=== PATIENT | female | born 1945 | race Caucasian/White ===

== ENCOUNTER 2019-03-13 11:00 | Outpatient (RCR) | payer MEDICARE, OTHER, SELFPAY ==
--- NOTE | 2019-02-21 13:53 | HP.PTEVAL ---
Patient's Visit Information MAGNO ARAGON is a 73 year old F referred to Physical Therapy by Tony Beatty MD with a diagnosis of L hip OA and weakness. Date of Evaluation: 02/07/19 Physical Therapist: Haider Leong DPT - Visit Plan Frequency: 2x /Week Duration: 4-6 Weeks Plan: Start with L hip ROM/strengthening. Add in core stability and functional gait/stability exercises in aquatic setting. - Subjective Findings: Pt. is here today for her initil evaluation with L hip OA and weakness. Pt. reports having symptoms for a few years. pt. reports increased L hip pain and groin pain. Pt. reports increased pain with walking, standing, and stairs. Pt. is sleeping with minimal issues. Pt. has greatest complaint with walking. Pt. denies N/T. Pt. reports they talked about hip replacement, but needs to be stronger first. Pt. does not walk with AD, but has one. Pt. is hopeful to reduce symptoms in order to get back to recreational walking without limitations. - Pain left hip Pain Intensity (Out of 10): 6 L hip Pain Intensity (Out of 10): 5 Pain Intensity Range: 2, 6 - Objective POSTURE: Pt. is able to stand without AD. Pt. has increased R wt. shift wit trunk correction. Pt. is able to improve, but has pain with doing so. PALPATION: Pt. has increased tenderness at greater trochanter and posterior hip. Mild anterior hip soreness. NEURO: Pt. has normal neuro signs throughout. No sensation loss. ROM: L hip- flexion 95 decrease increase NW, abd 30deg increase NW, extension neutral increase NW, ER 45deg increase NW, IR 15deg increase NW. Tight HS bilaterally. MMT: LLE- ankle 5/5 throughout; knee- ext 4+/5, flexion 4/5; hip- flexion 4-/5, abd 4-/5, ext 4/5. Core strength- poor. RLE- ankle/knee 5/5 throughout; hip- 4+/5 throughout. GAIT: Pt. ambulates with out AD, but has increased L lateral lean during L stance phase Pt. has increased lateral hip sway during stance phase. Pt. has increase pain during stance phase. Increased hip circumduction during swing phase. STAIRS: normal ascending with heavy use of HRs to complete. Descends lateral fashion loading RLE only. - Goals Goal 1:: Pt. to be I with HEP. Goal Time Frame: 4-6 Weeks Goal 2:: Pt. to have increased HS length by 25deg in 90/90 positioning. Goal Time Frame: 4-6 Weeks Goal 3:: Pt. to have increased LLE strength by 1/2 grade throughout. Goal Time Frame: 4-6 Weeks Goal 4:: Pt. to ambulate with normal gait pattern with 0-1/10 pain for unlimited distances. Goal Time Frame: 4-6 Weeks Goal 5:: Pt. to negotiate steps with reciprocal pattern with 1 HR with 0-2/10 pain in L hip. Goal Time Frame: 4-6 Weeks - Rehabilitation Potential Physical Therapy Diagnosis: Pt. has signs and symptoms consistent with L hip OA and L hip weakness. Pt. reprots increased pain with increased ROM, greatest wtih flexion, ext and IR. PT. has marked weakness in her L hip as well. Pt. would benefit from PT to increase core and hip strength, increase hip ROM progressing stability and safety with gait and fiunctional monbility. Rehabilitation Potential: Good - Anticipated Interventions Patient/Client Instruction: Educate patient on: Condition, Plan of Care, Risk Factors, Benefits of Fitness Program For the Purpose of:: To improve health and function, To foster healthy habits, To improve decision making, To facilitate caregiver knowledge, To improve self management, To prevent re-injury, To improve ability to perform tasks related to life management, To improve tolerance to ADL's Therapeutic Exercise to Include: Strength training, Power training, Endurance training, Coordination, Postural training, Flexibilty training, Gait and locomotor training, In an aquatic setting, Passive ROM, Active ROM, Dynamic Lumbar Stabilization For the Purpose of:: To decrease pain, To decrease swelling/inflammation, To increase ROM, To improve nutrient delivery to tissue, To increase oxygenation perfusion, To improve muscle performance and motor function, To improve gait and locomotor functions, To improve health of tissue, To decrease soft tissue restriction, To increase flexibility/ROM, To improve endurance, To improve balance, To improve safety with gait Thank you for the opportunity to evaluate your patient. For Medicare and Medicare HMO plans, please review the plan of care and approve it. It will need to be FAXED BACK to us at [phone] for Medicare purposes. For Medicare only, by signing this I certify the plan of care. Please let me know if there are questions or concerns regarding this plan of care. Physician Signature: Date:
== END 2019-03-13 19:00 | disposition home or self-care (01) ==
LOC: PT 11:00
PROVIDERS: Family Provider Internal Medicine; PCP Internal Medicine; Referring Provider Specialist; Visit Provider Specialist
DX: M16.12 Unilateral primary osteoarthritis, left hip (principal); R53.1 Weakness
CPT/HCPCS: 97113; 97161; 97530

== ENCOUNTER 2019-04-12 13:15 | Emergency (ER) | payer MEDICARE, OTHER, SELFPAY ==
[2019-04-10 13:03] VITALS: BMI 39.3
[2019-04-12 13:16] VITALS: BP 155/98; PULSE 91; RESP 18; TEMP 35.3; O2SAT 96; BMI 40.2
--- NOTE | 2019-04-12 14:01 | ED.VIS.GEN ---
History of Present Illness Chief Complaint: Constipation Informant: Patient Onset: Days - 2 days Current Severity: Moderate Maximum Severity: Moderate Narrative: Patient presents with constipation for the past 2 days. She states her last bowel movement was 2 days ago. She does not believe she is passing gas. She is having a lot of cramping. She states she feels stool at her rectum but was not able to pass it. She does not have a chronic history of constipation, stating the last episode that she had was probably 4 years ago. She is scheduled to undergo hip replacement, but is not currently taking any narcotics or strong pain medicines. - Past Medical History (1) GERD (gastroesophageal reflux disease) Status: Chronic (2) CVA (cerebral vascular accident) Status: Chronic (3) Gastric ulcer Status: Chronic (4) Sleep apnea Status: Chronic (5) S/P appendectomy Status: Chronic (6) Hx of cholecystectomy Status: Chronic Past Medical History - Allergies and Home Meds Allergies/Adverse Reactions: Allergies tramadol Allergy (Intermediate, Verified 04/12/19 13:18) Unknown cisapride monohydrate [From Propulsid] Allergy (Verified 04/12/19 13:18) Other PALPITATIONS codeine Allergy (Verified 04/12/19 13:18) Other COUGH Estrogens Allergy (Verified 04/12/19 13:18) Other CRAMPS gabapentin Allergy (Verified 04/12/19 13:18) Other FLU LIKE SYMPTOMS griseofulvin, microsize [From Grifulvin V] Allergy (Verified 04/12/19 13:18) Other HEAD ACHES Sulfa (Sulfonamide Antibiotics) Allergy (Verified 04/12/19 13:18) Other CONVULSIONS atorvastatin Adverse Reaction (Intermediate, Verified 04/12/19 13:18) myalgias biotin forte Allergy (Intermediate, Uncoded 04/12/19 13:18) anxiety ALL FRUIT Allergy (Uncoded 04/12/19 13:18) Other BREAKS MOUTH OUT INTO HORRIBLE SORES Primary Care Physician: Syl Orozco MD [Primary Care Provider] - Prior records reviewed: Yes Surgical History: appendectomy, cholecystectomy, hysterectomy, total hip arthroplasty, total knee arthroplasty, tonsillectomy Smoking Status: Never smoker Review of Systems General: Denies: Chills, Fever Eyes: Denies: Visual changes - bilaterally ENT: Denies: Bilateral ear pain Cardiovascular: Denies: Chest pain Respiratory: Denies: Dyspnea, Cough Gastrointestinal: Reports: Abdominal pain, Constipation Genitourinary: Denies: Dysuria Neurological: Denies: Headache Allergy: Denies: Uticaria Physical Exam Vital Signs/Narrative: Vital Signs Temp Pulse Resp BP Pulse Ox 04/12/19 13:16 95.6 F L 91 18 155/98 H 96 Inital Vital Signs reviewed: Yes General: Well nourished, Well developed Head: Normocephalic ENT: Moist mucous membranes Neck: Supple Cardiovascular: Regular rate, Regular rhythm Respiratory: No distress, CTA bilaterally Abdomen: Soft, Nontender, Normal bowel sounds Rectal: - - Fecal impaction in the rectum Extremities: Nontender Skin: Normal color Neurological: Alert, Oriented x3 Psychological: Normal affect Diagnostic/Tx/Re-eval - Medical Decision Making Patient was mainly disimpacted. Soapsuds enema was performed with good results. She is comfortable with discharge to home at this time. ED Disposition - Plan for ED Patient: Disposition: Home or Assisted Living Diagnosis: Constipation Instructions: CONSTIPATION (Adult) Referrals: Syl Orozco MD [Primary Care Provider] - As Needed
[2019-04-12 15:27] VITALS: RESP 17
== END 2019-04-12 15:27 | disposition home or self-care (01) ==
PROVIDERS: Emergency Provider Emergency Medicine; PCP Internal Medicine; Referring Provider Internal Medicine
DX: K59.00 Constipation, unspecified (principal); K21.9 Gastro-esophageal reflux disease without esophagitis; Z86.73 Personal history of transient ischemic attack (TIA), and cerebral infarction without residual deficits; Z79.899 Other long term (current) drug therapy
CPT/HCPCS: 99284

== ENCOUNTER 2019-04-18 08:00 | Observation (INO) | payer MEDICARE, OTHER, SELFPAY ==
[2019-03-28 14:25] VITALS: BP 153/82; PULSE 82; RESP 16; TEMP 36.2; O2SAT 97; BMI 39.7
--- NOTE | 2019-03-28 14:43 | SDCEKG_ITS ---
Test Reason : Blood Pressure : / mmHG Vent. Rate : 078 BPM Atrial Rate : 078 BPM P-R Int : 156 ms QRS Dur : 082 ms QT Int : 396 ms P-R-T Axes : 012 068 -09 degrees QTc Int : 451 ms Normal sinus rhythm T wave abnormality, consider inferior ischemia Abnormal ECG Confirmed by LUZ ELENA MCCOY, TREV ([id number]), tape editor KAREY ARITA ([id number]) on 03/30/2019 1:17:14 PM Referred By: Tony Beatty Confirmed By:JUDIE LAGUNA MD
[2019-03-28 15:27] LABS: Absolute Lymphocyte Count 1.16 X10^3/uL (0.83-4.51); Absolute Neutrophil Count 3.4 X10^3/uL (2.0-7.7); Basophil# 0.01 X10^3/uL; Basophil% 0.2 % (0-1); Eosinophil# 0.05 X10^3/uL; Hematocrit 41.7 % (37-47); Hemoglobin 13.8 g/dL (12.0-15.0); Lymphocyte # 1.16 X10^3/ul (4.0); Lymphocyte % 22.1 % (19-41); Mean Corp Hgb Conc 33.1 g/dL (32-36); Mean Corpuscular Hgb 33.5 pg (27.0-32.0); Mean Corpuscular Volume 101.2 fL (81-99); Mean Platelet Vol. 11.7 fl (6.2-12.0); Monocyte# 0.61 X10^3/uL; Monocyte% 11.6 % (0-10); NRBC Flagged by Analyzer 0 % (0-5); Neutrophil # 3.42 X10^3/uL (2.7-7.7); Neutrophil % 64.9 % (47-70); Platelet Count 146 K/mm3 (150-450); RBC Distribution Width CV 13.2 % (11.6-14.6); RBC Distribution Width SD 49.1 fl (35.1-43.9); Red Blood Count 4.12 M/mm3 (4.2-5.4); White Blood Count 5.3 K/mm3 (4.4-11.0)
[2019-03-28 16:02] LABS: Anion Gap 6 (5-15); BUN 26 mg/dL (7-18); BUN/Creat Ratio 25.5 RATIO (10-20); Calcium,Total 9.4 mg/dL (8.5-10.1); Chloride 109 mmol/L (98-107); Creatinine, Serum 1.02 mg/dL (0.55-1.02); EST Glomerular Filtration Rate 56 mL/min (>60); Est Glom Filt Rate - Afr Amer 68 mL/min (>60); Estimated Creatinine Clearance 47.77 ml/min; Glucose 97 mg/dL (74-106); Potassium 4.2 mmol/L (3.5-5.1); Sodium Level 142 mmol/L (136-145)
--- NOTE | 2019-03-29 11:44 | PCM.HP.BLA ---
History and Physical History and Physical Patient Name: Sole Rai : 1945 From: PHOEBE BRUNSON PA-C DATE OF SURGERY: 04/18/2019 SCHEDULED PROCEDURE: Left Total Hip Arthroplasty HISTORY OF PRESENT ILLNESS: Preoperative history and physical exam was performed on March 28, 2019. This is a 73-year-old female who has been having ongoing pain in the left hip since August 2018. At that time patient noted a fall. She has pain that reaches high as a 9/10 with activity. Pain is increased with stairs, sitting, walking. Pain has been constant, dull, sharp, stabbing, and sore. Call time with activities of daily living including housework, shopping, and leisure activities such as playing games and sitting. She has tripped slept stumbled secondary to pain. 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 Patient has tried rest, ice, elevation with minimal relief. Patient has also been through physical therapy and home exercises with minimal relief. She has had [address] Rodriguez with temporary relief. She has tried oral medications consisting of Tylenol, [place]. She has been using a cane in the past 4 months. She denies previous surgery on the left hip. After failing conservative measures and discussing treatment options with Dr. Tony Beatty, the patient does wish to proceed with a left total hip arthroplasty. We are getting surgical clearance from the primary care physician Eddie Albert NP. Patient denies chest pain, shortness of breath, fevers chills, recent infections. REVIEW OF SYSTEMS: ROS: Const: Reports change in appetite and weight change, and vision problems, but denies anorexia, anxiety and fever,hard of hearing. CV: Denies chest pain, heart murmur, irregular heartbeat and peripheral vascular disease. Resp: Reports sleep apnea (adrenal symptom), but denies asthma, cough, pneumonia, SOB, tuberculosis and wheezing GI: Denies constipation, diarrhea, heartburn, nausea, bloody stools and vomiting, and difficulty swallowing. : Urinary: denies incontinence. Musculo: Denies leg swelling, trouble walking and weakness, denies limp. Skin: Denies Raynaud's, history of shingles and tattoo. Neuro: Reports numbness/tinglingReports difficulty with balance and dizziness (sometimes) but denies ambulatory dysfunction Psych: Denies anxiety, depression, insomnia, mental illness and stress. Kel/Lymph: Denies anemia, bleeding/bruising tendency and past transfusion. Reviewed, no changes. PAST MEDICAL HISTORY: Advance Care Plan: No Advance Directives Effective Date: 07/07/2015 PMH: Medical Problems: Ulcers - Maybe .... Acid Reflux Chronic Ulcerative Stomatitis, Stroke Accidents: Fracture - Rt shoulder - Slipped on ice 3-4yrs ago Knees - Due to meds taken for the Lichen planks disease, I had 5 1/2 yrs ago RT Femur FX - IN 3 PLACES Surgical Hx: Appendectomy - (1962) [place] Gallbladder - (1998) [facility] Hysterectomy - (1969) x2 - [facility] Tonsillectomy - (1951) [facility]. Section - (1968) & 1971, x2 Hemroidectomy - (1969) x2 - [place] Arthroscopy - (2003) 2005 - [facility] - Knee Replacement - (01/25/2006) BILATERAL, DR. ABREU, [facility] LT Index Finger - X2 LT Middle Finger, RT Index Finger Femur FX - (2011) Bilat Cataracts Anesthesia Complications: None Assistive Devices: Glasses, Dentures Reviewed and updated. SOCIAL HISTORY: SH: Marital: .Occupation: Retired.Work Status: Retired.Hand Dominance: Right-handed. Personal Habits: Smoking: Patient has never smoked.Cigarette Use: Never.Alcohol: Denies use.Drug Use: Denies Use.Enjoy Exercising: Never Exercises. Reviewed, no changes. VITALS: Ht: 67 Wt: 246lb Wt k.586 BMI: 38.5 BP: 124/72 Pulse: 64 Resp: 14 T: 96.3 T: 35.7C ALLERGIES: Sulfa - convulsions Codeine - dry cough Fruit - flare up in mouth Gabapentin MEDICATIONS: Amoxicillin 500 mg 4 by mouth 1 h prior to dental procedure, Fluocinonide 0.05 % topically, Tacrolimus 0.1 % daily, Probiotic 1 cap PO daily, Dexamethasone 0.5 mg/5ml, Multivitamin Adult 1 by mouth every day, Tylenol Extra Strength 500 mg 2 by mouth every 8 hours, Omeprazole 20 mg 1 by mouth every day, Chlorhexidine Gluconate 0.12 % tid 1/2 oz for 30 secs qd PRE-OP EXAM: General appearance:NORMAL Other: Eyes: Conjunctivae and lids: NORMAL Pupils: ERR Ears, Nose, Mouth, and Throat: NORMAL Other: Inspection of lips, teeth and gums: NORMAL Other: Neck: Examination of neck: no masses noted. Respiratory: Assessment of respiratory effort: NORMAL Other: Auscultation of lungs: clear to auscultation no wheezes, rhonchi or rales. Cardiovascular: Auscultation of heart: regular rate and rhythm, no murmurs, gallops or rubs. Exam of carotid arteries: NORMAL Other: Gastrointestinal: Exam of abdomen: soft, nontender, nondistended bowel sounds present. PHYSICAL EXAMINATION: Patient walks with an antalgic gait. Left hip 20 flexion contracture is appreciated. There is tenderness to palpation over the lateral left hip at the greater trochanter. Range of motion: Laboratory external rotation with flexion, flexion 80, neutral internal rotation, external rotation 20. Pain is increased with range of motion of the hip. 4/5 hip strength due to pain. Sedation intact to light touch. IMAGING STUDIES: X-rays of the left hip reveal joint space narrowing with subchondral sclerosis and osteophyte formation consistent with severe osteoarthritis. IMPRESSION: 1. Severe left hip osteoarthritis 2. Gastric esophageal reflux disease 3. Chronic ulcerative stomatitis 4. History of stroke PLAN: Dr. Tony Beatty did discuss and review with the patient all treatment options including surgical versus nonsurgical options. Patient does wish to proceed with the above-stated procedure. Potential risks, benefits, and complications of the procedure were discussed in detail including but not limited to , infection, nerve and blood vessel damage, persistent pain, numbness, tingling, paresthesias, blood clot, pulmonary embolism, and requirement for possible further surgery. The patient expressed full understanding and has no further questions for the doctor. Patient does agree to proceed with the above-stated procedure and has signed the surgery consent form. This dictation was created using voice recognition software. Phonetic and/or grammatical errors may exist. ___ I have re-examined the patient. There are no clinical changes since date of exam. ___ See progress notes for changes. ___ Dictated on admission Date: Time: Signature:
[2019-04-13 17:43] LABS: Albumin, Serum 3.8 g/dL (3.2-5.0)
[2019-04-18] VITALS (11 sets, daily range): BP systolic 93–124; BP diastolic 46–81; PULSE 68–88; RESP 15–18; TEMP 36.3–37.2; O2SAT 97–100; BMI 39.7
[2019-04-18 08:31] LABS: Bedside Glucose 85 mg/dL (70-110)
[2019-04-18] MEDS: Magnesium Sulfate 4gm/100mL 4 GM/100 ML IV.SOLN. IV (08:39)
[2019-04-18] MEDS: Acetaminophen 500 MG Tablet 1000 MG PO ×2 (08:39→22:49)
[2019-04-18] MEDS: Celecoxib 200 MG Capsule 400 MG PO (08:39)
[2019-04-18] MEDS: Lactated Ringers 1,000 ML 100 ML IV (08:54)
[2019-04-18] MEDS: Cefazolin 2 GM in 0.9% Normal Saline 100 ML IV (10:15)
--- NOTE | 2019-04-18 10:57 | RAD_ITS ---
STUDY: X-RAY - PELVIS AND LEFT HIP REASON FOR EXAM: Female, 73 years old. Total ANTERIOR LEFT HIP REPLACEMENT TECHNIQUE: 2 coned-down intraoperative views of the pelvis and hip. COMPARISON: None. FINDINGS: Intraoperative imaging provided for left total hip replacement. RAD/Hip 1 view with Pelvis IMPRESSION: Intraoperative imaging provided for left total anterior hip replacement. There is good alignment. Electronically Signed: Nicolás Obando, at 14:56 EST , Service support ,
[2019-04-18] MEDS: dexAMETHasone 10 MG/ML Vial IV (11:21)
--- NOTE | 2019-04-18 12:01 | PCM.OPRPT ---
Report of Operation Date of Procedure: 04/18/19 Pre-Operative Diagnosis: Left hip primary osteoarthritis Post-Operative Diagnosis: Left hip primary osteoarthritis Surgery/Procedure Performed:: Left minimally invasive direct anterior hip replacement Description of Surgical Findings:: Stable hip with equal leg lengths on radiographs form press operator: Cl Christine Type of Anesthesia:: Spinal Anesthesiologist: Kirk Price Special Medications: 2 g Ancef, 1 g TXA at incision, 1 g TXA closure, 10 mg Decadron, joint cocktail (5 mg Duramorph, 30 mL of 0.5% Ropivicaine, 1000 units of epinephrine, 30 mg of Toradol) Specimen's removed: Bony cuts Estimated Blood Loss (mL): 200 Fluids Replaced: 1100 mL crystalloid Description of Procedure: Components used: 1. Accolade 2 [place] femoral stem size 7 127? 2. [place] trident 2 acetabular shell size 52 mm 3. Kwadwo X3 polyethylene E 4. Kwadwo Biolox delta 36mm, +5mm femoral head Brief history operative indications: 73 yo F who failed conservative measures for their hip osteoarthritis. X-rays were consistent with osteoarthritis including joint space narrowing, osteophyte formation and subchondral cysts. Total hip replacement was discussed with the patient with risks and benefits including but not limited to blood loss, DVTs, PEs, neurovascular damage, dislocation, general risks of anesthesia including loss of life. Patient demonstrated an understanding medical clearance is obtained the patient was consented for surgery. Procedure: On the date of procedure the patient's L hip was marked in the preoperative area. Patient was then taken back to the operating room where anesthesia assumed control of the C-spine and airway and administered anesthetic. Patient was transferred to the operating table and placed in the supine position. The hips were placed at the break of the bed and a sacral bump was placed. The L lower extremity was then prepped out in a sterile fashion using chlorhexidine while the surgeon scrubbed. The PA was vital in the positioning of the patient. Upon reentering the room the L lower extremity was draped in the standard orthopedic fashion and the incision was marked. A timeout was called and everyone agreed upon the side, the site, the procedure be performed, antibody given, and patient's identity. At this time incision was made through skin, subcutaneous tissue, and fat down to fascia. The fascia was then incised and the TFL was retracted laterally. A retractor was placed on the lateral border of the femoral neck. Attention was directed to the inferior portion of the approach and all crossing vessels were identified and appropriately coagulated. A retractor was then placed on the medial portion of the femoral neck. The anterior capsule was then cleared of all soft tissue and then H shaped capsulotomy was made. The retractors were then placed inside the capsule. The femoral neck was identified and a cleanup cut was made. At this time a power corkscrew was used to remove the femoral head. Attention was then turned toward the acetabulum where the soft tissues were appropriately retracted and the acetabulum was sequentially reamed to 52 mm. A 52 mm cup was then selected and impacted into place. Acetabular liner was impacted into place and locking mechanism was verified. The position of the acetabular cup was then verified under live fluoroscopy. Attention was then turned to the femur. Soft tissue releases on the medial and lateral femoral neck were appropriately done, the leg was externally rotated and lateralized. A Santana retractor was placed medially and proximally to the greater trochanter this allowed appropriate visualization and exposure of the femoral canal. Rongeour was then used to remove excess lateral bone. A canal finder and entry broach were used to open the proximal canal. Once we verified we were down the femoral canal we subsequently broached up to a size 7 femur. The appropriate neck was placed in the previously selected head was trialed with a +5 mm neck. Traction was pulled and the hip was reduced with internal rotation. Once it was appropriately reduced and stability was checked. There was minimal shuck, equal leg lengths and appropriate stability with hyperextension and external rotation as well as with 90? flexion and internal rotation. Fluoroscopy was then also used to verify the position of the components and leg lengths using the contralateral side for comparison. The trial components were then dislocated the proximal femur was again exposed and the components were removed from the wound. The final components were verified and opened. The wound was copiously irrigated out with normal saline. The acetabulum was checked for any residual debris. The final components were placed and impacted. Traction and internal rotation were again used to reduce the hip. After adequate reduction the hip remained stable with appropriate leg lengths. The final components were once again checked with live fluoroscopy and were found to be satisfactory. The wound was then copiously irrigated with normal saline once more, and hemostasis was obtained. Closure was then done using #1 Vicryl runner to close the fascia. A 2-0 vicryl interuppted sutures were used to close the subcutaneous skin. A 3-0 Monocryl and Steri-Strips were used for final skin closure. A Silverlon dressing was placed. Patient was awakened by anesthesia and transferred to the [facility]. Patient was then transferred to the PACU for recovery. Postoperative plan: Patient will get 24 hours postop antibiotics. Patient will get in-house physical therapy and will be weight-bear as tolerated. Patient will follow up in office in 2 weeks for a wound check and x-rays. - Complications No intraoperative complications - Admit VTE Documentation VTE Present on Admission: No VTE Mechan Device Prophylaxis: SCD's, Thigh High VIKRAM Hose VTE Pharm Prophylaxis ordered?: Yes
[2019-04-18] MEDS: Lactated Ringers 1,000 ML 999 ML IV (12:44)
[2019-04-18] MEDS: Lactated Ringers 1,000 ML 125 ML IV ×4 (13:14→22:53)
--- NOTE | 2019-04-18 13:20 | RAD_ITS ---
STUDY: X-RAY - PELVIS AND LEFT HIP REASON FOR EXAM: Female, 73 years old. POST OP TOTAL ANTERIOR HIP REPLACEMENT LEFT TECHNIQUE: 2 views of the pelvis and hip. COMPARISON: Comparison is made with prior study done earlier in the day. FINDINGS: The patient is status post left total hip replacement. There is good alignment. Postoperative soft tissue changes. RAD/HIP, UNI W/ Pelvis 2-3 Views IMPRESSION: Status post left hip replacement. There is good alignment. Postoperative soft tissue changes. Electronically Signed: Nicolás Obando, at 14:57 EST , Service support ,
[2019-04-18] MEDS: Ketorolac 15 MG/ML Vial IV (17:11)
[2019-04-18] MEDS: 0.9% Saline Lock 10 ML Syringe IV (17:11)
[2019-04-18] MEDS: Ensure Surgery 237 ML LIQUID PO (17:12)
[2019-04-18] MEDS: Aspirin 81 MG TAB.CHEW PO (17:15)
[2019-04-18] MEDS: Cefazolin 1 GM/50 ML BAG IV (18:19)
[2019-04-18] MEDS: Senna/Docusate Sodium 1 Tablet 2 TABLET PO (22:48)
[2019-04-19] MEDS: Cefazolin 1 GM/50 ML BAG IV (01:17)
[2019-04-19 04:00] VITALS: BP 105/48; PULSE 67; RESP 16; TEMP 36.6; O2SAT 100
[2019-04-19 04:14] VITALS: RESP 16; O2SAT 100
[2019-04-19] MEDS: Acetaminophen 500 MG Tablet 1000 MG PO ×2 (06:20→13:54)
[2019-04-19] MEDS: 0.9% Saline Lock 10 ML Syringe IV (06:22)
[2019-04-19 06:26] LABS: Hematocrit 33.8 % (37-47); Hemoglobin 10.8 g/dL (12.0-15.0); Mean Corpuscular Hgb 32.9 pg (27.0-32.0); Mean Platelet Vol. 11.9 fl (6.2-12.0); POSITIVE COUNT YES; Platelet Count 87 K/mm3 (150-450); RBC Distribution Width SD 48.8 fl (35.1-43.9); Red Blood Count 3.28 M/mm3 (4.2-5.4); White Blood Count 8.7 K/mm3 (4.4-11.0)
[2019-04-19 06:39] LABS: Anion Gap 4 (5-15); BUN 14 mg/dL (7-18); BUN/Creat Ratio 25.2 RATIO (10-20); Calcium,Total 8.4 mg/dL (8.5-10.1); Chloride 112 mmol/L (98-107); Creatinine, Serum 0.56 mg/dL (0.55-1.02); EST Glomerular Filtration Rate 114 mL/min (>60); Est Glom Filt Rate - Afr Amer 138 mL/min (>60); Estimated Creatinine Clearance 48.72 ml/min; Glucose 118 mg/dL (74-106); Potassium 4.5 mmol/L (3.5-5.1); Sodium Level 140 mmol/L (136-145)
--- NOTE | 2019-04-19 08:51 | PN.ORTHO_ITS ---
Subjective: The patient was sitting in bedside chair upon examination. Patient denies any chest pain, shortness of breath, dizziness, lightheadedness, nausea or vomiting, or calf pain. Pain is controlled on medications. No adverse overnight events. Patient is doing very well with regards to her postoperative left hip. Patient has not required any narcotics at this time. Her pain is been controlled on Tylenol. Patient does have outpatient physical therapy established. Objective: Vital signs stable and afebrile. Patient is able to plantarflex and dorsiflex actively. Sensation is intact to light touch to saphenous, sural, superficial and deep peroneal, and tibial distribution. Dressing is clean dry and intact. Negative Homans bilaterally, negative signs and symptoms of DVT. - Physical Exam Vitals/I&O's: Vital Signs Temp Pulse Resp BP Pulse Ox 97.9 F 67 16 105/48 L 100 04/19/19 04:00 04/19/19 04:00 04/19/19 04:14 04/19/19 04:00 04/19/19 04:14 Oxygen Flow Rate (L/min) 2 Oxygen Delivery Method Nasal Cannula Weight: 115.1 kg Body Mass Index (BMI) 39.7 Finger Stick Blood Glucose 66 Intake and Output for Last 24 Hours 04/17/19 04/18/19 04/19/19 23:59 23:59 23:59 Intake Total 4800.83 / 5640.83 Balance 4800.83 / 5640.83 General: Alert, Oriented x3, Cooperative, No apparent distress Laboratory Results 04/19/19 05:44: WBC 8.7, RBC 3.28 L, Hgb 10.8 L, Hct 33.8 L, MCV 103.0 H, MCH 3 2.9 H, MCHC 32.0, RDW Std Deviation 48.8 H, RDW Coeff of Isabela 13.0, Plt Count 87 L, MPV 11.9 04/19/19 05:44: Sodium 140, Potassium 4.5, Chloride 112 H, Carbon Dioxide 24.0, Anion Gap 4 L, BUN 14, Creatinine 0.56, Estim Creat Clear Calc 48.72, Est GFR (MDRD) Af Amer 138, Est GFR (MDRD) Non-Af 114, BUN/Creatinine Ratio 25.2 H, Glucose 118 H, Calcium 8.4 L Current Medications Acetaminophen (Tylenol) 1,000 mg PO Q8 [facility] Last Admin: 04/19/19 06:20 Dose: 1,000 mg Documented by: Aspirin (Aspirin, Baby) 81 mg PO BIDCM [facility] Last Admin: 04/18/19 17:15 Dose: 81 mg Documented by: Enteral Nutritional Formula (Ensure Surgery) 237 ml PO TIDCM [facility] Last Admin: 04/18/19 17:12 Dose: 237 ml Documented by: Famotidine (Pepcid) 20 mg PO DAILY [facility] Ketorolac Tromethamine (Toradol) 15 mg IV Q6H PRN PRN PRN Reason: Pain Score 1-5/10 Stop: 04/19/19 18:01 Last Admin: 04/18/19 17:11 Dose: 15 mg Documented by: [facility]ine Sulfate () 2 - 4 mg IV Q2H PRN PRN PRN Reason: Pain Score 4-10/10 Morphine Sulfate () 2 - 4 mg IV Q2H PRN PRN PRN Reason: Pain Score 4-10/10 Multivitamins (Multivitamin) 1 tablet PO DAILY@0800 [facility] Ondansetron HCl (Zofran) 4 mg IV Q8H PRN PRN PRN Reason: NAUSEA Oxycodone HCl (Oxyir) 2.5 mg PO Q4H PRN PRN PRN Reason: Pain Score 4-10/10 Pantoprazole Sodium (Protonix) 20 mg PO DAILY [facility] Promethazine HCl (Phenergan) 12.5 mg IM Q6H PRN PRN; Protocol PRN Reason: NAUSEA/VOMITING Senna/Docusate Sodium (Senokot-S, Marium-Colace) 2 tablet PO BID [facility] Last Admin: 04/18/19 22:48 Dose: 2 tablet Documented by: Sodium Chloride () 10 - 40 ml IV UD PRN PRN Reason: SALINE FLUSH Last Admin: 04/19/19 06:22 Dose: 10 ml Documented by: Medical Necessity - Tobacco Use Smoking Status: Never smoker Tobacco Use: Non-smoker Assessment/Plan All Active Problems (Last Reviewed 04/10/19 @ 13:58 by Lorena Gross MD) Abnormal EKG (Acute) Preop cardiovascular exam (Acute) 1. S/P direct anterior left total hip arthroplasty POD #1 2. Continue Pain Medications: Tylenol, meloxicam, and OxyIR as needed 3. DVT Prophylaxis: Aspirin 81 mg twice daily for 4 weeks postoperatively 4. PT/OT: Weightbearing as tolerated 5. H & H: 10.8/33.8, asymptomatic 6. Encouraged Incentive Spirometry 7. Disposition: Orthopedically stable, plan will be for discharge home this afternoon if patient tolerates physical therapy and pain is well controlled. Patient does have outpatient physical therapy established. Prescriptions will be E scribed to [facility] pharmacy. Patient will have narcotic placed on chart and only get filled if needed. She will follow-up per postop instructions. I have reviewed the [place] Automated Rx Reporting System (OARRS) report for this patient for refill pattern and other prescriber involvement as part of the appropriate surveillance for the provision of acute and chronic controlled medications. The report was requested and reviewed on the date of this entry and was considered in the prescribing process.
--- NOTE | 2019-04-19 08:59 | DCINST_ITS ---
Discharge Diet: No Restrictions Discharge Activity: May Not Drive - while taking narcotic pain medications. May shower in (days): 1 - Only if dressing is intact to skin. Turned dressing away from water Ice area for (Minutes): 20 - Every 1-2 hours while awake Weight Bearing Status: Weight bearing as tolerated - With walker Elevate: Operative Extremity Additional Activity Instructions:: Wear elastic stockings for 2 weeks. DO NOT use alcohol with narcotic pain medication. DO NOT make important decisions while taking narcotic medication. If you have problems with taking your medication (rash, itching, nausea, etc.) call the office at once. Call your doctor if your incision/area has: Increased Pain/ Swelling, Increased Redness, Foul Smelling Discharge Call your doctor if you observe: Fever of 101 or Higher Remove Dressing in (days):: 4 - Okay to remove dressing on April 23, 2019 Additional Instructions: Follow orthopedic postop instructions Allergies/Adverse Reactions: Allergies tramadol Allergy (Intermediate, Verified 04/18/19 08:22) Unknown cisapride monohydrate [From Propulsid] Allergy (Verified 04/18/19 08:22) Other PALPITATIONS Estrogens Allergy (Verified 04/18/19 08:22) Other CRAMPS griseofulvin, microsize [From Grifulvin V] Allergy (Verified 04/18/19 08:22) Other HEAD ACHES Sulfa (Sulfonamide Antibiotics) Allergy (Verified 04/18/19 08:22) Other CONVULSIONS atorvastatin Adverse Reaction (Intermediate, Verified 04/18/19 08:22) myalgias codeine Adverse Reaction (Verified 04/18/19 08:22) Other COUGH gabapentin Adverse Reaction (Verified 04/18/19 08:22) Other FLU LIKE SYMPTOMS biotin forte Allergy (Intermediate, Uncoded 04/18/19 08:22) anxiety ALL FRUIT Allergy (Uncoded 04/18/19 08:22) Other BREAKS MOUTH OUT INTO HORRIBLE SORES Medications to take at Discharge Multivitamin [Daily Multiple Vitamin] 1 ea PO DAILY 03/28/19 Omeprazole [Prilosec] 20 mg PO DAILY 03/28/19 dexamethasone 0.5 mg/5 mL oral solution 5 ml PO BID PRN ml 04/06/19 fluocinonide-emollient 0.05 % topical cream 1 applic TOPICAL BID PRN g 04/06/19 lactobacillus combination no.8 3 billion cell capsule 3,000 mmu cells PO DAILY 04/06/19 tacrolimus 0.03 % topical ointment 1 applic TOPICAL BID PRN 04/06/19 cholecalciferol (vitamin D3) 400 unit capsule 1,200 unit PO DAILY cap 04/10/19 Acetaminophen [Tylenol] 1,000 mg PO TID 14 Days tablet 04/19/19 Aspirin [Aspirin, Baby] 81 mg PO BIDCM 30 Days #60 tab 04/19/19 Meloxicam [Mobic] 7.5 mg PO BIDCM #60 tab 04/19/19 Oxycodone [Oxyir] 5 mg PO Q4H PRN PRN 4 Days #24 tab 04/19/19 Senna/Docusate Sodium [Senokot-S] 2 tab PO BID #20 tab 04/19/19 The following prescriptions were given: Aspirin [Aspirin, Baby] 81 mg PO BIDCM 30 Days #60 tab Transmission Status: Pending to [id number] Meloxicam [Mobic] 7.5 mg PO BIDCM #60 tab Transmission Status: Pending to [id number] Oxycodone [Oxyir] 5 mg PO Q4H PRN PRN 4 Days #24 tab PRN Reason: Pain Score 4-10/10 Prescription Printed Senna/Docusate Sodium [Senokot-S] 2 tab PO BID #20 tab Transmission Status: Pending to [id number] Primary Care Physician: Syl Orozco MD [Primary Care Provider] - Test Results: Test results from this visit will be discussed in further detail at your follow- up appointment, if applicable. Please Follow Up With: [facility] orthopedic physical therapy When: April 23, 2019 @ 9:00 am Please Follow Up With: Leland Newman PA-C When: 05/02/19 @ 9:00 am
--- NOTE | 2019-04-19 09:35 | CASEMGMT ---
MIKO MCKEON Face to Face with patient for initial transition planning/care coordination assessment. RN MIKE introduced self and role at [facility]. Patient sitting in chair, alert and oriented. Patient willing to participate in assessment and is able to answer all questions appropriately. Care providers, pharmacy, and demographics verified. Patient wishes to discharge home with outpatient therapy setup at [facility]. Patient states she has no further needs or concerns at this time. CM to follow for discharge planning needs that may arise. PCP: Pam Specialists: El[facility] Pharmacy: [facility] Insurance: [facility] Prescription Benefit: yes Living Will/HPOA: none LNOK: daughters Living Arrangements: Patient lives alone in a condo with 1 step to enter the home. Patient independent at home prior to surgery. Transportation: Daughter DME/HHC: Patient has raised toilet with grab bars, walker, and cane. Patient has ASV ventilator for at . Patient is setup for outpatient therapy at [facility] for [facility]. Disposition Plan: Patient to discharge home with outpatient therapy, family support, and follow-up plans in place. Christiane LILLY, RN, CM
[2019-04-19 10:00] VITALS: BP 101/40; PULSE 73; RESP 18; TEMP 37.1; O2SAT 100
[2019-04-19] MEDS: Famotidine 20 MG Tablet PO (10:03)
[2019-04-19] MEDS: Aspirin 81 MG TAB.CHEW PO (10:03)
[2019-04-19] MEDS: Ensure Surgery 237 ML LIQUID PO (10:03)
[2019-04-19] MEDS: Multivitamins,Therapeutic Tablet 1 TABLET PO (10:03)
[2019-04-19] MEDS: Senna/Docusate Sodium 1 Tablet 2 TABLET PO (10:04)
[2019-04-19] MEDS: Pantoprazole Sodium 20 MG Tablet PO (10:04)
[2019-04-19 13:50] VITALS: BP 95/47; PULSE 74; RESP 16; TEMP 36.4; O2SAT 100
[2019-04-19 14:25] VITALS: BP 102/44; PULSE 72
== END 2019-04-19 14:28 | disposition home or self-care (01) ==
LOC: MS3 04-19 07:51 → ACINP 04-19 10:20 → MS3 04-19 10:20
PROVIDERS: Admitting Provider Specialist; Family Provider Internal Medicine; PCP Internal Medicine; Referring Provider Specialist; Visit Provider Specialist
PROC: (CPT 27284; principal; 2019-04-18 09:50)
DX: M16.12 Unilateral primary osteoarthritis, left hip (principal); K21.9 Gastro-esophageal reflux disease without esophagitis; G47.30 Sleep apnea, unspecified; K12.1 Other forms of stomatitis; R94.31 Abnormal electrocardiogram [ECG] [EKG]; Z86.73 Personal history of transient ischemic attack (TIA), and cerebral infarction without residual deficits; Z79.899 Other long term (current) drug therapy
CPT/HCPCS: 01214; 27130; 36415; 73501; 73502; 76000; 80048; 82040; 82962; 85025; 85027; 87081; 93005; 96361; 96365; 96366; 96375; 97110; 97116; 97163; 97166; 97530; 97535; 99218; 99251; C1776; J7120; A4216; G0378; G0379; G0463

== ENCOUNTER → 2020-01-18 13:51 | Outpatient (CLI) | payer MEDICARE, OTHER, SELFPAY ==
[2019-04-18 14:23] VITALS: BMI 39.7
--- NOTE | 2020-01-18 14:13 | MRI_ITS ---
STUDY: MRI LUMBAR SPINE WITHOUT CONTRAST REASON FOR EXAM: Female, 74 years old. pt c/o intermittent L lower back pain into L leg x 1 yr, unable to recall specific injury TECHNIQUE: Standardized fat and water weighted pulse sequences were obtained in the sagittal and axial planes. COMPARISON: None FINDINGS: T12-L1: Small central disc protrusion produces mild spinal stenosis but no neural foraminal stenosis. Normal lumbar lordosis. There is no substantial scoliosis. Normal conus medullaris that terminates at the T12/L1. L1-2: Normal endplates. Normal disc height, hydration and morphology. Normal bilateral facet joints. Normal central canal and bilateral lateral recesses. Normal bilateral intervertebral neural foramina. L2-3: Normal endplates. Normal disc height, hydration and morphology. Normal bilateral facet joints. Normal central canal and bilateral lateral recesses. Normal bilateral intervertebral neural foramina. L3-4: Moderate by lateral facet hypertrophy and ligament flavum hypertrophy. Mild broad disc protrusion produces mild spinal stenosis with mild bilateral lateral recess stenosis and moderate bilateral neural foraminal stenosis with abutment of the exiting L3 nerve roots bilaterally. L4-5: Severe bilateral facet hypertrophy and moderate ligament flavum hypertrophy. 2 mm of anterolisthesis of L4 on L5 with a moderate broad disc protrusion produces moderate spinal stenosis and moderate bilateral neural foraminal stenosis with abutment of the exiting L4 nerve roots bilaterally. L5-S1: Small right paracentral and foraminal protrusion produces mild spinal stenosis with moderate right lateral recess stenosis with abutment of the right S1 nerve root and mild right neural foraminal stenosis. Normal visualized sacral ala. Normal visualized paraspinous soft tissue structures. MRI/Spine Lumbar (Routine) IMPRESSION: Multilevel degenerative changes, as described above. Electronically Signed: Perry Ashley MD at 18:32 EDT Tel , Service support ,
== END ==
PROVIDERS: PCP Internal Medicine; Referring Provider Orthopaedic Surgery; Visit Provider Orthopaedic Surgery
DX: M47.26 Other spondylosis with radiculopathy, lumbar region (principal)
CPT/HCPCS: 72148

== ENCOUNTER → 2020-01-30 09:33 | Outpatient (CLI) | payer MEDICARE, OTHER, SELFPAY ==
[2019-04-18 14:23] VITALS: BMI 39.7
[2020-01-30 11:01] LABS: Anion Gap 3 (5-15); BUN 20 mg/dL (7-18); Calcium,Total 8.5 mg/dL (8.5-10.1); Chloride 108 mmol/L (98-107); EST Glomerular Filtration Rate 74 mL/min (>60); Est Glom Filt Rate - Afr Amer 90 mL/min (>60); Glucose 79 mg/dL (74-106); Potassium 3.9 mmol/L (3.5-5.1); Sodium Level 140 mmol/L (136-145)
== END ==
PROVIDERS: PCP Internal Medicine; Referring Provider Orthopaedic Surgery; Visit Provider Orthopaedic Surgery
DX: M46.1 Sacroiliitis, not elsewhere classified (principal)
CPT/HCPCS: 36415; 80048

== ENCOUNTER → 2020-02-13 | Outpatient (CLI) | payer MEDICARE, OTHER, SELFPAY ==
[2019-04-18 14:23] VITALS: BMI 39.7
[2020-02-13 11:10] LABS: Absolute Lymphocyte Count 0.93 X10^3/uL (0.83-4.51); Absolute Neutrophil Count 2.5 X10^3/uL (2.0-7.7); Basophil# 0.02 X10^3/uL; Basophil% 0.5 % (0-1); Eosinophil# 0.03 X10^3/uL; Eosinophils% 0.8 % (0-5); Hematocrit 43.2 % (37-47); Hemoglobin 13.9 g/dL (12.0-15.0); Lymphocyte # 0.93 X10^3/ul (4.0); Lymphocyte % 24.3 % (19-41); Mean Corp Hgb Conc 32.2 g/dL (32-36); Mean Corpuscular Hgb 32.3 pg (27.0-32.0); Mean Corpuscular Volume 100.5 fL (81-99); Mean Platelet Vol. 11.3 fl (6.2-12.0); Monocyte# 0.36 X10^3/uL; Monocyte% 9.4 % (0-10); NRBC Flagged by Analyzer 0 % (0-5); Neutrophil # 2.47 X10^3/uL (2.7-7.7); Neutrophil % 64.7 % (47-70); Platelet Count 125 K/mm3 (150-450); RBC Distribution Width CV 13.1 % (11.6-14.6); RBC Distribution Width SD 48.2 fl (35.1-43.9); White Blood Count 3.8 K/mm3 (4.4-11.0)
[2020-02-13 11:40] LABS: ALB/GLOB Ratio 1.1 RATIO (0.9-2.4); AST(SGOT) 29 U/L (15-37); Alanine Aminotransfer ALT/SGPT 30 U/L (13-56); Albumin, Serum 3.9 g/dL (3.2-5.0); Alkaline Phosphatase 99 U/L (45-117); Anion Gap 5 (5-15); BUN 18 mg/dL (7-18); BUN/Creat Ratio 22.6 RATIO (10-20); Calcium,Total 8.9 mg/dL (8.5-10.1); Chloride 109 mmol/L (98-107); Cholesterol 159 mg/dL (200); EST Glomerular Filtration Rate 75 mL/min (>60); Est Glom Filt Rate - Afr Amer 91 mL/min (>60); Globulin 3.7 g/dL (2.2-4.2); Glucose 73 mg/dL (74-106); High Density Lipoprotein 58 mg/dL; Potassium 4.4 mmol/L (3.5-5.1); Protein, Total 7.6 g/dL (6.4-8.2); Sodium Level 140 mmol/L (136-145); Triglycerides 78 mg/dL; Very Low Density Lipoprotein 16 mg/dL (5-40)
[2020-02-15 14:35] LABS: Vitamin D,25 Hydroxy 30.7 ng/mL
== END | disposition home or self-care (01) ==
LOC: LAB 09:48
PROVIDERS: PCP Internal Medicine; Referring Provider Internal Medicine; Visit Provider Internal Medicine
DX: Z01.818 Encounter for other preprocedural examination (principal); N25.81 Secondary hyperparathyroidism of renal origin; E78.2 Mixed hyperlipidemia
CPT/HCPCS: 36415; 80053; 80061; 82306; 85025

== ENCOUNTER → 2020-02-15 12:10 | Outpatient (CLI) | payer MEDICARE, OTHER, SELFPAY ==
[2019-04-18 14:23] VITALS: BMI 39.7
--- NOTE | 2020-02-15 12:11 | EKG12_ITS ---
Test Reason : PREOP Blood Pressure : / mmHG Vent. Rate : 074 BPM Atrial Rate : 074 BPM P-R Int : 152 ms QRS Dur : 082 ms QT Int : 380 ms P-R-T Axes : 000 036 -04 degrees QTc Int : 421 ms Normal sinus rhythm Normal ECG Confirmed by KWAN MCCOY, ZABRINA ([id number]), editor book JOCELYN ALCALA ([id number]) on 02/19/2020 9:27:01 AM Referred By: Ede Jorgensen Confirmed By:ZABRINA BOWENS MD
== END ==
PROVIDERS: PCP Internal Medicine; Referring Provider Orthopaedic Surgery; Visit Provider Orthopaedic Surgery
DX: Z01.818 Encounter for other preprocedural examination (principal)
CPT/HCPCS: 93005

== ENCOUNTER → 2020-02-21 06:10 | Outpatient (CLI) | payer MEDICARE, OTHER, SELFPAY ==
[2019-04-18 14:23] VITALS: BMI 39.7
--- NOTE | 2020-02-21 15:11 | STRESSREP ---
Stress Test Report Date: 02/21/2020 Procedure: Pharmacologic stress nuclear imaging study Indications: Shortness of breath, preop evaluation Consent: Per the patient Procedure: The patient underwent pharmacologic (Regadenoson) evaluation with a peak heart rate of 100 beats per minute (68%predicted maximal heart rate) and a peak blood pressure of 144/84 mmHg. The baseline ECG demonstrated normal sinus rhythm. EKG during lexiscan infusion revealed no significant ischemic changes. EKG post infusion revealed no significant ischemic changes [There were no cardiac dysrhythmias pretest, during pharmacologic infusion, or recovery]. [There was no complaint of chest discomfort during pharmacologic infusion or recovery]. The examination was discontinued secondary to completion of protocol. Impression: 1. Lexiscan stress test test is negative for Lexiscan infusion induced EKG changes of ischemia. 2. Lexiscan stress test test is negative for Lexiscan infusion induced chest pain. 3. Results of the nuclear portion of the test is as below Myocardial perfusion imaging study: Technique: The patient was injected with [] millicuries of technetium 99m Cardiolite and subsequently rest SPECT Cardiolite nuclear imaging was obtained in the horizontal long, vertical long, and short axis views. The patient underwent pharmacologic (Regadenoson) evaluation. Please see above for details. The patient was injected with [] millicuries of technetium 99m Cardiolite and subsequently stress SPECT Cardiolite nuclear imaging was obtained in the horizontal long, vertical long, and short axis views. A gated Cardiolite study at peak stress was obtained. Interpretation: Rest and stress SPECT Cardiolite nuclear imaging status post realignment, normalization, and attenuation correction demonstrate normal myocardial radioisotope uptake. Gated images reveal no significant regional wall motion abnormalities. The reported LVEF is greater than 70%. Impression: 1. There is no evidence of significant ischemia or infarction. 2. Estimated ejection fraction is greater than 70%. This note was generated with [employer] software. It may contain incorrect words, spelling, and punctuation that were not noted in checking the note before signing.
== END ==
PROVIDERS: PCP Internal Medicine; Referring Provider Internal Medicine; Visit Provider Internal Medicine
DX: R06.02 Shortness of breath (principal)
CPT/HCPCS: 78452; 93017; A9500; A4216; J2785

== ENCOUNTER 2020-03-18 08:49 | Day surgery (SDC) | payer MEDICARE, OTHER, SELFPAY ==
[2019-04-18 14:23] VITALS: BMI 39.7
[2020-03-18] VITALS (10 sets, daily range): BP systolic 113–133; BP diastolic 59–69; PULSE 61–76; RESP 16–18; TEMP 36.1–36.3; O2SAT 94–100; BMI 42.9
[2020-03-18] MEDS: Lactated Ringers 1,000 ML 100 ML IV ×2 (10:17→15:24)
--- NOTE | 2020-03-18 10:20 | RAD_ITS ---
STUDY: X-RAY - SACROILIAC JOINTS REASON FOR EXAM: Female, 74 years old. LEFT SI JOINT FUSION TECHNIQUE: Single view obtained fluoroscopically at the level of the right SI joint. The radiologist was not present in the room. COMPARISON: None. FINDINGS: Images through the right SI joint reveal 2 traversing screws. There is a right-sided hip prosthesis in place. RAD/S-I Jts 3 or More Views IMPRESSION: Postoperative changes at the level of the right SI joint as described. For details please see operative procedure. Electronically Signed: Ernestina Marin MD at 0:27 EST , Service support ,
[2020-03-18] MEDS: Cefazolin 2 GM in 0.9% Normal Saline 100 ML IV (10:49)
[2020-03-18] MEDS: Bupivacaine 0.25% 30 ML Vial (11:59)
--- NOTE | 2020-03-18 12:08 | DCINST_ITS ---
Discharge Diet: No Restrictions Discharge Activity: Return to Normal Activity, May not drive while taking narcotic pain medications. May resume sexual activity in: No Restrictions Weight Bearing Status: Weight bearing as tolerated Call your doctor if your incision/area has: Continuous Slow Oozing, Sudden Increased Bleeding, Increased Pain/ Swelling, Increased Redness, Foul Smelling Discharge, Swelling at the incision site Call your doctor if you observe: Fever of 101 or Higher, Coldness, Increased Pain, Numbness or Tingling, Change in Color, Inability to urinate, Inability to have a bowel movement, Using more than one pad per hour, Shortness of breath, Dizziness, Fainting spells, Swelling in the ankles, Chest pain, Prolonged hiccoughing, Increased palpitations (irregular heartbeat), Calf discomfort, Uncontrolled pain Change Dressing in (Days):: 1 - daily Cleanse incision/area with: Do not get Incision Wet Allergies/Adverse Reactions: Allergies tramadol Allergy (Intermediate, Verified 03/04/20 10:24) Unknown cisapride monohydrate [From Propulsid] Allergy (Verified 03/04/20 10:24) Other PALPITATIONS Estrogens Allergy (Verified 03/04/20 10:24) Other CRAMPS griseofulvin, microsize [From Grifulvin V] Allergy (Verified 04/18/19 08:22) Other HEAD ACHES Sulfa (Sulfonamide Antibiotics) Allergy (Verified 03/04/20 10:24) Other CONVULSIONS atorvastatin Adverse Reaction (Intermediate, Verified 03/04/20 10:24) myalgias codeine Adverse Reaction (Verified 03/04/20 10:24) Other COUGH gabapentin Adverse Reaction (Verified 03/04/20 10:24) Other FLU LIKE SYMPTOMS biotin forte Allergy (Intermediate, Uncoded 03/04/20 10:24) anxiety ALL FRUIT Allergy (Uncoded 03/04/20 10:24) Other BREAKS MOUTH OUT INTO HORRIBLE SORES Medications to take at Discharge Multivitamin [Daily Multiple Vitamin] 1 ea PO DAILY 03/28/19 Omeprazole [Prilosec] 20 mg PO DAILY 03/28/19 dexamethasone 0.5 mg/5 mL oral solution 5 ml PO BID PRN ml 04/06/19 fluocinonide-emollient 0.05 % topical cream 1 applic TOPICAL BID PRN g 04/06/19 lactobacillus combination no.8 3 billion cell capsule 3,000 mmu cells PO DAILY 04/06/19 tacrolimus 0.03 % topical ointment 1 applic TOPICAL BID PRN 04/06/19 cholecalciferol (vitamin D3) 10 mcg (400 unit) capsule 1,200 unit PO DAILY cap 04/10/19 Chlorhexidine Gluconate [Paroex] 473 ml MM PRN PRN 03/04/20 Primary Care Physician: Syl Orozco MD [Primary Care Provider] - Test Results: Test results from this visit will be discussed in further detail at your follow- up appointment, if applicable. Please Follow Up With: Ede Jorgensen DO - 3 weeks
--- NOTE | 2020-03-18 12:27 | PCM.PN.ORT ---
Subjective: The patient was seen and examined postop in the PACU. She is resting comfortably. Her pain is controlled. She has no complaints Objective: Alert and oriented x3, no acute distress Abdomen soft and nontender Dressing clean dry and intact Extremities neurovascularly intact without focal deficit, no tenderness or edema - Physical Exam Vitals/I&O's: Vital Signs Temp Pulse Resp BP Pulse Ox 97.4 F L 62 16 131/69 H 94 03/18/20 12:10 03/18/20 12:15 03/18/20 12:15 03/18/20 12:15 03/18/20 12:15 Oxygen Delivery Method Room Air Weight: 266 lb Body Mass Index (BMI) 42.9 Finger Stick Blood Glucose 66 Intake and Output for Last 24 Hours 03/16/20 03/17/20 03/18/20 23:59 23:59 23:59 Intake Total 110 / 110 Balance 110 / 110 General: Alert, Oriented x3, Cooperative HEENT: Atraumatic, PERRLA, EOMI Oral: Moist Mucosa Neck: Supple Lungs: Clear to auscultation, Normal air movement Cardiovascular: Regular rate, Regular Rhythm Abdomen: Bowel Sounds Present, Soft, Non Tender Extremities: No edema, Capillary Refill Less than 3 Seconds, No Calf Tenderness, Peripheral Pulses Normal Skin: No rashes, No breakdown Musculoskeletal: No Tenderness to Palpation of Joints or Extremities Neurological: Cranial nerves II-XII grossly intact, Deep Tendon Reflexes 2+/4 and Symmetrical, Neuro grossly intact, Motor Exam 5/5 strength throughout, Sensory exam intact to light touch and pain Psych/Mental Status: Normal Affect, Appropriate Microbiology Past 72 Hours 03/17/20 10:50 Interface Orders SARS-CoV-2 Antigen (Rapid) - Final Current Medications Lactated Ringer's () 1,000 mls @ 100 mls/hr IV .Q10H FABRICE Last Admin: 03/18/20 10:17 Dose: 100 mls/hr Documented by: Medical Necessity - Tobacco Use Smoking Status: Never smoker Tobacco Use: Non-smoker Assessment/Plan All Active Problems (Last Reviewed 04/10/19 @ 13:[address] Lorena Gross MD) Sacroiliac inflammation (Acute) Abnormal EKG (Acute) Preop cardiovascular exam (Acute) Okay to discharge home when criteria met Keep dressing clean dry and intact, change dressing daily with iodine to incision Flatfoot weightbearing on operative extremity until follow-up See discharge instructions given Follow-up in clinic in 3 weeks for suture removal
--- NOTE | 2020-03-19 17:24 | OP.PCM_ITS ---
Problem List (1) Sacroiliac inflammation Status: Acute Report of Operation Date of Procedure: 03/18/20 Pre-Operative Diagnosis: 1. Left SI joint dysfunction. 2. Left Sacroiliitis Post-Operative Diagnosis: 1. Left sacroiliac joint dysfunction. 2. Left sacroiliitis Surgery/Procedure Performed:: 1. Left sacroiliac joint fusion. 2. Instrumentation of the left sacroiliac joint. 3. Structural allograft for fu nikky Description of Surgical Findings:: Statement of medical necessity: The patient is a 74-year-old female with a diagnosis of left sacroiliac joint arthrosis. She did have short-term response to left sacroiliac joint injection. She still has intractable pain. Image studies confirm the above diagnosis. She has failed conservative treatment to include medicine, therapy, and injections. The patient opted for operative intervention, understanding the risks to include, but not limited to, infection, bleeding, damage to nerves, arteries, and veins, possibility of a spinal fluid leak, nonunion, continued pain, need for further surgery, deep vein thrombosis, pulmonary embolism, heart attack, risk of stroke or . Description of procedure: The patient was identified in the preoperative holding area. The patient's identity and surgery site were confirmed by the patient, staff, anesthesia, and the surgeon. She received preoperative antibiotics. She was then transferred to the operative suite. After given the appropriate amount of general endotracheal anesthesia, the patient was transferred to the [place] operating table in the prone position. All bony prominences were padded. The lumbar spine and left hip were prepped and draped in a sterile manner. Using biplanar fluoroscopy, a small incision was made for the working portal about 2 cm in length. To confirm placement, lateral, inlet, and outlet x-ray views were used to place a guidewire across the sacroiliac joint superior to the S1 foramen. The guidewire was then measured and reamed to appropriate size. Under x-ray a 35 mm screw was placed along the guidewire across the joint. The screw was then packed with structural allograft. Next, using the same procedure a second guidewire was placed across the sacroiliac joint inferior to the first screw. A second screw Measuring 30 mm was placed using the same steps. Neuro physiologic monitoring was maintained at baseline throughout the entirety of the case. Deep closure was performed using #1 Vicryl, 2-0 Vicryl for subcutaneous closure, and 2-0 nylon for the skin. A sterile dressing was applied with Adaptic, 4 x 4's, ABD pads, and tape. Sponge, instrument, and needle counts were correct at the end of the case. The patient was extubated and taken to the PACU without incident. Drains: None Estimated Blood Loss (mL): 50 cc Fluids Replaced: 800 cc Grafts/Implants Used: Johanny Screws, Amberly graft - Complications None - Admit VTE Documentation VTE Present on Admission: No VTE Mechan Device Prophylaxis: SCD's, Knee High VIKRAM Hose
== END 2020-03-18 15:55 | disposition home or self-care (01) ==
LOC: SDC 08:50 → AC 08:50
PROVIDERS: PCP Internal Medicine; Referring Provider Orthopaedic Surgery; Visit Provider Orthopaedic Surgery
PROC: (CPT 63030; principal; 2020-03-18 09:50)
DX: M46.1 Sacroiliitis, not elsewhere classified (principal); M47.26 Other spondylosis with radiculopathy, lumbar region; M51.36 Other intervertebral disc degeneration, lumbar region; M48.07 Spinal stenosis, lumbosacral region; K21.9 Gastro-esophageal reflux disease without esophagitis; E66.9 Obesity, unspecified; Z68.41 Body mass index [BMI] 40.0-44.9, adult; Z79.899 Other long term (current) drug therapy; Z20.828 Contact with and (suspected) exposure to other viral communicable diseases; Z86.73 Personal history of transient ischemic attack (TIA), and cerebral infarction without residual deficits
CPT/HCPCS: 01160; 27279; 72202; 76000; 87426; C1713; C9803; J7120; J2405

== ENCOUNTER 2021-02-20 10:30 | Outpatient (RCR) | payer MEDICARE, OTHER, SELFPAY ==
--- NOTE | 2021-01-26 10:20 | HP.PTEVAL_ITS ---
Patient's Visit Information MAGNO ARAGON is a 75 year old F referred to Physical Therapy by Dr. Tony Beatty MD with a diagnosis of Left Knee Pain. Date of Evaluation: 01/26/21 Physical Therapist: Jennifer Delgadillo DPT - Visit Plan Frequency: 2x /Week Duration: 4 Weeks Plan: Aquatic- focus on LE and core strength/stabilization- functional mobility - Subjective Patient reports left knee pain on/off for years. 2008 had bilateral TKR- MD took x-rays and thinks something maybe going on with the prosthetic. He wants her to try water therapy then return to him for possible revision. No problems with the right knee. Also has a total hip replacement and sacral joint fusion on the left side. Pain is located along the lateral aspect of the knee and radiates down to the ankle and up to the hip. Does get at bump on the lateral aspect of the knee and its very painful. Describes the pain as dull and achy- sharp and shooting- it varies. She has some days when she walks without the cane. Worst:09/27 Agg: excess walking (grocery store), stairs both up/ down Eases: Ibuprofen, Tylenol, getting off of it. She does have loss of balance due to buckling of the knee. No Cortisone injections in the knee. Does not have N/T in the toes but does have sharp pains that come and goes. Always keeps her cane around but does also use walking sticks. She lives in a single story home with a single step entry- daughter lives close but does live alone. Sleep: wakes her up, she uses her right leg to pull it over. No loss or change in bowel or bladder. PMhx/Meds: see list - Objective Posture: FH, RS increased kyphosis- can correct but does not maintain. Gait: antalgic- decreased stance on the left LE- poor heel/toe pattern- straight cane in her right hand. Stairs: asc: recip with stopping on each step to put weight through her left leg bilateral HR, Desc: uncontrolled recip with 2 HR. HR/TR: able with significant UE A. SLS: weight shift but unable to SLS. Sensation: WNL to gross touch bilaterally in LE. Palpation: tender along medial and lateral joint line. ROM: 15-115 degrees with pain at end range- more pain with extension. Strength: Ankle: 4+/5, Knee: 4/5 with pain, SLR: required A from therapist- quad set is trace, Abd/Add: 4/5 Core: poor. Flex: HS: moderate, Gastroc: severe - Balance/Special Test Scores Lower Extremity Functional Score: 25 30 Second Chair Rise Test Seconds: 11 - Goals Goal 1:: Patient will be I with HEP and progression Goal Time Frame: 4-6 Weeks Goal 2:: Patient will asc/desc 8 stairs recip with a single hand rail Goal Time Frame: 4-6 Weeks Goal 3:: Patient will ambulate >300 feet with a normalized gait pattern with LRD Goal Time Frame: 4-6 Weeks Goal 4:: Patient will report no more than 4/10 pain with all ADL's Goal Time Frame: 4-6 Weeks - Rehabilitation Potential Physical Therapy Diagnosis: Patient presents with hypomobility- she has decreased ROM, LE and core strength/stabilization, flex and muscular endurance leading to poor posture, abnormal gait and increased pain with ADL's. Rehabilitation Potential: Fair - Anticipated Interventions Patient/Client Instruction: Educate patient on: Benefits of Fitness Program Therapeutic Exercise to Include: Strength training, Endurance training, Balance training, Agility training, Body mechanics, Postural training, Flexibilty training, Gait and locomotor training, Neuromotor development, In an aquatic setting, Dynamic Lumbar Stabilization For the Purpose of:: To improve muscle performance and motor function Thank you for the opportunity to evaluate your patient. For Medicare and Medicare HMO plans, please review the plan of care and approve it. It will need to be FAXED BACK to us at [phone] for Medicare purposes. For Medicare only, by signing this I certify the plan of care. Please let me know if there are questions or concerns regarding this plan of care. Physician Signature: Date:
--- NOTE | 2021-04-20 11:46 | HP.PT.NRP ---
MAGNO ARAGON was seen in my office for initial evaluation on 01/26/21. The following Plan of Care was established for this patient: Initial Frequency: 2x /Week Initial Duration: 4 Weeks Patient/Client Instruction: Educate patient on: Benefits of Fitness Program Therapeutic Exercise to Include: Strength training, Endurance training, Balance training, Agility training, Body mechanics, Postural training, Flexibilty training, Gait and locomotor training, Neuromotor development, In an aquatic setting, Dynamic Lumbar Stabilization For the Purpose of:: To improve muscle performance and motor function This patient was last seen in our office . Pertinent comments regarding their Physical therapy will appear below: Patient has not attended physical therapy in over 30 days- appropriate for d/c and return to MD for further evaluation as needed. At this point I will be discontinuing this patient from physical therapy. I would be happy to see this patient again in the future if found appropriate by the physician. Thank you! Jennifer Delgadillo, TAMIT Balance/Gait/Functional tests - Balance/Special Test Scores Lower Extremity Functional Score: 25 Tug Test: 20-30sec.=variable mobility 30 Second Chair Rise Test Seconds: 11
== END 2021-02-20 19:00 | disposition home or self-care (01) ==
LOC: PT 10:30
PROVIDERS: PCP Internal Medicine; Referring Provider Specialist; Visit Provider Specialist
DX: T84.093D Other mechanical complication of internal left knee prosthesis, subsequent encounter (principal); X58.XXXD Exposure to other specified factors, subsequent encounter; M25.362 Other instability, left knee; M70.52 Other bursitis of knee, left knee
CPT/HCPCS: 97113; 97162

== ENCOUNTER 2022-04-22 16:23 | Outpatient (CLI) | payer MEDICARE, OTHER, SELFPAY ==
[2022-04-22 18:03] LABS: Amphetamine Urine VISTA NEGATIVE (<1000 ng/mL); Barbiturate Urine VISTA NEGATIVE (< 200 ng/mL); Benzodiazepine Urine VISTA NEGATIVE (< 200 ng/mL); Cocaine Urine VISTA NEGATIVE (< 300 ng/mL); Ecstacy Urine VISTA NEGATIVE (< 500 ng/mL); Methadone Urine VISTA NEGATIVE (< 300 ng/mL); PCP Urine VISTA NEGATIVE (< 25 ng/mL); THC Urine VISTA NEGATIVE (< 50 ng/mL); Vista UDS pH Range 5
== END 2022-04-22 23:59 | disposition home or self-care (01) ==
LOC: LAB 16:25
PROVIDERS: PCP Internal Medicine; Visit Provider Internal Medicine Pulmonary Disease
DX: G47.31 Primary central sleep apnea (principal); G47.10 Hypersomnia, unspecified
CPT/HCPCS: 80307

== ENCOUNTER 2024-12-22 03:03 | Emergency (ER) | payer MEDICARE, OTHER, SELFPAY ==
[2024-12-22 03:06] VITALS: BP 128/104; PULSE 75; RESP 16; TEMP 36.9; O2SAT 98; BMI 39.5
--- NOTE | 2024-12-22 03:13 | CT_ITS ---
PROCEDURE: CTA HEAD AND NECK W/ CONTRAST 12/22/2024 REASON FOR EXAM: SUDDEN SEVERE HEADACHE TECHNIQUE: Procedure Code: CTCTA.HDNCK Modality: CT Procedure: CTA HEAD AND NECK W/ CONTRAST Multiplanar Sagittal and Coronal images were obtained. CONTRAST: Isovue 370 VOLUME: 100 mL One or more dose reduction techniques were used (e.g., Automated exposure control, adjustment of the mA and/or kV according to patient size, use of iterative reconstruction technique). RADIATION DOSE SUMMARY: CTDlvol: 14.8 mGy DLP: 623 mGycm COMPARISON: CT scan on 12/22/2024. FINDINGS: Normal bilateral petrous carotid arteries. Calcified atheromatous plaques with mild multifocal stenosis of the right cavernous carotid artery with a normal supraclinoid bifurcation. Calcified atheromatous plaques with mild multifocal stenosis of the left cavernous carotid artery with a normal supraclinoid bifurcation. Normal right A1 segments of the anterior cerebral artery. Normal left A1 segments of the anterior cerebral artery. Normal intact anterior communicating artery (ACOM). Normal bilateral A2 segments of the anterior cerebral arteries. Normal right M1 and M2 segments of the middle cerebral arteries, with a normal M1 bifurcation. Normal left M1 and M2 segments of the middle cerebral arteries, with a normal M1 bifurcation. Normal right posterior communicating artery (PCOM). Normal left posterior communicating artery (PCOM). Normal bilateral vertebral arteries. Normal basilar artery with a normal basilar bifurcation. The visualized bilateral superior cerebellar (SCA) arteries are normal. Normal bilateral P1, P2 and visualized P3 segments of the posterior cerebral arteries. There is no demonstrated aneurysm of the [place]. There is no major vessel occlusion or hemodynamically significant stenosis. There is no demonstrated abnormality of the visualized brain. Technique: Axial CT angiographic images of the neck. Reformatted coronal and sagittal images. 3D, MIP images. Reconstructed images were reviewed on a different workstation by radiologist. RIGHT CAROTID ARTERIES: Normal right common carotid artery (CCA). 20% stenosis of the right common carotid bulb. 20% stenosis of the origin of the right internal carotid (ICA) artery without a hemodynamically significant stenosis. Normal visualized cervical portion of the right internal carotid artery. Normal origin of the right external carotid artery (ECA). LEFT CAROTID ARTERIES: Normal left common carotid artery (CCA). 20% stenosis of the left common carotid bulb. 20% stenosis of the origin of the left internal carotid (ICA) artery without a hemodynamically significant stenosis. Normal visualized cervical portion of the left internal carotid artery. Normal origin of the left external carotid artery (ECA). VERTEBRAL ARTERIES: Normal bilateral vertebral artery without a hemodynamically significant stenosis. CT/CTA Head AND Neck W/ Contrast IMPRESSION: Atherosclerosis without high-grade stenosis. Reading [facility]
--- NOTE | 2024-12-22 03:13 | CT_ITS ---
PROCEDURE: BRAIN/HEAD WITHOUT CONTRAST 12/22/2024 REASON FOR EXAM: SEVERE SUDDEN HEADACHE TECHNIQUE: Procedure Code: CTBR Modality: CT Procedure: BRAIN/HEAD WITHOUT CONTRAST Coronal and Sagittal reconstruction series were provided. One or more dose reduction techniques were used (e.g., Automated exposure control, adjustment of the mA and/or kV according to patient size, use of iterative reconstruction technique. RADIATION DOSE SUMMARY: CTDlvol: 19.72 mGy DLP: 770 mGycm COMPARISON: None. FINDINGS: TECHNIQUE: Axial and reformatted sagittal and coronal images of the brain obtained without IV contrast administration. FINDINGS: Mild diffuse cortical atrophy, commensurate with the patient's age. Scattered hypodense foci in the periventricular and subcortical white matter suggestive of chronic ischemic white matter disease. Normal size of the ventricles and extra-axial spaces for the patient's age. Normal basal ganglia and thalami. Normal brainstem. Normal cerebellum. There is no demonstrated extra-axial, intraparenchymal, or intraventricular hemorrhage. There are no findings of an acute ischemic infarction. Normal calvarium. There is no demonstrated fracture. Normal soft tissue structures. Air-fluid levels are noted in the right maxillary sinus and right ethmoid air cells suggestive of acute sinusitis. Normal remaining visualized paranasal sinuses. CT/Brain/Head without Contrast IMPRESSION: No CT evidence for acute brain abnormality. Air-fluid levels are noted in the right maxillary sinus and right ethmoid air c ells suggestive of acute sinusitis. Reading [facility] [id number]
--- NOTE | 2024-12-22 03:15 | EDS_ITS ---
HPI History of Present Illness Chief Complaint: Headache Informant: patient and EMS Narrative Narrative: Patient is a 79-year-old female with a history of CVA presenting with acute onset right-sided headache and facial pain. - Awoke around 2300 (4 hrs [employer]) with severe pain on the right side of her head and face (retroorbital), extending to the back of her neck. - Initially localized to the right side of her nose, thought she might have a nosebleed, but she did not. - Denies nausea, emesis, vision changes, or recent head trauma. - Recent CVA on November 23, treated with thrombolysis at [facility] in [place], [place]; currently on low-dose aspirin. - Discontinued statin therapy due to bilateral head swelling sensation that she felt was related. - No other significant medical history; not on any other medications. - During CVA, experienced syncope and aphasia. [facility] Medical History (Updated 12/22/24 @ 06:[address] Ben Brambila MD) Abnormal EKG History of stroke Insomnia Gastric ulcer GERD (gastroesophageal reflux disease) Ho's esophagus Preop cardiovascular exam BARON (obstructive sleep apnea) Home Medications ?Medication ?Instructions ?Recorded ?Last Taken ?Type multivitamin 1 ea PO DAILY SUPPLEMENT 11/07 Unknown History omeprazole 20 mg capsule,delayed 20 mg PO DAILY GERD 0 03/28/19 03/18/20 History release 0530 dexamethasone 0.5 mg/5 mL oral 5 ml PO BID PRN Pain Or Fever 04/06/19 Unknown History solution fluocinonide-emollient 0.05 % 1 applic topical BID PRN Pain Or 04/06/19 Unknown History topical cream Fever lactobacillus combination no.8 3 3,000 mmu cells PO DA LUDMILA 04/06/19 Unknown History billion cell capsule (Adult Probiotic) tacrolimus 0.03 % topical ointment 1 applic topical BI D PRN Pain Or 04/06/19 Unknown History (Protopic) Fever cholecalciferol (vitamin D3) 10 1,200 unit PO DAILY Unknown History mcg (400 unit) capsule chlorhexidine gluconate 0.12 % 473 ml MM PRN PRN Mouth Irritation 03/04/20 Unknown History mouthwash hydrocodone-acetaminophen 5-325mg 1 ea PO Q6H PRN PRN Pain Score 03/18/20 Unknown Rx 5mg-325mg 6-10 #30 tabs Allergy/AdvReac Type Severity Reaction Status Date / Time tramadol Allergy Intermediate Unknown Verified 12/22/24 03:05 cisapride monohydrate (From Allergy Other Verified 12/22/24 03:05 Propulsid) Estrogens Allergy Other Verified 12/22/24 03:05 Food Allergies: Uncoded Allergy Other Verified 12/22/24 03:05 griseofulvin, microsize Allergy Other Verified 12/22/24 03:05 (From Grifulvin V) Sulfa (Sulfonamide Allergy Other Verified 12/22/24 03:05 Antibiotics) atorvastatin AdvReac Intermediate myalgias Verified 12/22/24 03:05 biotin AdvReac Intermediate Other Verified 12/22/24 03:05 codeine AdvReac Other Verified 12/22/24 03:05 gabapentin AdvReac Other Verified 12/22/24 03:05 Family History Mother Cancer Hypertension CVA (cerebral vascular accident) Surgical History History of tonsillectomy and adenoidectomy History of oophorectomy History of cholecystectomy History of bilateral knee replacement History of open reduction and internal fixation (ORIF) procedure History of hemorrhoidectomy History of arthroscopy of knee History of hysterectomy History of delivery History of appendectomy Social History Smoking Status: Never smoker alcohol intake: never substance use type: does not use caffeine: Yes Type: carbonated beverages Number of servings: 4 ROS ROS ED Constitutional Constitutional ED: Denies chills or fever(s) Eyes Eyes: Denies blurry vision, change in vision, diplopia or loss of vision ENT ENT ED: Denies rhinorrhea or sore throat Cardiovascular Cardiovascular: Denies chest pain or palpitations Respiratory/Chest Respiratory/Chest: Denies cough or dyspnea Gastrointestinal Gastrointestinal: Denies abdominal pain, diarrhea, nausea or vomiting Genitourinary Genitourinary ED: Denies dysuria or hematuria Musculoskeletal Musculoskeletal: Denies back pain or neck pain Integumentary Denies abscess or rash Neurologic Neurologic: Reports headache(s); Denies abnormal gait, abnormal hearing, a bnormal movements, abnormal speech, dizziness, paresthesias or weakness Psychiatric Psychiatric: Denies suicidal thoughts EXAM Physical Exam Const Vital Signs: 12/22/24 03:06 12/22/24 05:02 Temperature 98.4 F Temperature Source Oral Pulse Rate 75 69 Respiratory Rate 16 16 Blood Pressure 128/104 H 132/72 H Blood Pressure Mean 112 92 Pulse Ox 98 99 Oxygen Delivery Method Room Air Room Air Positive well nourished and well developed General Appearance ED: well developed and NAD HEENT Reports moist mucous membranes HEENT Narrative: No sinus tenderness. No nasal tenderness. No facial swelling or asymmetry, her face is normal-appearing. No tenderness in the jainism and no palpable cord. Patient states the headache is not focused in this area and palpating her jainism actually feels good. normocephalic and atraumatic Eyes PERRL and EOMs intact bilaterally Neck full ROM, no lymphadenopathy, supple and no meningeal signs General: Negative for tenderness Resp normal respiratory effort and clear to auscultation bilaterally Cardio regular rate, regular rhythm and no murmurs GI non-tender and non-distended Auscultation: normoactive bowel sounds Palpation: soft Back/Spine no CVA tenderness General Back: other FROM Extremity normal to inspection General Extremety ED: Negative for edema, pulses abnormal or tenderness General Extremity: Negative for edema or pulses abnormal Neuro oriented x3, CN's II-XII intact bilaterally and no sensory deficits noted Bullock Coma Scale: document GCS findings Spontaneous Obeys Commands Oriented 15 Sensorium / Orientation: awake and alert Motor Exam: strength 5/5 throughout Psych mental status grossly normal Skin no rashes or lesions noted and no wounds MDM MDM MDM Narrative Medical decision making narrative: Assessment: The patient is a 79-year-old female with PMH of prior ischemic stroke on 11/23 and remote 2012 ?mini-stroke? presenting for acute right-sided headache and facial pain that woke her from sleep. Neurologic exam in ED shows no focal deficits; strength, sensation, speech, and extra-ocular movements intact. Non-contrast head CT and CT angiogram show no intracranial hemorrhage, no aneurysm, and no critical vascular stenosis, effectively ruling out acute aneurysm or subarachnoid hemorrhage. Incidental fluid in the right maxillary sinus could account for symptoms, making sinus-related headache the most likely etiology. Since she does not have tenderness in the sinus or recent symptoms of sinusitis I do not think antibiotics are indicated here. Plan: - Provided ED analgesia (unspecified) and patient reports partial improvement. - Discussed [id number] Afrin nasal spray technique and option for Flonase for ongoing symptoms; advised Tylenol acceptable with baby aspirin, avoid ibuprofen. - No antibiotics indicated; no further emergent work-up required. - Discharged home in stable condition with return precautions and follow-up per outpatient EEG already scheduled. Diagnostics: - Non-contrast CT head: no acute bleed, no mass effect. - CT angiogram head/neck: no aneurysm, no critical stenosis; minor plaques only. - Basic blood work: within normal limits (details not specified). Reevaluations: - Patient re-evaluated after imaging; reports pain improved but persistent, neurologically unchanged. Diagnoses: Headache; Personal history of transient ischemic attack (TIA), and cerebral infarction without residual deficits Lab Data Attestation: I reviewed the patient's lab results. Labs: Laboratory Results - last 24 hr 12/22/24 03:16 WBC 5.6 RBC 3.79 L Hgb 12.8 Hct 38.1 MCV 100.5 H MCH 33.8 H MCHC 33.6 RDW Std Deviation 47.8 H RDW Coeff of [place] 13.0 Plt Count 120 L MPV 11.2 Immature Gran % (Auto) 0.400 Neut % (Auto) 66.6 Lymph % (Auto) 19.3 [place] % (Auto) 11.2 H Eos % (Auto) 2.0 Baso % (Auto) 0.5 Absolute Neuts (auto) 3.8 Absolute Lymphs (auto) 1.09 Nucleated RBC % 0 Sodium 138 Potassium 4.3 Chloride 105 Carbon Dioxide 23.1 Anion Gap 10 BUN 17 Creatinine 0.70 Estim Creat Clear Calc 77.00 Est GFR (MDRD) Non-Af 88 BUN/Creatinine Ratio 23.9 H Glucose 101 H Calcium 8.7 Radiography Diagnostic Testing: Clinical Impression(s) from Imaging Studies Brain CT 12/22/24 03:13 IMPRESSION: No CT evidence for acute brain abnormality. Air-fluid levels are noted in the right maxillary sinus and right ethmoid air cells suggestive of acute sinusitis. Reading Location: [id number] Head/Neck CTA 12/22/24 03:13 IMPRESSION: Atherosclerosis without high-grade stenosis. Reading Location: [place] [address] head and CTA head and neck imaging as well as the report which I agree with. Discharge Plan Triage Chief Complaint: Headache ED Provider: Ben Brambila Dx/Rx/DC Orders Clinical Impression: Acute headache, Personal history of transient ischemic attack (TIA), and cerebral infarction without residual deficits Instructions: ED Sinus Headache Prescriptions: No Action cholecalciferol (vitamin D3) 400 unit capsule 1,200 unit PO DAILY Adult Probiotic 3 billion cell capsule 3,000 mmu cells PO DAILY Rx Instructions: administer with a meal tacrolimus [Protopic] 0.03 % ointment 1 applic TOPICAL BID PRN (Reason: Pain Or Fever) multivitamin 1 EACH tablet 1 ea PO DAILY omeprazole 20 MG capsule 20 mg PO DAILY dexamethasone 0.5 mg/5 mL solution 5 ml PO BID PRN (Reason: Pain Or Fever) fluocinonide-emollient 0.05 % cream 1 applic TOPICAL BID PRN (Reason: Pain Or Fever) chlorhexidine gluconate 473 ML mouthwash 473 ml MM PRN PRN (Reason: Mouth Irritation) hydrocodone-acetaminophen 1 EACH tablet 1 ea PO Q6H PRN PRN (Reason: Pain Score 6-10) Qty: 30 0RF Primary Care Provider: SEBASTIAN YIN Referrals: Syl Orozco MD [Med Staff - Project Engineering Director, Internal Medicine] - 3-5 Days if not improving Activity Restrictions/Additional Instructions: - Continue your daily baby aspirin as prescribed. - For headache pain, take acetaminophen (Tylenol) as needed; avoid ibuprofen. - To relieve possible sinus-related headache: - Use Afrin nasal spray with two sprays in your right nostril, wait 15?20 minutes, then gently blow to help open and drain the sinus. - If symptoms persist, you may start Flonase nasal spray for ongoing relief (it may take about a week to notice improvement). - Your head CT and CT angiogram showed no bleeding, aneurysm, or dangerous vessel blockage. - Blood tests were normal. Print Language: [place] Disposition Disposition: Home, Self Care
[2024-12-22 03:26] LABS: Hematocrit 38.1 % (37-47); Hemoglobin 12.8 g/dL (12.0-15.0); Immature Granulocytes Count 0.020 X10^3/uL (0.0-0.0); Mean Corp Hgb Conc 33.6 g/dL (32-36); Mean Corpuscular Volume 100.5 fL (81-99); Mean Platelet Vol. 11.2 fl (6.2-12.0); NRBC Flagged by Analyzer 0 % (0-5); Platelet Count 120 K/mm3 (150-450); RBC Distribution Width CV 13.0 % (11.6-14.6); RBC Distribution Width SD 47.8 fl (35.1-43.9); Red Blood Count 3.79 M/mm3 (4.2-5.4); White Blood Count 5.6 K/mm3 (4.4-11.0)
--- OUTSIDE RECORDS SUMMARY | 2024-12-22 03:35 | XMS RPT_ITS | CCD ---
Author Organization [facility] Care Team Providers Care Mammography Tech Name Role Phone Selena, Javed Unavailable Unavailable Jenny, Hayley Unavailable Unavailable Jenny, Hayley Unavailable Unavailable Walters, Javed Unavailable Unavailable Jenny, Hayley Unavailable Unavailable Jenny, Hayley Unavailable Unavailable Maxwell Rueda MD Primary Care Provider Maxwell Rueda MD Primary Care Provider Drea Novak Referring Unavailable John Aguirre V Attending Unavailable Maxwell Rueda Primary Care Unavailable Maxwell Rueda MD Primary Care Provider Older FAMILY SERVICE AIDE.COMPUTATIONAL SCIENCES PROFESSOR, Taylor Unavailable MAYNOR DE LA GARZA Attending Unavailable ALINA RIZO Attending Unavailable HOMAR MEZA Attending Unavailable DOCTOR, NO FAMILY Primary Care Unavailable ABHAY HAYES Referring Unavailable PAULINA SADLER Admitting Unavailable ALLEJose, HAIDER Attending Unavailable ИРИНА, NILES Primary Care Unavailable Older FAMILY SERVICE AIDE.Taylor ESQUIVEL Primary Care Provider SETRACEE ZAMANEYOUNRaphael Referring Unavailable OLDER, TAYLOR Primary Care Unavailable TRACEE ORTEZEYERING Attending Unavailable OLDER, TAYLOR Primary Care Unavailable OLDER, TAYLOR Referring Unavailable GANTA, MAXWELL Primary Care Unavailable OLDER, TAYLOR Attending Unavailable SELF Referring Unavailable Allergies Allergy Classification Reported Allergen(s) Allergy Type Date of Onset Reaction(s) Facility (12 sources) atorvastatin Drug Allergy 3 Intolerance [facility] (17 sources) Codeine; Translations: [CODEINE] Drug Allergy 4 Cough [facility] Work Phone: (16 sources) Estrogens; Translations: [ESTROGENS] Drug Allergy 8 Other: See Comments [facility] (16 sources) Fruit; Translations: [FRUIT EXTRACTS] Drug Allergy 5 Swelling [facility] (16 sources) Griseofulvin; Translations: [GRISEOFULVIN MICROSIZE] Drug Allergy 2 Other: See Comments [facility] (16 sources) Sulfonamides (Antibiotic); Translations: [SULFA (SULFONAMIDE ANTIBIOTICS)] Propensity to adverse reactions 4 [facility] Work Phone: (17 sources) traMADol; Translations: [TRAMADOL] Drug Allergy 5 Unknown [facility] Work Phone: (16 sources) Biotin-Folic Acid-B Compc-Zinc; Translations: [BIOTIN-FOLIC ACID-B COMPC-ZINC] Propensity to adverse reactions 5 [facility] Work Phone: (1 source) Biotin Drug Allergy 2 Other [facility] (2 sources) Cisapride; Translations: [cisapride monohydrate] Drug Allergy 0 Other [facility] (1 source) Estrogens Drug Allergy 0 Other [facility] (1 source) Fruit Allergy to substance 0 Other [facility] (1 source) gabapentin Drug Allergy 0 Other [facility] (2 sources) Griseofulvin; Translations: [griseofulvin, microsize] Drug Allergy 0 Other [facility] (1 source) Sulfonamides (Antibiotic) Allergy to substance 0 Other [facility] (1 source) atorvastatin Drug Allergy 0 [facility] (1 source) Biotin Drug Allergy 2 [facility] (1 source) Codeine Drug Allergy 0 [facility] (1 source) Estrogens Drug Allergy 0 [facility] (1 source) gabapentin Drug Allergy 0 [facility] (2 sources) Sulfonamides (Antibiotic) Drug allergy (disorder) 0 [facility] (1 source) traMADol Drug Allergy 0 [facility] (1 source) Food Allergies: Uncoded; Translations: [Food Allergies: Uncoded] Food allergy (disorder) 3 [facility] Medications Current Medications Medication Drug Class(es) Dates Sig (Normalized) Sig (Original) acetaminophen 325 mg / HYDROcodone bitartrate 5 mg oral tablet (1 source) Opioid Agonist Start: 03-18-2020 Hydrocodone-Acetamin ophen Active 1 EACH PO EVERY 6 HOURS NEEDED March 18, 2020 amoxicillin 875 mg / clavulanate 125 mg oral tablet (1 source) Penicillin-class Antibacterial Start: 07-08-2022 End: 07-18-2022 take 1 tablet by mouth twice daily amoxicillin-clavulan ic acid (AUGMENTIN) 875-125 mg per tablet Take 1 tablet by mouth twice daily for 10 days. 20 tablet 0 07/08/2022 07/18/2022 Active Comment on above: Take 1 tablet by april twice daily for 10 days. atorvastatin 40 mg oral tablet (5 sources) HMG-CoA Reductase Inhibitor Start: 11-28-2024 End: 11-28-2024 take 1 tablet by mouth once daily atorvastatin (LIPITOR) 40 mg tablet Take 1 tablet by mouth once daily. 90 tablet 1 11/28/2024 Active benzonatate 100 mg oral capsule (2 sources) Non-narcotic Antitussive Start: 07-02-2022 End: 07-09-2022 take 1 capsule by mouth every eight hours as needed for cough and cough benzonatate (TESSALON PERLES) 100 mg capsule Indications: Acute cough Take 1 capsule by mouth three times daily as needed for cough for up to 7 days. 21 capsule 0 07/02/2022 07/09/2022 Active Comment on above: Take 1 capsule by mo [facility] three times daily as needed for cough for up to 7 days. biotin 1 mg oral tablet (10 sources) take 1 tablet by mouth once daily Biotin 1 mg tab Take 1 tablet by mouth once daily. Active chlorhexidine gluconate 1.2 mg/ml mouthwash (1 source) Start: 03-04-2020 Chlorhexidine Gluconate Active 473 ML MM NEEDED March 04, 2020 12:00am cholecalciferol 0.01 mg oral capsule (1 source) Vitamin D Start: 04-10-2019 take 1200 [IU] by mouth once daily Cholecalciferol (Vitamin D3) Active 1200 UNIT PO DAILY April 10, 2019 12:00am COMPOUNDED PRESCRIPTION (15 sources) Start: 06-24-2017 COMPOUNDED PRESCRIPTION BIPAP machine service check. 1 Each 06/24/2017 Active Start: 06-24-2017 COMPOUNDED PRE SCRIPTION BIPAP machine service check. 1 Each 0 06/24/2017 Active Comment on above: BIPAP machine servic e check. CPAP (15 sources) Start: 06-24-2017 CPAP Mask (per patient preference) optional chin strap (if indicated), filters, tubing / heated tubing, heated humidity and lifetime supplies. Dx. BARON G47.33 327.23 1 Device 06/24/2017 Active Start: 06-24-2017 CPAP Mask (per patient preference) optional chin strap (if indicated), filters, tubing / heated tubing, heated humidity and lifetime supplies. Dx. BARON G47.33 327.23 1 Device 0 06/24/2017 Active Comment on above: Mask (per patient pr eference) optional chin strap (if indicated), filters, tubing / heated tubing, heated humidity and lifetime supplies. Dx. BARON G47.33 327.23 cyanocobalamin, vitamin B-12, (VITAMIN B-12 ORAL) (8 sources) cyanocobalamin, vitamin B-12, (VITAMIN B-12 ORAL) Take by mouth. Active cyanocobalamin, vitamin B-12, (VITAMIN B-12 ORAL) Take by mouth. 0 Active dexamethasone 0.1 mg/ml oral solution (2 sources) Corticosteroid Start: 04-06-2019 take 1 mL by mouth twice daily Dexamethasone Active 5 ML PO TWICE A DAY April 06, 2019 12:05pm Start: 03-28-2019 End: 04-06-2019 Dexamethasone Discontinued 1 ML PO NEEDED March 28, 2019 12:00am April 06, 2019 12:08pm emollient fluocinonide 0.5 mg/ml topical cream (4 sources) Corticosteroid Start: 04-06-2019 Fluocinonide-E mollient Active 1 APPLIC TOPICAL TWICE A DAY April 06, 2019 12:06pm Start: 03-28-2019 End: 04-06-2019 Fluocinonide-Emollient Disco ntinued 15 GM TP NEEDED March 28, 2019 12:00am April 06, 2019 12:08pm Start: 03-23-2019 End: 03-03-2022 fluocinonide (LIDEX) 0.05 % ointment Apply 1 application to affected area twice daily. 03/23/2019 03/03/2022 Discontinued (Discontinued by Patient) Comment on above: Apply 1 application to affected area twice daily. Inhalational Spacing Device (1 source) Start: 07-03-19 End: 07-03-19 Inhalational Spacing Device 1 Device one time only for 1 dose. 1 Each 0 07/02/2022 07/02/2022 Active Comment on above: 1 Device one time on ly for 1 dose. lactobacillus acidophilus [id number] unt oral capsule (15 sources) Start: 04-11-19 16 take 1 capsule by mouth once daily Lactobacillus acidophilus 10 billion cell cap Take 1 capsule by mouth once daily. 0 04/11/2015 Active Comment on above: Take 1 capsule by mo ut once daily. Lactobacillus Combination No.8 (Adult Probiotic) 3 billion cell capsule (1 source) Start: 04-06-19 20 take 3 capsules by mouth once daily Lactobacillus Combination No.8 (Adult Probiotic) 3 billion cell capsule Active 3000 MMU CELLS PO DAILY April 06, 2019 12:00am administer with a meal Multivitamin capsule (15 sources) take 1 capsule by mouth once daily Multivitamin capsule Take 1 capsule by mouth once daily. Active take 1 capsule by mouth once katy ly Multivitamin capsule Take 1 capsule by mouth once daily. 0 Active Comment on above: Take 1 capsule by mo ut once daily. Multivitamin preparation (1 source) Start: 03-28-2019 Multivitamin Active 1 EACH PO DAILY March 28, 2019 12:00am mv-mn/iron/folic acid/herb 190 (VITAMIN D3 COMPLETE ORAL) (8 sources) mv-mn/iron/folic acid/herb 190 (VITAMIN D3 COMPLETE ORAL) Take by mouth. Active mv-mn/iron/folic acid/herb 190 (VITAMIN D3 COMPLETE ORAL) Take by mouth. 0 Active nitrofurantoin, macrocrystals 25 mg / nitrofurantoin, monohydrate 75 mg oral capsule (1 source) Nitrofuran Antibacterial Start: 08-02-2023 End: 08-09-2023 take 1 capsule by mouth twice daily at mealtime nitrofurantoin monohydrate and macrocrystal (MACROBID) 100 mg capsule Take 1 capsule by mouth two times a day with meals for 7 days. 14 capsule 0 08/02/2023 08/09/2023 Active omeprazole 20 mg delayed release oral capsule (8 sources) Proton Pump Inhibitor Start: 03-28-2019 take 20 mg by mouth once daily Omeprazole Active 20 MG PO DAILY March 28, 2019 12:00am End: 08-22-2023 take 1 tablet by mouth once daily Omeprazole Magnesium (PRILOSEC OTC) 20 mg tablet Take 20 mg by mouth once daily. 08/22/2023 Discontinued (Discontinued by Patient) Comment on above: Take 20 mg by mouth once daily. tacrolimus 0.0003 mg/mg topical ointment (1 source) Calcineurin Inhibitor Immunosuppressant Start: 04-06-2019 Tacrolimus (Protopic) 0.03 % ointment Active 1 APPLIC TOPICAL TWICE A DAY April 06, 2019 12:00am Completed/Discontinued Medications Medication Drug Class(es) Dates Sig (Normalized) Sig (Original) acetaminophen 500 mg oral tablet (2 sources) Start: 04-19-2019 End: 05-03-2019 take 3000 mg by mouth three times daily Acetaminophen Discontinued 1000 MG PO THREE TIMES A DAY April 19, 2019 12:00am May 03, 2019 12:07am Do not take more than 3000 mg Tylenol in a 24-hour period Start: 03-28-2019 End: 04-19-2019 take 500-1000 mg by mouth every six hours as needed Acetaminophen Discontinued 500 - 1000 MG PO EVERY 6 HOURS NEEDED March 28, 2019 12:00am April 19, 2019 8:57am [id number] 200 actuat albuterol 0.09 mg/actuat metered dose inhaler (4 sources) beta2-Adrenergic Agonist Start: 07-02-2022 End: 08-22-2023 take 2 puff(s) by inhalation every six hours as needed for wheezing albuterol HFA (PROVENTIL HFA, VENTOLIN HFA) 90 mcg/actuation inhaler Indications: Acute cough Inhale 2 Puffs as instructed every 6 hours as needed for wheezing/shortness of breath. 1 Each 0 07/02/2022 08/22/2023 Discontinued (Discontinued by Patient) Comment on above: Inhale 2 Puffs as instructed every 6 shar rs as needed for wheezing/shortness of breath. aspirin 81 mg chewable tablet (5 sources) Platelet Aggregation Inhibitor, Nonsteroidal Anti-inflammatory Drug Start: 04-19-2019 End: 05-19-2019 take 81 mg by mouth twice daily at mealtime Aspirin Discontinued 81 MG PO TWICE DAILY WITH MEALS 60 April 19, 2019 12:00am May 19, 2019 12:09am Take 81 mg aspirin twice daily for 4 weeks postoperatively for DVT prophylaxis Aspirin 81 mg ta b Take 81 mg by mouth. Active cholecalciferol, vitamin D3, (VITAMIN D3 ORAL) (1 source) take 2000 [IU] by mouth once daily cholecalciferol, vitamin D3, (VITAMIN D3 ORAL) Take 2,000 Units by mouth once daily. 0 Active Comment on above: Take 2,000 Units by mouth once daily. fluticasone propionate 0.05 mg/actuat metered dose nasal spray (3 sources) Corticosteroid Start: End: take 2 spray(s) by mouth once daily fluticasone (FLONASE) 50 mcg/actuation nasal spray Use 2 Sprays in each nostril once daily. Rinse mouth after use. 1 Each 3 07/08/2022 08/22/2023 Discontinued (Discontinued by Patient) Comment on above: Use 2 Sprays in each nostril once daily. Rinse mouth after use. loratadine 10 mg oral tablet (4 sources) Start: End: take 1 tablet by mouth once daily loratadine (CLARITIN) 10 mg tablet Indications: Congestion of throat Take 1 tablet by mouth once daily. 30 tablet 11 07/02/2022 08/22/2023 Discontinued (Discontinued by Patient) Comment on above: Take 1 tablet by [facility] once daily. magnesium oxide 400 mg oral tablet (1 source) take 1 tablet by mouth once daily magnesium oxide 400 mg magnesium tab Take 400 mg by mouth once daily. 0 Active Comment on above: Take 400 mg by mouth once daily. oxyCODONE hydrochloride 5 mg oral tablet (1 source) Opioid Agonist Start: End: take 5 mg by mouth every four hours as needed Oxycodone Discontinued 5 MG PO EVERY 4 HOURS NEEDED 24 April 19, 2019 April 23, 2019 12:08am raloxifene hydrochloride 60 mg oral tablet (1 source) Estrogen Agonist/Antagonist Start: End: Raloxifene (Evista) 60 MG tablet Discontinued 60 MG PO January 26, 2013 12:00am January 26, 2013 10:29am Tacrolimus-[employer] (1 source) Start: End: Tacrolimus-[employer] Discontinued 30 GM TP NEEDED March 28, 2019 12:00am April 06, 2019 12:08pm Problems Active Problems Problem Classification Problem Date Documented Date Episodic/Chronic Acute cerebrovascular disease (20 sources) Cerebral infarction; Translations: [Cerebral infarction, unspecified] Onset: 3 11-28-2017 Chronic Esophageal disorders (20 sources) Gastroesophageal reflux disease; Translations: [Gastro-esophageal reflux disease without esophagitis] Onset: 9 01-02-2009 Chronic Gastroduodenal ulcer (except hemorrhage) (16 sources) Gastric ulcer; Translations: [Gastric ulcer, unspecified as acute or chronic, without hemorrhage or perforation] Onset: 9 07-07-2016 Chronic Malaise and fatigue (16 sources) Malaise and fatigue; Translations: [Other malaise] 12-03-2004 Episodic Nutritional deficiencies (15 sources) Vitamin D deficiency; Translations: [Vitamin D deficiency, unspecified] Onset: 0 03-16-2021 Chronic Osteoarthritis (15 sources) Localized, primary osteoarthritis; Translations: [Unilateral primary osteoarthritis, unspecified knee] Onset: 6 01-07-2006 Chronic Osteoporosis (16 sources) Osteoporosis; Translations: [Age-related osteoporosis without current pathological fracture] Onset: 9 04-07-2011 Chronic Other aftercare (1 source) Patient encounter status; Translations: [Other residential (current) drug therapy] 11-28-2024 Episodic Other aftercare (1 source) Other residential (current) drug therapy; Translations: [Medication management] Onset: Episodic Other circulatory disease (1 source) History of ischemic stroke without residual deficits; Translations: [Personal history of transient ischemic attack (TIA), and cerebral infarction without residual deficits] 12-03-2024 Episodic Other circulatory disease (1 source) Personal history of transient ischemic attack (TIA), and cerebral infarction without residual deficits; Translations: [History of ischemic stroke without residual deficits] Onset: 5 Episodic Other congenital anomalies (15 sources) Congenital pes planus; Translations: [Congenital pes planus, unspecified foot] Onset: 8 08-08-2007 Chronic Other connective tissue disease (15 sources) Muscle pain; Translations: [Myalgia and myositis, unspecified] 12-03-2004 Episodic Other connective tissue disease (2 sources) Transient neurological symptoms; Translations: [Other symptoms and signs involving the nervous system] 12-03-2024 Episodic Other connective tissue disease (1 source) Other symptoms and signs involving the nervous system; Translations: [Transient neurological symptoms] Onset: 5 Episodic Other diseases of kidney and ureters (15 sources) Secondary hyperparathyroidism; Translations: [Secondary hyperparathyroidism of renal origin] Onset: 2 10-06-2011 Chronic Other endocrine disorders (20 sources) Adrenal cortical hypofunction; 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] Onset: 6 Resolved: 8 01-26-2008 Chronic Other gastrointestinal disorders (1 source) Constipation; Translations: [Constipation, unspecified] 04-13-2019 Episodic Other gastrointestinal disorders (1 source) Dysphagia; Translations: [Dysphagia, unspecified] 11-28-2024 Episodic Other gastrointestinal disorders (1 source) Dysphagia, unspecified; Translations: [Dysphagia, unspecified type] Onset: 5 Episodic Other lower respiratory disease (1 source) Cough; Translations: [Acute cough] Episodic Other lower respiratory disease (1 source) Cough; Translations: [Acute cough] 07-02-2022 Episodic Other nervous system disorders (1 source) Disturbance in speech; Translations: [Other speech disturbances] 11-28-2024 Episodic Other nervous system disorders (1 source) Other speech disturbances; Translations: [Garbled speech] Onset: 5 Episodic Other nutritional; endocrine; and metabolic disorders (16 sources) Body mass index 40+ - severely obese; Translations: [Morbid (severe) obesity due to excess calories] 11-28-2017 Chronic Other nutritional; endocrine; and metabolic disorders (16 sources) Metabolic syndrome X; Translations: [Metabolic syndrome] Onset: 7 03-07-2007 Chronic Other nutritional; endocrine; and metabolic disorders (20 sources) Body mass index 30+ - obesity; Translations: [Body mass index (BMI) 39.0-39.9, adult] Onset: 4 08-30-2013 Chronic Other screening for suspected conditions (not mental disorders or infectious disease) (3 sources) Electrocardiogram abnormal; Translations: [Abnormal electrocardiogram [ECG] [EKG]] 04-12-2019 Episodic Other upper respiratory infections (2 sources) Sore throat symptom; Translations: [Acute pharyngitis, unspecified] Episodic Residual codes; unclassified (17 sources) Obstructive sleep apnea syndrome; Translations: [Obstructive sleep apnea (adult) (pediatric)] Onset: 7 03-16-2021 Chronic Residual codes; unclassified (1 source) Sleep apnea; Translations: [Sleep apnea, unspecified] 04-18-2019 Chronic Residual codes; unclassified (1 source) Primary central sleep apnea; Translations: [Primary central sleep apnea] Onset: Chronic Residual codes; unclassified (1 source) Congestion of throat; Translations: [Other general symptoms and signs] Episodic Residual codes; unclassified (2 sources) Menopause present; Translations: [Asymptomatic menopausal state] 09-01-2023 Episodic Retinal detachments; defects; vascular occlusion; and retinopathy (15 sources) Epiretinal membrane; Translations: [Puckering of macula, unspecified eye] Onset: 3 03-16-2021 Chronic Spondylosis; intervertebral disc disorders; other back problems (16 sources) Inflammation of sacroiliac joint; Translations: [Sacroiliitis, not elsewhere classified] Onset: 0 02-07-2020 Chronic Urinary tract infections (1 source) Acute urinary tract infection; Translations: [Urinary tract infection, site not specified] 08-02-2023 Episodic Past or Other Problems Problem Classification Problem Date Documented Da te Episodic/Chronic Diseases of mouth; excluding dental (15 sources) Ulcerative stomatitis; Translations: [Other forms of stomatitis] Onset: 10-20-2012 03-16-2021 Episodic Esophageal disorders (15 sources) Esophagitis; Translations: [Esophagitis, unspecified] Onset: 01-02-2009 01-02-2009 Episodic Nutritional deficiencies (15 sources) Iron deficiency; Translations: [Iron deficiency] Onset: 10-19-2017 10-19-2017 Episodic Other and unspecified benign neoplasm (15 sources) Benign neoplasm of colon; Translations: [Benign neoplasm of colon, unspecified] Onset: 09-05-2006 09-05-2006 Episodic Other connective tissue disease (15 sources) Enthesopathy of ankle AND/OR tarsus; Translations: [Other enthesopathy of unspecified foot and ankle] Onset: 08-01-2007 08-01-2007 Episodic Other connective tissue disease (15 sources) Pain in limb; Translations: [Pain in unspecified limb] Onset: 08-08-2007 08-08-2007 Episodic Other inflammatory condition of skin (15 sources) Oral lichen planus; Translations: [Other lichen planus] Onset: 03-11-2014 05-17-2017 Episodic Other inflammatory condition of skin (20 sources) Lichen planus; Translations: [Lichen planus, unspecified] Onset: 09-12-2003 Resolved: 10-20-2012 04-27-2005 Episodic Other upper respiratory disease (15 sources) Nasal congestion; Translations: [Nasal congestion] Onset: 10-19-2017 10-19-2017 Episodic Spondylosis; intervertebral disc disorders; other back problems (15 sources) Neck pain; Translations: [Cervicalgia] Onset: 03-01-2013 03-01-2013 Episodic Results Test Name Value Interpretation Reference Range Facility [facility] 12-06-2024 [facility] Telephone (INTWS) -------- MAGNO RAI ([id number]) 1945 F NFR Date Time Provider Department 12/06/24 TAYLOR LIN During your visit today, we recorded the following information about you: Chris Arango 12/06/2024 11:28 AM Signed Patient is wanting to be seen for obesity care. Thank you Taylor Lin APRN.CNP 12/09/2024 12:36 PM Signed Chris Is this for the Activate study? Thank you Taylor Lin APRN.COMPUTATIONAL SCIENCES PROFESSOR Allergies As of Date: 12/06/2024 Noted Allergy Reaction FRUIT EXTRACTS 12/23/2014 7 - Swelling Comments: Tongue swells and blisters on mouth and cheeks BIOTIN FORTE (BIOTIN-FOLIC ACID-B*12/03/2004 Comments: anxiety attack CODEINE 09/12/2003 3 - Cough ESTROGENS 07/25/2007 14 - Other: See Comments Comments: flu like symptoms GRIFULVIN V (GRISEOFULVIN MICROSI*12/09/2011 14 - Other: See Comments Comments: Headache SULFA (SULFONAMIDE ANTIBIOTICS) 09/12/2003 Comments: covulsions ULTRAM (TRAMADOL) 12/03/2004 Comments: dizzy,hot feeling Date Reviewed: 12/03/2024 Reviewed by: Palma Mon MA - Fully Assessed Reason for Visit: Orders [681] Prescriptions as of 12/09/2024 - Aspirin 81 mg tab Take 81 mg by mouth. - atorvastatin (LIPITOR) 40 mg tablet Take 1 tablet by mouth once daily. - mv-mn/iron/folic acid/herb 190 (VITAMIN D3 COMPLETE ORAL) Take by mouth. - cyanocobalamin, vitamin B-12, (VITAMIN B-12 ORAL) Take by mouth. - Biotin 1 mg tab Take 1 tablet by mouth once daily. - Multivitamin capsule Take 1 capsule by mouth once daily. - CPAP Mask (per patient preference) optional chin strap (if indicated), filters, tubing / heated tubing, heated humidity and lifetime supplies. Dx. BARON G47.33 327.23 - COMPOUNDED PRESCRIPTION BIPAP machine service check. - Lactobacillus acidophilus 10 billion cell cap Take 1 capsule by mouth once daily. Problem List As Of Date 12/06/2024 Noted Resolved LICHEN PLANUS [L43.9] 09/12/2003 04/27/2005 Lichen planus [L43.9] 11/01/2003 10/20/2012 Obesity, Class III, BMI 40-49.9 (morbid obesity* OTHER MALAISE AND FATIGUE [R53.81, R53.83] MYALGIA AND MYOSITIS NOS [[id number]] CORTICOADRENAL INSUFFIC [255.4] 06/30/2005 01/26/2008 OSTEOARTHRITIS LOCALIZED, PRIMARY( Lower Leg) [*01/07/2006 BENIGN NEOPLASM LG BOWEL [D12.6] 09/05/2006 DYSMETABOLIC SYNDROME X [E88.810] 03/07/2007 BARON (obstructive sleep apnea) [G47.33] 03/07/2007 ANKLE ENTHESOPATHY NEC [M77.50] 08/01/2007 PAIN IN LIMB [M79.609] 08/08/2007 CONGENITAL PES 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] 08/08/2007 GLUCOCORTICOID DEFICIENT [E27.49] 01/26/2008 Esophageal Reflux [K21.9] 01/02/2009 Ho's Esophagus [K22.70] 01/02/2009 Unspecified Esophagitis [K20.90] 01/02/2009 Gastric ulcer [K25.9] 01/02/2009 Osteoporosis [M81.0] 01/14/2009 Vitamin D deficiency [E55.9] 12/29/2009 Secondary hyperparathyroidism [N25.81] 10/06/2011 Macular puckering [H35.379] 06/14/2012 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] 10/20/2012 Cerebral infarction (HCC) [I63.9] 02/01/2013 Cervicalgia [M54.2] 03/01/2013 BMI 39.0-39.9,adult [Z68.39] 08/30/2013 Oral lichen planus [L43.8] 03/11/2014 BMI 37.0-37.9, adult [Z68.37] 04/11/2015 Iron deficiency [E61.1] 10/19/2017 Nasal congestion [R09.81] 10/19/2017 Sacroiliitis, not elsewhere classified (HCC) [M*02/07/2020 Encounter Status:Closed by CHRIS ARANGO on 12/06/24 [facility] CNOVon 12-03-2024 CNOV Office Visit (NECVS8 ) -------- MAGNO RAI ([id number]) 1945 F NFR Date Time Provider Department 12/03/24 1:00 PM SHAWNA ORTEZ NECVS8 During your visit today, we recorded the following information about you: Pulse Blood pressure Weight Height 74/minute 138/55 115.7 kg 1.727 m Shawna Ortez MD 12/03/2024 2:02 PM Signed [facility] Initial Visit Consultation is requested by: Taylor Lin [address] [facility] [address] PCP: Maxwell Rueda [address] [place] [address] CEREBROVASCULAR HISTORY Reason for Visit: follow-up History of Event: Reason for visit (patient's understanding): Est care post stroke Specific Question for today: What caused the stroke? EEG? PCP: Taylor Lin APRN Accompanied with today: Daughter - Mary Stroke date: 11/23/2024 Antiplatelets/Anticoagul ants: ASA 81 mg Cholesterol medication: Lipitor 40 mg Tobacco and alcohol use: denies Residual Deficits: None. Back to baseline Current PT/OT/ST: denies Current use of a mobility aid for walking/getting around: denies Work: denies Recent CVA with initial symptoms of altered sensation, loss of consciousness, garbled speech, and dysphagia; symptoms resolved after TPA administration. Antiplatelets/Anticoagul ants: Aspirin Statins: Atorvastatin Do you have any planned upcoming surgeries or dental procedures? No Audra Abrams RN December 03, 2024 1:00 PM RN completing documentation # HPI: 79 y/o W h/o previous stroke? with residual left droopy eyelid and intermittent left foot drop, who was recently admitted to [facility] 11/23/24 - 11/25/24, here for further follow up. Per the record (under scanned docs), she presented to ED after having generalized weakness followed by syncope while she was at [place] sitting in the chair. Daughter reported right sided face/lip droop, difficulty recalling words/nouns, and slurred speech. NIHSS 6. Per record, patient was noted to have left facial droop, 'diffuse bilateral arm weakness', aphasia, decreased alertness, confusion, ataxia all 4 extremities, difficulty following commands.'. After discussion, TNK was given. CTH/CTA/MRI all unrevelaing. Patient was started on aspirin and statin, discharged. Recording using [employer] software for draft documentation of the visit was discussed with the patient/authorized client representative; all questions welcomed and answered. Patient/authorized client representative agreed to proceed. Magno Rai is a 79-year-old female with a history of TIA in 2012, presenting for follow-up after a recent hospital admission for a suspected TIA. Magno was admitted last weekend following an episode of syncope and right-sided weakness. She reports feeling funny and experiencing a sensation of her head being disconnected from her body before losing consciousness. Her daughter witnessed the event and noted right-sided facial droop, slurred speech, and right arm weakness. Magno does not recall the event after losing consciousness and does not endorse any pain during the episode. She does not report any prior episodes of syncope, palpitations, or chest pain. In 2012, Magno experienced a small stroke, resulting in a droopy left eye and occasional tripping due to foot weakness. She was hospitalized for three days at [facility] but was not prescribed any medications at that time. She reports no significant issues from this event and has not had any follow-up tests since. During her recent hospitalization, she received thrombolytic therapy, which was reportedly effective. She was started on baby aspirin and a statin, which she takes at night without any issues. She also underwent an MRI and vessel imaging, which did not show any significant damage. Magno has a history of bilateral knee replacements, a left hip replacement, and a right femur fracture in 2012 or 2013, which was repaired with a plate. She reports leg swelling during her recent hospital stay but attributes it to prolonged bed rest. She has a bike and treadmill at home and uses them regularly. She had a nuclear stress test in 2019, which was reportedly normal. She does not have a diagnosis of atrial fibrillation or other heart conditions. She is not currently seeing a primary care physician regularly. PAST MEDICAL HISTORY Diagnosis Date Ho esophagus Benign neoplasm of colon Dyspepsia Esophageal reflux Esophagitis, unspecified Gastric ulcer, unspecified as acute or chronic, without mention of hemorrhage, perforation, or obstruction Insomnia, unspecified Lichen planus Myalgia and myositis, unspecified Obesity, unspecified Other adrenal hypofunction Other malaise and fatigue Stroke (HCC) 2013 Patient states it was very small (more content not included)... Normal [facility] CNOVon 11-28-2024 CNOV Office Visit (INTMWS ) -------- MAGNO RAI ([id number]) 1945 F NFR Date Time Provider Department 11/28/24 12:00 PM TAYLOR LIN INTSIRISHA During your visit today, we recorded the following information about you: Pulse Respiration Blood pressure Weight 68/minute 16/minute 122/80 115.7 kg Taylor Lin APRN.COMPUTATIONAL SCIENCES PROFESSOR 11/29/2024 3:29 PM Signed CC: Patient presents with: Recheck: Hospital follow up stroke HPI Magno Rai is a 79 year old female who presents today for hospital follow up for a stroke. Recording using [employer] software for draft documentation of the visit was discussed with the patient/authorized client representative; all questions welcomed and answered. Patient/authorized client representative agreed to proceed CVA: - Recent CVA on Tuesday night; symptoms began at 17:15. - Initial symptoms: felt funny, described as head feeling blotted out and detached from body. - Experienced a sensation of fading out, followed by loss of consciousness. - Dysphasia and inability to form words during the event. - Transported to the hospital via ambulance; received TPA with full resolution of symptoms. - Hospital stay included multiple tests: CT head/neck, carotid ultrasound, echocardiogram, and MRI. Hospital was in [place] and results not available for review during visit but requested. Per patient they were all negative - Neurologist suggested possible early stages of epilepsy but no EEG performed due to time constraints - Discharged with prescriptions for atorvastatin and baby aspirin. Previously recorded intolerance to atorvastatin causing muscle aches but currently tolerating well. - Magno denies current weakness, falls, confusion, dizziness, syncope, headaches, dyspnea, chest pain, palpitations, or changes in urination. - Magno reports feeling tired and exhausted despite getting almost 10 hours of sleep last night. - Recent eye exam 2 months ago; uses eye drops for dry eyes. REVIEW OF SYSTEMS See HPI PAST MEDICAL HISTORY Diagnosis Date Ho esophagus Benign neoplasm of colon Dyspepsia Esophageal reflux Esophagitis, unspecified Gastric ulcer, unspecified as acute or chronic, without mention of hemorrhage, perforation, or obstruction Insomnia, unspecified Lichen planus Myalgia and myositis, unspecified Obesity, unspecified Other adrenal hypofunction Other malaise and fatigue Stroke (HCC) 2013 Patient states it was very small PAST SURGICAL HISTORY Procedure Laterality Date APPENDECTOMY ARTHROSCOPY KNEE DIAGNOSTIC W/WO SYNOVIAL BX SPX Arthroscopy, knee DELIVERY ONLY , low cervical DELIVERY ONLY , low cervical CHOLECYSTECTOMY Cholecystectomy COLONOSCOPY FLX DX W/COLLJ SPEC WHEN PFRMD 03/11/2010 Colonoscopy COLONOSCOPY FLX DX W/COLLJ SPEC WHEN PFRMD 12/30/2014 Colonoscopy COLSC FLX W/RMVL OF TUMOR POLYP LESION SNARE TQ 09/05/2006 EGD TRANSORAL BIOPSY SINGLE/MULTIPLE 01/02/2009 ESOPHAGOGASTRODUODENOSCO PY TRANSORAL DIAGNOSTIC 03/21/1992 EGD HEMORRHOIDECTOMY INTERNAL RUBBER BAND LIGATIONS Hemorrhoidectomy OOPHORECTOMY PARTIAL/TOTAL UNI/BI Oophorectomy OPTX FEM FX PROX END NCK INT FIXJ/PROSTC RPLCMT 11/30/2009 ORIF femur - right femur fracture from fall PAST SURGICAL HISTORY OF 03/21/2005 bilateral total knee replacements PAST SURGICAL HISTORY OF 03/27/09,06/2009 Bone spur removed from left hand index finger and also had cyst removed. Right hand had cyst at middle finger removed. PT ED ORTHOPAEDICS 2019 sciatic joint fusion TONSILLECTOMY AND ADENOIDECTOMY Tonsil/adenoidectomy TOTAL ABDOMINAL HYSTERECT W/WO RMVL TUBE OVARY Hysterectomy, RONALD ALLERGIES Fruit Extracts, Biotin Forte [Biotin-Folic Acid-B Compc-Zinc], Codeine, Estrogens, Grifulvin V [Griseofulvin Microsize], Sulfa (Sulfonamide Antibiotics), and Ultram [Tramadol] MEDICATIONS Aspirin 81 mg tab Take 81 mg by mouth. atorvastatin (LIPITOR) 40 mg tablet Take 1 tablet by mouth once daily. mv-mn/iron/folic acid/herb 190 (VITAMIN D3 COMPLETE ORAL) Take by mouth. cyanocobalamin, vitamin B-12, (VITAMIN B-12 ORAL) Take by mouth. Biotin 1 mg tab Take 1 tablet by mouth once daily. Multivitamin capsule Take 1 capsule by mouth once daily. CPAP Mask (per patient preference) optional chin strap (if indicated), filters, tubing / heated tubing, heated humidity and lifetime supplies. Dx. BARON G47.33 327.23 COMPOUNDED PRESCRIPTION BIPAP machine service check. Lactobacillus acidophilus 10 billion cell cap Take 1 capsule by mouth once daily. FAMILY HISTORY Problem Relation Age of Onset Cancer Mother Hypertension Mother Stroke Mother Psychiatry Father Committed suicide Alcohol/Drug Father Ischemic Heart Disease Sister Hypertension Sister Alcohol/Drug Brother Alcohol/Drug Brother SOCIAL HISTORY[1] PHYSICAL EXAM BP 122/80 Pulse 68 Resp (more content not included)... Normal [facility] 11-28-2024 CNPN Telephone (NIQ) -------- MAGNO RAI ([id number]) 1945 F NFR Date Time Provider Department 11/28/24 SHAWNA ORTEZ NILeticia During your visit today, we recorded the following information about you: Giancarlo Casillas 11/30/2024 11:52 AM Addendum OS imaging/records received from [facility]: November 28, 2024 -Last 3 Years Records -Last 3 Years Imaging Allergies As of Date: 11/28/2024 Noted Allergy Reaction FRUIT EXTRACTS 12/23/2014 7 - Swelling Comments: Tongue swells and blisters on mouth and cheeks BIOTIN FORTE (BIOTIN-FOLIC ACID-B*12/03/2004 Comments: anxiety attack CODEINE 09/12/2003 3 - Cough ESTROGENS 07/25/2007 14 - Other: See Comments Comments: flu like symptoms GRIFULVIN V (GRISEOFULVIN MICROSI*12/09/2011 14 - Other: See Comments Comments: Headache SULFA (SULFONAMIDE ANTIBIOTICS) 09/12/2003 Comments: covulsions ULTRAM (TRAMADOL) 12/03/2004 Comments: dizzy,hot feeling Date Reviewed: 11/28/2024 Reviewed by: Taylor Lin APRN.COMPUTATIONAL SCIENCES PROFESSOR - Fully Assessed Reason for Visit: Imaging/Records [Other] Prescriptions as of 11/30/2024 - Aspirin 81 mg tab Take 81 mg by mouth. - atorvastatin (LIPITOR) 40 mg tablet Take 1 tablet by mouth once daily. - mv-mn/iron/folic acid/herb 190 (VITAMIN D3 COMPLETE ORAL) Take by mouth. - cyanocobalamin, vitamin B-12, (VITAMIN B-12 ORAL) Take by mouth. - Biotin 1 mg tab Take 1 tablet by mouth once daily. - Multivitamin capsule Take 1 capsule by mouth once daily. - CPAP Mask (per patient preference) optional chin strap (if indicated), filters, tubing / heated tubing, heated humidity and lifetime supplies. Dx. BARON G47.33 327.23 - COMPOUNDED PRESCRIPTION BIPAP machine service check. - Lactobacillus acidophilus 10 billion cell cap Take 1 capsule by mouth once daily. Problem List As Of Date 11/28/2024 Noted Resolved LICHEN PLANUS [L43.9] 09/12/2003 04/27/2005 Lichen planus [L43.9] 11/01/2003 10/20/2012 Obesity, Class III, BMI 40-49.9 (morbid obesity* OTHER MALAISE AND FATIGUE [R53.81, R53.83] MYALGIA AND MYOSITIS NOS [MKT4203] CORTICOADRENAL INSUFFIC [255.4] 06/30/2005 01/26/2008 OSTEOARTHRITIS LOCALIZED, PRIMARY( Lower Leg) [*01/07/2006 BENIGN NEOPLASM LG BOWEL [D12.6] 09/05/2006 DYSMETABOLIC SYNDROME X [E88.810] 03/07/2007 BARON (obstructive sleep apnea) [G47.33] 03/07/2007 ANKLE ENTHESOPATHY NEC [M77.50] 08/01/2007 PAIN IN LIMB [M79.609] 08/08/2007 CONGENITAL PES 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] 08/08/2007 GLUCOCORTICOID DEFICIENT [E27.49] 01/26/2008 Esophageal Reflux [K21.9] 01/02/2009 Ho's Esophagus [K22.70] 01/02/2009 Unspecified Esophagitis [K20.90] 01/02/2009 Gastric ulcer [K25.9] 01/02/2009 Osteoporosis [M81.0] 01/14/2009 Vitamin D deficiency [E55.9] 12/29/2009 Secondary hyperparathyroidism [N25.81] 10/06/2011 Macular puckering [H35.379] 06/14/2012 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] 10/20/2012 Cerebral infarction (HCC) [I63.9] 02/01/2013 Cervicalgia [M54.2] 03/01/2013 BMI 39.0-39.9,adult [Z68.39] 08/30/2013 Oral lichen planus [L43.8] 03/11/2014 BMI 37.0-37.9, adult [Z68.37] 04/11/2015 Iron deficiency [E61.1] 10/19/2017 Nasal congestion [R09.81] 10/19/2017 Sacroiliitis, not elsewhere classified (HCC) [M*02/07/2020 Encounter Status:Closed by GIANCARLO CASILLAS on 11/30/24 Normal [facility] Blood Glucose Meteron 2024 Glucose [Mass/Vol] 120 mg/dL High 70-100 [facility] Comment on above: Performed By: #### A CC ####[facility] [address] [place] [address] ,Giancarlo Buckley M.D. FCAP, FASCP ANon 11-25-2024 AN ROOM: [facility] ADM: 08/12 DIS: PATIENT NAME: MAGNO RAI : 1945 AGE: 79 RACE: W SEX: F PHYSICAL THERAPY (ACUTE) General Note - Shakila Fofana, PT - 11/25/2024 1:21 PM (Started 11/25/2024 1:21 PM) Note Patient is waiting to be discharged home pending ECHO results. Ambulated safely with Occupational Therapy. Patient will sign off. Electronically signed by Shakila Fofana PT SIGNED BY: SHAKILA FOFANA PT 11/25/24 1321 cc: This report was electronically signed in another vendor system Normal [facility] Basic Metabolic Panelon 09-0 Anion gap [Moles/Vol] 6 mmol/L Low 9-15 [facility] Comment on above: Performed By: #### NEISHA Wen7, RAYO ####[facility] [address] [place] [address] ,Giancarlo Buckley M.D. FCAP, FASCP Calcium [Mass/Vol] 8.5 mg/dL Low 8.8-10.2 [facility] Comment on above: Performed By: #### JOSE Wen, RAYO ####[facility] [address] [place], [place] [id number] ,Giancarlo Buckley M.D. FCAP, FASCP Chloride [Moles/Vol] 108 mmol/L High 98-107 [facility] Comment on above: Performed By: #### JOSE Wen, RAYO ####[facility] [address] [facility] [place] [id number] ,Giancarlo Buckley M.D. FCAP, FASCP CO2 [Moles/Vol] 24 mmol/L Normal 22-29 [facility] Comment on above: Performed By: #### JOSE Wen, RAYO ####[facility] [address] [place] [address] ,Giancarlo Buckley M.D. FCAP, FASCP Creatinine [Mass/Vol] 0.64 mg/dL Normal 0.51-0.95 [facility] Comment on above: Performed By: #### NEISHA Wen7, RAYO ####[facility] [address] [place], [place] [id number] ,Giancarlo Buckley M.D. FCAP, FASCP GFR/1.73 sq M.predicted among non-blacks MDRD (S/P/Bld) [Vol rate/Area] mL/min/{1.73_m2} Normal [facility] Comment on above: Result Comment: THE GFR IS ESTIMATED USING THE MDRD STUDY EQUATION. *NOTE* IF THE RACE OF THE PATIENT WAS UNKNOWN AT THE TIME OF REGISTRATION, AND THE PATIENT IS , MULTIPLY THE EGFR RESULT PROVIDED BY 1.21. NORMAL: EGFR >60.0 Performed By: #### JOSE Wen, RAYO ####[facility] [address] [place] [address] ,Giancarlo Buckley M.D. FCAP, FASCP Glucose [Mass/Vol] 95 mg/dL Normal 70-100 [facility] Comment on above: Result Comment: INTR EPRETATION FOR FASTING BLOOD GLUCOSE: 70-100 mg/dl NORMAL GLUCOSE TOLERANCE 100-125 mg/dl IMPAIRED FASTING GLUCOSE (PRE-DIABETES) >125 mg/dl DIABETES - ON MORE THAN ONE TESTING Performed By: #### JOSE Wen, RAYO ####[facility] [address] [place] [address] ,Amelie Acevedo, FASCP Potassium [Moles/Vol] 4.2 mmol/L Normal 3.6-5.0 [facility] Comment on above: Performed By: #### JOSE Wen, RAYO ####[facility] [address] [place] [address] ,Giancarlo Buckley M.D. FCAP, FASCP Sodium [Moles/Vol] 138 mmol/L Normal 136-145 [facility] Comment on above: Performed By: #### JOSE Wen, RAYO ####[facility] [address] [place] [address] ,Amelie AcevedoAP, FASCP Urea nitrogen [Mass/Vol] 13.0 mg/dL Normal 8.0-23.0 [facility] Comment on above: Performed By: #### M Raphael, CHEM7, RAYO ####[facility] [address] [place] [address] ,Giancarlo Buckley M.D. FCAP, FASCP CBC With Differentialon 09-0 7-2025 Basophils Absolute Auto 0.02 10*3/uL Normal 0.0-0.2 [facility] Comment on above: Performed By: #### C BCD ####[facility] [place] [address] ,Giancarlo Buckley M.D. FCAP, FASCP Basophils/100 WBC (Bld) 0.7 % Normal 0-1.0 [facility] Comment on above: Performed By: #### C BCD ####[facility] [place] [address] ,Giancarlo Buckley M.D. FCAP, FASCP Differential Type? Auto Differential Normal [facility] Comment on above: Performed By: #### C BCD ####[facility] [place] [address] ,Giancarlo Buckley M.D. FCAP, FASCP Eosinophils (Bld) [#/Vol] 0.08 10*3/uL Normal 0.0-0.5 [facility] Comment on above: Performed By: #### C BCD ####[facility] [address] [place] [address] ,Giancarlo Buckley M.D. FCAP, FASCP Eosinophils/100 WBC (Bld) 2.6 % Normal 0.0-3.0 [facility] Comment on above: Performed By: #### C BCD ####[facility] [address] [place] [address] ,Giancarlo Buckley M.D. FCAP, FASCP Hematocrit (Bld) [Volume fraction] 36.8 % Normal 35.0-47.0 [facility] Comment on above: Performed By: #### C BCD ####[facility] [place], [place] [address] ,Giancarlo Buckley M.D. FCAP, FASCP Hemoglobin (Bld) [Mass/Vol] 12.3 g/dL Normal 11.7-15.7 [facility] Comment on above: Performed By: #### C BCD ####[address] [id number] ,Giancarlo Buckley M.D. FCAP, FASCP Immature Gran Absolute Auto 0.01 10*3/uL Normal 0.01-0.2 [facility] Comment on above: Performed By: #### C BCD ####[facility] [place] [id number] ,Giancarlo Buckley M.D. FCAP, FASCP Immature granulocytes/100 WBC (Bld) 0.3 % Normal 0-0.9 [facility] Comment on above: Performed By: #### C BCD ####[facility] [place] [id number] ,Giancarlo Buckley M.D. FCAP, FASCP Lymphocytes (Bld) [#/Vol] 0.86 10*3/uL Low 1.5-4.0 [facility] Comment on above: Performed By: #### C BCD ####[facility] [place] [id number] ,Giancarlo Buckley M.D. FCAP, FASCP Lymphocytes/100 WBC (Bld) 28.5 % Normal 20.0-40.0 [facility] Comment on above: Performed By: #### C BCD ####[facility] [place] [id number] ,Giancarlo Buckley M.D. FCAP, FASCP MCH (RBC) [Entitic mass] 33.2 pg Normal 27.0-40.0 [facility] Comment on above: Performed By: #### C MARIAELENA ####[facility] [address] [place] [address] [id number] ,Giancarlo Buckley M.D. FCAP, FASCP Mean Corpusc Hgb Concentration 33.4 g/dL Normal 31.0-36.0 [facility] Comment on above: Performed By: #### C MARIAELENA ####[facility] [address] [place], [place] [phone] ,Giancarlo Buckley M.D. FCAP, FASCP Mean Corpuscular Volume 99.2 CU uM Normal 80.0-100.0 [facility] Comment on above: Performed By: #### C MARIAELENA ####[facility] [address] [place] [id number] ,Giancarlo Buckley M.D. FCAP, FASCP Monocytes (Bld) [#/Vol] 0.38 10*3/uL Normal 0.2-0.8 [facility] Comment on above: Performed By: #### Josefina FERRELL ####[facility] [address] [place], [place] [id number] ,Giancarlo Buckley M.D. FCAP, FASCP Monocytes/100 WBC (Bld) 12.6 % High 4.0-10.0 [facility] Comment on above: Performed By: #### C MARIAELENA ####[facility] [address] [place], [place] [id number] ,Giancarlo Buckley M.D. FCAP, FASCP Neutrophils Absolute Auto 1.67 10*3/uL Low 2.0-7.0 [facility] Comment on above: Performed By: #### C MARIAELENA ####[facility] [address] [place], [place] [phone] ,Giancarlo Buckley M.D. FCAP, FASCP Neutrophils/100 WBC (Bld) 55.3 % Normal 54.0-62.0 [facility] Comment on above: Performed By: #### C BCD ####[facility] [place], [place] [phone] ,Giancarlo Buckley M.D. FCAP, FASCP Nucleated RBC (Bld) [#/Vol] 0.00 10*3/uL Normal -0 [facility] Comment on above: Performed By: #### C BCD ####[facility] [place], [place] [id number] ,Giancarlo Buckley M.D. FCAP, FASCP Nucleated RBC's % 0.0 /100WBC Normal -0 [facility] Comment on above: Performed By: #### C BCD ####[facility] [address] [place], [place] [id number] ,Giancarlo Buckley M.D. FCAP, FASCP Platelets (Bld) [#/Vol] 108 10*3/uL Low 130-440 [facility] Comment on above: Performed By: #### C BCD ####[facility] [address] [place], [place] [id number] ,Giancarlo Buckley M.D. FCAP, FASCP RBC (Bld) [#/Vol] 3.71 10*6/uL Low 3.80-5.[address] [facility] Comment on above: Performed By: #### C BCD ####[facility] [address] [place], [place] [id number] ,Giancarlo Buckley M.D. FCAP, FASCP Red Cell Distribution 13.0 Normal 11.5-14.5 [facility] Comment on above: Performed By: #### C BCD ####[facility] [address] [place] [address] ,Giancarlo Buckley M.D. FCAP, FASCP WBC (Bld) [#/Vol] 3.0 10*3/uL Low 3.5-11.0 [facility] Comment on above: Performed By: #### C BCD ####[facility] [address] [place], [place] [id number] ,Giancarlo Buckley M.D. FCAP, FASCP Calcium Ionized Serumon Calcium Ionized Serum 4.8 MG/DL Normal 4.5-5.6 [facility] Comment on above: Performed By: #### I PABLO ####[facility] [address] [place], [place] [phone] ,Giancarlo Buckley M.D. FCAP, FASCP MMHPNon 11-25-2024 MMHPN ROOM: [facility] ADM: 08/12 DIS: PATIENT NAME: MAGNO RAI : 1945 AGE: 79 RACE: W SEX: F NEUROLOGY (ACUTE) Progress Note - Solitario Carey MD - 11/25/2024 1:38 PM (Started 11/25/2024 1:33 PM) Summary and Plan 1. Acute AMS s/p TNK 11/23/2024 2. hx of CVA 3. soft tissue mass left parotid gland 2.1 x 2.4 x 2.8 cm, CTA H N: no LVO or atherosclerotic disease, Lobular soft tissue at the left parotid gland measures 2.1 x 2.4 x 2.8 cm, suspicious for neoplastic process. MRI brain with and without C 11/24/2024 wnl Given his significantly prolonged period of amnesia (recalls not feeling well, sitting down and in waking up in the EMS ambulance being evaluated) and lateralizing neurological findings upon arrival, expressive aphasia, in setting of negative MRI brain scan would recommend EEG as an outpatient Plan Routine EEG as outpatient Continue aspirin and atorvastatin 40 Ultrasound of the parotid glands as outpatient Acute Problems 1) Ischemic stroke [I63.9] (Added: 11/23/2024, Present on Admission) 2) Dysarthria [R47.1] (Added: 11/23/2024, Present on Admission) 3) Expressive dysphasia [F80.1] (Added: 11/23/2024) 4) Syncope [R55] (Added: 11/23/2024, Present on Admission) Chronic Problems 1) Transient cerebral ischemia [G45.9] (Added: 11/23/2024, Present on Admission) 2) Lichen planus [L43.9] (Added: 11/23/2024, Present on Admission) 3) Morbid obesity [E66.01] (Added: 11/24/2024) Subjective No significant events reported overnight. Vitals Temp: 97.6F, Location: Other Heart Rate: 69, Position: Unknown Blood Pressure: 137/66, Position: Unknown, Location: Unknown RR: 24 O2: 97% Saturation Glucose: 95.0 Matos: 1000 Exam GEN: Normals - No acute distress Other findings - TMax: 98.9, Temp: 97.6, Heart Rate: 69, BP: 137/66, RR: 24, O2: 97% Saturation EYES: Normals - EOMI ENT: Normals - Mucous membranes moist, Pharynx clear NECK: Normals - Supple RESP: Normals - Relaxed respirations CV: Normals - Rhythm regular GI: Normals - Soft, Non-tender : Normals - No suprapubic tenderness LYMPH: Normals - No cervical adenopathy NEURO: Normals - Alert MS: Normals - No clubbing PSYCH: Normals - Mood is appropriate SKIN: Normals - Warm and dry, No cyanosis Charges Medical Complexity: Moderate CPT Code: 14008 - Level 2 Subsequent Visit Electronically signed by Solitario Carey MD SIGNED BY: SOLITARIO CAREY MD 11/25/24 1718 cc: This report was electronically signed in another vendor system Normal [facility] ROOM: [facility] ADM: 08/12 DIS: PATIENT NAME: MAGNO RAI : 1945 AGE: 79 RACE: W SEX: F PULMONARY - CRITICAL CARE (ACUTE) Progress Note - Fredi Lopez MD - 11/25/2024 10:53 AM (Started 11/25/2024 10:31 AM) Summary and Plan ICU admission date 11/24/24 Assessment: - NIHSS 6 on presentation, s/p TNK at 8 PM last night - TIA 15 years ago - soft tissue mass left parotid gland 2.1 x 2.4 x 2.8 cm ( will need further follow up) - BARON - Osteoarthritis Recommendations: - Neurology is consulted; appreciate recs - neurology discussed possible seizure activity with the patient and ordered and outpatient EEG - Neurochecks Q2H - MRI showed chronic microvascular changes. No acute ischemic infarction - Continuing ABCDEF bundle - Patient starting asa today - Echo pending - Adjusting oxygen flow to achieve SpO2 goal of > 92%. - We are encouraging deep breaths and cough and using IS to prevent atelectasis and acute resp failure. - home CPAP - regular diet - Electrolyte repletion indicated for goal potassium >4.0 and Magnesium >2.0. - Hgb goal >= 7.0. - Afebrile, WBC is 3 this morning - Adjusting insulin as per unit protocol to achieve glucose < 150 mg/dL, with no absolute measurements above 180 mg/dL. -Will engage the skin care / wound team if there are any signs of skin breakdown. Prophylaxis: DVT: SCDs for prevention of VTE. Tubes/Lines/Drains: - PIVs - Matos Disposition: Patient to be downgraded or discharged today. Not requiring any ICU level needs. Critical Care Attestation I spent [40] cumulative minutes (excludig procedures), in full attention to this critically ill patient. Acute Problems 1) Ischemic stroke [I63.9] (Added: 11/23/2024, Present on Admission) 2) Dysarthria [R47.1] (Added: 11/23/2024, Present on Admission) 3) Expressive dysphasia [F80.1] (Added: 11/23/2024) 4) Syncope [R55] (Added: 11/23/2024, Present on Admission) Chronic Problems 1) Transient cerebral ischemia [G45.9] (Added: 11/23/2024, Present on Admission) 2) Lichen planus [L43.9] (Added: 11/23/2024, Present on Admission) 3) Morbid obesity [E66.01] (Added: 11/24/2024) Subjective Patient is doing well this morning. She has no new neurologic deficits. She had talked with neurology who had discussed the possibility of her having a seizure. She is getting an outpatient EEG ordered and will follow-up and will stare for outpatient neurology. Patient has an echo pending. Otherwise he is doing well. White count is 3 this morning. No active signs of infection. Patient will likely be discharged versus downgrade from the ICU today. Hospital medicine team primary. Vitals Temp: 98.9F, Location: Other Heart Rate: 76, Position: Unknown Blood Pressure: 132/65, Position: Unknown, Location: Unknown RR: 15 O2: 99% Saturation Glucose: 95.0 Matos: 500 Exam GEN: Normals - No acute distress Other findings - TMax: 98.9, Temp: 98.9, Heart Rate: 76, BP: 132/65, RR: 15, O2: 99% Saturation EYES: Normals - Vision grossly intact, EOMI ENT: Normals - Hearing grossly intact, Mucous membranes moist, Pharynx clear NECK: Normals - Supple RESP: Normals - Relaxed respirations CV: Normals - Rhythm regular GI: Normals - Soft, Non-tender : Normals - No suprapubic tenderness LYMPH: Normals - No cervical adenopathy NEURO: Normals - Alert, Oriented x 3, Moves ext x 4 Other findings - The patient was able to move all 4 extremities 5 out of 5 strength. Coordination was intact. She was able to verbalize and name objects. Cranial nerves II through XII intact. MS: Normals - No clubbing PSYCH: Normals - Mood is appropriate SKIN: Normals - Warm and dry, No cyanosis Charges Medical Complexity: High Critical Care Start: 11/25/2024 10:13 AM Critical Care Minutes: 40 CPT Code: 24927 - Critical Care (First 74 Min) Reviewed Labs Na 138 (11-25-24) K 4.2 (11-25-24) Cl 108 (11-25-24) CO2 24 (11-25-24) Calcium 8.5 (11-25-24) Mg 2 (11-25-24) Phos 3.1 (11-25-24) ANION GAP 6 (11-25-24) BUN 13 (11-25-24) Cr 0.64 (11-25-24) CrCl (Cockcroft-Gault Formula) 91.7 (11-25-24) GFR > 60 (11-25-24) BLOOD GLUCOSE 95 (11-25-24) IONIZED CALCIUM 4.8 (11-25-24) WBC 3 (11-25-24) Hgb 12.3 (11-25-24) Hct 36.8 (11-25-24) PLT 108 (11-25-24) MCV 99.2 (11-25-24) MCHC 33.4 (11-25-24) INR 1.13 (11-23-24) APTT 28.2 (11-23-24) PT 14.5 (11-23-24) TROPONIN T (HIGH SENSITIVITY) 8 (11-23-24) TSH (11-24-24) AST 39 (11-24-24) ALT 28 (11-24-24) T. Bilirubin 0.6 (11-24-24) Alkaline Phosphatase 84 (11-24-24) Albumin 3.6 (11-24-24) T. Protein 6.5 (11-24-24) Total Cholesterol (11-24-24) LDL (11-24-24) HDL (11-24-24) TG (11-24-24) CHOL/HDL RATIO (11-24-24) Culture Ordered? NO CULTURE ORDERED (11-24-24) Leuk Esteras (Urine) NEGATIVE (11-24-24) Nitrite (Urine) NEGATIVE (11-24-24) Squamous Epi (Urine) 0-2 (11-24-24) WBC (Urine) 0-2 (09 (more content not included)... Normal [facility] ROOM: 4020 ADM: 08/12 DIS: PATIENT NAME: MAGNO RAI : 1945 AGE: 79 RACE: W SEX: F Note Addendum - Haider Roldan MD - 11/25/2024 11:46 AM Agree with assessment and plan of PA Moore. Patient with likely R right sided CVA status post TNK. Patient with complete recovery. Brain MRI was negative for any bleeds or acute intracranial pathology including infarcts. Neurology recommending patient be discharged on aspirin and statin. No indication for further workup. Patient does have an echo pending. Plan to discharge today after echo results. Patient wanting to follow-up with neurology in [place] Updated Charges Bill this note as Haider Roldan MD Electronically signed by Haider Roldan MD HOSPITAL MEDICINE TEAM Progress Note - Diana Moore - 11/25/2024 11:08 AM (Started 11/25/2024 6:37 AM) Summary and Plan 79 yo Female with PMHx of TIA with no residual deficits, presented to ED for sudden onset general weakness, syncope, and speech deficits just prior to ED arrival. Patient was at the [facility] for about 45min when she suddenly felt heavy all over, went limp. Per daughter, patient was unresponsive for several minutes, completely disoriented when alert. Right sided face/lip droop, difficulty recalling words/nouns, and slurred/garbled speech. Evaluated by ED physician and Tele- neurology, NIHSS 6, and given TNK. In ED, BP 132/63, HR 67, RR 15, 100% on room air, Temp 98.5. BALBUENA remarkable for glucose 98mg/dL, WBC 4.8, Hgb 13. EKG reveals sinus or ectopic atrial rhythm, [place] 84msec. CT Head, CTA Head and Neck reports no acute intracranial abnormality, including large vessel occlusion. No hemodynamically significant stenosis of carotids. Admitted for ischemic CVA. Ischemic CVA: NIHSS 6 on presentation, s/p TNK. Cardiac telemetry monitoring. Neurochecks. MRI Brain shows no acute ischemic infarction. Echocardiogram pending. ASA, statin per neurology recommendations. Syncope: Telemetry monitoring. Monitor for dizziness/lightheadednes s. Negative Brain MRI, neurology recommends EEG. H/o Lichen Planus: No plaques or lesions. No longer on DMARDs. PT/OT: safe to return home with support from family Code: FULL Proph: Mechanical Dispo: >2 midnights Discharge Planning Estimated discharge date: in more than 2 days Acute Problems 1) Ischemic stroke [I63.9] (Added: 11/23/2024, Present on Admission) 2) Dysarthria [R47.1] (Added: 11/23/2024, Present on Admission) 3) Expressive dysphasia [F80.1] (Added: 11/23/2024) 4) Syncope [R55] (Added: 11/23/2024, Present on Admission) Chronic Problems 1) Transient cerebral ischemia [G45.9] (Added: 11/23/2024, Present on Admission) 2) Lichen planus [L43.9] (Added: 11/23/2024, Present on Admission) 3) Morbid obesity [E66.01] (Added: 11/24/2024) Subjective Patient states she is feeling great this morning. She slept well overnight and feels more clear- minded. She denies residual weakness/motor deficits, SARAVIA, visual changes, dizziness/lightheadednes s. Vitals Temp: 98.9F, Location: Other Heart Rate: 76, Position: Unknown Blood Pressure: 132/65, Position: Unknown, Location: Unknown RR: 15 O2: 99% Saturation Glucose: 95.0 Matos: 500 Exam GEN: Normals - No acute distress Other findings - TMax: 98.6, Heart Rate: 59, BP: 121/53, RR: 12, O2: 97% Saturation EYES: Normals - Vision grossly intact, EOMI ENT: Normals - Hearing grossly intact, Mucous membranes moist RESP: Normals - Relaxed respirations, Clear anteriorly, Clear posteriorly CV: Normals - Rhythm regular, Rate normal GI: Normals - Soft, Non-tender, Bowel sounds normal : Normals - No suprapubic tenderness NEURO: Normals - Alert, Oriented x 3, Moves ext x 4 PSYCH: Normals - Mood is good SKIN: Normals - Warm and dry, No cyanosis Charges Medical Complexity: High CPT Code: 94684 - Level 3 Subsequent Visit Reviewed Labs Na 138 (11-25-24) K 4.2 (11-25-24) Cl 108 (11-25-24) CO2 24 (11-25-24) Calcium 8.5 (11-25-24) Mg 2 (11-25-24) Phos 3.1 (11-25-24) ANION GAP 6 (11-25-24) BUN 13 (11-25-24) Cr 0.64 (11-25-24) CrCl (Cockcroft-Gault Formula) 91.7 (11-25-24) GFR > 60 (11-25-24) BLOOD GLUCOSE 95 (11-25-24) IONIZED CALCIUM 4.8 (11-25-24) WBC 3 (11-25-24) Hgb 12.3 (11-25-24) Hct 36.8 (11-25-24) PLT 108 (11-25-24) MCV 99.2 (11-25-24) MCHC 33.4 (11-25-24) Reviewed Reports and Studies Addendum Note Hospital Medicine Team (11-24-24) Comprehensive Dietitian Team (Acute) (11-24-24) Initial Consult Note Pulmonary - Critical Care (Acute) (Jaime Lopez MD) (11-24-24) General Note Physical Therapy (Acute) (11-24-24) Initial Consult Note Neurology (Acute) (Eddy Carey MD) (11-24-24) Swallowing Evaluation Speech Therapy (Acute) (11-24-24) Progress Note Hospital Medicine Team (11-24-24) MRI Brain WWO (11-24-24) General Note Occupational Therapy (Acute) (11-24-24) Progress Note Pulmon (more content not included)... Normal [facility] MMHSUMMARYon 11-25-2024 MMUMMARY ROOM: [facility] ADM: 08/12 DIS: 11/25/24 PATIENT NAME: MAGNO RAI : 1945 AGE: 79 RACE: W SEX: F HOSPITAL MEDICINE TEAM Discharge - Haider Roldan MD - 11/25/2024 11:54 AM (Started 11/25/2024 11:47 AM) Discharge Type: Home Discharge Condition: Stable 30-Day Readmission Risk: Medium Code Status: Full Code Admit Date: 11/23/2024 8:30 PM Hospital Discharge Date: 11/25/2024 Estimated Discharge Date: 11/25/2024 Discharged By: Haider Roldan MD Summary and Plan 79 yo Female with PMHx of TIA with no residual deficits, presented to ED for sudden onset general weakness, syncope, and speech deficits just prior to ED arrival. Patient was at the [facility] for about 45min when she suddenly felt heavy all over, went limp. Per daughter, patient was unresponsive for several minutes, completely disoriented when alert. Right sided face/lip droop, difficulty recalling words/nouns, and slurred/garbled speech. Evaluated by ED physician and Tele- neurology, NIHSS 6, and given TNK. In ED, BP 132/63, HR 67, RR 15, 100% on room air, Temp 98.5. BALBUENA remarkable for glucose 98mg/dL, WBC 4.8, Hgb 13. EKG reveals sinus or ectopic atrial rhythm, [place] 84msec. CT Head, CTA Head and Neck reports no acute intracranial abnormality, including large vessel occlusion. No hemodynamically significant stenosis of carotids. Admitted for ischemic CVA. Ischemic CVA: NIHSS 6 on presentation, s/p TNK. Cardiac telemetry monitoring. Neurochecks. MRI Brain shows no acute ischemic infarction. Echo still pending, patient received TNK with complete resolution of symptoms. At this point patient has no residual symptoms, patient was recommended to be started on aspirin and statin by neurology. Patient's imaging all negative. Patient wanting to follow-up with neurology in the [facility] area, will send referral for 2 to 4 weeks. Can follow-up with PCP in 2 weeks. At this point patient vitally and hemodynamically stable ready to be discharged home after echo results Syncope: Telemetry monitoring. Monitor for dizziness/lightheadednes s. No further symptoms, blood pressure controlled. All brain imaging is normal. H/o Lichen Planus: No plaques or lesions. No longer on DMARDs. PT/OT: safe to return home with support from family Code: FULL Proph: Mechanical Dispo: Home today Acute Problems 1) Ischemic stroke [I63.9] (Added: 11/23/2024, Present on Admission) 2) Dysarthria [R47.1] (Added: 11/23/2024, Present on Admission) 3) Expressive dysphasia [F80.1] (Added: 11/23/2024) 4) Syncope [R55] (Added: 11/23/2024, Present on Admission) Chronic Problems 1) Transient cerebral ischemia [G45.9] (Added: 11/23/2024, Present on Admission) 2) Lichen planus [L43.9] (Added: 11/23/2024, Present on Admission) 3) Morbid obesity [E66.01] (Added: 11/24/2024) Inactive Problems 1) Near syncope [R55] (Added: 11/23/2024 Inactive Diagnosed: 11/23/2024, Present on Admission) Allergies Sulfa (sulfonamide antibiotics) (Unknown severity Unknown reaction) START taking these medications 1) Atorvastatin Oral 40 mg daily. 2) Aspirin Oral 81 mg daily. No prescription needed CONTINUE taking these medications 1) Cyclosporine Ophthalmic Drops 0.05 % 1 drop into both eyes every 12 hours. Prescriptions Atorvastatin Oral 40 mg daily 30 Tablet. 30 days supply. 0 refills. Effective Date: 11/25/2024 Dispense: atorvastatin 40 mg tablet Electronically sent to [facility] [address] [place] [address]. Pharmacies for e-Prescriptions [facility] [address] [place] [address] [place] [id number] Activity Orders General Activity Level Permitted: As tolerated Diet Order Diet: Food and drink Start: Now Diet Restrictions Restrictions: Regular Food consistency: Easy to chew (IDDSI 7) Liquid consistency: Regular/Thin (IDDSI 0) Eating ability: Independent Swallowing strategies: Keep patient 90 degrees upright when eating. Medication recommendations: Meds may be presented per patient's preferred method. New Follow Up 1) Neurology via [facility], 2-4 weeks, post CVA followup, received TNK 2) Primary Care Physician, 1-2 weeks, Hospital follow up Educational Resources Provided Stroke Stroke Discharge Instructions Total time spent on discharge: > 30 minutes Electronically signed by Haider Roldan MD SIGNED BY: HAIDER ROLDAN MD 11/25/24 8649 cc: This report was electronically signed in another vendor system Normal [facility] Magnesium Bloodon 11-25-2024 Magnesium [Mass/Vol] 2.0 mg/dL Normal 1.6-2.4 [facility] Comment on above: Performed By: #### M G, CHEM7, RAYO ####[facility] [address] [place] [address] ,Giancarlo Buckley M.D. FCAP, FASCP Phosphorus Bloodon Phosphorus Blood 3.1 mg/dL Normal 2.5-4.5 [facility] Comment on above: Performed By: #### M G, CHEM7, RAYO ####[facility] [address] [place] [address] ,Giancarlo Buckley M.D. FCAP, FASCP T.OTEon 11-25-2024 T.OTE ROOM: [facility] ADM: 08/12 DIS: PATIENT NAME: MAGNO RAI : 1945 AGE: 79 RACE: W SEX: F Approval Information Reviewed by: Haider Roldan MD - 11/25/2024 11:45 AM OCCUPATIONAL THERAPY (ACUTE) Standard OT Evaluation - LEILANI Rivas - 11/25/2024 10:50 AM (Started 11/25/2024 10:31 AM) Summary and Plan SUMMARY: Patient completed supine to sitting edge of bed with contact guard assistance for general balance. Patient donned shoes while in unsupported sitting with contact guard assistance. Patient completed sit to stand at edge of bed with contact guard assistance and no device. Patient made clothing adjustments and donned robe/ tied gown while standing unsupported and contact guard assistance. Patient ambulated x 100 feet with contact guard assistance and no device and no loss of balance. Returned to bedside recliner. Skilled occupational therapy intervention warranted to treat patient post ischemic stroke to address patient's impairments in ADLs and functional mobility to maximize safety and independence with valued occupations. FUNCTIONAL LIMITATIONS and barriers include: decreased self care, decreased balance, decreased activity tolerance, decreased functional mobility, decreased strength PLAN FOR NEXT SESSION: ADL routines, ambulation, standing tolerance tasks PRECAUTIONS AND RELEVANT CO-MORBIDITIES: Fall RECOMMENDED INTERVENTIONS: Self-Care/Home management 94554, Therapeutic Activity 80368, Therapeutic Exercise 84641 DURATION: 7 days per week for less than 2 weeks RECOMMENDED EQUIPMENT: to be determined DISCHARGE RECOMMENDATION/RATIONALE : Pending progress in acute setting, patient will be likely be safe to return home with support from family. No further Occupational Therapy follow up on discharge. Goals Patient goal: go home ADMINISTRATIVE JUDGE GOALS: correction goals to be met by 12/09/2024 Patient will: 1) be independent with self care. 2) complete toilet transfer independently 3) be independent with bilateral upper extremity home exercise program. SHORT TERM GOALS: Short terms goals to be met by 12/02/2024 Patient will: 1) complete lower extremity dressing/bathing with supervision as needed. 2) tolerate bilateral upper extremity therapeutic exercise x 15 min to increase activity tolerance for ADLs. 3) stand at sink x 15 min to complete grooming tasks with supervision to increase activity tolerance. 4) verbalize 4 fall prevention strategies for home safety. Reason for Evaluation Evaluation and treatment for strength and ADLs Consulted By Abhay Hayes DO Team [facility] Medicine Team HPI REASON FOR ADMISSION: Per initial report 79yo Female with PMHx of TIA with no residual deficits many years ago, Lichen Planus no longer on DMARDs, who presented to ED with complaint of sudden onset general weakness, syncope, and speech deficits which started just prior to ED arrival. Per daughter at bedside, patient and family are [facility] [place] [facility]. Patient has been outside for about 45min when she suddenly felt heavy all over, went limp, requiring family to sit her down onto rollator. Per daughter, patient is unresponsive for several minutes, and is completely disoriented when she regained alertness. Daughter reports patient has right side face/lip droop, has difficulty recalling words/nouns, and speech is slurred/garbled. Patient is evaluated by ED physician and Tele-neurology, NIHSS 6, and given TNK. In ED, initial BP 132/63, HR 67, RR 15, 100% on room air, Temp 98.5. ED work up remarkable for glucose 98mg/dL, WBC 4.8, Hgb 13. EKG reveals sinus or ectopic atrial rhythm, [place] 84msec. CT Head, CTA Head and Neck reports no acute intracranial abnormality within the limitations of CT. Chronic small vessel ischemic changes are noted. No intracranial large vessel occlusion is identified. Atherosclerotic plaque at the left greater than right carotid bifurcations is without associated hemodynamically significant stenosis. Cervical carotid and vertebral arteries remain patent. Ischemic CVA: NIHSS 6 on presentation, s/p TNK given in ED. ICU for close monitoring post TNK. NPO, pending bedside swallow screen. Cardiac telemetry monitoring. Neurochecks. MRI Brain, Echocardiogram. ASA, statin. Check FLP, Urinalysis, Urine Drug Screen, TFT. PT/OT/SOAP BOILER eval. Neurology Consult. Patient reports she is doing better today and her legs don't feel as swollen. Problem list, surgical history and medication list were all reviewed. Most recent Vitals and Pain Temp: 98.9F, Location: Other Heart Rate: 76, Position: Unknown Blood Pressure: 132/65, Position: Unknown, Location: Unknown RR: 15 O2: 99% Saturation Glucose: 95.0 Matos: 500 Exam OCCUPATIONAL PROFILE: Prior to admission : Patient was independent with home management. Patient was independent for meal preparation. Patient was (more content not included)... Normal [facility] TJOCELYNN ROOM: [facility] ADM: 08/12 DIS: PATIENT NAME: MAGNO RAI : 1945 AGE: 79 RACE: W SEX: F Approval Information [facility] Medicine Team: Pending OCCUPATIONAL THERAPY (ACUTE) Standard OT Evaluation - Addison Lassiter OT/Francisco - 11/25/2024 10:50 AM (Started 11/25/2024 10:31 AM) Summary and Plan SUMMARY: Patient completed supine to sitting edge of bed with contact guard assistance for general balance. Patient donned shoes while in unsupported sitting with contact guard assistance. Patient completed sit to stand at edge of bed with contact guard assistance and no device. Patient made clothing adjustments and donned robe/ tied gown while standing unsupported and contact guard assistance. Patient ambulated x 100 feet with contact guard assistance and no device and no loss of balance. Returned to bedside recliner. Skilled occupational therapy intervention warranted to treat patient post ischemic stroke to address patient's impairments in ADLs and functional mobility to maximize safety and independence with valued occupations. FUNCTIONAL LIMITATIONS and barriers include: decreased self care, decreased balance, decreased activity tolerance, decreased functional mobility, decreased strength PLAN FOR NEXT SESSION: ADL routines, ambulation, standing tolerance tasks PRECAUTIONS AND RELEVANT CO-MORBIDITIES: Fall RECOMMENDED INTERVENTIONS: Self-Care/Home management 61889, Therapeutic Activity 04887, Therapeutic Exercise 32608 DURATION: 7 days per week for less than 2 weeks RECOMMENDED EQUIPMENT: to be determined DISCHARGE RECOMMENDATION/RATIONALE : Pending progress in acute setting, patient will be likely be safe to return home with support from family. No further Occupational Therapy follow up on discharge. Goals Patient goal: go home ALF GOALS: long term care social worker goals to be met by 12/09/2024 Patient will: 1) be independent with self care. 2) complete toilet transfer independently 3) be independent with bilateral upper extremity home exercise program. SHORT TERM GOALS: Short terms goals to be met by 12/02/2024 Patient will: 1) complete lower extremity dressing/bathing with supervision as needed. 2) tolerate bilateral upper extremity therapeutic exercise x 15 min to increase activity tolerance for ADLs. 3) stand at sink x 15 min to complete grooming tasks with supervision to increase activity tolerance. 4) verbalize 4 fall prevention strategies for home safety. Reason for Evaluation Evaluation and treatment for strength and ADLs Consulted By DO Danette Griggs [facility] Medicine Team HPI REASON FOR ADMISSION: Per initial report 79yo Female with PMHx of TIA with no residual deficits many years ago, Lichen Planus no longer on DMARDs, who presented to ED with complaint of sudden onset general weakness, syncope, and speech deficits which started just prior to ED arrival. Per daughter at bedside, patient and family are visiting from [place] [facility]. Patient has been outside for about 45min when she suddenly felt heavy all over, went limp, requiring family to sit her down onto rollator. Per daughter, patient is unresponsive for several minutes, and is completely disoriented when she regained alertness. Daughter reports patient has right side face/lip droop, has difficulty recalling words/nouns, and speech is slurred/garbled. Patient is evaluated by ED physician and Tele-neurology, NIHSS 6, and given TNK. In ED, initial BP 132/63, HR 67, RR 15, 100% on room air, Temp 98.5. ED work up remarkable for glucose 98mg/dL, WBC 4.8, Hgb 13. EKG reveals sinus or ectopic atrial rhythm, [place] 84msec. CT Head, CTA Head and Neck reports no acute intracranial abnormality within the limitations of CT. Chronic small vessel ischemic changes are noted. No intracranial large vessel occlusion is identified. Atherosclerotic plaque at the left greater than right carotid bifurcations is without associated hemodynamically significant stenosis. Cervical carotid and vertebral arteries remain patent. Ischemic CVA: NIHSS 6 on presentation, s/p TNK given in ED. ICU for close monitoring post TNK. NPO, pending bedside swallow screen. Cardiac telemetry monitoring. Neurochecks. MRI Brain, Echocardiogram. ASA, statin. Check FLP, Urinalysis, Urine Drug Screen, TFT. PT/OT/SOAP BOILER eval. Neurology Consult. Patient reports she is doing better today and her legs don't feel as swollen. Problem list, surgical history and medication list were all reviewed. Most recent Vitals and Pain Temp: 98.9F, Location: Other Heart Rate: 76, Position: Unknown Blood Pressure: 132/65, Position: Unknown, Location: Unknown RR: 15 O2: 99% Saturation Glucose: 95.0 Matos: 500 Exam OCCUPATIONAL PROFILE: Prior to admission : Patient was independent with home management. Patient was independent for meal preparation. Patient was independent with (more content not included)... Normal [facility] USV Echocardio Com Bubble Pr magaly 11-25-2024 USV Echocardio Com Bubble Proc [facility] Name: MAGNO RAI [address] [place] [address] Phys: [place] [address] : 1945 Age: 79 Acct: [id number] Loc: [id number] MRN/Unit No.: [id number] Status: ADM IN Exam Date: 11/24/24 Accession Number: [id number] Exam: US/USV Echocardio Com Bubble Proc [id number] __.pdf *[facility]* [address] [address] Transthoracic Echocardiogram Patient: Magno Rai Height: 65 in / 165 cm Study Date: 11/25/2024 : 1945 Weight: 259.6 lb / 118 kg Age: 79 BSA: 2.39 m 2 Gender: F BP: 131 / 67 *Ordering Physician: * Abhay Hayes *Performing Physician: * Elicia Aguila Tran Hayden *Reading Physician: * Homar Meza MD *Music Engineer: * Rositarene Miroslava ---- Indications: TIA. ---- Study data: Transthoracic echocardiogram. Procedure: Transthoracic echocardiography was performed. Image quality was good. Intravenous contrast (Definity and agitated saline, 4 mls) was administered. Complete 2D, complete spectral Doppler, and color Doppler. Location: ICU Patient status: Inpatient. Patient room number: 4020-1. HR: 74 bpm. BMI: 43.3 kg/m 2. Study status: Routine. ---- Conclusions Summary: 1. Left ventricle: The cavity size is normal. Wall thickness is mildly increased. There is concentric hypertrophy. Systolic function is normal by the biplane method of disks. The estimated ejection fraction is 60%. Wall motion is normal; there are no regional wall motion abnormalities. Left ventricular diastolic function parameters are normal. 2. Right ventricle: The cavity size is normal. Wall thickness is normal. Systolic function is normal. Systolic pressure is at the upper limits of normal. The RV pressure during systole by Doppler is 34 mm Hg. 3. Left atrium: The atrium is moderately to severely dilated. 4. Right atrium: The atrium is moderately dilated. 5. Atrial septum: Agitated saline Bubble study no right to left shunt. 6. Mitral valve: The annulus is mildly to moderately calcified. The leaflets are moderately thickened. 7. Pericardium, extracardiac: A trivial pericardial effusion is identified. ---- Findings Left ventricle: The cavity size is normal. Wall thickness is mildly increased. There is concentric hypertrophy. Systolic function is normal by the biplane method of disks. The estimated ejection fraction is 60%. Wall motion is normal; there are no regional wall motion abnormalities. Left ventricular diastolic function parameters are normal. Right ventricle: The cavity size is normal. Wall thickness is normal. Systolic function is normal. Systolic pressure is at the upper limits of normal. The RV pressure during systole by Doppler is 34 mm Hg. Left atrium: The atrium is moderately to severely dilated. Right atrium: The atrium is moderately dilated. Atrial septum: Agitated saline Bubble study no right to left shunt. Mitral valve: The annulus is mildly to moderately calcified. The leaflets are moderately thickened. There is no evidence of stenosis. There is mild regurgitation. Aortic valve: The valve is trileaflet. The leaflets are mildly thickened. There is no evidence of stenosis. There is no significant regurgitation. The peak systolic velocity is 1.43 m/sec. The ratio of LVOT to aortic valve peak velocity is 0.73. The mean systolic gradient is 4.3 mm Hg. The peak systolic gradient is 8.2 mm Hg. Tricuspid valve: The leaflets are mildly thickened. There is no evidence of stenosis. There is mild regurgitation. Pulmonic valve: The leaflets are mildly thickened. There is no evidence of stenosis. There is trivial regurgitation. Aorta: The aortic root is not dilated. Pericardium: A trivial pericardial effusion is identified. ---- Measurements Left ventricle Value Ref Left atrium Value Ref EDV 88 ml 46 - 106 AP dim, ES (H) 4.09 cm 2.70 - 3.80 ESV 26 ml 14 - 42 AP dim index 1.7 cm/m 2 1.5 - 2.3 EDV/bsa 37 ml/m 2 29 - 61 IVS, ED SMM (H) 1.0 cm 0.6 - 0.9 Right atrium Value Ref LANCE, SMM 4.5 cm 3.8 - 5.2 Estimated RAP 3 mm Hg ESD, SMM 3.0 cm 2.2 - 3.5 FS, SMM 33 % 27 - 45 Aortic valve Value Ref Mid-wall FS, SMM 15 % 15 - 23 Peak v, S 1.43 m/sec PW, ED SMM (H) 1.0 cm 0.6 - 0.9 VTI, S 29.2 cm IVS/PW, ED SMM 1 Mean grad, S 4.3 mm Hg PW/ID (more content not included)... [facility] ANon 11-24-2024 AN ROOM: [facility] ADM: 08/12 DIS: PATIENT NAME: MAGNO RAI : 1945 AGE: 79 RACE: W SEX: F PHYSICAL THERAPY (ACUTE) General Note - Shakila Fofana PT - 11/24/2024 11:11 AM (Started 11/24/2024 11:11 AM) Note Per MIKO Weeks patient is currently not appropriate for therapy secondary to TNK. Will continue to follow as able. Electronically signed by Shakila Fofana PT SIGNED BY: SHAKILA FOFANA PT 11/24/24 1111 cc: This report was electronically signed in another vendor system [facility] AN ROOM: [facility] ADM: 08/12 DIS: PATIENT NAME: MAGNO RAI : 1945 AGE: 79 RACE: W SEX: F OCCUPATIONAL THERAPY (ACUTE) General Note - LEILANI Rivas - 11/24/2024 8:26 AM (Started 11/24/2024 8:26 AM) Note Per RN Desi patient is currently not appropriate for therapy secondary to TNK. Will continue to follow as able. Electronically signed by Addison Lassiter OT/Francisco SIGNED BY: ADDISON LASSITER 11/24/24825 cc: This report was electronically signed in another vendor system Normal [facility] CBC With Differentialon Basophils Absolute Auto 0.02 10*3/uL Normal 0.0-0.2 [facility] Comment on above: Performed By: #### T S #### [address] [id number] , Giancarlo Buckley M.D. FCAP, FASCP Basophils/100 WBC (Bld) 0.5 % Normal 0-1.0 [facility] Comment on above: Performed By: #### T S #### [address] [id number] , Giancarlo Buckley M.D. FCAP, FASCP Differential Type? Auto Differential Normal [facility] Comment on above: Performed By: #### T S #### [address] [id number] , Giancarlo Buckley M.D. FCAP, FASCP Eosinophils (Bld) [#/Vol] 0.06 10*3/uL Normal 0.0-0.5 [facility] Comment on above: Performed By: #### T S #### [address] [address] , Giancarlo Buckley M.D. FCAP, FASCP Eosinophils/100 WBC (Bld) 1.5 % Normal 0.0-3.0 [facility] Comment on above: Performed By: #### T S #### [address] [id number] , Giancarlo Buckley M.D. FCAP, FASCP Hematocrit (Bld) [Volume fraction] 37.2 % Normal 35.0-47.0 [facility] Comment on above: Performed By: #### T S #### [address] [id number] , Giancarlo Buckley M.D. FCAP, FASCP Hemoglobin (Bld) [Mass/Vol] 12.4 g/dL Normal 11.7-15.7 [facility] Comment on above: Performed By: #### T S #### [address] [id number] , Giancarlo Buckley M.D. FCAP, FASCP Immature Gran Absolute Auto 0.00 10*3/uL Low 0.01-0.2 [facility] Comment on above: Performed By: #### T S #### [address] [id number] , Giancarlo Buckley M.D. FCAP, FASCP Immature granulocytes/100 WBC (Bld) 0.0 % Normal 0-0.9 [facility] Comment on above: Performed By: #### T S #### [address] [id number] , Giancarlo Buckley M.D. FCAP, FASCP Lymphocytes (Bld) [#/Vol] 0.97 10*3/uL Low 1.5-4.0 [facility] Comment on above: Performed By: #### T S #### [address] [id number] , Giancarlo Buckley M.D. FCAP, FASCP Lymphocytes/100 WBC (Bld) 24.9 % Normal 20.0-40.0 [facility] Comment on above: Performed By: #### T S #### [address] [id number] , Giancarlo Buckley M.D. FCAP, FASCP MCH (RBC) [Entitic mass] 33.2 pg Normal 27.0-40.0 [facility] Comment on above: Performed By: #### T S #### [address] [address] , Giancarlo Buckley M.D. FCAP, FASCP Mean Corpusc Hgb Concentration 33.3 g/dL Normal 31.0-36.0 [facility] Comment on above: Performed By: #### T S #### [address] [id number] , Giancarlo Buckley M.D. FCAP, FASCP Mean Corpuscular Volume 99.5 CU uM Normal 80.0-100.0 [facility] Comment on above: Performed By: #### T S #### [address] [id number] , Giancarlo Buckley M.D. FCAP, FASCP Monocytes (Bld) [#/Vol] 0.52 10*3/uL Normal 0.2-0.8 [facility] Comment on above: Performed By: #### T S #### [address] [id number] , Giancarlo Buckley M.D. FCAP, FASCP Monocytes/100 WBC (Bld) 13.4 % High 4.0-10.0 [facility] Comment on above: Performed By: #### T S #### [address] [address] , Giancarlo Buckley M.D. FCAP, FASCP Neutrophils Absolute Auto 2.32 10*3/uL Normal 2.0-7.0 [facility] Comment on above: Performed By: #### T S #### [address] [address] , Giancarlo Buckley M.D. FCAP, FASCP Neutrophils/100 WBC (Bld) 59.7 % Normal 54.0-62.0 [facility] Comment on above: Performed By: #### T S #### [address] [address] , Giancarlo Buckley M.D. FCAP, FASCP Nucleated RBC (Bld) [#/Vol] 0.00 10*3/uL Normal -0 [facility] Comment on above: Performed By: #### T S #### [address] [address] , Giancarlo Buckley M.D. FCAP, FASCP Nucleated RBC's % 0.0 /100WBC Normal -0 [facility] Comment on above: Performed By: #### T S #### [address] [address] , Giancarlo Buckley M.D. FCAP, FASCP Platelets (Bld) [#/Vol] 110 10*3/uL Low 130-440 [facility] Comment on above: Performed By: #### T S #### [address] [address] , Giancarlo Buckley M.D. FCAP, FASCP RBC (Bld) [#/Vol] 3.74 10*6/uL Low 3.80-5.[address] [facility] Comment on above: Performed By: #### T S #### [address], [place] [id number] , Giancarlo Buckley M.D. FCAP, FASCP Red Cell Distribution 13.1 Normal 11.5-14.5 [facility] Comment on above: Performed By: #### T S #### [facility] [address] [place], [place] [id number] , Giancarlo Buckley M.D. FCAP, FASCP WBC (Bld) [#/Vol] 3.9 10*3/uL Normal 3.5-11.0 [facility] Comment on above: Performed By: #### T S #### [address] [id number] , Giancarlo Buckley M.D. FCAP, FASCP Calcium Ionized Serumon 09-0 Calcium Ionized Serum 4.7 MG/DL Normal 4.5-5.6 [facility] Comment on above: Performed By: #### I PABLO ####[facility] [address] [place], [place] [id number] ,Giancarlo Buckley M.D. FCAP, FASCP Complete Blood Counton 11-24 Hematocrit Normal 35.0-47.0 [facility] Comment on above: Order Comment: Comme nts: 1 sample(s), Collect by: Lab. Result Comment: Canc el Per RN [11/24/24518] Performed By: #### C BC ####[facility] [address] [place], [place] [id number] ,Giancarlo Buckley M.D. FCAP, FASCP Hemoglobin Normal 11.7-15.7 [facility] Comment on above: Order Comment: Comme nts: 1 sample(s), Collect by: Lab. Result Comment: Canc el Per RN [11/24/24518] Performed By: #### C BC ####[facility] [address] [place], [place] [id number] ,Giancarlo Buckley M.D. FCAP, FASCP Platelet Count Normal 130-440 [facility] Comment on above: Order Comment: Comme nts: 1 sample(s), Collect by: Lab. Result Comment: Canc el Per RN [[facility] 11/24/24518] Performed By: #### C BC ####[facility] [address] [place], [place] [id number] ,Giancarlo Buckley M.D. FCAP, FASCP Red Blood Cell Count Normal 3.80-5.20 [facility] Comment on above: Order Comment: Comme nts: 1 sample(s), Collect by: Lab. Result Comment: Canc el Per RN [[facility] 11/24/24518] Performed By: #### C BC ####[facility] [address] [place], [place] [id number] ,Giancarlo Buckley M.D. FCAP, FASCP White Blood Cell Count Normal 3.5-11.[address] [facility] Comment on above: Order Comment: Comme nts: 1 sample(s), Collect by: Lab. Result Comment: Canc el Per RN [[facility] 11/24/24518] Performed By: #### C BC ####[facility] [address] [place], [place] [id number] ,Giancarlo Buckley M.D. FCAP, FASCP Comprehensive Metabolic Pane tom 11-24-2024 Albumin [Mass/Vol] 3.6 g/dL Low 4.0-4.9 [facility] Comment on above: Performed By: #### A DP, MG, RAYO ####[facility] [address] [place], [place] [address] ,Giancarlo Buckley M.D. FCAP, FASCP ALP [Catalytic activity/Vol] 84 U/L Normal 35-104 [facility] Comment on above: Performed By: #### A MG TAMI, RAYO ####[facility] [address] [place], [place] [address] ,Giancarlo Buckley M.D. FCAP, FASCP ALT [Catalytic activity/Vol] 28 U/L Normal 10-35 [facility] Comment on above: Performed By: #### A MG TAMI, RAYO ####[facility] [place] [id number] ,Giancarlo Buckley M.D. FCAP, FASCP Anion gap [Moles/Vol] 7 mmol/L Low 9-15 [facility] Comment on above: Performed By: #### A MG TAMI, RAYO ####[facility] [place] [id number] ,Giancarlo Buckley M.D. FCAP, FASCP AST [Catalytic activity/Vol] 39 U/L High 10-35 [facility] Comment on above: Performed By: #### A MG TAMI, RAYO ####[facility] [place] [id number] ,Amelie AcevedoAP, FASCP Bilirubin [Mass/Vol] 0.6 mg/dL Normal 0.2-1.2 [facility] Comment on above: Performed By: #### A MG TAMI, RAYO ####[facility] [place], [place] [address] ,Giancarlo Buckley M.D. FCAP, FASCP Calcium [Mass/Vol] 8.4 mg/dL Low 8.8-10.2 [facility] Comment on above: Performed By: #### A MG TAMI, RAYO ####[facility] [address] [place] [id number] ,Amelie AcevedoAP, FASCP Chloride [Moles/Vol] 108 mmol/L High 98-107 [facility] Comment on above: Performed By: #### A MG TAMI, RAYO ####[facility] [address] [place] [address] ,Giancarlo Buckley M.D. FCAP, FASCP CO2 [Moles/Vol] 23 mmol/L Normal 22-29 [facility] Comment on above: Performed By: #### A MG TAMI, RAYO ####[facility] [address] [place] [address] ,Giancarlo Buckley M.D. FCAP, FASCP Creatinine [Mass/Vol] 0.68 mg/dL Normal 0.51-0.95 [facility] Comment on above: Performed By: #### A MG TAMI, RAYO ####[facility] [address] [place] [address] ,Giancarlo Buckley M.D. FCAP, FASCP GFR/1.73 sq M.predicted among non-blacks MDRD (S/P/Bld) [Vol rate/Area] mL/min/{1.73_m2} Normal [facility] Comment on above: Result Comment: THE GFR IS ESTIMATED USING THE MDRD STUDY EQUATION. *NOTE* IF THE RACE OF THE PATIENT WAS UNKNOWN AT THE TIME OF REGISTRATION, AND THE PATIENT IS , MULTIPLY THE EGFR RESULT PROVIDED BY 1.21. NORMAL: EGFR >60.0 Performed By: #### A TAMI MG, RAYO ####[facility] [address] [place] [address] ,Giancarlo Buckley M.D. FCAP, FASCP Glucose [Mass/Vol] 103 mg/dL High 70-100 [facility] Comment on above: Result Comment: INTR EPRETATION FOR FASTING BLOOD GLUCOSE: 70-100 mg/dl NORMAL GLUCOSE TOLERANCE 100-125 mg/dl IMPAIRED FASTING GLUCOSE (PRE-DIABETES) >125 mg/dl DIABETES - ON MORE THAN ONE TESTING Performed By: #### A MG TAMI, RAYO ####[facility] [address] [place], [place] [address] ,Giancarlo Buckley M.D. FCAP, FASCP Potassium [Moles/Vol] 4.2 mmol/L Normal 3.6-5.0 [facility] Comment on above: Performed By: #### A TAMI MG, RAYO ####[facility] [place] [id number] ,Giancarlo Buckley M.D. FCAP, FASCP Protein [Mass/Vol] 6.5 g/dL Normal 6.4-8.3 [facility] Comment on above: Performed By: #### A TAMI MG, RAYO ####[facility] [place] [id number] ,Amelie AcevedoAP, FASCP Sodium [Moles/Vol] 138 mmol/L Normal 136-145 [facility] Comment on above: Performed By: #### A TAMI MG, RAYO ####[facility] [place] [address] [id number] ,Amelie AcevedoAP, FASCP Urea nitrogen [Mass/Vol] 12.3 mg/dL Normal 8.0-23.0 [facility] Comment on above: Performed By: #### A TAMI MG, RAYO ####[facility] [address] [place], [place] [id number] ,Giancarlo Buckley M.D. FCAP, FASCP Albumin Normal 4.0-4.9 [facility] Comment on above: Order Comment: Comme nts: 1 sample(s), Collect by: Lab.Comments: 1 sample(s), Collect by: Lab. Result Comment: @Col lect at later time per RN [[facility] 11/24/24 0518] Performed By: #### T S #### [facility] Lab [address] [place], [place] [id number] , Giancarlo Buckley M.D. FCAP, FASCP Alkaline Phosphatase Normal 35-104 [facility] Comment on above: Order Comment: Comme nts: 1 sample(s), Collect by: Lab.Comments: 1 sample(s), Collect by: Lab. Result Comment: @Col lect at later time per RN [[facility] 11/24/24517] Performed By: #### T S #### [facility] [address] [place], [place] [phone] , Amelie AcevedoAP, FASCP ALT Alanine Transamine Normal 10-[address] [facility] Comment on above: Order Comment: Comme nts: 1 sample(s), Collect by: Lab.Comments: 1 sample(s), Collect by: Lab. Result Comment: @Col lect at later time per RN [[facility] 11/24/24517] Performed By: #### T S #### [facility] [address] [place], [place] [id number] , Amelie AcevedoAP, FASCP Anion Gap Normal 9-15 [facility] Comment on above: Order Comment: Comme nts: 1 sample(s), Collect by: Lab.Comments: 1 sample(s), Collect by: Lab. Result Comment: @Col lect at later time per RN [[facility] 11/24/24517] Performed By: #### T S #### [facility] [address] [place], [place] 8[address] , Amelie AcevedoAP, FASCP AST Aspartate Transaminase Normal 10-35 [facility] Comment on above: Order Comment: Comme nts: 1 sample(s), Collect by: Lab.Comments: 1 sample(s), Collect by: Lab. Result Comment: @Col lect at later time per RN [[facility] 11/24/24517] Performed By: #### T S #### [facility] Lab [address] [place], [place] [phone] , Giancarlo Buckley M.D. FCAP, FASCP Bilirubin Total Normal 0.2-1.2 [facility] Comment on above: Order Comment: Comme nts: 1 sample(s), Collect by: Lab.Comments: 1 sample(s), Collect by: Lab. Result Comment: @Col lect at later time per RN [[facility] 11/24/24517] Performed By: #### T S #### [facility] [address] [place], [place] [id number] , Giancarlo Buckley M.D. FCAP, FASCP Blood Urea Nitrogen Normal 8.0-23.[address] [facility] Comment on above: Order Comment: Comme nts: 1 sample(s), Collect by: Lab.Comments: 1 sample(s), Collect by: Lab. Result Comment: @Col lect at later time per RN [[facility] 11/24/24517] Performed By: #### T S #### [facility] [address] [place], [place] [id number] , Giancarlo Buckley M.D. FCAP, FASCP Calcium Normal 8.8-10.2 [facility] Comment on above: Order Comment: Comme nts: 1 sample(s), Collect by: Lab.Comments: 1 sample(s), Collect by: Lab. Result Comment: @Col lect at later time per RN [[facility] 11/24/24517] Performed By: #### T S #### [facility] [address] [place] [address] , Giancarlo Buckley M.D. FCAP, FASCP Chloride Normal 98-107 [facility] Comment on above: Order Comment: Comme nts: 1 sample(s), Collect by: Lab.Comments: 1 sample(s), Collect by: Lab. Result Comment: @Col lect at later time per RN [[facility] 11/24/24517] Performed By: #### T S #### [facility] [address] [place], [place] [id number] , Giancarlo Buckley M.D. FCAP, FASCP Creatinine Normal 0.51-0.95 [facility] Comment on above: Order Comment: Comme nts: 1 sample(s), Collect by: Lab.Comments: 1 sample(s), Collect by: Lab. Result Comment: @Col lect at later time per RN [[facility] 11/24/24517] Performed By: #### T S #### [facility] [address] [place], [place] 6[address] , Giancarlo Buckley M.D. FCAP, FASCP Est Glomerular Filtration Rate Normal [facility] Comment on above: Order Comment: Comme nts: 1 sample(s), Collect by: Lab.Comments: 1 sample(s), Collect by: Lab. Result Comment: @Col lect at later time per RN [[facility] 11/24/24517] Performed By: #### T S #### [facility] [address] [place], [place] [address] , Giancarlo Buckley M.D. FCAP, FASCP Glucose, Blood Normal 70-100 [facility] Comment on above: Order Comment: Comme nts: 1 sample(s), Collect by: Lab.Comments: 1 sample(s), Collect by: Lab. Result Comment: @Col lect at later time per RN [[facility] 11/24/24517] Performed By: #### T S #### [facility] [address] [place] [address] , Giancarlo Buckley M.D. FCAP, FASCP Potassium Blood Normal 3.6-5.0 [facility] Comment on above: Order Comment: Comme nts: 1 sample(s), Collect by: Lab.Comments: 1 sample(s), Collect by: Lab. Result Comment: @Col lect at later time per RN [[facility] 11/24/24517] Performed By: #### T S #### [facility] [address] [place], [place] 8[address]20[address] , Giancarlo Buckley M.D. FCAP, FASCP Sodium Serum Normal 136-145 [facility] Comment on above: Order Comment: Comme nts: 1 sample(s), Collect by: Lab.Comments: 1 sample(s), Collect by: Lab. Result Comment: @Col lect at later time per RN [[facility] 11/24/24517] Performed By: #### T S #### [facility] [address] [place], [place] [phone] , Giancarlo Buckley M.D. FCAP, FASCP Total CO2 Normal 22-29 [facility] Comment on above: Order Comment: Comme nts: 1 sample(s), Collect by: Lab.Comments: 1 sample(s), Collect by: Lab. Result Comment: @Col lect at later time per RN [[facility] 11/24/24517] Performed By: #### T S #### [facility] [address] [place], [place] [id number] , Giancarlo Buckley M.D. FCAP, FASCP Total Protein Normal 6.4-8.3 [facility] Comment on above: Order Comment: Comme nts: 1 sample(s), Collect by: Lab.Comments: 1 sample(s), Collect by: Lab. Result Comment: @Col lect at later time per RN [[facility] 11/24/24517] Performed By: #### T S #### [facility] [address] [place], [place] [phone] Giancarlo M.D. FCAP, FASCP DNon 11-24-2024 DN ROOM: [facility] ADM: 08/12 DIS: PATIENT NAME: MAGNO RAI : 1945 AGE: 79 RACE: W SEX: F DIETITIAN TEAM (ACUTE) Comprehensive - Danna Meyer - 11/24/2024 2:00 PM (Started 11/24/2024 1:55 PM) Nutritional Care Plan Malnutrition Severity Evidence supports diagnosis of No malnutrition Recommendations Diet recommendations: Continue current Additional recommendations: Daily weight monitoring, Nutritional labs Goals / Interventions Interventions: Nutritional education/counseling provided, Encouraged frequent meals and increased intake Patient goals: Meal consumption, Tolerance of meals (absence of nausea, vomiting, diarrhea, etc.) Monitoring parameters: Tolerance of nutrient intake, Functional status, Weight trends, Changes in clinical status, Nutrition-related labs Re-evaluation: Care plan initiated Goal(s): Not Met Education Education Methods: Verbal Patient's understanding: Good Time spent educatin min or less Patient's expected compliance: Good Education provided: 11-24-2024: Reviewed a healthy diet and healing Reason for Consult ICU ADMISISON Consulted By Other User: Nutritional Screening Background INITIAL VISIT 79yo Female with PMHx of TIA with no residual deficits many years ago, who presented to ED with complaint of sudden onset general weakness, syncope, and speech deficits which started just prior to ED arrival. Patient has been outside at the [facility] for about 45min when she suddenly felt heavy all over, went limp, requiring family to sit her down onto rollator which patient remembers. Per daughter, patient is unresponsive for several minutes, and is completely disoriented when she regained alertness. Daughter reports patient has right side face/lip droop, has difficulty recalling words/nouns, and speech is slurred/garbled. Patient was evaluated by ED physician and Tele-neurology, NIHSS 6, and given TNK. In ED, initial BP 132/63, HR 67, RR 15, 100% on room air, Temp 98.5. ED work up remarkable for glucose 98mg/dL, WBC 4.8, Hgb 13. EKG reveals sinus or ectopic atrial rhythm, [place] 84msec. CT Head, CTA Head and Neck reports no acute intracranial abnormality within the limitations of CT. Chronic small vessel ischemic changes are noted. No intracranial large vessel occlusion is identified. Atherosclerotic plaque at the left greater than right carotid bifurcations is without associated hemodynamically significant stenosis. Cervical carotid and vertebral arteries remain patent. Admitted for ischemic CVA. Prior information is per physician documentation. Nutrition History Have you had recent changes in weight? No Have you had recent changes in appetite? No Do you have any gastrointestinal dysfunction? No Do you use nutritional support? No Do you have a past history of using tube feedings/ TPN? No Do you have a past history of pressure ulcer wounds? Unknown Comments: 11-24-2024: Patient stated that she normally has a good appetite. Per 1 meals she consumed at 100%. Patient denied having any N/V or ABD pain at the time of visit. Patient stated that she is starting to feel better than she was. Patient stated that her last BM was at home. Current Diet: NPO was able to advance to an easy to chew IV Fluids: IV fluids running at 100 ml/hr at time of visit Surgery Procedure History 1) section 2) Arthroplasty of knee 3) Total replacement of hip Medical History Not done Social History Tobacco Use Status: Never Alcohol Use Status: None Substance Use Status: Never Family History No positive family history Home Residence: Home Home Medications Cyclosporine Ophthalmic Drops 0.05 % 1 drop into both eyes every 12 hours Allergies Sulfa (Sulfonamide Antibiotics), Unknown severity Unknown reaction Wounds, Lesions, Pictures None Reviewed Labs Na 134 (11-23-24) K 4.5 (11-23-24) Cl 102 (11-23-24) Calcium 8.8 (11-23-24) Mg 2 (11-23-24) ANION GAP 11 (11-23-24) BUN 19.2 (11-23-24) Cr 0.79 (11-23-24) CrCl (Cockcroft-Gault Formula) 74.3 (11-23-24) GFR > 60 (11-23-24) BLOOD GLUCOSE 115 (11-23-24) WBC 4.8 (11-23-24) Hgb 13 (11-23-24) Hct 39.2 (11-23-24) PLT 128 (11-23-24) Weight Trends 11/23/24 21:09 Weight: 118.30 kg (NotSet), Height: 165.1 cm (NotSet), BMI: 43.4 Weight Trend Comments Limited weight history available for review. Nutritional Focused Physical Exam EXAM: Abnormals - Patient obese, malnutrition based on weight intake. PES Problem Statement: Biting/chewing (masticatory) difficulty related to Neuromuscular dysfunction as evidenced by Avoidance of food difficult to form into a bolus such as nuts, whole pieces of meat, poultry, fish, fruits or vegetables Estimated Needs First calculated Calorie needs: 23-28 pablo per Kg Based on: Adjusted Weight Protein nee (more content not included)... Normal [facility] Drug Screen Urine 11 panelon 11-24-2024 Alcohol Screen Urine Negative Normal NEG [facility] Comment on above: Performed By: #### D AMBROSE #### [address] [id number] , Giancarlo Buckley M.D. FCAP, FASCP Amphetamine Screen Urine Negative Normal [facility] Comment on above: Performed By: #### D AMBROSE #### [address] [address] , Giancarlo Buckley M.D. FCAP, FASCP Barbiturate Screen Urine Negative Normal [facility] Comment on above: Performed By: #### D AMBROSE #### [address] [address] , Giancarlo Buckley M.D. FCAP, FASCP Benzodiazapine Screen Urine Negative Normal [facility] Comment on above: Performed By: #### D AMBROSE #### [address] [id number] , Giancarlo Buckley M.D. FCAP, FASCP Cocaine Screen Urine Negative Normal [facility] Comment on above: Performed By: #### D AMBROSE #### [address] [id number] , Giancarlo Buckley M.D. FCAP, FASCP Fentanyl Screen Urine Negative Normal Negative [facility] Comment on above: Performed By: #### D AMBROSE #### [address] [id number] , Giancarlo Buckley M.D. FCAP, FASCP Marijuana Screen Urine Negative Normal NEG [facility] Comment on above: Performed By: #### D AMBROSE #### [facility] [address] [place] [address] , Giancarlo Buckley M.D. FCAP, FASCP Methadone Screen Urine Negative Normal NEG [facility] Comment on above: Performed By: #### D AMBROSE #### [facility] [address] [place] [address] , Giancarlo Buckley M.D. FCAP, FASCP Opiate Screen Urine Negative Normal NEG [facility] Comment on above: Performed By: #### D AMBROSE #### [facility] [address] [place] [address] , Giancarlo Buckley M.D. FCAP, FASCP Oxycodone Urine Negative Normal NEG [facility] Comment on above: Performed By: #### D AMBROSE #### [facility] [address] [place] [address] , Giancarlo Buckley M.D. FCAP, FASCP Lipid Profile Fastingon 09-0 Cholesterol Fasting Normal 0-[address] [facility] Comment on above: Order Comment: Comme nts: 1 sample(s), Collect by: Lab.Comments: 1 sample(s), Collect by: Lab. Result Comment: @Col lect at later time per RN [NOEMY 11/24/24517] Performed By: #### T S #### [facility] [address] [place] [address] , Giancarlo Buckley M.D. FCAP, FASCP HDL Cholesterol Fasting Normal >60 [facility] Comment on above: Order Comment: Comme nts: 1 sample(s), Collect by: Lab.Comments: 1 sample(s), Collect by: Lab. Result Comment: @Col lect at later time per RN [NOEMY 11/24/24517] Performed By: #### T S #### [facility] [address] [place] [address] Giancarlo M.D. FCAP, FASCP LDL Cholesterol (CALC) Fasting Normal <100 [facility] Comment on above: Order Comment: Comme nts: 1 sample(s), Collect by: Lab.Comments: 1 sample(s), Collect by: Lab. Result Comment: @Col lect at later time per RN [NOEMY 11/24/24517] Performed By: #### T S #### [facility] [address] [place] [address] Giancarlo M.D. FCAP, FASCP Risk Ratio Fasting Normal [facility] Comment on above: Order Comment: Comme nts: 1 sample(s), Collect by: Lab.Comments: 1 sample(s), Collect by: Lab. Result Comment: @Col lect at later time per RN [NOEMY 11/24/24517] Performed By: #### T S #### [facility] [address] [place] [address] Giancarlo M.D. FCAP, FASCP Triglycerides Fasting Normal <[address] [facility] Comment on above: Order Comment: Comme nts: 1 sample(s), Collect by: Lab.Comments: 1 sample(s), Collect by: Lab. Result Comment: @Col lect at later time per RN [NOEMY 11/24/24517] Performed By: #### T S #### [facility] [address] [place] [address] Giancarlo M.D. FCAP, FASCP MMHCONSon 11-24-2024 [facility]CONS ROOM: [facility] ADM: 08/12 DIS: PATIENT NAME: MAGNO RAI : 1945 AGE: 79 RACE: W SEX: F NEUROLOGY (ACUTE) Initial Consult Note - Solitario Carey MD - 11/24/2024 10:20 AM (Started 11/24/2024 10:05 AM) Summary and Plan 1. Acute AMS s/p TNK 11/23/2024 2. hx of CVA 3. soft tissue mass left parotid gland 2.1 x 2.4 x 2.8 cm, CTA H N: no LVO or atherosclerotic disease, Lobular soft tissue at the left parotid gland measures 2.1 x 2.4 x 2.8 cm, suspicious for neoplastic process. Plan Post TNK protocol: Permissive BP, PRN tx to keep SBP < 180 mm Hg; DBP < 105 mm Hg No anticoagulant or antiplatelet first 24 hrs If f/u HCT negative for bleed at 24 hrs can initiate ASA 81 mg after 24 hrs Atorvastatin 40 MRI brain with and without C EEG if MRI brain negative Acute Problems 1) Ischemic stroke [I63.9] (Added: 11/23/2024, Present on Admission) 2) Dysarthria [R47.1] (Added: 11/23/2024, Present on Admission) 3) Expressive dysphasia [F80.1] (Added: 11/23/2024) 4) Syncope [R55] (Added: 11/23/2024, Present on Admission) Chronic Problems 1) Transient cerebral ischemia [G45.9] (Added: 11/23/2024, Present on Admission) 2) Lichen planus [L43.9] (Added: 11/23/2024, Present on Admission) Surgery Procedure History 1) section 2) Arthroplasty of knee 3) Total replacement of hip Implants None Reason for Consult CVA Consulted By Abhay Hayes DO HPI 79yo Female with PMHx of CVA (with residual mild left foot weakness and left eyelid weakness per patient) who presented to ED on 11/23/2024 with complaint of sudden onset general weakness, syncope, and speech deficits which started just prior to ED arrival. Per patient she recalls being [place] [employer] [place] and started to feel weak, sat down on her rolling walker and the next thing she recalls was someone asking her to look at 'their big nose,' which the patient thinks was EMS, from what her daughter told her. Patient does recall the stroke evaluation in the ER and being frustrated that she had difficulty speaking. This morning feels back to her normal state of health. No hx of seizures. Did have a 'mini stroke' in the past and was not on a antiplatelet prior to her admission. Patient does recall having a sore throat earlier in the week and a headache on 11/20. In ED, initial BP 132/63, HR 67, RR 15, 100% on room air, Temp 98.5. ED work up remarkable for glucose 98mg/dL, WBC 4.8, Hgb 13. EKG reveals sinus or ectopic atrial rhythm, OH 84msec. Vitals Temp: 98.3F, Location: Other Heart Rate: 63, Position: Unknown Blood Pressure: 130/50, Position: Unknown, Location: Unknown RR: 15 O2: 96% Saturation Glucose: 115.0 Pain: 0, Patient reports Matos: 2700 Exam GEN: Normals - No acute distress Other findings - TMax: 98.5, Heart Rate: 63, BP: 130/50, RR: 15, O2: 96% Saturation EYES: Normals - EOMI ENT: Normals - Mucous membranes moist, Pharynx clear NECK: Normals - Supple RESP: Normals - Relaxed respirations CV: Normals - Rhythm regular GI: Normals - Soft, Non-tender : Normals - No suprapubic tenderness LYMPH: Normals - No cervical adenopathy NEURO: Normals - Alert Other findings - Alert, oriented x 3 Language: fluent, comprehends, naming intact Cranial nerves EOMI, LEANNE no nystagmus no facial asymmetry Motor symmetric strength arms, no drift or pronation b/l hip flexion 5/5 MS: Normals - No clubbing PSYCH: Normals - Mood is appropriate SKIN: Normals - Warm and dry, No cyanosis Review of Systems CONST: Normals - Negative or noted elsewhere EYES: Normals - Negative or noted elsewhere ENT: Normals - Negative or noted elsewhere RESP: Normals - Negative or noted elsewhere CV: Normals - Negative or noted elsewhere GI: Normals - Negative or noted elsewhere : Normals - Negative or noted elsewhere MS: Normals - Negative or noted elsewhere SKIN: Normals - Negative or noted elsewhere NEURO: Normals - Negative or noted elsewhere PSYCH: Normals - Negative or noted elsewhere ENDO: Normals - Negative or noted elsewhere HEME/LYMPH: Normals - Negative or noted elsewhere ALLERGY: Normals - Negative or noted elsewhere Home Medications 1) Cyclosporine Ophthalmic Drops 0.05 % 1 drop into both eyes every 12 hours Allergies Sulfa (Sulfonamide Antibiotics), Unknown severity Unknown reaction Family History No positive family history Home Residence: Home Social History Tobacco Use Status: Never Alcohol Use Status: None Substance Use Status: Never Charges Medical Complexity: High CPT Code: 49991 - Level 5 Initial Consultation Electronically signed by Solitario Carey MD SIGNED BY: SOLITARIO CAREY MD 11/24/24 1005 cc: This report was electronically signed in another vendor system [facility] ADM: 08/12 DIS: PATIENT NAME: MAGNO RAI : 1945 AGE: 79 RACE: W SEX: F PULMONARY - CRITICAL CARE (ACUTE) Initial Consult Note - Fredi Lopez MD - 11/24/2024 11:39 AM (Started 11/24/2024 9:51 AM) Summary and Plan ICU admission date 11/24/24 Assessment: - NIHSS 6 on presentation, s/p TNK at 8 PM last night - TIA 15 years ago - soft tissue mass left parotid gland 2.1 x 2.4 x 2.8 cm ( will need further follow up) - BARON - Osteoarthritis Recommendations: - Neurology is consulted; appreciate recs - Neurochecks Q2H - MRI w/wo pending - Continuing ABCDEF bundle -Systolic BP goal < 180 - No asa or or DVT until 24 hours - Echo pending - Adjusting oxygen flow to achieve SpO2 goal of > 92%. - We are encouraging deep breaths and cough and using IS to prevent atelectasis and acute resp failure. - home CPAP - Speech and swallow eval - regular diet - Electrolyte repletion indicated for goal potassium >4.0 and Magnesium >2.0. - UOP adequate in 24 hrs. BUN/Cr appropriate. - Monitoring carefully for signs of hemorrhage and coagulopathy. - Hgb goal >= 7.0. - Afebrile - Adjusting insulin as per unit protocol to achieve glucose < 150 mg/dL, with no absolute measurements above 180 mg/dL. -Will engage the skin care / wound team if there are any signs of skin breakdown. Prophylaxis: DVT: SCDs for prevention of VTE. Tubes/Lines/Drains: - PIVs - Matos Disposition: Continued ICU care s/p TNK Critical Care Attestation I spent [ 55] cumulative minutes (excluding procedures), in full attention to this critically ill patient. Acute Problems 1) Ischemic stroke [I63.9] (Added: 11/23/2024, Present on Admission) 2) Dysarthria [R47.1] (Added: 11/23/2024, Present on Admission) 3) Expressive dysphasia [F80.1] (Added: 11/23/2024) 4) Syncope [R55] (Added: 11/23/2024, Present on Admission) Chronic Problems 1) Transient cerebral ischemia [G45.9] (Added: 11/23/2024, Present on Admission) 2) Lichen planus [L43.9] (Added: 11/23/2024, Present on Admission) Surgery Procedure History 1) section 2) Arthroplasty of knee 3) Total replacement of hip Implants None Reason for Consult Critical Care Management Consulted By Abhay Hayes DO HPI 79yo Female with PMHx of TIA with no residual deficits many years ago, Lichen Planus no longer on DMARDs, who presented to ED with complaint of sudden onset general weakness, syncope, and speech deficits which started just prior to ED arrival. Per daughter at bedside, patient and family are visiting from [place] for the [facility]. Patient has been outside for about 45min when she suddenly felt heavy all over, went limp, requiring family to sit her down onto rollator. Per daughter, patient is unresponsive for several minutes, and is completely disoriented when she regained alertness. Daughter reports patient has right side face/lip droop, has difficulty recalling words/nouns, and speech is slurred/garbled. Patient is evaluated by ED physician and Tele-neurology, NIHSS 6, and given TNK. In ED, initial BP 132/63, HR 67, RR 15, 100% on room air, Temp 98.5. ED work up remarkable for glucose 98mg/dL, WBC 4.8, Hgb 13. EKG reveals sinus or ectopic atrial rhythm, [place] 84msec. CT Head, CTA Head and Neck reports no acute intracranial abnormality within the limitations of CT. Chronic small vessel ischemic changes are noted. No intracranial large vessel occlusion is identified. Atherosclerotic plaque at the left greater than right carotid bifurcations is without associated hemodynamically significant stenosis. Cervical carotid and vertebral arteries remain patent. On initial exam in the ICU this morning the patient was in bed. Neurologic exam was benign overall. The patient was able to move all 4 extremities 5 out of 5 strength. Coordination was intact. She was able to verbalize and name objects. Cranial nerves II through XII intact. Discussed care with family and patient. Patient will remain in the ICU for 24 hours. She is pending an MRI. Neurology is following. Vitals Temp: 98.3F, Location: Other Heart Rate: 63, Position: Unknown Blood Pressure: 130/50, Position: Unknown, Location: Unknown RR: 15 O2: 96% Saturation Glucose: 115.0 Pain: 0, Patient reports Matos: 2700 Exam GEN: Normals - No acute distress Other findings - TMax: 98.5, Heart Rate: 63, BP: 130/50, RR: 15, O2: 96% Saturation EYES: Normals - EOMI ENT: Normals - Mucous membranes moist, Pharynx clear NECK: Normals - Supple RESP: Normals - Relaxed respirations CV: Normals - Rhythm regular GI: Normals - Soft, Non-tender : Normals - No suprapubic tenderness LYMPH: Normals - No cervical adenopathy NEURO: Normals - Alert, Oriented x 3, Moves ext x 4 Other findings - The patient was able to move all 4 extremities 5 out of 5 strength. Coordination was intact. S (more content not included)... Normal [facility] 11-24-2024 [facility] ROOM: [facility] ADM: 08/12 DIS: PATIENT NAME: MAGNO RAI : 1945 AGE: 79 RACE: W SEX: F Note Addendum - Haider Roldan MD - 11/24/2024 5:48 PM Agree with assessment and plan of ALESSIA Newman. Patient with likely R sided CVA s/p TNK. Patient with no residual defects currently. Continue to monitor in the ICU. BP has been controlled under 180, CT head tomorrow AM, ASA 81mg tomorrow if no bleed. Can get lab draws in the AM. Likely transfer out of the ICU in the AM Updated Charges Bill this note as Haider Roldan MD Electronically signed by Haider Roldan MD HOSPITAL MEDICINE TEAM Progress Note - Bri Rehl-Trent - 11/24/2024 9:17 AM (Started 11/24/2024 7:37 AM) Summary and Plan 79yo Female with PMHx of TIA with no residual deficits many years ago, who presented to ED with complaint of sudden onset general weakness, syncope, and speech deficits which started just prior to ED arrival. Patient has been outside at the [facility] for about 45min when she suddenly felt heavy all over, went limp, requiring family to sit her down onto rollator which patient remembers. Per daughter, patient is unresponsive for several minutes, and is completely disoriented when she regained alertness. Daughter reports patient has right side face/lip droop, has difficulty recalling words/nouns, and speech is slurred/garbled. Patient was evaluated by ED physician and Tele-neurology, NIHSS 6, and given TNK. In ED, initial BP 132/63, HR 67, RR 15, 100% on room air, Temp 98.5. ED work up remarkable for glucose 98mg/dL, WBC 4.8, Hgb 13. EKG reveals sinus or ectopic atrial rhythm, OH 84msec. CT Head, CTA Head and Neck reports no acute intracranial abnormality within the limitations of CT. Chronic small vessel ischemic changes are noted. No intracranial large vessel occlusion is identified. Atherosclerotic plaque at the left greater than right carotid bifurcations is without associated hemodynamically significant stenosis. Cervical carotid and vertebral arteries remain patent. Admitted for ischemic CVA. Ischemic CVA: NIHSS 6 on presentation, s/p TNK given in ED. ICU for close monitoring post TNK until at least 8pm tonight. Advance diet to food and drink. Cardiac telemetry monitoring. Neurochecks. MRI Brain today and Echocardiogram. ASA, statin. PT/OT/SOAP BOILER eval. Neurology Consult. NIHSS now 2. Syncope: Telemetry monitoring. Check orthostatics. H/o Lichen Planus: No plaques or lesions. No longer on DMARDs. Code: FULL Proph: Mechanical Dispo: >2 midnights Discharge Planning Estimated discharge date: in more than 2 days Acute Problems 1) Ischemic stroke [I63.9] (Added: 11/23/2024, Present on Admission) 2) Dysarthria [R47.1] (Added: 11/23/2024, Present on Admission) 3) Expressive dysphasia [F80.1] (Added: 11/23/2024) 4) Syncope [R55] (Added: 11/23/2024, Present on Admission) Chronic Problems 1) Transient cerebral ischemia [G45.9] (Added: 11/23/2024, Present on Admission) 2) Lichen planus [L43.9] (Added: 11/23/2024, Present on Admission) Subjective Patient is laying comfortable in bed. One of her daughters is present. Patient is talking and recalls her family helping her sit down after starting to feel weak. She then remembers someone telling her to look at their big fat nose. She does remember being shown pictures and being unable to articulate what the pictures were. Patient denies any new or worsened sensory, motor, or verbal deficits. She denies any history of HTN, DM, or Afib. She did have a stroke in 2013 from which she has residual motor deficits in her left eye and left leg. Vitals Temp: 98.3F, Location: Other Heart Rate: 63, Position: Unknown Blood Pressure: 130/50, Position: Unknown, Location: Unknown RR: 15 O2: 96% Saturation Glucose: 115.0 Height: 165.1 cm (5 ft 5 in) Weight: 118.30 kg (260 lbs 13 oz) BMI: 43.4 BSA: 2.33 m2 IBW: 57 kg Matos: 2700 Exam GEN: Normals - No acute distress Other findings - TMax: 98.5, Temp: 98.3, Heart Rate: 63, BP: 130/50, RR: 15, O2: 96% Saturation EYES: Normals - Vision grossly intact, EOMI ENT: Normals - Hearing grossly intact RESP: Normals - Relaxed respirations, Clear anteriorly CV: Normals - Rhythm regular, Rate normal, No murmurs Other findings - 1+ pitting edema of BLE NEURO: Normals - Alert, Oriented x 3, Moves ext x 4 Other findings - NIH Stroke Scale 1a. Level of consciousness: Alert; keenly responsive. (0) 1b. LOC questions: Answers both questions correctly. (0) 1c. LOC commands: Performs both tasks correctly. (0) 2. Best gaze: Normal (0) 3. Visual: No visual loss. (0) 4. Facial Palsy: Minor paralysis (flattened nasolabial fold, asymmetry on smiling). (1) 5a. Motor arm, Left: No drift; limb holds 90 (or 45) degrees for full 10 seconds. (0) 5b. Motor arm, Right: No drift; limb holds 90 (or 45) degrees for full 10 seconds. (0) 6a. Motor leg, Left: Patie (more content not included)... Normal [facility] MRI Brain [facility] 11-24-2024 MRI Brain [facility] Name: MAGNO RAI [address] [place] [address] Phys: [place] [address] : 1945 Age: 79 Acct: [id number] Loc: [address] MRN/Unit No.: [id number] Status: ADM IN Exam Date: 11/24/24 Accession Number: [id number] Exam: [id number] MRI/MRI Brain [facility] MRI Brain [facility] MRI BRAIN WITH AND WITHOUT CONTRAST, 11/24/2024. HISTORY: Cerebral infarction. COMPARISON: CT head without contrast, 11/23/2024. TECHNIQUE: Multiplanar, multisequence MRI imaging of the brain with and without contrast. FINDINGS: Paranasal sinuses are clear. Middle ear cavities clear. Mastoid air cells clear. Multiple nodules in the parotid glands. No hydrocephalus. Moderate brain atrophy. No shift of midline. No subdural fluid collection. Moderate chronic microvascular changes in the cerebral white matter. No acute infarction. No diffusion restriction. No pathologic enhancement. No mass. IMPRESSION: 1. No acute ischemic infarction. 2. No pathologic enhancement. No mass. 3. Moderate brain atrophy and chronic microvascular changes. CC: PAULINA SADLER; NO FAMILY DOCTOR; SOLITARIO CAREY Technologist: IVAN SOTELO Dictated By: KALA ABDUL Signed Date/Time: 11/24/24, 3465 This report was electronically signed in another vendor system Normal [facility] Magnesium Bloodon 11-24-2024 Magnesium [Mass/Vol] 1.9 mg/dL Normal 1.6-2.4 [facility] Comment on above: Performed By: #### A DP, MG, RAYO ####[facility] [address] [place] [address] ,Giancarlo Buckley M.D. FCAP, FASCP APOLINARY.Vidhya 11-24-2024 Y.SE ROOM: [facility] ADM: 08/12 DIS: PATIENT NAME: MAGNO RAI : 1945 AGE: 79 RACE: W SEX: F Approval Information Hospital Medicine Team: Pending SPEECH THERAPY (ACUTE) Swallowing Evaluation - Maria L Suárez MA, CCC-SOAP BOILER - 11/24/2024 9:59 AM (Started 11/24/2024 9:44 AM) Summary and Plan SUMMARY: Oral phase of swallow is within normal limits. Patient shows no overt signs of pharyngeal dysphagia. No instrumental evaluation is indicated at this time. No aphasia or dysarthria present. Patient alert and oriented x3. Diet recommendations: - Food: Easy to Chew (IDDSI 7) - formerly Regular consistency - Drink: Regular/Thin (IDDSI 0) Patient has adequate function to meet nutritional needs orally. Precautions and Comorbidities: CVA, TNK Swallowing therapy is not recommended at this time. Will discharge patient from speech therapy at this time. Please reconsult if additional speech services are needed. Diet Properties 11/24/2024 9:58:41 AM by Maria L Suárez MA, CCC-SOAP BOILER Restrictions: Regular Food consistency: Easy to chew (IDDSI 7) Liquid consistency: Regular/Thin (IDDSI 0) Eating ability: Independent Swallowing strategies: Keep patient 90 degrees upright when eating. Medication recommendations: Meds may be presented per patient's preferred method. Reason for Evaluation Admission diagnosis of stroke Consulted By Abhay Hayes DO Team [facility] Medicine Team HPI REASON FOR ADMISSION: ischemic stroke Speech therapy was asked to evaluate patient based on TIA/CVA protocol. Patient is currently NPO. Nursing reports patient's symptoms resolved after TNK. Patient reports no prior history of dysphagia. Patient does not have recent history of intubation. Per Hospitalist: 79yo Female with PMHx of TIA with no residual deficits many years ago, who presented to ED with complaint of sudden onset general weakness, syncope, and speech deficits which started just prior to ED arrival. Patient has been outside at the [facility] for about 45min when she suddenly felt heavy all over, went limp, requiring family to sit her down onto rollator which patient remembers. Per daughter, patient is unresponsive for several minutes, and is completely disoriented when she regained alertness. Daughter reports patient has right side face/lip droop, has difficulty recalling words/nouns, and speech is slurred/garbled. Patient was evaluated by ED physician and Tele-neurology, NIHSS 6, and given TNK. Problem list, surgical history and medication list were all reviewed. Most recent Vitals and Pain Temp: 98.3F, Location: Other Heart Rate: 63, Position: Unknown Blood Pressure: 130/50, Position: Unknown, Location: Unknown RR: 15 O2: 96% Saturation Glucose: 115.0 Pain: 0, Patient reports Matos: 2700 Exam CRANIAL NERVE EXAM: Oxygen Status: Room air Patient follows commands independently. Dentition: Dentures- upper Cranial nerves V, VII, IX, X, and XII appear to be grossly intact. No change in respiratory status during exam. No signs of fatigue observed. ORAL PHASE: Food and liquid consistencies presented include pureed, regular solids, and thin liquids via cup and straw. Oral phase was within normal limits for all consistencies presented. No anterior leakage observed. Mastication time WFL. Timely a/p transit of bolus. No overt pocketing or residue observed. No cuing was needed. PHARYNGEAL PHASE: Laryngeal elevation was felt. No overt signs or symptoms of aspiration observed with any consistency presented. COGNITIVE AND SPEECH-LANGUAGE SCREEN: No overt expressive or receptive language, or cognitive deficits observed. Patient used fluent and conversational speech during exam. No overt dysarthria observed. Other: Object namin% Responsive namin% Automatics; countin%. EDUCATION: Education was completed with patient and nursing, Desi, regarding results of testing via verbal means. Patient verbalized understanding of education. Ability Swallowing 6 Swallowing is safe, and the individual eats and drinks independently and may rarely require minimal cueing. The individual usually self-cues when difficulty occurs. May need to avoid specific food items (e.g., popcorn and nuts) or require additional time (due to dysphagia). Home Residence: Home Surgery Procedure History 1) section 2) Arthroplasty of knee 3) Total replacement of hip Charges Diagnosis: Dysphagia, unspecified (R13.10) Interventions Adult Swallowing Evaluation (42580) 11 minutes Total time code minutes: 0 Total time: 11 minutes Electronically signed by Maria L Suárez MA, CCC-SOAP BOILER SIGNED BY: MARIA L SUÁREZ 11/24/24 0944 cc: This report was electronically signed in another vendor system Normal [facility] PHY.SE ROOM: [facility] ADM: 08/12 DIS: PATIENT NAME: MAGNO RAI : 1945 AGE: 79 RACE: W SEX: F Approval Information Reviewed by: Haider Roldan MD - 11/24/2024 5:34 PM SPEECH THERAPY (ACUTE) Swallowing Evaluation - Maria L Suárez MA, CCC-SOAP BOILER - 11/24/2024 9:59 AM (Started 11/24/2024 9:44 AM) Summary and Plan SUMMARY: Oral phase of swallow is within normal limits. Patient shows no overt signs of pharyngeal dysphagia. No instrumental evaluation is indicated at this time. No aphasia or dysarthria present. Patient alert and oriented x3. Diet recommendations: - Food: Easy to Chew (IDDSI 7) - formerly Regular consistency - Drink: Regular/Thin (IDDSI 0) Patient has adequate function to meet nutritional needs orally. Precautions and Comorbidities: CVA, TNK Swallowing therapy is not recommended at this time. Will discharge patient from speech therapy at this time. Please reconsult if additional speech services are needed. Diet Properties 11/24/2024 9:58:41 AM by Maria L Suárez MA, CCC-SOAP BOILER Restrictions: Regular Food consistency: Easy to chew (IDDSI 7) Liquid consistency: Regular/Thin (IDDSI 0) Eating ability: Independent Swallowing strategies: Keep patient 90 degrees upright when eating. Medication recommendations: Meds may be presented per patient's preferred method. Reason for Evaluation Admission diagnosis of stroke Consulted By Abhay Hayes DO Team Hospital Medicine Team HPI REASON FOR ADMISSION: ischemic stroke Speech therapy was asked to evaluate patient based on TIA/CVA protocol. Patient is currently NPO. Nursing reports patient's symptoms resolved after TNK. Patient reports no prior history of dysphagia. Patient does not have recent history of intubation. Per Hospitalist: 79yo Female with PMHx of TIA with no residual deficits many years ago, who presented to ED with complaint of sudden onset general weakness, syncope, and speech deficits which started just prior to ED arrival. Patient has been outside at the [facility] for about 45min when she suddenly felt heavy all over, went limp, requiring family to sit her down onto rollator which patient remembers. Per daughter, patient is unresponsive for several minutes, and is completely disoriented when she regained alertness. Daughter reports patient has right side face/lip droop, has difficulty recalling words/nouns, and speech is slurred/garbled. Patient was evaluated by ED physician and Tele-neurology, NIHSS 6, and given TNK. Problem list, surgical history and medication list were all reviewed. Most recent Vitals and Pain Temp: 98.3F, Location: Other Heart Rate: 63, Position: Unknown Blood Pressure: 130/50, Position: Unknown, Location: Unknown RR: 15 O2: 96% Saturation Glucose: 115.0 Pain: 0, Patient reports Matos: 2700 Exam CRANIAL NERVE EXAM: Oxygen Status: Room air Patient follows commands independently. Dentition: Dentures- upper Cranial nerves V, VII, IX, X, and XII appear to be grossly intact. No change in respiratory status during exam. No signs of fatigue observed. ORAL PHASE: Food and liquid consistencies presented include pureed, regular solids, and thin liquids via cup and straw. Oral phase was within normal limits for all consistencies presented. No anterior leakage observed. Mastication time WFL. Timely a/p transit of bolus. No overt pocketing or residue observed. No cuing was needed. PHARYNGEAL PHASE: Laryngeal elevation was felt. No overt signs or symptoms of aspiration observed with any consistency presented. COGNITIVE AND SPEECH-LANGUAGE SCREEN: No overt expressive or receptive language, or cognitive deficits observed. Patient used fluent and conversational speech during exam. No overt dysarthria observed. Other: Object namin% Responsive namin% Automatics; countin%. EDUCATION: Education was completed with patient and nursing, Desi, regarding results of testing via verbal means. Patient verbalized understanding of education. Ability Swallowing 6 Swallowing is safe, and the individual eats and drinks independently and may rarely require minimal cueing. The individual usually self-cues when difficulty occurs. May need to avoid specific food items (e.g., popcorn and nuts) or require additional time (due to dysphagia). Home Residence: Home Surgery Procedure History 1) section 2) Arthroplasty of knee 3) Total replacement of hip Charges Diagnosis: Dysphagia, unspecified (R13.10) Interventions Adult Swallowing Evaluation (49009) 11 minutes Total time code minutes: 0 Total time: 11 minutes Electronically signed by Maria L Suárez MA, [facility]-SOAP BOILER SIGNED BY: MARIA L SUÁREZ 11/24/24 0944 cc: This report was electronically signed in another vendor system Normal [facility] Phosphorus Bloodon 5 Phosphorus Blood 3.1 mg/dL Normal 2.5-4.5 [facility] Comment on above: Performed By: #### A DP, MG, RAYO ####[facility] [address] [place] [address] ,Giancarlo Buckley M.D. FCAP, FASCP Thyroid Function Cascadeon 0 11-24-2024 Thyroid Stimulating Hormone Normal 0.270-4.200 [facility] Comment on above: Order Comment: Comme nts: 1 sample(s), Collect by: Lab. Result Comment: Canc el Per RN [NOEMY 11/24/24 0518] Performed By: #### T FC ####[facility] [address] [place] [address] ,Giancarlo Buckley M.D. FCAP, FASCP Urinalysis Completeon 2024 Bacteria LM.HPF (Urine sed) [#/Area] Negative Normal Negative [facility] Comment on above: Order Comment: Sourc e Of Urine Specimen? Clean Catch Performed By: #### U .2 ####[facility] [address] [place], [place] [id number] ,Giancarlo Buckley M.D. FCAP, FASCP Epithelial cells LM Ql (Urine sed) 0-2 Normal 0-2 [facility] Comment on above: Order Comment: Sourc e Of Urine Specimen? Clean Catch Performed By: #### U .2 ####[facility] [address] [place] [address] [id number] ,Giancarlo Buckley M.D. FCAP, FASCP Is a Culture Indicated? NO CULTURE ORDERED Normal [facility] Comment on above: Order Comment: Sourc e Of Urine Specimen? Clean Catch Performed By: #### U .2 ####[address] [id number] ,Giancarlo Buckley M.D. FCAP, FASCP Urine Casts 0-5 Normal 0-5 [facility] Comment on above: Order Comment: Sourc e Of Urine Specimen? Clean Catch Performed By: #### U .2 ####[facility] [address] [place] [address] [id number] ,Giancarlo Buckley M.D. FCAP, FASCP Urine RBC 0-2 Normal 0-2 [facility] Comment on above: Order Comment: Sourc e Of Urine Specimen? Clean Catch Performed By: #### U .2 ####[facility] [address] [place] [address] [id number] ,Giancarlo Buckley M.D. FCAP, FASCP Urine WBC 0-2 Normal 0-5 [facility] Comment on above: Order Comment: Sourc e Of Urine Specimen? Clean Catch Performed By: #### U .2 ####[facility] [address] [place] [address] [id number] ,Giancarlo Buckley M.D. FCAP, FASCP Blood Glucose Meteron 2024 Glucose [Mass/Vol] 115 mg/dL High 70-100 [facility] Comment on above: Performed By: #### A CC ####[facility] [address] [place] [address] ,Giancarlo Buckley M.D. FCAP, FASCP CBC With Differentialon 0 Basophils Absolute Auto 0.03 10*3/uL Normal 0.0-0.2 [facility] Comment on above: Performed By: #### T S #### [facility] [address] [place] [address] , Giancarlo Buckley M.D. FCAP, FASCP Basophils/100 WBC (Bld) 0.6 % Normal 0-1.0 [facility] Comment on above: Performed By: #### T S #### [facility] [address] [place] [address] , Giancarlo Buckley M.D. FCAP, FASCP Differential Type? Auto Differential Normal [facility] Comment on above: Performed By: #### T S #### [address] [place] [address] , Giancarlo Buckley M.D. FCAP, FASCP Eosinophils (Bld) [#/Vol] 0.06 10*3/uL Normal 0.0-0.5 [facility] Comment on above: Performed By: #### T S #### [address] [address] , Giancarlo Buckley M.D. FCAP, FASCP Eosinophils/100 WBC (Bld) 1.2 % Normal 0.0-3.0 [facility] Comment on above: Performed By: #### T S #### [address] [address] , Giancarlo Buckley M.D. FCAP, FASCP Hematocrit (Bld) [Volume fraction] 39.2 % Normal 35.0-47.0 [facility] Comment on above: Performed By: #### T S #### [address] [id number] , Giancarlo Buckley M.D. FCAP, FASCP Hemoglobin (Bld) [Mass/Vol] 13.0 g/dL Normal 11.7-15.7 [facility] Comment on above: Performed By: #### T S #### [address] [id number] , Giancarlo Buckley M.D. FCAP, FASCP Immature Gran Absolute Auto 0.01 10*3/uL Normal 0.01-0.2 [facility] Comment on above: Performed By: #### T S #### [address] [id number] , Giancarlo Buckley M.D. FCAP, FASCP Immature granulocytes/100 WBC (Bld) 0.2 % Normal 0-0.9 [facility] Comment on above: Performed By: #### T S #### [address] [id number] , Giancarlo Buckley M.D. FCAP, FASCP Lymphocytes (Bld) [#/Vol] 1.25 10*3/uL Low 1.5-4.0 [facility] Comment on above: Performed By: #### T S #### [address] [address] , Giancarlo Buckley M.D. FCAP, FASCP Lymphocytes/100 WBC (Bld) 25.8 % Normal 20.0-40.0 [facility] Comment on above: Performed By: #### T S #### [address] [address] , Giancarlo Buckley M.D. FCAP, FASCP MCH (RBC) [Entitic mass] 33.9 pg Normal 27.0-40.0 [facility] Comment on above: Performed By: #### T S #### [address] [id number] , Giancarlo Buckley M.D. FCAP, FASCP Mean Corpusc Hgb Concentration 33.2 g/dL Normal 31.0-36.0 [facility] Comment on above: Performed By: #### T S #### [address] [id number] , Giancarlo Buckley M.D. FCAP, FASCP Mean Corpuscular Volume 102.1 CU uM High 80.0-100.0 [facility] Comment on above: Performed By: #### T S #### [address] [id number] , Giancarlo Buckley M.D. FCAP, FASCP Monocytes (Bld) [#/Vol] 0.62 10*3/uL Normal 0.2-0.8 [facility] Comment on above: Performed By: #### T S #### [address] [id number] , Giancarlo Buckley M.D. FCAP, FASCP Monocytes/100 WBC (Bld) 12.8 % High 4.0-10.0 [facility] Comment on above: Performed By: #### T S #### [address] [id number] , Giancarlo Buckley M.D. FCAP, FASCP Neutrophils Absolute Auto 2.87 10*3/uL Normal 2.0-7.0 [facility] Comment on above: Performed By: #### T S #### [address] [id number] , Giancarlo J. Macatol, M.D. FCAP, FASCP Neutrophils/100 WBC (Bld) 59.4 % Normal 54.0-62.0 [facility] Comment on above: Performed By: #### T S #### [address], [place] [id number] , Giancarlo Buckley M.D. FCAP, FASCP Nucleated RBC (Bld) [#/Vol] 0.00 10*3/uL Normal -0 [facility] Comment on above: Performed By: #### T S #### [address] [place] [address] , Giancarlo Buckley M.D. FCAP, FASCP Nucleated RBC's % 0.0 /100WBC Normal -0 [facility] Comment on above: Performed By: #### T S #### [address] [id number] , Giancarlo Buckley M.D. FCAP, FASCP Platelets (Bld) [#/Vol] 128 10*3/uL Low 130-440 [facility] Comment on above: Performed By: #### T S #### [address] [id number] , Giancarlo Buckley M.D. FCAP, FASCP RBC (Bld) [#/Vol] 3.84 10*6/uL Normal 3.80-5.[address] [facility] Comment on above: Performed By: #### T S #### [address] [id number] , Giancarlo Buckley M.D. FCAP, FASCP Red Cell Distribution 12.9 Normal 11.5-14.[address] [facility] Comment on above: Performed By: #### T S #### [address] [id number] , Giancarlo Buckley M.D. FCAP, FASCP WBC (Bld) [#/Vol] 4.8 10*3/uL Normal 3.5-11.0 [facility] Comment on above: Performed By: #### T S #### [facility] [address] [place] [id number] , Amelie Acevedo, FASCP CT Angio Head Brain WWOon CT Angio Head Brain O [facility] Name: MAGNO RAI [address] [place] [address] Phys: [place] [address] : 1945 Age: 79 Acct: [id number] Loc: ER MRN/Unit No.: [id number] Status: REG ER Exam Date: 11/23/24 Accession Number: [id number] Exam: [id number] CT/CT Angio Head Brain WWO CT Angio Head Brain WWO CT Head Brain Stroke Alert WO, CT Angio Head Brain WWO, CTA Carotid WO and or W EXAM DATE: 11/23/2024 4:14 PM MDT. COMPARISON: Prior imaging is not available. INDICATION: STROKE ALERT TECHNIQUE: Noncontrast CT head followed by CT angiogram images of the head and neck with intravenous contrast. Multiplanar reformations were obtained. Measurement of carotid stenosis is based on NASCET criteria. Dose reduction technique used: Automatic exposure control and/or adjustment of the mA and/or kV according to patient size and/or use of degenerative reconstruction technique. FINDINGS: HEAD: Noncontrast head CT: Sulci and ventricles are within normal limits. No mass effect or midline shift. No intracranial hemorrhage is identified. No territorial loss of aparicio-white matter differentiation. Patchy cerebral white matter hypoattenuation favors chronic small vessel ischemic change. Basal cisterns are patent. No extra-axial fluid collection. No hyperdense vessel sign is identified. Sellar contents are within normal limits. No cerebellar tonsil inferior ectopia. Vascular calcifications involve the bilateral carotid siphons. Patient has had previous bilateral lens surgery. Paranasal sinuses are well aerated. There is rightward deviation of the nasal septum. Mastoid air cells/middle ears are clear. No destructive calvarial lesion is identified. Anterior circulation: There are vascular calcifications throughout the intracranial ICAs. Bilateral intracranial ICAs remain patent. Bilateral VNICE A1 and A2 segments are patent. Bilateral MCA M1 and M2 segments are patent. No large vessel occlusion is identified. Posterior circulation: Bilateral V4 vertebral artery segments are patent. Basilar artery is patent. There is a -like origin of the left posterior cerebral artery with small caliber left INSURANCE RISK MANAGER P1 segment. Right INSURANCE RISK MANAGER P1 and bilateral INSURANCE RISK MANAGER P2 segments remain patent. NECK: Vasculature: There is a 4 branch aortic arch configuration. The left vertebral artery arises directly from the aortic arch. The bilateral common carotid and internal carotid arteries are patent. Atherosclerotic plaque at the left greater than right carotid bifurcations is without associated hemodynamically significant stenosis. The cervical vertebral arteries are codominant. The vertebral arteries remain patent. Nasopharynx: Within normal limits. Suprahyoid neck: Parapharyngeal fat is not displaced. There is some atrophy and fatty infiltration within the bilateral parotid and submandibular glands. Asymmetric lobular soft tissue at the left parotid gland measures 2.1 x 2.4 x 2.8 cm (series 3, image 36). Similar areas of lobular hyperattenuating soft tissue at the right parotid gland, including with involvement of accessory anterior parotid tissue, measures approximately 1.4 and 1.2 cm. Infrahyoid neck: True vocal cords are symmetric. Thyroid: Within normal limits. Bone: Multilevel degenerative changes throughout the cervical spine are most advanced at C5-C6. There is approximate mild spinal canal stenosis at C5-C6. Multiple levels of foraminal narrowing are also noted. Upper thorax: No acute findings within the imaged lung apices. IMPRESSION: 1. No acute intracranial abnormality within the limitations of CT. Chronic small vessel ischemic changes are noted. Further evaluation can be obtained with MRI, more sensitive for detection of infarct in the acute setting. 2. No intracranial large vessel occlusion is identified. 3. Atherosclerotic plaque at the left greater than right carotid bifurcations is without associated hemodynamically significant stenosis. Cervical carotid and vertebral arteries remain patent. 4. Lobular soft tissue at the left parotid gland measures 2.1 x 2.4 x 2.8 cm, suspicious for neoplastic process. Small areas of soft tissue density are also noted at the right parotid gland. Recommend further evaluation with dedicated ultrasound. CC: NO FAMILY DOCTOR; NILES GIFFORD Technologist: [employer] Dictated By: POOL VIDAL Signed Date/Time: 11/23/242014 This report was electronically signed in another vendor system Normal [facility] CT Head Brain Stroke Alert W Oon 11-23-2024 CT Head Brain Stroke Alert WO [facility] Name: MAGNO RAI [address] [place] [address] Phys: [place] [address] : 1945 Age: 79 Acct: [id number] Loc: ER MRN/Unit No.: [id number] Status: REG ER Exam Date: 11/23/24 Accession Number: [id number] Exam: CT/CT Head Brain Stroke Alert WO CT Head Brain Stroke Alert WO CT Head Brain Stroke Alert WO, CT Angio Head Brain WWO, CTA Carotid WO and or W EXAM DATE: 11/23/2024 4:14 PM MDT. COMPARISON: Prior imaging is not available. INDICATION: STROKE ALERT TECHNIQUE: Noncontrast CT head followed by CT angiogram images of the head and neck with intravenous contrast. Multiplanar reformations were obtained. Measurement of carotid stenosis is based on NASCET criteria. Dose reduction technique used: Automatic exposure control and/or adjustment of the mA and/or kV according to patient size and/or use of degenerative reconstruction technique. FINDINGS: HEAD: Noncontrast head CT: Sulci and ventricles are within normal limits. No mass effect or midline shift. No intracranial hemorrhage is identified. No territorial loss of aparicio-white matter differentiation. Patchy cerebral white matter hypoattenuation favors chronic small vessel ischemic change. Basal cisterns are patent. No extra-axial fluid collection. No hyperdense vessel sign is identified. Sellar contents are within normal limits. No cerebellar tonsil inferior ectopia. Vascular calcifications involve the bilateral carotid siphons. Patient has had previous bilateral lens surgery. Paranasal sinuses are well aerated. There is rightward deviation of the nasal septum. Mastoid air cells/middle ears are clear. No destructive calvarial lesion is identified. Anterior circulation: There are vascular calcifications throughout the intracranial ICAs. Bilateral intracranial ICAs remain patent. Bilateral VINCE A1 and A2 segments are patent. Bilateral MCA M1 and M2 segments are patent. No large vessel occlusion is identified. Posterior circulation: Bilateral V4 vertebral artery segments are patent. Basilar artery is patent. There is a -like origin of the left posterior cerebral artery with small caliber left INSURANCE RISK MANAGER P1 segment. Right INSURANCE RISK MANAGER P1 and bilateral INSURANCE RISK MANAGER P2 segments remain patent. NECK: Vasculature: There is a 4 branch aortic arch configuration. The left vertebral artery arises directly from the aortic arch. The bilateral common carotid and internal carotid arteries are patent. Atherosclerotic plaque at the left greater than right carotid bifurcations is without associated hemodynamically significant stenosis. The cervical vertebral arteries are codominant. The vertebral arteries remain patent. Nasopharynx: Within normal limits. Suprahyoid neck: Parapharyngeal fat is not displaced. There is some atrophy and fatty infiltration within the bilateral parotid and submandibular glands. Asymmetric lobular soft tissue at the left parotid gland measures 2.1 x 2.4 x 2.8 cm (series 3, image 36). Similar areas of lobular hyperattenuating soft tissue at the right parotid gland, including with involvement of accessory anterior parotid tissue, measures approximately 1.4 and 1.2 cm. Infrahyoid neck: True vocal cords are symmetric. Thyroid: Within normal limits. Bone: Multilevel degenerative changes throughout the cervical spine are most advanced at C5-C6. There is approximate mild spinal canal stenosis at C5-C6. Multiple levels of foraminal narrowing are also noted. Upper thorax: No acute findings within the imaged lung apices. IMPRESSION: 1. No acute intracranial abnormality within the limitations of CT. Chronic small vessel ischemic changes are noted. Further evaluation can be obtained with MRI, more sensitive for detection of infarct in the acute setting. 2. No intracranial large vessel occlusion is identified. 3. Atherosclerotic plaque at the left greater than right carotid bifurcations is without associated hemodynamically significant stenosis. Cervical carotid and vertebral arteries remain patent. 4. Lobular soft tissue at the left parotid gland measures 2.1 x 2.4 x 2.8 cm, suspicious for neoplastic process. Small areas of soft tissue density are also noted at the right parotid gland. Recommend further evaluation with dedicated ultrasound. CC: NO FAMILY DOCTOR; NILES GIFFORD Technologist: HILARY BLANKENSHIP Dictated By: POOL VIDAL Signed Date/Time: 11/23/242014 This report was electronically signed in another vendor system Normal [facility] CTA Carotid WO and or Won CTA Carotid WO and or W [facility] Name: MAGNO RAI [address] [place] [address] Phys: [place] [address] : 1945 Age: 79 Acct: [id number] Loc: ER MRN/Unit No.: [id number] Status: REG ER Exam Date: 11/23/24 Accession Number: [id number] Exam: CT/CTA Carotid WO and or W CTA Carotid WO and or W CT Head Brain Stroke Alert WO, CT Angio Head Brain WWO, CTA Carotid WO and or W EXAM DATE: 11/23/2024 4:14 PM MDT. COMPARISON: Prior imaging is not available. INDICATION: STROKE ALERT TECHNIQUE: Noncontrast CT head followed by CT angiogram images of the head and neck with intravenous contrast. Multiplanar reformations were obtained. Measurement of carotid stenosis is based on NASCET criteria. Dose reduction technique used: Automatic exposure control and/or adjustment of the mA and/or kV according to patient size and/or use of degenerative reconstruction technique. FINDINGS: HEAD: Noncontrast head CT: Sulci and ventricles are within normal limits. No mass effect or midline shift. No intracranial hemorrhage is identified. No territorial loss of aparicio-white matter differentiation. Patchy cerebral white matter hypoattenuation favors chronic small vessel ischemic change. Basal cisterns are patent. No extra-axial fluid collection. No hyperdense vessel sign is identified. Sellar contents are within normal limits. No cerebellar tonsil inferior ectopia. Vascular calcifications involve the bilateral carotid siphons. Patient has had previous bilateral lens surgery. Paranasal sinuses are well aerated. There is rightward deviation of the nasal septum. Mastoid air cells/middle ears are clear. No destructive calvarial lesion is identified. Anterior circulation: There are vascular calcifications throughout the intracranial ICAs. Bilateral intracranial ICAs remain patent. Bilateral VINCE A1 and A2 segments are patent. Bilateral MCA M1 and M2 segments are patent. No large vessel occlusion is identified. Posterior circulation: Bilateral V4 vertebral artery segments are patent. Basilar artery is patent. There is a -like origin of the left posterior cerebral artery with small caliber left INSURANCE RISK MANAGER P1 segment. Right INSURANCE RISK MANAGER P1 and bilateral INSURANCE RISK MANAGER P2 segments remain patent. NECK: Vasculature: There is a 4 branch aortic arch configuration. The left vertebral artery arises directly from the aortic arch. The bilateral common carotid and internal carotid arteries are patent. Atherosclerotic plaque at the left greater than right carotid bifurcations is without associated hemodynamically significant stenosis. The cervical vertebral arteries are codominant. The vertebral arteries remain patent. Nasopharynx: Within normal limits. Suprahyoid neck: Parapharyngeal fat is not displaced. There is some atrophy and fatty infiltration within the bilateral parotid and submandibular glands. Asymmetric lobular soft tissue at the left parotid gland measures 2.1 x 2.4 x 2.8 cm (series 3, image 36). Similar areas of lobular hyperattenuating soft tissue at the right parotid gland, including with involvement of accessory anterior parotid tissue, measures approximately 1.4 and 1.2 cm. Infrahyoid neck: True vocal cords are symmetric. Thyroid: Within normal limits. Bone: Multilevel degenerative changes throughout the cervical spine are most advanced at C5-C6. There is approximate mild spinal canal stenosis at C5-C6. Multiple levels of foraminal narrowing are also noted. Upper thorax: No acute findings within the imaged lung apices. IMPRESSION: 1. No acute intracranial abnormality within the limitations of CT. Chronic small vessel ischemic changes are noted. Further evaluation can be obtained with MRI, more sensitive for detection of infarct in the acute setting. 2. No intracranial large vessel occlusion is identified. 3. Atherosclerotic plaque at the left greater than right carotid bifurcations is without associated hemodynamically significant stenosis. Cervical carotid and vertebral arteries remain patent. 4. Lobular soft tissue at the left parotid gland measures 2.1 x 2.4 x 2.8 cm, suspicious for neoplastic process. Small areas of soft tissue density are also noted at the right parotid gland. Recommend further evaluation with dedicated ultrasound. CC: NO FAMILY DOCTOR; NILES GIFFORD Technologist: HILARY BLANKENSHIP Dictated By: POOL VIDAL Signed Date/Time: 11/23/242014 This report was electronically signed in another vendor system Normal [facility] Comprehensive Metabolic Pane tom 11-23-2024 Albumin [Mass/Vol] 3.8 g/dL Low 4.0-4.9 [facility] Comment on above: Performed By: #### A DP, TPNT-hs ####[facility] [address] [place] [address] ,Amelie AcevedoAP, FASCP ALP [Catalytic activity/Vol] 104 U/L Normal 35-104 [facility] Comment on above: Performed By: #### A TAMI, TPNT-hs ####[facility] [address] [place], [place] [id number] ,Giancarlo Buckley M.D. FCAP, FASCP ALT [Catalytic activity/Vol] 31 U/L Normal 10-35 [facility] Comment on above: Performed By: #### A TAMI, TPNT-hs ####[facility] [address] [place], [place] [id number] ,Giancarlo Buckley M.D. FCAP, FASCP Anion gap [Moles/Vol] 11 mmol/L Normal 9-15 [facility] Comment on above: Performed By: #### A TAMI, TPNT-hs ####[facility] [address] [place], [place] [id number] ,Giancarlo Buckley M.D. FCAP, FASCP AST [Catalytic activity/Vol] 49 U/L High 10-35 [facility] Comment on above: Result Comment: HEMO LYSIS PRESENT. INTERPRET RESULT WITH CAUTION. Performed By: #### A TAMI, TPNT-hs ####[facility] [address] [facility] [place] [id number] ,Giancarlo Buckley M.D. FCAP, FASCP Bilirubin [Mass/Vol] 0.5 mg/dL Normal 0.2-1.2 [facility] Comment on above: Performed By: #### A TAMI, TPNT-hs ####[facility] [address] [facility] [place] [id number] ,Amelie AcevedoAP, FASCP Calcium [Mass/Vol] 8.8 mg/dL Normal 8.8-10.2 [facility] Comment on above: Performed By: #### A TAMI, TPNT-hs ####[facility] [address] [place], [place] [address] ,Giancarlo Buckley M.D. FCAP, FASCP Chloride [Moles/Vol] 102 mmol/L Normal 98-107 [facility] Comment on above: Performed By: #### A TAMI, TPNT-hs ####[facility] [address] [place], [place] [id number] ,Giancarlo Buckley M.D. FCAP, FASCP CO2 [Moles/Vol] 21 mmol/L Low 22-29 [facility] Comment on above: Performed By: #### A TAMI, TPNT-hs ####[facility] [address] [place], [place] [address] ,Giancarlo Buckley M.D. FCAP, FASCP Creatinine [Mass/Vol] 0.79 mg/dL Normal 0.51-0.95 [facility] Comment on above: Performed By: #### A TAMI, TPNT-hs ####[facility] [address] [place], [place] [id number] ,Giancarlo Buckley M.D. FCAP, FASCP GFR/1.73 sq M.predicted among non-blacks MDRD (S/P/Bld) [Vol rate/Area] mL/min/{1.73_m2} Normal [facility] Comment on above: Result Comment: THE GFR IS ESTIMATED USING THE MDRD STUDY EQUATION. *NOTE* IF THE RACE OF THE PATIENT WAS UNKNOWN AT THE TIME OF REGISTRATION, AND THE PATIENT IS , MULTIPLY THE EGFR RESULT PROVIDED BY 1.21. NORMAL: EGFR >60.0 Performed By: #### A TAMI, TPNT-hs ####[facility] [address] [place], [place] [address] ,Giancarlo Buckley M.D. FCAP, FASCP Glucose [Mass/Vol] 98 mg/dL Normal 70-100 [facility] Comment on above: Result Comment: INTR EPRETATION FOR FASTING BLOOD GLUCOSE: 70-100 mg/dl NORMAL GLUCOSE TOLERANCE 100-125 mg/dl IMPAIRED FASTING GLUCOSE (PRE-DIABETES) >125 mg/dl DIABETES - ON MORE THAN ONE TESTING Performed By: #### A TAMI, TPNT-hs ####[facility] [address] [place], [place] 101[address] ,Giancarlo Buckley M.D. FCAP, FASCP Potassium [Moles/Vol] 4.5 mmol/L Normal 3.6-5.0 [facility] Comment on above: Result Comment: HEMO LYSIS PRESENT. INTERPRET RESULT WITH CAUTION. Performed By: #### A TAMI, TPNT-hs ####[facility] [address] [place], [place] [id number] ,Amelie AcevedoAP, FASCP Protein [Mass/Vol] 6.9 g/dL Normal 6.4-8.3 [facility] Comment on above: Performed By: #### A TAMI, TPNT-hs ####[facility] [address] [place], [place] [address] ,Amelie AcevedoAP, FASCP Sodium [Moles/Vol] 134 mmol/L Low 136-145 [facility] Comment on above: Performed By: #### A TAMI, TPNT-hs ####[facility] [address] [place], [place] [id number] ,Giancarlo Buckley M.D. FCAP, FASCP Urea nitrogen [Mass/Vol] 19.2 mg/dL Normal 8.0-23.0 [facility] Comment on above: Performed By: #### A TAMI, TPNT-hs ####[facility] [address] [place], [place] [address] ,Giancarlo Buckley M.D. FCAP, FASCP Albumin Normal 4.0-4.9 [facility] Comment on above: Result Comment: SPEC IMEN HEMOLIZED, REDRAW ORDERED Performed By: #### A DP ####[facility] [address] [place] [address] ,Amelie AcevedoAP, FASCP Alkaline Phosphatase Normal 35-104 [facility] Comment on above: Result Comment: SPEC IMEN HEMOLIZED, REDRAW ORDERED Performed By: #### A DP ####[facility] [address] [place] [address] ,Giancarlo Buckley M.D. FCAP, FASCP ALT Alanine Transamine Normal 10-[address] [facility] Comment on above: Result Comment: SPEC IMEN HEMOLIZED, REDRAW ORDERED Performed By: #### A DP ####[facility] [place] [address] ,Giancarlo Buckley M.D. FCAP, FASCP Anion Gap Normal 9-15 [facility] Comment on above: Result Comment: SPEC IMEN HEMOLIZED, REDRAW ORDERED Performed By: #### A DP ####[facility] [address] [place] [address] ,Giancarlo Buckley M.D. FCAP, FASCP AST Aspartate Transaminase Normal 10-35 [facility] Comment on above: Result Comment: SPEC IMEN HEMOLIZED, REDRAW ORDERED Performed By: #### A DP ####[facility] [address] [place] [address] [place] [address] ,Giancarlo Buckley M.D. FCAP, FASCP Bilirubin Total Normal 0.2-1.2 [facility] Comment on above: Result Comment: SPEC IMEN HEMOLIZED, REDRAW ORDERED Performed By: #### A DP ####[facility] [address] [place] [address] [place] [address] ,Giancarlo Buckley M.D. FCAP, FASCP Blood Urea Nitrogen Normal 8.0-23.[address] [facility] Comment on above: Result Comment: SPEC IMEN HEMOLIZED, REDRAW ORDERED Performed By: #### A DP ####[facility] [address] [place] [address] ,Giancarlo Buckley M.D. FCAP, FASCP Calcium Normal 8.8-10.2 [facility] Comment on above: Result Comment: SPEC IMEN HEMOLIZED, REDRAW ORDERED Performed By: #### A DP ####[address] [address] ,Giancarlo Buckley M.D. FCAP, FASCP Chloride Normal 98-107 [facility] Comment on above: Result Comment: SPEC IMEN HEMOLIZED, REDRAW ORDERED Performed By: #### A DP ####[facility] [address] [place] [address] ,Giancarlo Buckley M.D. FCAP, FASCP Creatinine Normal 0.51-0.95 [facility] Comment on above: Result Comment: SPEC IMEN HEMOLIZED, REDRAW ORDERED Performed By: #### A DP ####[facility] [address] [place] [address] ,Giancarlo Buckley M.D. FCAP, FASCP Est Glomerular Filtration Rate Normal [facility] Comment on above: Result Comment: SPEC IMEN HEMOLIZED, REDRAW ORDERED Performed By: #### A DP ####[facility] [address] [place] [address] ,Giancarlo Buckley M.D. FCAP, FASCP Glucose, Blood Normal 70-100 [facility] Comment on above: Result Comment: SPEC IMEN HEMOLIZED, REDRAW ORDERED Performed By: #### A DP ####[facility] [address] [place] [address] [place] [address] ,Giancarlo Buckley M.D. FCAP, FASCP Potassium Blood Normal 3.6-5.0 [facility] Comment on above: Result Comment: SPEC IMEN HEMOLIZED, REDRAW ORDERED Performed By: #### A DP ####[facility] [address] [place] [address] ,Giancarlo Buckley M.D. FCAP, FASCP Sodium Serum Normal 136-145 [facility] Comment on above: Result Comment: SPEC IMEN HEMOLIZED, REDRAW ORDERED Performed By: #### A DP ####[facility] [address] [place] [address] ,Giancarlo Buckley M.D. FCAP, FASCP Total CO2 Normal 22-29 [facility] Comment on above: Result Comment: SPEC IMEN HEMOLIZED, REDRAW ORDERED Performed By: #### A DP ####[facility] [address] [place] [address] ,Giancarlo Buckley M.D. FCAP, FASCP Total Protein Normal 6.4-8.3 [facility] Comment on above: Result Comment: SPEC IMEN HEMOLIZED, REDRAW ORDERED Performed By: #### A DP ####[facility] [address] [place] [address] ,Giancarlo Buckley M.D. FCAP, FASCP Drug Screen Urine 11 panelon 11-23-2024 Alcohol Screen Urine Normal NEG [facility] Comment on above: Order Comment: Comme nts: 1 sample(s), Collect by: Provider / Nurse. Result Comment: DUPL ICATE Performed By: #### D AMBROSE ####[facility] [address] [place] [address] ,Giancarlo Buckley M.D. FCAP, FASCP Amphetamine Screen Urine Normal NEG [facility] Comment on above: Order Comment: Comme nts: 1 sample(s), Collect by: Provider / Nurse. Result Comment: DUPL ICATE Performed By: #### D AMBROSE ####[facility] [address] [place], [place] [id number] ,Giancarlo Buckley M.D. FCAP, FASCP Barbiturate Screen Urine Normal NEG [facility] Comment on above: Order Comment: Comme nts: 1 sample(s), Collect by: Provider / Nurse. Result Comment: DUPL ICATE Performed By: #### D AMBROSE ####[facility] [address] [place] [id number] ,Giancarlo Buckley M.D. FCAP, FASCP Benzodiazapine Screen Urine Normal [facility] Comment on above: Order Comment: Comme nts: 1 sample(s), Collect by: Provider / Nurse. Result Comment: DUPL ICATE Performed By: #### D AMBROSE ####[facility] [address] [place] [address] ,Giancarlo Buckley M.D. FCAP, FASCP Cocaine Screen Urine Normal NEG [facility] Comment on above: Order Comment: Comme nts: 1 sample(s), Collect by: Provider / Nurse. Result Comment: DUPL ICATE Performed By: #### D AMBORSE ####[facility] [address] [place] [address] ,Giancarlo Buckley M.D. FCAP, FASCP Drug Screen Comment Normal [facility] Comment on above: Order Comment: Comme nts: 1 sample(s), Collect by: Provider / Nurse. Result Comment: DUPL ICATE Performed By: #### D AMBROSE ####[facility] [address] [place], [place] [id number] ,Giancarlo Buckley M.D. FCAP, FASCP Fentanyl Screen Urine Normal Negative [facility] Comment on above: Order Comment: Comme nts: 1 sample(s), Collect by: Provider / Nurse. Result Comment: DUPL ICATE Performed By: #### D AMBROSE ####[facility] [address] [place] [address] ,Giancarlo Buckley M.D. FCAP, FASCP Marijuana Screen Urine Normal NEG [facility] Comment on above: Order Comment: Comme nts: 1 sample(s), Collect by: Provider / Nurse. Result Comment: DUPL ICATE Performed By: #### D AMBROSE ####[facility] [address] [place] [address] ,Giancarlo Buckley M.D. FCAP, FASCP Methadone Screen Urine Normal NEG [facility] Comment on above: Order Comment: Comme nts: 1 sample(s), Collect by: Provider / Nurse. Result Comment: DUPL ICATE Performed By: #### D AMBROSE ####[facility] [address] [place] [address] ,Giancarlo Buckley M.D. FCAP, FASCP Opiate Screen Urine Normal NEG [facility] Comment on above: Order Comment: Comme nts: 1 sample(s), Collect by: Provider / Nurse. Result Comment: DUPL ICATE Performed By: #### D AMBROSE ####[facility] [address] [place] [address] ,Giancarlo Buckley M.D. FCAP, FASCP Oxycodone Urine Normal NEG [facility] Comment on above: Order Comment: Comme nts: 1 sample(s), Collect by: Provider / Nurse. Result Comment: DUPL ICATE Performed By: #### D AMBROSE ####[facility] [address] [place] [address] ,Giancarlo Buckley M.D. 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 11/23/242037 CC: Technologist: Interpreted By: NILES GIFFORD Interpreted Date/Time: This report was electronically signed in another vendor system [facility] [facility] ROOM: [facility] ADM: 08/12 DIS: PATIENT NAME: MAGNO RAI : 1945 AGE: 79 RACE: W SEX: F HOSPITAL MEDICINE TEAM Initial Note - Abhay Hayes DO - 11/24/2024 1:55 AM (Started 11/23/2024 9:23 PM) Summary and Plan 79yo Female with PMHx of TIA with no residual deficits many years ago, Lichen Planus no longer on DMARDs, who presented to ED with complaint of sudden onset general weakness, syncope, and speech deficits which started just prior to ED arrival. Per daughter at bedside, patient [place] [facility] Patient has been outside for about 45min when she suddenly felt heavy all over, went limp, requiring family to sit her down onto rollator. Per daughter, patient is unresponsive for several minutes, and is completely disoriented when she regained alertness. Daughter reports patient has right side face/lip droop, has difficulty recalling words/nouns, and speech is slurred/garbled. Patient is evaluated by ED physician and Tele-neurology, NIHSS 6, and given TNK. In ED, initial BP 132/63, HR 67, RR 15, 100% on room air, Temp 98.5. ED work up remarkable for glucose 98mg/dL, WBC 4.8, Hgb 13. EKG reveals sinus or ectopic atrial rhythm, [place] 84msec. CT Head, CTA Head and Neck reports no acute intracranial abnormality within the limitations of CT. Chronic small vessel ischemic changes are noted. No intracranial large vessel occlusion is identified. Atherosclerotic plaque at the left greater than right carotid bifurcations is without associated hemodynamically significant stenosis. Cervical carotid and vertebral arteries remain patent. Ischemic CVA: NIHSS 6 on presentation, s/p TNK given in ED. ICU for close monitoring post TNK. NPO, pending bedside swallow screen. Cardiac telemetry monitoring. Neurochecks. MRI Brain, Echocardiogram. ASA, statin. Check FLP, Urinalysis, Urine Drug Screen, TFT. PT/OT/SOAP BOILER eval. Neurology Consult. Syncope: Telemetry monitoring. Check orthostatics. IVF. Plans as above. H/o Lichen Planus: No plaques or lesions. No longer on DMARDs. Code: FULL Proph: Mechanical Dispo: >2 midnights Discharge Planning Estimated discharge date: 11/25/2024 Acute Problems 1) Ischemic stroke [I63.9] (Added: 11/23/2024, Present on Admission) 2) Dysarthria [R47.1] (Added: 11/23/2024, Present on Admission) 3) Expressive dysphasia [F80.1] (Added: 11/23/2024) 4) Syncope [R55] (Added: 11/23/2024, Present on Admission) Chronic Problems 1) Transient cerebral ischemia [G45.9] (Added: 11/23/2024, Present on Admission) 2) Lichen planus [L43.9] (Added: 11/23/2024, Present on Admission) Surgery Procedure History 1) section 2) Arthroplasty of knee 3) Total replacement of hip Implants None Reason for Visit expressive aphasia HPI 79yo Female with PMHx of TIA with no residual deficits many years ago, Lichen Planus no longer on DMARDs, who presented to ED with complaint of sudden onset general weakness, syncope, and speech deficits which started just prior to ED arrival. Per daughter at bedside, patient and family are visiting from [place] for the [facility]. Patient has been outside for about 45min when she suddenly felt heavy all over, went limp, requiring family to sit her down onto rollator. Per daughter, patient is unresponsive for several minutes, and is completely disoriented when she regained alertness. Daughter reports patient has right side face/lip droop, has difficulty recalling words/nouns, and speech is slurred/garbled. Patient is evaluated by ED physician and Tele-neurology, NIHSS 6, and given TNK. In ED, initial BP 132/63, HR 67, RR 15, 100% on room air, Temp 98.5. ED work up remarkable for glucose 98mg/dL, WBC 4.8, Hgb 13. EKG reveals sinus or ectopic atrial rhythm, [place] 84msec. CT Head, CTA Head and Neck reports no acute intracranial abnormality within the limitations of CT. Chronic small vessel ischemic changes are noted. No intracranial large vessel occlusion is identified. Atherosclerotic plaque at the left greater than right carotid bifurcations is without associated hemodynamically significant stenosis. Cervical carotid and vertebral arteries remain patent. Vitals Temp: 98.4F, Location: Oral Heart Rate: 62, Position: Unknown Blood Pressure: 120/48, Position: Unknown, Location: Unknown RR: 15 O2: 96% Saturation Glucose: 115.0 Height: 165.1 cm (5 ft 5 in) Weight: 118.30 kg (260 lbs 13 oz) BMI: 43.4 BSA: 2.33 m2 IBW: 57 kg Void: 0 Exam GEN: Normals - No acute distress Other findings - TMax: 98.5, Temp: 98.4, Heart Rate: 70, BP: 128/44, RR: 18, O2: 96% Saturation EYES: Normals - EOMI ENT: Normals - Pharynx clear Abnormals - Mucous membranes dry NECK: Normals - Supple RESP: Normals - Relaxed respirations CV: Normals - Rhythm regular GI: Normals - Soft, Non-tender : Normals - No suprapubic tenderness (more content not included)... Normal [facility] Magnesium Bloodon 11-23-2024 Magnesium [Mass/Vol] 2.0 mg/dL Normal 1.6-2.4 [facility] Comment on above: Order Comment: Comme nts: 1 sample(s), Collect by: Lab. Performed By: #### T S #### [facility] [address] [place] [address] , Giancarlo Buckley M.D. FCAP, FASCP PDOCon 11-23-2024 PDOC ROOM: [facility] ADM: 08/12 DIS: 11/25/24 PATIENT NAME: MAGNO RAI : 1945 AGE: 7 9 RACE: W SEX: F ED PHYSICIAN: NILES GIFFORD MD HPI Time Seen by Provider: 11/23/24 18:27 Stated Complaint: POSS STROKE Chief Complaint: Stroke Like Symptoms HPI Notes: HPI: Patient is a 79-year-old female with a history of prior TIA1 who presents to the emergency department with aphasia, decreased alertness, confusion. Daughter is present and provides most of the history due to the patient's altered mental status. [place] said she was not feeling well, and she put her head between her arms, and nearly fell over. Daughter reports that her last known well was approximately between 5 and 530. Patient called the squad after she realized her mother could not speak as well as normal. General: Aphasia Head: Atraumatic Eyes: PERRL, EOMI, Nose: atraumatic Mouth: Normal exam with moist mucous membranes Neck: Full ROM without vertebral tenderness or meningismus Cardiovascular: Regular rate and rhythm w/o murmurs, rubs, or gallops Respiratory: Clear to auscultation bilaterally without crackles, wheezes, or rhonchi Abdominal: Soft and nontender with active bowel sounds. No guarding or masses. Patient does not have CVA tenderness. Neuro: Slight left-sided facial droop. Diffuse bilateral arm weakness. Aphasia. Decreased alertness. Confusion. Ataxia present in all 4 extremities. Patient has difficulty following commands. Course patient presents emergency department and is called a stroke alert upon arrival due to her aphasia. Upon arrival patient received immediate CTA head, CTA carotid, and CT head without. Brain CT revealed no acute intracranial hemorrhage. CTA head revealed no acute intracranial abnormality, but it did note chronic small vessel changes, atherosclerotic plaque in the left greater than right carotid. Carotid findings as listed above, as well as a lobular soft tissue at the left parotid measuring 2.1 x 2.4 x 2.8 cm suspicious for neoplastic process. This will require outpatient follow-up. Chest x-ray revealed no acute findings. Pertinent negatives include glucose of 98, and normal electrolytes. Patient was given an NIH of 6 by the [facility] teleneurologist. She also recommended that we give the patient TNK. We discussed the pros and cons of TNK with the patient and the daughter. We reported that it could cause severe bleeding, and even . We also informed them that patient would require close monitoring after the TNK and require inpatient admission. Patient was agreeable to this, and daughter who is the next of kin was also agreeable. TNK was given and patient was admitted to ICU under HMT for additional management Allergies Sulfa (Sulfonamide Antibiotics) Allergy (Verified 11/23/24 19:50) Unspecified Per Family Ambulatory Orders cyclosporine 0.05 % eye drops in a dropperette 1 drp ophthalmic (eye) BID 11/23/24 aspirin 81 mg tablet 81 mg PO DAILY #30 tabs 11/25/24 atorvastatin 40 mg tablet (Lipitor) 40 mg PO QHS #30 tabs 11/25/24 REVIEW OF SYSTEMS Have you completed Review Of Systems: Yes Exam PHYSICAL EXAM VITAL SIGNS: Vital Signs - 24 hr 11/23/24 18:18 11/23/24 18:32 11/23/24 18:35 Temperature: 98.5 F Pulse Rate: 67 66 Pulse Rate: [Left] Respiratory Rate: 15 Blood Pressure: 132/63 Blood Pressure: [Left Arm] O2 Sat By Pulse Oximetry: 100 99 11/23/24 18:35 11/23/24 19:10 11/23/24 19:42 Temperature: 98.5 F Pulse Rate: 66 70 66 Pulse Rate: [Left] Respiratory Rate: 15 18 18 Blood Pressure: 132/63 127/64 138/57 L Blood Pressure: [Left Arm] O2 Sat By Pulse Oximetry: 99 97 11/23/24 19:57 11/23/24 20:02 11/23/24 20:04 Temperature: 97.8 F 97.8 F Pulse Rate: 67 Pulse Rate: [Left] 66 69 Respiratory Rate: 18 14 16 Blood Pressure: 144/64 H Blood Pressure: [Left Arm] 141/81 H 135/64 O2 Sat By Pulse Oximetry: 95 99 99 11/23/24 20:07 11/23/24 20:12 11/23/24 20:15 Temperature: Pulse Rate: Pulse Rate: [Left] 67 66 65 Respiratory Rate: 13 12 14 Blood Pressure: Blood Pressure: [Left Arm] 125/64 129/59 L 128/57 L O2 Sat By Pulse Oximetry: 99 99 97 Have you completed the Physical Exam?: Yes COURSE Orders, Labs, Meds: Ambulatory Orders ???Medication ???Instructions ???Recorded ???Confirmed ???Type cyclosporine 0.05 % eye drops in a 1 drp ophthalmic (eye) BID 11/2311/23/24 History dropperette aspirin 81 mg tablet 81 mg PO DAILY #30 tabs 11/25/24 Rx atorvastatin 40 mg tablet (Lipitor) 40 mg PO QHS #30 tabs 11/25/24 Rx Discontinued Medications Generic Name Dose Route Start Last Admin Trade Name Freq PRN Reason Stop Dose Admin Aceta (more content not included)... Normal [facility] PTT Activated APTTon 025 aPTT Coag (Bld) [Time] 28.2 s Normal 23.9-35.[address] [facility] Comment on above: Performed By: #### T S #### [facility] [address] [place] [address] , Giancarlo Buckley M.D. FCAP, FASCP Protime with INRon 5 INR Coag (PPP) [Relative time] 1.13 {INR} Normal 0.92-1.2 [facility] Comment on above: Result Comment: THER APEUTIC: LOW LEVEL COUMADIN = 2.0 - 3.0 HIGH LEVEL COUMADIN = 2.5 - 3.5 Performed By: #### T S #### [facility] [address], [place] [id number] , Giancarlo Buckley M.D. FCAP, FASCP PT Coag (PPP) [Time] 14.5 s Normal 12.1-14.6 [facility] Comment on above: Performed By: #### T S #### [facility] [address], [place] [id number] , Giancarlo Buckley M.D. FCAP, FASCP Retype for Blood Bankon ABO and Rh group Nom (Bld) Test Not Performed Normal [facility] Comment on above: Result Comment: NOT NEEDED Performed By: #### T RH3 ####[facility] [place], [place] [id number] ,Giancarlo Buckley M.D. FCAP, FASCP Type and Screenon 11-23-2024 ABO and Rh group Nom (Bld) Blood group O Rh(D) positive Normal [facility] Comment on above: Performed By: #### T S #### [address] [id number] , Giancarlo Buckley M.D. FCAP, FASCP Urinalysison 11-23-2024 Bilirubin Ql (U) Normal NEGATIVE [facility] Comment on above: Order Comment: Comme nts: 1 sample(s), Collect by: Provider / Nurse. Result Comment: DUPL ICATE Performed By: #### T S #### [facility] [address], [place] [phone] , Giancarlo Buckley M.D. FCAP, FASCP Character Urine Normal [facility] Comment on above: Order Comment: Comme nts: 1 sample(s), Collect by: Provider / Nurse. Result Comment: DUPL ICATE Performed By: #### T S #### [address], [place] [id number] , Giancarlo Buckley M.D. FCAP, FASCP Color (U) Normal [facility] Comment on above: Order Comment: Comme nts: 1 sample(s), Collect by: Provider / Nurse. Result Comment: DUPL ICATE Performed By: #### T S #### [address] [place] [address] , Giancarlo Buckley M.D. FCAP, FASCP Epithelial Cell Normal 0-2 [facility] Comment on above: Order Comment: Comme nts: 1 sample(s), Collect by: Provider / Nurse. Result Comment: DUPL ICATE Performed By: #### T S #### [address], [place] [id number] , Amelie AcevedoAP, FASCP Glucose Ql (U) Normal NEGATIVE [facility] Comment on above: Order Comment: Comme nts: 1 sample(s), Collect by: Provider / Nurse. Result Comment: DUPL ICATE Performed By: #### T S #### [address], [place] [phone] , Giancarlo Buckley M.D. FCAP, FASCP Hemoglobin Ql (U) Normal NEGATIVE [facility] Comment on above: Order Comment: Comme nts: 1 sample(s), Collect by: Provider / Nurse. Result Comment: DUPL ICATE Performed By: #### T S #### [address], [place] [phone] , Giancarlo Buckley M.D. FCAP, FASCP Ketones Ql (U) Normal NEGATIVE [facility] Comment on above: Order Comment: Comme nts: 1 sample(s), Collect by: Provider / Nurse. Result Comment: DUPL ICATE Performed By: #### T S #### [address], [place] [id number] , Giancarlo Buckley M.D. FCAP, FASCP Leukocyte esterase Test strip Ql (U) Normal NEGATIVE [facility] Comment on above: Order Comment: Comme nts: 1 sample(s), Collect by: Provider / Nurse. Result Comment: DUPL ICATE Performed By: #### T S #### [address], [place] [phone] , Giancarlo Buckley M.D. FCAP, FASCP Nitrite Ql (U) Normal NEGATIVE [facility] Comment on above: Order Comment: Comme nts: 1 sample(s), Collect by: Provider / Nurse. Result Comment: DUPL ICATE Performed By: #### T S #### [address] [id number] , Amelie AcevedoAP, FASCP Protein Ql (U) Normal NEGATIVE [facility] Comment on above: Order Comment: Comme nts: 1 sample(s), Collect by: Provider / Nurse. Result Comment: DUPL ICATE Performed By: #### T S #### [address], [place] [id number] , Giancarlo Buckley M.D. FCAP, FASCP Specific gravity (U) [Rel density] Normal 1.005-1.035 [facility] Comment on above: Order Comment: Comme nts: 1 sample(s), Collect by: Provider / Nurse. Result Comment: DUPL ICATE Performed By: #### T S #### [address], [place] [phone] , Giancarlo Buckley M.D. FCAP, FASCP Urine Casts Normal 0-5 [facility] Comment on above: Order Comment: Comme nts: 1 sample(s), Collect by: Provider / Nurse. Result Comment: DUPL ICATE Performed By: #### T S #### [address] [id number] , Giancarlo Buckley M.D. FCAP, FASCP Urine Ph Normal 5.0-8.5 [facility] Comment on above: Order Comment: Comme nts: 1 sample(s), Collect by: Provider / Nurse. Result Comment: DUPL ICATE Performed By: #### T S #### [address] [address] , Giancarlo Buckley M.D. FCAP, FASCP Urine RBC Normal 0-2 [facility] Comment on above: Order Comment: Comme nts: 1 sample(s), Collect by: Provider / Nurse. Result Comment: DUPL ICATE Performed By: #### T S #### [address] [address] , Giancarlo Buckley M.D. FCAP, FASCP Urine Urobilinogen Normal 0-1.0 [facility] Comment on above: Order Comment: Comme nts: 1 sample(s), Collect by: Provider / Nurse. Result Comment: DUPL ICATE Performed By: #### T S #### [address] [address] , Giancarlo Buckley M.D. FCAP, FASCP Urine WBC Normal 0-5 [facility] Comment on above: Order Comment: Comme nts: 1 sample(s), Collect by: Provider / Nurse. Result Comment: DUPL ICATE Performed By: #### T S #### [address] [id number] , Giancarlo Buckley M.D. FCAP, FASCP XR Chest Portable 1 Viewon 0 11-23-2024 XR Chest Portable [address] [facility] Name: MAGNO RAI [address] [place] [address] Phys: [place] [address] : 1945 Age: 79 Acct: [id number] Loc: ER MRN/Unit No.: [id number] Status: REG ER Exam Date: 11/23/24 Accession Number: [id number] Exam: RAD/XR Chest Portable 1 View XR Chest Portable 1 View PORTABLE CHEST X-RAY INDICATION: stroke like symptoms COMPARISON: None. TECHNIQUE: Single AP portable chest radiograph. FINDINGS: Cardiomediastinal silhouette is within normal limits. No focal consolidation. No pleural effusion. No pneumothorax. No acute displaced fractures identified. IMPRESSION: 1. No acute findings. CC: KODAK OBRIEN; NO FAMILY DOCTOR; NILES GIFFORD Technologist: ROSY MALAGON Dictated By: KESHA CARBALLO Signed Date/Time: 11/23/241848 This report was electronically signed in another vendor system Normal [facility] eo-Rgpiddv-Mpchptafql 2024 ko-Qjegjqj-Wqilxcna 8 ng/L Normal <[address] [facility] Comment on above: Result Comment: <6 n g/L Negative >/= 6 - <52 ng/L Suggest 1-hour delta hs-cTn >/= 52 ng/L Consistent with OK To distinguish between acute and chronic elevations of Cardiac Troponin (cTn), the [place] Definition of OK stresses the need for serial testing to detect a rise and/or fall of cTn above the 99th percentile upper reference limit of 22 ng/L, males and 14 ng/L, females consistent with clinical assessment, including ischemic symptoms and electrocardiographic changes Performed By: #### A DP, TPNT-hs ####[facility] [address] [place] [address] ,Amelie Acevedo, SHASHA Shields 07-31-2024 ADRIANNE Telephone (DIONYWS) -------- YULIET RAIE J ([id number]) 1945 F NFR Date Time Provider Department 07/31/24 MAXWELL RUEDA During your visit today, we recorded the following information about you: Silvia Reed, RN 07/31/2024 5:08 PM Signed Pt called in for handicap license plate. Unsure of what is needed from provider for that. Called [facility] and per [facility], even if pt has a handicap license plate, they still have to have a placard in their window. Called pt back and explained that to her and pt was not aware of that so she states no need for the license plate then. Due for next letter/prescription for placard in January. Pt will contact us closer to the time. Allergies As of Date: 07/31/2024 Noted Allergy Reaction FRUIT EXTRACTS 12/23/2014 7 - Swelling Comments: Tongue swells and blisters on mouth and cheeks BIOTIN FORTE (BIOTIN-FOLIC ACID-B*12/03/2004 Comments: anxiety attack CODEINE 09/12/2003 3 - Cough ESTROGENS 07/25/2007 14 - Other: See Comments Comments: flu like symptoms GRIFULVIN V (GRISEOFULVIN MICROSI*12/09/2011 14 - Other: See Comments Comments: Headache LIPITOR (ATORVASTATIN) 02/27/2013 5 - Intolerance Comments: Achy joints and neck SULFA (SULFONAMIDE ANTIBIOTICS) 09/12/2003 Comments: covulsions ULTRAM (TRAMADOL) 12/03/2004 Comments: dizzy,hot feeling Date Reviewed: 09/01/2023 Reviewed by: Taylor Lin APRN.COMPUTATIONAL SCIENCES PROFESSOR - Fully Assessed Reason for Visit: Request for Handicap License Plate [Other] Prescriptions as of 07/31/2024 - mv-mn/iron/folic acid/herb 190 (VITAMIN D3 COMPLETE ORAL) Take by mouth. - cyanocobalamin, vitamin B-12, (VITAMIN B-12 ORAL) Take by mouth. - Biotin 1 mg tab Take 1 tablet by mouth once daily. - Multivitamin capsule Take 1 capsule by mouth once daily. - CPAP Mask (per patient preference) optional chin strap (if indicated), filters, tubing / heated tubing, heated humidity and lifetime supplies. Dx. BARON G47.33 327.23 - COMPOUNDED PRESCRIPTION BIPAP machine service check. - Lactobacillus acidophilus 10 billion cell cap Take 1 capsule by mouth once daily. Problem List As Of Date 07/31/2024 Noted Resolved LICHEN PLANUS [L43.9] 09/12/2003 04/27/2005 Lichen planus [L43.9] 11/01/2003 10/20/2012 Obesity, Class III, BMI 40-49.9 (morbid obesity* OTHER MALAISE AND FATIGUE [R53.81, R53.83] MYALGIA AND MYOSITIS NOS [JHW0838] CORTICOADRENAL INSUFFIC [255.4] 06/30/2005 01/26/2008 OSTEOARTHRITIS LOCALIZED, PRIMARY( Lower Leg) [*01/07/2006 BENIGN NEOPLASM LG BOWEL [D12.6] 09/05/2006 DYSMETABOLIC SYNDROME X [E88.810] 03/07/2007 BARON (obstructive sleep apnea) [G47.33] 03/07/2007 ANKLE ENTHESOPATHY NEC [M77.50] 08/01/2007 PAIN IN LIMB [M79.609] 08/08/2007 CONGENITAL PES 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] 08/08/2007 GLUCOCORTICOID DEFICIENT [E27.49] 01/26/2008 Esophageal Reflux [K21.9] 01/02/2009 Ho's Esophagus [K22.70] 01/02/2009 Unspecified Esophagitis [K20.90] 01/02/2009 Gastric ulcer [K25.9] 01/02/2009 Osteoporosis [M81.0] 01/14/2009 Vitamin D deficiency [E55.9] 12/29/2009 Secondary hyperparathyroidism [N25.81] 10/06/2011 Macular puckering [H35.379] 06/14/2012 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] 10/20/2012 Cerebral infarction (HCC) [I63.9] 02/01/2013 Cervicalgia [M54.2] 03/01/2013 BMI 39.0-39.9,adult [Z68.39] 08/30/2013 Oral lichen planus [L43.8] 03/11/2014 BMI 37.0-37.9, adult [Z68.37] 04/11/2015 Iron deficiency [E61.1] 10/19/2017 Nasal congestion [R09.81] 10/19/2017 Sacroiliitis, not elsewhere classified (HCC) [M*02/07/2020 Encounter Status:Closed by SILVIA REED on 07/31/24 Normal [facility] 25-hydroxyvitamin D3 [Mass/V ol]on 08-23-2023 Interpretation and review of laboratory results Normal [facility] The reference range interval was based on an analysis of samples from healthy adults and may not pertain to children from 0-18 years old. [facility] CBC W Auto Differential pane l (Bld)on 08-23-2023 Basophils (Bld) [#/Vol] 0.03 10*3/uL [facility] Basophils/100 WBC (Bld) 0.8 % [facility] Differential cell count method Nom (Bld) Auto [facility] Eosinophils (Bld) [#/Vol] 0.10 10*3/uL [facility] Eosinophils/100 WBC (Bld) 2.7 % [facility] Erythrocyte distribution width (RBC) [Ratio] 12.9 % 11.5 - 15.0 % [facility] Hematocrit (Bld) [Volume fraction] 42.0 % 36.0 - 46.0 % [facility] Hemoglobin (Bld) [Mass/Vol] 13.7 g/dL 11.5 - 15.5 g/dL [facility] Immature granulocytes (Bld) [#/Vol] [facility] Immature granulocytes/100 WBC (Bld) 0.3 % [facility] Interpretation and review of laboratory results Abnormal [facility] Lymphocytes (Bld) [#/Vol] 1.09 10*3/uL [facility] Lymphocytes/100 WBC (Bld) 29.9 % [facility] MCH (RBC) [Entitic mass] 33.1 pg 26.0 - 34.0 pg [facility] MCHC (RBC) [Mass/Vol] 32.6 g/dL 30.5 - 36.0 g/dL [facility] MCV (RBC) [Entitic vol] 101.4 fL High 80.0 - 100.0 fL [facility] Monocytes (Bld) [#/Vol] 0.50 10*3/uL [facility] Monocytes/100 WBC (Bld) 13.7 % [facility] Neutrophils (Bld) [#/Vol] 1.92 10*3/uL [facility] Neutrophils/100 WBC (Bld) 52.6 % [facility] Nucleated RBC (Bld) [#/Vol] NINF [facility] Nucleated RBC/100 WBC (Bld) [Ratio] 0.0 % /100 WBC [facility] Platelet mean volume (Bld) [Entitic vol] 12.3 fL 9.0 - 12.7 fL [facility] Platelets (Bld) [#/Vol] 134 10*3/uL Low [facility] RBC (Bld) [#/Vol] 4.14 10*6/uL 3.90 - 5.2 0 m/uL [facility] WBC (Bld) [#/Vol] 3.65 10*3/uL Low [facility] 2000 panelon 08-23-2023 Albumin [Mass/Vol] 4.1 g/dL 3.9 - 4.9 g/dL [facility] ALP [Catalytic activity/Vol] 103 U/L 34 - 123 U/L [facility] ALT [Catalytic activity/Vol] 25 U/L 7 - 38 U/L [facility] Anion gap [Moles/Vol] 11 mmol/L 8 - 15 mmol/L [facility] AST [Catalytic activity/Vol] 39 U/L High 13 - 35 U/L [facility] Bilirubin [Mass/Vol] 0.7 mg/dL 0.2 - 1 .3 mg/dL [facility] Calcium [Mass/Vol] 9.1 mg/dL 8.5 - 10. 2 mg/dL [facility] Chloride [Moles/Vol] 107 mmol/L 98 - 10 7 mmol/L [facility] CO2 [Moles/Vol] 22 mmol/L 22 - 30 mmol/L [facility] Creatinine [Mass/Vol] 0.76 mg/dL 0.58 - 0.96 mg/dL [facility] GFR/1.73 sq M.predicted among non-blacks MDRD (S/P/Bld) [Vol rate/Area] 81 mL/min/{1.73_m2} - PINF [facility] Comment on above: Estimated Glomerular Filtration Rate (eGFR) is calculated using the 2020 CKD-EPI creatinine equation. This equation utilizes serum creatinine, sex, and age as parameters. The creatinine assay has traceable calibration to isotope dilution-mass spectrometry. Refer to KDIGO guidelines for clinical interpretation. In patients with unstable renal function, e.g. those with acute kidney injury, the eGFR may not accurately reflect actual GFR. Glucose [Mass/Vol] 86 mg/dL 74 - 99 mg/dL [facility] Comment on above: The [place] Diab[employer] s Association (ADA) provides guidance for cutoff values for fasting glucose and random glucose. The ADA defines fasting as no caloric intake for at least 8 hours. Fasting plasma glucose results between 100 to 125 mg/dL indicate increased risk for diabetes (prediabetes). Fasting plasma glucose results greater than or equal to 126 mg/dL meet the criteria for diagnosis of diabetes. In the absence of unequivocal hyperglycemia, results should be confirmed by repeat testing. In a patient with classic symptoms of hyperglycemia or hyperglycemic crisis, random plasma glucose results greater than or equal to 200 mg/dL meet the criteria for diagnosis of diabetes. Reference: Standards of Medical Care in Diabetes 2016, [place] [employer]. Diabetes Care. 2016.39(Suppl 1). Interpretation and review of laboratory results Abnormal [facility] Potassium [Moles/Vol] 4.6 mmol/L 3.7 - 5.1 mmol/L [facility] Protein [Mass/Vol] 7.1 g/dL 6.3 - 8.0 g/dL [facility] Sodium [Moles/Vol] 140 mmol/L 136 - 144 mmol/L [facility] Urea nitrogen [Mass/Vol] 21 mg/dL 7 - 21 mg/dL [facility] Lipid 1996 panelon 4 Cholesterol [Mass/Vol] 154 mg/dL NINF - 200 mg/dL [facility] Comment on above: <200 mg/dL, Desirabl e 200-239 mg/dL, Borderline high >239 mg/dL, High Cholesterol in HDL [Mass/Vol] 47 mg/dL 39 - PINF mg/dL [facility] Comment on above: 40-59 mg/dL, Accepta ble >59 mg/dL, High: Negative risk factor for coronary heart disease <40 mg/dL, Low: Positive risk factor for coronary heart disease Cholesterol in LDL [Mass/Vol] 89 mg/dL NINF - 100 mg/dL [facility] Comment on above: <100 mg/dL, Optimal 100-129 mg/dL, Near optimal/above optimal 130-159 mg/dL, Borderline high 160-189 mg/dL, High >189 mg/dL, Very high Secondary prevention optimal LDL Cholesterol levels are recommended to be < 70 mg/dL Cholesterol in LDL/Cholesterol in HDL [Mass ratio] 1.89 {ratio} NINF - 2.54 [facility] Comment on above: Reference: 1. National Cholesterol Education Program ATP III Guideline At-A-Glance Quick Desk Reference: National Heart, Lung, and Blood [place]. National Institutes of Health. 2001: NIH Publication No. 01-3305. 2. An International Atherosclerosis Society position paper: global recommendations for the management of dyslipidemia: executive summary, Atherosclerosis. 2014: 232(2):410-413. Cholesterol in VLDL [Mass/Vol] 18 mg/dL NINF - 30 mg/dL [facility] Cholesterol non HDL [Mass/Vol] 107 mg/dL NINF - 130 mg/dL [facility] Comment on above: <130 mg/dL, Optimal 130-159 mg/dL, Near optimal/above optimal 160-189 mg/dL, Borderline high 190-219 mg/dL, High >219 mg/dL, Very high Secondary prevention optimal non HDL Cholesterol levels are recommended to be <100 mg/dL Cholesterol.total/Chol esterol in HDL [Mass ratio] 3.28 {ratio} NINF - 5.10 [facility] Fasting Time 12 hrs [facility] Triglyceride [Mass/Vol] 92 mg/dL NINF - 150 mg/dL [facility] Comment on above: <150 mg/dL, Normal 150-199 mg/dL, Borderline high 200-499 mg/dL, High >499 mg/dL, Very high No Panel Informationon 08-22 [facility] VITAMIN D 25 HYDROXYon 08-22 25-hydroxyvitamin D3 [Mass/Vol] 59.0 ng/mL 31.0 - 80.0 ng/mL [facility] Comment on above: Classification of 25 [place] Vitamin D status: Deficiency/Insufficiency: < or = 30 ng/ml. Sufficiency/Optimal Levels: 31-80 ng/mL Toxicity: > 100 ng/mL. Test performed by chemiluminescent immunoassay. UA DIP, URINE (POC)on 2023 BILIRUBIN UA (POCT) Negative Negative [facility] CLARITY UA (POCT) Cloudy [facility] COLOR UA (POCT) Dark yellow [facility] GLUCOSE UA (POCT) Negative Negative mg/dL [facility] Hemoglobin Ql (U) Trace-lysed Abnormal Negative [facility] Interpretation and review of laboratory results Abnormal [facility] KETONE UA (POCT) Negative Negative mg/dL [facility] LEUKOCYTES UA (POCT) Large Abnormal Negative [facility] NITRITE UA (POCT) Negative Negative [facility] PH UA (POCT) 7.0 4.5 - 8.0 [facility] Protein Ql (U) Negative Negative mg/dL [facility] SPECIFIC GRAVITY UA (POCT) 1.015 1.005 - 1.030 [facility] UROBILINOGEN UA (POCT) 0.2 Irene l E.U./dL [facility] Location:[facility], [address] [place] [address], [place], [place], [id number] [place] [address] POINT OF CARE [facility] STREP A MOLECULAR (POC)on Procedural Control Valid [facility] Strep A (POCT) Negative Negative [facility] XR CHEST 2V FRONTAL/LATon [facility] XR Chest PA and Lateralon IMPRESSION: No acute radiographic abnormality. Baker Paint: FREDRICK Transcribe Date/Time: Jul 02 2022 8:25A Dictated by : JOSHUA AMEZCUA MD This examination was interpreted and the report reviewed and electronically signed by: JOSHUA AMEZCUA MD on Jul 02 2022 8:26AM [facility] DIVISION OF RADIOLOGY * * *Final Report* * * DATE OF EXAM: Jul 02 2022 8:19AM WOX 5291 - XR CHEST 2V FRONTAL/LAT / PROCEDURE REASON: Acute cough * * * * Physician Interpretation * * * * EXAMINATION: CHEST RADIOGRAPH (2 VIEW FRONTAL & LATERAL) CLINICAL HISTORY: Acute cough MQ: XC2_6 EXAM DATE/TIME: 07/02/2022 8:19 AM COMPARISON: Chest x-ray on 02/12/2020 RESULT: Lines, tubes, and devices: None. Lungs and pleura: No consolidation. No lung mass. No pleural effusion. No pneumothorax. Cardiomediastinal silhouette: Stable cardiomediastinal silhouette. Bones and soft tissues: There are degenerative changes in the spine and shoulders. Questionable deformity of the right proximal humerus. DIVISION OF RADIOLOGY Provider, [facility] Rodrigue [facility] - 07/02/2022 * * *Final Report* * * DATE OF EXAM: Jul 02 2022 8:19AM WOX 5291 - XR CHEST 2V FRONTAL/LAT / PROCEDURE REASON: Acute cough * * * * Physician Interpretation * * * * EXAMINATION: CHEST RADIOGRAPH (2 VIEW FRONTAL & LATERAL) CLINICAL HISTORY: Acute cough MQ: XC2_6 EXAM DATE/TIME: 07/02/2022 8:19 AM COMPARISON: Chest x-ray on 02/12/2020 RESULT: Lines, tubes, and devices: None. Lungs and pleura: No consolidation. No lung mass. No pleural effusion. No pneumothorax. Cardiomediastinal silhouette: Stable cardiomediastinal silhouette. Bones and soft tissues: There are degenerative changes in the spine and shoulders. Questionable deformity of the right proximal humerus. IMPRESSION IMPRESSION: No acute radiographic abnormality. Baker Paint: FREDRICK Transcribe Date/Time: Jul 02 2022 8:25A Dictated by : JOSHUA AMEZCUA MD This examination was interpreted and the report reviewed and electronically signed by: JOSHUA AMEZCUA MD on Jul 02 2022 8:26AM EST [facility] Radiology Study observation (narrative) [facility] XR Chest PA and LateralOrder ed By: Ccf Provider on 07-02-2022 [facility] Laboratory - Drug toxicology Ordered By: Dr. Aguirre on 04-22-2022 Amphetamines Ql (U) Negative <1000 ng/mL [facility] Benzodiazepines Ql (U) Negative < 200 ng/mL [facility] Cannabinoids Screen Ql (U) Negative < 50 ng/mL [facility] Cocaine Ql (U) Negative < 300 ng/mL [facility] Opiates Ql (U) Negative < 300 ng/mL [facility] No Panel InformationOrdered By: Dr. Aguirre on 04-22-2022 MDMA (Ecstasy) Screen Negative < 500 ng/mL [facility] Urine Barbiturates Screen Negative < 200 ng/mL [facility] Urine Drug Screen Comment [facility] Comment on above: CONFIRMATORY TESTING FOR ALL POSITIVE URINE DRUG SCREENRESULTS WILL ONLY BE SENT OUT UPON PHYSICIAN ORDER. VISTA Urine Drug Screen methods provide only preliminaryanalytical test results. A more specific alternate chemicalmethod must be used in order to obtain a confirmedanalytical result. Gas chromatography/mass spectrometery(GC/MS) is the preferred confirmatory method. Clinicalconsideration and professional judgement should be appliedto any drug of abuse test result, particularly whenpreliminary positive results are used. URINE TCA TESTING MUST BE ORDERED SEPARATELY. USE TESTMNEMONIC: [facility] Urine Methadone Screen Negative < 300 ng/mL [facility] Urine Drug Screen (VISTA)on 04-22-2022 AMPHETAMINES Negative Normal <1000 ng/mL [facility] Comment on above: Order Comment: U Performed By: #### L [id number] #### [facility] [address] [place] [id number] BARBITIURATES Negative Normal < 200 ng/mL [facility] Comment on above: Order Comment: U Performed By: #### L [id number] #### [facility] [address] [facility] [address] BENZODIAZIPINE Negative Normal < 200 ng/mL [facility] Comment on above: Order Comment: U Performed By: #### L 505.5000 #### [facility] [address] [facility] [address] COCAINE Negative Normal < 300 ng/mL [facility] Comment on above: Order Comment: U Performed By: #### L 505.5000 #### [facility] [address] [facility] [address] ECSTACY Negative Normal < 500 ng/mL [facility] Comment on above: Order Comment: U Performed By: #### L 505.5000 #### [facility] [address] [facility] [address] METHADONE Negative Normal < 300 ng/mL [facility] Comment on above: Order Comment: U Performed By: #### L 505.5000 #### [facility] [address] [facility] [address] OPIATES Negative Normal < 300 ng/mL [facility] Comment on above: Order Comment: U Performed By: #### L [id number] #### [facility] [address] [place], [address] PCP Negative Normal < 25 ng/mL [facility] Comment on above: Order Comment: U Performed By: #### L [id number] #### [facility] [address] [place], [address] THC Negative Normal < 50 ng/mL [facility] Comment on above: Order Comment: U Performed By: #### L 505.5000 #### [facility] [address] [place], [address] VISTA UDS PH 5 Normal [facility] Comment on above: Order Comment: U Performed By: #### L [id number] #### [facility] [address] [place], [place], [id number] Urine phencyclidine (PCP) de tectionOrdered By: Dr. Aguirre on 04-22-2022 Phencyclidine Ql (U) Negative < 25 ng/mL [facility] XR Chest PA and Lateralon IMPRESSION: Overall findings unchanged. Baker Paint: PSCB Transcribe Date/Time: Feb 12 2020 4:45P Dictated by : JOSHUA AMEZCUA MD This examination was interpreted and the report reviewed and electronically signed by: JOSHUA AMEZCUA MD on Feb 12 2020 4:47PM [facility] DIVISION OF RADIOLOGY * * *Final Report* * * DATE OF EXAM: Feb 12 2020 4:30PM WOX 5291 - XR CHEST 2V FRONTAL/LAT / PROCEDURE REASON: Pre-operative clearance * * * * Physician Interpretation * * * * EXAMINATION: CHEST RADIOGRAPH (2 VIEW FRONTAL & LATERAL) CLINICAL HISTORY: Pre-operative clearance MQ: XC2_6 EXAM DATE/TIME: 02/12/2020 4:30 PM COMPARISON: Chest x-ray on 03/07/2012 RESULT: Lines, tubes, and devices: None. Lungs and pleura: No new consolidation. Stable scarring overlying the right upper lung. There are a few linear opacities projecting over the left lower lung, likely representing focal atelectases or scarring. No lung mass. No pleural effusion. No pneumothorax. Cardiomediastinal silhouette: Stable cardiomediastinal silhouette. Bones and soft tissues: There are degenerative changes in the spine. DIVISION OF RADIOLOGY Provider, Nedra Rosenbaum - 02/12/2020 * * *Final Report* * * DATE OF EXAM: Feb 12 2020 4:30PM WOX 5291 - XR CHEST 2V FRONTAL/LAT / PROCEDURE REASON: Pre-operative clearance * * * * Physician Interpretation * * * * EXAMINATION: CHEST RADIOGRAPH (2 VIEW FRONTAL & LATERAL) CLINICAL HISTORY: Pre-operative clearance MQ: XC2_6 EXAM DATE/TIME: 02/12/2020 4:30 PM COMPARISON: Chest x-ray on 03/07/2012 RESULT: Lines, tubes, and devices: None. Lungs and pleura: No new consolidation. Stable scarring overlying the right upper lung. There are a few linear opacities projecting over the left lower lung, likely representing focal atelectases or scarring. No lung mass. No pleural effusion. No pneumothorax. Cardiomediastinal silhouette: Stable cardiomediastinal silhouette. Bones and soft tissues: There are degenerative changes in the spine. IMPRESSION IMPRESSION: Overall findings unchanged. Baker Paint: PSCB Transcribe Date/Time: Feb 12 2020 4:45P Dictated by : JOSHUA AMEZCUA MD This examination was interpreted and the report reviewed and electronically signed by: JOSHUA AMEZCUA MD on Feb 12 2020 4:47PM EST [facility] Radiology Study observation (narrative) [facility] XR Chest PA and LateralOrder ed By: Ccf Provider on 02-12-2020 [facility] CT INJ SI JOINT BIon 020 CT INJ SI JOINT BI Final Report DATE OF EXAM: Feb 07 2020 10:29AM [facility] 2013 - CT INJ SI JOINT BI / PROCEDURE REASON: sacrolitis Physician Interpretation EXAMINATION: CT PELVIS WITH CONTRAST INJECTED INTO THE LEFT SACROILIAC JOINT HISTORY: The patient is a 74-year-old female with chronic left sacroiliac joint pain. The patient has had a recent left hip prosthesis placed and continues to have pain. TECHNIQUE: CT of the pelvis was performed using standard technique, scanning from several centimeters above the iliac crests to the symphysis pubis. M: CTAP_1 Contrast: 3.5 cc 50% Omnipaque 300 injected into the left sacroiliac joint from a posterior approach CT Radiation dose: Integrated Dose-length product (DLP) for this visit = [address] Dose Reduction Employed: Automated exposure control (AEC) was used. COMPARISON: Automated exposure control (AEC) was used. RESULT: GI tract: No dilation or wall thickening. There are some scattered sigmoid diverticula without surrounding inflammation or wall thickening. Lymph nodes: No abdominal or pelvic lymphadenopathy. Mesentery/Peritoneum: No ascites or mass. Vasculature: Within normal limits. Pelvis: No mass, ascites or fluid collection. Bones/Soft Tissues: There is slight asymmetry of the sacroiliac joints with slight increased amount of sclerosis on the iliac side of the anterior left sacroiliac joint and slightly greater widening of the posterior aspect of the left sacroiliac joint. The contrast fills the back half of the sacroiliac joint and then spills out into the adjacent musculature. The rest of the visualized bony pelvis is within normal limits. IMPRESSION: There is bilateral sacroiliac disease with the left side slightly more advanced than the right. There is no fracture or destructive process. There is sigmoid diverticulosis without evidence of diverticulitis. Baker Paint: [facility] Transcribe Date/Time: Feb 07 2020 11:53A Dictated by : YARED TAYLOR MD This examination was interpreted and the report reviewed and electronically signed by: YARED TAYLOR MD on Feb 07 2020 12:04PM EST [facility] PT EDon 02-07-2020 PT ED HNO ID: [id number] Author: Corie CadetRn) MIKO Dunham Service: Interventional Radiology Author Type: Registered Nurse Type: Patient Education Filed: 02/07/2020 9:54 AM Note Text: At home instructions reviewed with patient and denies any questions. Normal [facility] HOSPon 02-05-2020 HOSP Patient:David Rai MRN: Height:5' 8(1.727 m) Weight:No patient weight recorded within the last 30 days. Outpatient Medications as of 02/07/20: Multivitamin capsule Omeprazole Magnesium (PRILOSEC OTC) 20 mg tablet fluocinonide (LIDEX) 0.05 % ointment CPAP COMPOUNDED PRESCRIPTION Lactobacillus acidophilus (PROBIOTIC) 10 billion cell cap Admission/Clinic Administered Medications as of 02/07/20: Patient has no admission medications. Problem List: Obesity, Class III, BMI 40-49.9 (morbid obesity) (HCC) [E66.01] Other malaise and fatigue [R53.81, R53.83] Myalgia and myositis, unspecified [[id number]] OSTEOARTHRITIS LOCALIZED, PRIMARY( Lower Leg) [M17.10] Benign neoplasm of colon [D12.6] Dysmetabolic syndrome X [E88.81] BARON (obstructive sleep apnea) [G47.33] Other enthesopathy of ankle and tarsus [M77.50] Pain in limb [M79.609] Congenital pes planus [Q66.50] Glucocorticoid deficiency (HCC) [E27.49] Esophageal reflux [K21.9] Ho's esophagus [K22.70] Esophagitis, unspecified [K20.90] Gastric ulcer [K25.9] Osteoporosis [M81.0] Vitamin D deficiency [E55.9] Secondary hyperparathyroidism (HCC) [N25.81] Macular puckering [H35.379] 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] Cerebral infarction (HCC) [I63.9] Cervicalgia [M54.2] BMI 39.0-39.9,adult [Z68.39] Oral lichen planus [L43.8] BMI 37.0-37.9, adult [Z68.37] Iron deficiency [E61.1] Nasal congestion [R09.81] Allergies: Fruit Extracts Biotin Forte [Biotin-Folic Acid-B Compc-Zinc] Codeine Estrogens Grifulvin V [Griseofulvin Microsize] Lipitor [Atorvastatin] Sulfa (Sulfonamide Antibiotics) Ultram [Tramadol] Date Verified: 02/07/20 Lab Values No results within the last 30 days for the following basenames: K,HCT No progress notes entered within the past 30 days Normal [facility] Vital Signs Date Time Vital Sign Value Performing Clinician Mackenzie muller 12-03-2024 12:50-0400 Body height 172.7 cm Shawna Ortez MD Work Phone: [facility] 12-03-2024 12:50-0400 Body mass index (BMI) [Ratio] 38.77 kg/m2 Shawna Ortez MD Work Phone: [facility] 12-03-2024 12:50-0400 Body weight 115.67 kg Shawna Ortez MD Work Phone: [facility] 12-03-2024 12:50-0400 Diastolic blood pressure 55 mm[Hg] Shawna Ortez MD Work Phone: [facility] 12-03-2024 12:50-0400 Heart rate 74 /min Shawna Ortez MD Work Phone: [facility] 12-03-2024 12:50-0400 SaO2% (BldA) [Mass fraction] 99 % Shawna Ortez MD Work Phone: [facility] 12-03-2024 12:50-0400 Systolic blood pressure 138 mm[Hg] Shawna Ortez MD Work Phone: [facility] 11-28-2024 12:03-0400 Body mass index (BMI) [Ratio] 38.77 kg/m2 Taylor Older FAMILY SERVICE AIDE.COMPUTATIONAL SCIENCES PROFESSOR Work Phone: [facility] 11-28-2024 12:03-0400 Body weight 115.67 kg Taylor Older FAMILY SERVICE AIDE.COMPUTATIONAL SCIENCES PROFESSOR Work Phone: [facility] 11-28-2024 12:03-0400 Diastolic blood pressure 80 mm[Hg] Taylor Older FAMILY SERVICE AIDE.COMPUTATIONAL SCIENCES PROFESSOR Work Phone: [facility] 11-28-2024 12:03-0400 Heart rate 68 /min Taylor Older FAMILY SERVICE AIDE.COMPUTATIONAL SCIENCES PROFESSOR Work Phone: [facility] 11-28-2024 12:03-0400 Respiratory rate 16 /min Taylor Older FAMILY SERVICE AIDE.COMPUTATIONAL SCIENCES PROFESSOR Work Phone: [facility] 11-28-2024 12:03-0400 Systolic blood pressure 122 mm[Hg] Taylor Older FAMILY SERVICE AIDE.COMPUTATIONAL SCIENCES PROFESSOR Work Phone: [facility] 09-01-2023 07:23-0400 Body mass index (BMI) [Ratio] 37.56 kg/m2 Taylor Older FAMILY SERVICE AIDE.COMPUTATIONAL SCIENCES PROFESSOR Work Phone: [facility] 09-01-2023 07:23-0400 Body weight 112.04 kg Taylor Older FAMILY SERVICE AIDE.COMPUTATIONAL SCIENCES PROFESSOR Work Phone: [facility] 09-01-2023 07:23-0400 Diastolic blood pressure 74 mm[Hg] Taylor Older FAMILY SERVICE AIDE.COMPUTATIONAL SCIENCES PROFESSOR Work Phone: [facility] 09-01-2023 07:23-0400 Heart rate 66 /min Taylor Older FAMILY SERVICE AIDE.COMPUTATIONAL SCIENCES PROFESSOR Work Phone: [facility] 09-01-2023 07:23-0400 Respiratory rate 16 /min Taylor Older FAMILY SERVICE AIDE.COMPUTATIONAL SCIENCES PROFESSOR Work Phone: [facility] 09-01-2023 07:23-0400 SaO2% (BldA) [Mass fraction] 97 % Taylor Older FAMILY SERVICE AIDE.COMPUTATIONAL SCIENCES PROFESSOR Work Phone: [facility] 09-01-2023 07:23-0400 Systolic blood pressure 120 mm[Hg] Taylor Older FAMILY SERVICE AIDE.COMPUTATIONAL SCIENCES PROFESSOR Work Phone: [facility] 08-02-2023 09:59-0400 Body mass index (BMI) [Ratio] 38.55 kg/m2 Lynda Athy PA-C Work Phone: [facility] 08-02-2023 09:59-0400 Body temperature 97.5 [degF] Lynda Athy PA-C Work Phone: [facility] 08-02-2023 09:59-0400 Body weight 115 kg Lynda Athy PA-C Work Phone: [facility] 08-02-2023 09:59-0400 Diastolic blood pressure 73 mm[Hg] Lynda Athy PA-C Work Phone: [facility] 08-02-2023 09:59-0400 Heart rate 81 /min Lynda Athy PA-C Work Phone: [facility] 08-02-2023 09:59-0400 Respiratory rate 20 /min Lynda Athy PA-C Work Phone: [facility] 08-02-2023 09:59-0400 SaO2% (BldA) [Mass fraction] 97 % Lynda Taylorjose PA-C Work Phone: [facility] 08-02-2023 09:59-0400 Systolic blood pressure 110 mm[Hg] Lynda Taylorjose PA-C Work Phone: [facility] 07-08-2022 13:06-0400 Body temperature 97.9 [degF] Taylor Older FAMILY SERVICE AIDE.COMPUTATIONAL SCIENCES PROFESSOR Work Phone: [facility] 07-08-2022 13:06-0400 Body weight 105.69 kg Taylor Older FAMILY SERVICE AIDE.COMPUTATIONAL SCIENCES PROFESSOR Work Phone: [facility] 07-08-2022 13:06-0400 Diastolic blood pressure 80 mm[Hg] Taylor Older FAMILY SERVICE AIDE.COMPUTATIONAL SCIENCES PROFESSOR Work Phone: [facility] 07-08-2022 13:06-0400 Heart rate 90 /min Taylor Older FAMILY SERVICE AIDE.COMPUTATIONAL SCIENCES PROFESSOR Work Phone: [facility] 07-08-2022 13:06-0400 Respiratory rate 16 /min Taylor Older FAMILY SERVICE AIDE.COMPUTATIONAL SCIENCES PROFESSOR Work Phone: [facility] 07-08-2022 13:06-0400 SaO2% (BldA) [Mass fraction] 98 % Taylor Older FAMILY SERVICE AIDE.COMPUTATIONAL SCIENCES PROFESSOR Work Phone: [facility] 07-08-2022 13:06-0400 Systolic blood pressure 128 mm[Hg] Taylor Older FAMILY SERVICE AIDE.COMPUTATIONAL SCIENCES PROFESSOR Work Phone: [facility] 07-02-2022 07:19-0400 Body temperature 96.69 [degF] Heena Winn FAMILY SERVICE AIDE.COMPUTATIONAL SCIENCES PROFESSOR Work Phone: [facility] 07-02-2022 07:19-0400 Body weight 105.33 kg Heena Winn FAMILY SERVICE AIDE.COMPUTATIONAL SCIENCES PROFESSOR Work Phone: [facility] 07-02-2022 07:19-0400 Diastolic blood pressure 62 mm[Hg] Heena Winn FAMILY SERVICE AIDE.COMPUTATIONAL SCIENCES PROFESSOR Work Phone: [facility] 07-02-2022 07:19-0400 Heart rate 96 /min Heena Winn APRN.COMPUTATIONAL SCIENCES PROFESSOR Work Phone: [facility] 07-02-2022 07:19-0400 Respiratory rate 18 /min Heena Winn APRN.COMPUTATIONAL SCIENCES PROFESSOR Work Phone: [facility] 07-02-2022 07:19-0400 SaO2% (BldA) [Mass fraction] 95 % Heena Winn APRN.COMPUTATIONAL SCIENCES PROFESSOR Work Phone: [facility] 07-02-2022 07:19-0400 Systolic blood pressure 100 mm[Hg] Heena Winn APRN.COMPUTATIONAL SCIENCES PROFESSOR Work Phone: [facility] Encounters Encounter Date Encounter Type Care Provider Facility Start: 12-03-2024 End: 12-03-2024 Office outpatient new 60 minutes Shawna Ortez MD Work Phone: [facility] Comment on above: History of ischemic stroke without residual deficits (Primary Dx); Cerebrovascular accident (CVA), unspecified mechanism (HCC); Transient neurological symptoms Start: 12-03-2024 End: 12-03-2024 ambulatory Arrhythm[facility] Work Phone: Cardiology Comment on above: Event (Zio Patch ) Start: 11-28-2024 End: 11-30-2024 Telephone encounter Shawna Ortez MD Work Phone: Neurology Comment on above: Imaging/Records Start: 11-28-2024 End: 11-28-2024 Office outpatient visit 25 minutes Taylor Lin APRN.COMPUTATIONAL SCIENCES PROFESSOR Work Phone: [facility] [place] Comment on above: Cerebrovascular acci dent (CVA), unspecified mechanism (HCC) (Primary Dx); Garbled speech; Dysphagia, unspecified type; Medication management Start: 11-28-2024 End: 11-28-2024 ambulatory MAXWELL RUEDA Facility:[facility] Start: 11-23-2024 ambulatory HOMAR Cordova y:[facility] Start: 11-23-2024 Evaluation and management of inpatient ALINA RIZO [facility] Start: 11-23-2024 End: 11-25-2024 Evaluation and management of inpatient MAYNOR DE LA GARZA [facility] Start: 07-31-2024 End: 07-31-2024 Telephone encounter Maxwell Rueda MD Work Phone: [facility] [place] Comment on above: Request for Handicap License Plate Start: 10-10-2023 Telephone encounter Taylor Lin APRN.COMPUTATIONAL SCIENCES PROFESSOR Work Phone: [facility] [place] Comment on above: Results Start: 10-06-2023 End: 10-06-2023 Subsequent hospital visit by physician Bone Density [facility] Work Phone: Radiology Comment on above: Screening for osteop orosis [Z13.820] Start: 09-01-2023 End: 09-01-2023 Patient encounter procedure Taylor Lin APRN.COMPUTATIONAL SCIENCES PROFESSOR Work Phone: [facility] [place] Comment on above: Medicare annual well ness visit, subsequent (Primary Dx); Obesity, Class III, BMI 40-49.9 (morbid obesity) (HCC); Other fatigue; BARON (obstructive sleep apnea); Screening for osteoporosis; Asymptomatic menopause Start: 08-19-2023 Telephone encounter Maxwell morales MD Work Phone: Internal Medicine [facility] Comment on above: Orders (Labs for [facility] appointment) Start: 08-02-2023 End: 08-02-2023 Patient encounter procedure Lynda Odom PA-C Work Phone: [facility] Comment on above: Acute UTI (Primary D x) Start: 07-08-2022 End: 07-08-2022 Patient encounter procedure Taylor Lin APRN.COMPUTATIONAL SCIENCES PROFESSOR Work Phone: Internal Medicine [facility] Comment on above: Acute non-recurrent sinusitis, unspecified location (Primary Dx) Start: 07-02-2022 End: 07-02-2022 Subsequent hospital visit by physician Xr [facility] Work Phone: Radiology Comment on above: Acute cough [R05.1] Start: 07-02-2022 End: 07-02-2022 Patient encounter procedure Heena Winn APRN.COMPUTATIONAL SCIENCES PROFESSOR Work Phone: [facility] Comment on above: Acute cough (Primary Dx); Sore throat; Congestion of throat Start: 04-22-2022 End: 04-23-2022 ambulatory Drea Novak Facility:[facility] Start: 04-22-2022 End: 04-22-2022 ambulatory [facility] Work Phone: Start: 04-22-2022 End: 04-22-2022 Patient encounter procedure [facility] Start: 10-20-2021 ambulatory Maryan Raphael Anglin MA [facility] Start: 02-12-2020 End: 02-12-2020 Preoperative state Xr [facility] Work Phone: [facility] Start: 02-12-2020 End: 02-12-2020 Subsequent hospital visit by physician Xr [facility] Work Phone: Radiology Comment on above: Pre-operative cleara nce [Z01.818] Start: 04-06-2019 Patient encounter status [facility] Start: 05-19-2017 [facility] Start: 05-12-2017 Ambulatory [facility] Procedures Date Procedure Procedure Detail Performing Clinician Start: 11-23-2024 Antibody screen HOAMR MEZA Comment on above: Performed By: #### T S #### [facility] [address] [place] [address] , Giancarlo Buckley M.D. FCAP, FASCP Start: 09-01-2023 Adult depression screening assessment Xr [facility] Work Phone: Start: 08-02-2023 Urnls dip stick/tabl et rgnt auto w/o microscopy Lynda WADSWORTHC Work Phone: Start: 07-02-2022 Radiologic exam ches t 2 views Heena Winn APRN.COMPUTATIONAL SCIENCES PROFESSOR Work Phone: Start: 07-02-2022 STREP A MOLECULAR (POC) Heena Winn APRN.COMPUTATIONAL SCIENCES PROFESSOR Work Phone: Start: 02-12-2020 Radiologic exam ches t 2 views Maxwell Rueda MD Work Phone: Start: 10-19-2017 Adult depression screening assessment Maryan Anglin MA History of appendectomy S/P appendectomy History of cholecystectomy Hx of cholecystectomy Plan of Treatment Date Care Activity Detail Author Start: 08-22-2026 Diabetes Screening Diabetes Screening [facility] Start: 10-05-2025 Screening for osteoporosis Bone Density Screening [facility] Start: 03-03-2025 DIABETES SCREEN DIABETES SCREEN [facility] Start: 03-03-2025 Diabetes Screening Diabetes Screening [facility] Start: 01-11-2025 End: 01-11-2025 Patient encounter procedure 01/11/2025 1:30 PM EDT Office Visit Neurology 1 [facility] [place], [place] [id number] Dx: Transient neurological symptoms [R29.818] Neurology Comment on above: Dx: Transient neurological symptoms [R29 .818] Start: 01-09-2025 End: 01-09-2025 Patient encounter procedure 01/09/2025 9:20 AM EDT Office Visit [facility] [address], [place] [id number] Taylor Lin APRN.COMPUTATIONAL SCIENCES PROFESSOR [address], [place] [id number] 6 week medicare wellness [facility] Comment on above: 6 week medicare wellness Start: 12-28-2024 End: 03-29-2025 Hepatic function 2000 panel - Serum or Plasma HEPATIC FUNCTION PNL Lab Routine Cerebrovascular accident (CVA), unspecified mechanism (HCC) Medication management Expected: 12/28/2024 (Approximate), Expires: 03/29/2025 [facility] Comment on above: Expected: 12/28/2024 (Approximate), Expi res: 03/29/2025 Start: 12-28-2024 End: 03-29-2025 Lipid 1996 panel - Serum or Plasma LIPID PANEL, FASTING Lab Routine Cerebrovascular accident (CVA), unspecified mechanism (HCC) Medication management Expected: 12/28/2024 (Approximate), Expires: 03/29/[address] [facility] Work Phone: Comment on above: Expected: 12/28/2024 (Approximate), Expi res: 03/29/2025 Start: 12-03-2024 End: 12-03-2024 Patient encounter procedure 12/03/2024 1:00 PM EDT Office Visit [facility] [address] [place] [address] Shawna Ortez MD [address] [place] [address] Dx: Cerebrovascular accident (CVA), unspecified mechanism (HCC) [I63.9] [facility] Comment on above: Dx: Cerebrovascular accident (CVA), unsp ecified mechanism (HCC) [I63.9] Start: 11-19-2024 Influenza vaccination Influenza Vaccine (#1) [facility] Start: 08-31-2024 Anxiety Screening Anxiety Screening [facility] Start: 08-31-2024 Covid-19 Vaccine () Covid-19 Vaccine () [facility] Comment on above: Postponed from 05/15/2023 (Declined at t his time) Start: 08-31-2024 Depression Screening Depression Screening [facility] Start: 08-31-2024 Medicare Annual Wellness Visit Medicare Annual Wellness Visit [facility] Start: 08-31-2024 RSV Vaccine (1 - 1-dose 60+ series) RSV Vaccine (1 - 1-dose 60+ series) [facility] Comment on above: Postponed from 2005 (Declined at t his time) Start: 08-31-2024 RSV Vaccine (1 - 1-dose 75+ series) RSV Vaccine (1 - 1-dose 75+ series) [facility] Comment on above: Postponed from 2020 (Declined at t his time) Start: 08-31-2024 Urine microalbumin profile DTaP,Tdap,Td Vaccine (2 - Td or Tdap) [facility] Comment on above: Postponed from 11/28/2017 (Declined at t his time) Start: 06-21-2024 Covid-19 Vaccine () Covid-19 Vaccine () [facility] Start: 03-21-2024 Advance Directive Discussion Advance Directive Discussion [facility] Start: 11-20-2023 Covid-19 Vaccine ( season) Covid-19 Vaccine () [facility] Start: 11-20-2023 Influenza vaccination Influenza Vaccine (#[facility]) [facility] Start: 10-26-2023 End: 10-26-2023 Patient encounter procedure 10/26/2023 8:40 AM EDT Office Visit [facility] [address] [facility], [place] [address] Taylor Lin APRN.COMPUTATIONAL SCIENCES PROFESSOR [address] [place] [address] Discuss bone density results [facility] Comment on above: Discuss bone density results Start: 10-06-2023 End: 10-06-2023 Patient encounter procedure 10/06/2023 8:55 AM EDT Appointment Radiology [address] [place] [id number] Screening for osteoporosis [Z13.820] Radiology Comment on above: Screening for osteoporosis [Z13.820] Start: 09-01-2023 End: 12-01-2023 Cobalamin (Vitamin B12) [Mass/volume] in Serum or Plasma [facility] Comment on above: Expected: 09/01/2023, Expires: Start: 09-01-2023 End: 12-01-2023 Thyrotropin [Units/volume] in Serum or Plasma [facility] Work Phone: Comment on above: Expected: 09/01/2023, Expires: Start: 09-01-2023 End: 09-01-2023 Patient encounter procedure 09/01/2023 7:20 AM EDT Office Visit Internal Medicine [facility] [address] [facility], [place] [id number] Taylor Lin APRN.COMPUTATIONAL SCIENCES PROFESSOR [address] [facility] [place] [address] Medicare Wellness [facility] Comment on above: Medicare Wellness Start: 05-15-2023 Covid-19 Vaccine ( season) Covid-19 Vaccine (2022- season) [facility] Start: 03-21-2023 Advance Directive Discussion Advance Directive Discussion [facility] Start: 03-21-2023 Behavioral Health Screening Behavioral Health Screening [facility] Start: 03-03-2023 SHINGRIX VACCINE (2 of 3) SHINGRIX VACCINE (2 of 3) [facility] Comment on above: Postponed from 05/21/2014 (Declined at t his time) Start: 03-03-2023 Urine microalbumin profile DTAP,TDAP,TD (2 - Td or Tdap) [facility] Comment on above: Postponed from 11/28/2017 (Declined at t his time) Start: 03-21-2022 ADVANCE DIRECTIVE DISCUSSION ADVANCE DIRECTIVE DISCUSSION [facility] Start: 03-21-2022 DEPRESSION ASSESSMENT DEPRESSION ASSESSMENT [facility] Start: 11-19-2021 Influenza vaccination INFLUENZA (#1) [facility] Start: 03-21-2021 ADVANCE DIRECTIVE DISCUSSION ADVANCE DIRECTIVE DISCUSSION [facility] Start: 10-19-2020 DIABETES SCREEN DIABETES SCREEN [facility] Start: 10-19-2018 Adult depression screening assessment DEPRESSION SCREENING [facility] Start: 11-28-2017 Urine microalbumin profile [facility] Start: 07-22-2017 Screening for osteoporosis Bone Density Screening [facility] Start: 05-21-2014 SHINGRIX VACCINE (2 of 3) SHINGRIX VACCINE (2 of 3) [facility] Start: 2005 RSV Vaccine (1 - 1-dose 60+ series) RSV Vaccine (1 - 1-dose 60+ series) [facility] Bacteria identified in Urine by Culture URINE CULTURE Microbiology Routine Acute UTI 08/02/2023 10:54 AM EDT [facility] Work Phone: End: 09-30-2024 BD DXA TRABECULAR BONE SCORE (TBS) BD DXA TRABECULAR BONE SCORE (TBS) Radiology Routine Screening for osteoporosis Asymptomatic menopause 1 Occurrences starting 09/01/2023 until 09/30/2024 [facility] Comment on above: 1 Occurrences starting 09/01/2023 until 09/30/2024 End: 09-30-2024 DXA Skeletal system.axial Views for bone density DXA-AXIAL SKELETON Radiology Routine Screening for osteoporosis Asymptomatic menopause 1 Occurrences starting 09/01/2023 until 09/30/2024 [facility] Comment on above: 1 Occurrences starting 09/01/2023 until 09/30/2024 DXA Skeletal system.axial Views for bone density DXA-AXIAL SKELETON Radiology Routine Screening for osteoporosis Asymptomatic menopause 10/06/2023 9:26 AM EDT [facility] Work Phone: End: 12-03-2025 EPIL EEG ROUTINE EPIL EEG ROUTINE NEUROLOGY Routine Transient neurological symptoms 1 Occurrences starting 12/03/2024 until 12/03/2025 [facility] Comment on above: 1 Occurrences starting 12/03/2024 until 12/03/2025 OUTSIDE VENDOR CARDI AC OUTPATIENT EXTENDED RHYTHM RECORDING (WITHOUT TELEMETRY) OUTSIDE VENDOR CARDIAC OUTPATIENT EXTENDED RHYTHM RECORDING (WITHOUT TELEMETRY) Holter Routine Cerebrovascular accident (CVA), unspecified mechanism (HCC) Ordered: 12/03/[address] [facility] Work Phone: Comment on above: Ordered: 12/03/2024 [facility] Immun[facility] Immunization Date Immunization Notes Care Provider Fa [facility] 02-09-2024 respiratory syncytia l virus (RSV) vaccine, adjuvanted (AREXVY) Maxwell Rueda MD Work Phone: [facility] 12-17-2023 influenza (aIIV4) vaccine, age 65+ yr, quadrivalent, PF (FLUAD QUAD) Maxwell Rueda MD Work Phone: [facility] 12-17-2023 influenza virus vacc ine, unspecified formulation Taylor Lin APRN.COMPUTATIONAL SCIENCES PROFESSOR Work Phone: [facility] 01-12-2023 COVID-19 vaccine, ag e 12+ yr, season (MODERNA) Lynda Odom PA-C Work Phone: [facility] 12-25-2022 influenza, high dose seasonal, preservative-free Lynda Athy PA-C Work Phone: [facility] 12-25-2022 influenza virus vacc ine, unspecified formulation Bone Wstr Work Phone: [facility] 06-20-2022 zoster vaccine recombinant Lynda Athy PA-C Work Phone: [facility] 04-06-2022 zoster vaccine recombinant Lynda Athy PA-C Work Phone: [facility] 12-17-2021 COVID-19 booster vaccine, age 12+ yr, bivalent (PFIZER-BIONTECH) Heena Winn APRN.CNP Work Phone: [facility] 06-27-2021 COVID-19 vaccine, ag e 12+ yr (PFIZER-BIONTECH - PURPLE TOP) Maryan Anglin [facility] 12-10-2019 influenza, high-dose , quadrivalent vaccine (FLUZONE HIGH DOSE QUADRIVALENT) Maryanconcepción Anglin [facility] 12-08-2018 influenza, high dose seasonal, preservative-free Maryan Lonnieascencion [facility] Work Phone: 12-11-2017 influenza, high dose seasonal, preservative-free Maryan Lonnieascencion [facility] Work Phone: 01-06-2017 pneumococcal polysaccharide vaccine, 23 valent Maryan Flemingascencion [facility] 12-08-2016 influenza, injectabl e, quadrivalent, contains preservative Maryanconcepción Flemingascencion [facility] 12-24-2015 influenza, high dose seasonal, preservative-free Maryan Lonnieascencion [facility] Work Phone: 01-09-2015 pneumococcal conjuga te vaccine, 13 valent Maryan Flemingascencion [facility] 12-18-2014 influenza, high dose seasonal, preservative-free Maryan Lonnieascencion [facility] 03-26-2014 zoster vaccine, live Maryan Flemingascencion [facility] 01-11-2014 influenza, seasonal, injectable Maryan Lonnieascencion [facility] Work Phone: 11-06-2013 influenza, seasonal, injectable Maryanconcepción Flemingascencion [facility] 12-23-2012 influenza virus vacc ine, unspecified formulation Maryan Lonnieascencion [facility] Work Phone: 12-19-2012 Influenza virus vaccine W [facility] 12-21-2011 pneumococcal vaccine , unspecified formulation [facility] 12-09-2011 influenza virus vacc ine, unspecified formulation Maryan nAglin [facility] 12-22-2010 influenza virus vacc ine, unspecified formulation Maryan Anglin MA [facility] 12-22-2010 pneumococcal polysaccharide vaccine, 23 valent Maryan Anglin MA [facility] 12-26-2008 influenza virus vacc ine, unspecified formulation Maryan Anglin MA [facility] 02-01-2008 influenza virus vacc ine, unspecified formulation Maryan Anglin MA [facility] Work Phone: 11-29-2007 tetanus toxoid, redu miles diphtheria toxoid, and acellular pertussis vaccine, adsorbed Maryan Anglin [facility] Work Phone: Payers Date Payer Category Payer Unknown [id number] 2022 Private Health Insurance [id number] 2022 Self-pay [id number] 2015 Private Health Insurance HUMANA HUMANA MEDICARE SUPPLEMENT [id number] 2015-Present [phone] [address] [address] [place] [address] Indemnity [id number] 2015 Private Health Insurance [id number] 2010 Medicare 2010 Medicare MEDICARE MEDICAR E A AND B [id number] 2010-Present [phone] [address] [address] [place] [address] Medicare [id number] 2010 Medicare [id number] Unknown [id number] Unknown [id number] Unknown [id number] Social History Date Type Detail Facility Start: 07-23-2011 End: 07-02-2022 Tobacco smoking status NHIS Never smoked tobacco [facility] Start: 03-27-2021 End: 12-03-2024 Alcohol intake Current non-drinker of alcohol (finding) [facility] Start: 1945 Sex Assigned At Not on file [facility] Start: 01-13-2020 End: 10-20-2021 Exposure to SARS-CoV-2 (event) Not sure [facility] Start: 03-04-2020 Tobacco smoking stat us NHIS Unknown if ever smoked [facility] Start: 01-26-2013 None [facility] Start: 03-04-2020 Non-smoker [facility] Start: 1945 Sex Assigned At Female W [facility] Start: 07-23-2011 End: 07-02-2022 Tobacco use and exposure Smokeless tobacco non-user [facility] Start: 02-24-2022 History SDOH Alcohol Frequency 1 [facility] Start: 02-24-2022 History SDOH Alcohol Std Drinks 0 [facility] Start: 02-24-2022 History SDOH Social Connections Phone 5 [facility] Start: 02-24-2022 History SDOH Social Connections [facility] 3 [facility] Start: 02-24-2022 History SDOH Physica l Activity DPW 6 [facility] Start: 02-24-2022 History SDOH Physica l Activity MPS 4 [facility] Start: 02-24-2022 History SDOH Transport Med 2 [facility] Start: 02-24-2022 End: 09-01-2023 History of Social function [facility] Start: 02-24-2022 End: 09-01-2023 Social connection and isolation panel [facility] Do you belong to any clubs or organizations such as congregation groups, unions, fraternal or athletic groups, or school groups? Yes [facility] Are you now , , , , never or living with a partner? [facility] How often to you hav e a drink containing alcohol? Never [facility] Start: 02-20-[address] inks containing alcohol do you have on a typical day? Patient does not drink [facility] Do you feel stress - tense, restless, nervous, or anxious, or unable to sleep at night because your mind is troubled all the time - these days [OSQ] Not at all [facility] (I/We) worried wheth er (my/our) food would run out before (I/we) got money to buy more. Never true [facility] In the past 12 month s, was there a time when you were not able to pay the mortgage or rent on time? No [facility] Medical Equipment Procedure Code Equipment Code Equipment Origin al Text Equipment Identifier Dates Minimally invasive total replacement of hip joint by anterior approach accolade 127 neck ang hip stem FDA Start: 04-18-2019 Minimally invasive total replacement of hip joint by anterior approach biolox delta cer v40 fem head FDA Start: 04-18-2019 Minimally invasive total replacement of hip joint by anterior approach trident clusterhole acet shell FDA Start: 04-18-2019 Minimally invasive total replacement of hip joint by anterior approach trident x3 polyethylene insert FDA Start: 04-18-2019 30MM SCREW FDA Start: 03-18-2020 35MM SCREW FDA Start: 03-18-2020 JEFF ELITE FDA Start: 03-18-2020 JEFF ELITE FDA Start: 03-18-2020 JEFF ELITE FDA Start: 03-18-2020 Functional Status Date Assessment Result Facility 03-11-2014 Are you deaf, or do you have serious difficulty hearing No 03/11/2014 6:25 PM Danna Vivas RN No [facility] 03-11-2014 Are you blind, or do you have serious difficulty seeing, even when wearing glasses No 03/11/2014 6:25 PM Danna Vivas RN No [facility] 03-11-2014 Do you have serious difficulty walking or climbing stairs No 03/11/2014 6:25 PM Danna Vivas RN No [facility] 03-11-2014 Do you have difficul ty dressing or bathing No 03/11/2014 6:25 PM Danna Vivas RN No [facility] 03-11-2014 Because of a physica l, mental, or emotional condition, do you have difficulty doing errands alone such as visiting a physician's office or shopping No 03/11/2014 6:25 PM Danna Vivas RN No [facility] Mental Status Date Assessment Result Facility 03-11-2014 Because of a physica l, mental, or emotional condition, do you have serious difficulty concentrating, remembering, or making decisions No 03/11/2014 6:25 PM Danna Vivas RN No [facility] Clinical Notes 06-30-2005 to 12-03-2024 Marilia Gregg - 12/03/2024 2:16 PM EDTPatient InstructionsShawna Ortez MD - 12/03/2024 1:00 PM EDTTelephone Encounter - Giancarlo Casillas - 11/28/2024 1:54 PM EDTPatient Instructions Note Date & Type Note Facility 12-03-2024 Note HNO ID: [id number] Author: ?, ?, ? Service: ? Author Type: ? Type: Progress Notes Filed: 12/03/2024 14:16 Note Text: EVENT MONITOR DISPOSABLE PATCH INSTRUCTIONS Patient Name: Magno Iniguez [facility] Number: [id number] Skin prepped and cleansed with alcohol Patch secured to prepped area Monitor Activated Serial #: [id number] Patient Instructed: Prescribed order timeframe Bathing guidelines Usage of event button and diary documentation Return of monitor at the end of prescribed order Call with problems [phone] or [phone]. [phone] Patient expresses a good understanding of instructions Marilia Gregg [facility] 12-03-2024 History of Presen t illness Narrative EVENT MONITOR DISPOSABLE PATCH INSTRUCTIONS Patient Name: Magno Iniguez [facility] Number: [id number] Skin prepped and cleansed with alcohol Patch secured to prepped area Monitor Activated Serial #: [id number] Patient Instructed: Prescribed order timeframe Bathing guidelines Usage of event button and diary documentation Return of monitor at the end of prescribed order Call with problems [phone] or [phone]. [phone] Patient expresses a good understanding of instructions Marilia Gregg documented in this encounter [facility] 12-03-2024 Note Education (CARDMN) MAGNO RAI ([id number]) 1945 F NFR Date Time Provider Department 12/03/24 2:00 PM [facility] Reason for Visit: Event [921] Cmt: Zio Patch Primary Visit Diagnosis:Cerebrovascular accident (CVA), unspecified mechanism (HCC) [I63.9] During your visit today, we recorded the following information about you: Allergies As of Date: 12/03/2024 Noted Allergy Reaction FRUIT EXTRACTS 12/23/2014 7 - Swelling Comments: Tongue swells and blisters on mouth and cheeks BIOTIN FORTE (BIOTIN-FOLIC ACID-B*12/03/2004 Comments: anxiety attack CODEINE 09/12/2003 3 - Cough ESTROGENS 07/25/2007 14 - Other: See Comments Comments: flu like symptoms GRIFULVIN V (GRISEOFULVIN MICROSI*12/09/2011 14 - Other: See Comments Comments: Headache SULFA (SULFONAMIDE ANTIBIOTICS) 09/12/2003 Comments: covulsions ULTRAM (TRAMADOL) 12/03/2004 Comments: dizzy,hot feeling Date Reviewed: 12/03/2024 Reviewed by: Palma Mon MA - Fully Assessed Prescriptions as of 12/03/2024 - Aspirin 81 mg tab Take 81 mg by mouth. - atorvastatin (LIPITOR) 40 mg tablet Take 1 tablet by mouth once daily. - mv-mn/iron/folic acid/herb 190 (VITAMIN D3 COMPLETE ORAL) Take by mouth. - cyanocobalamin, vitamin B-12, (VITAMIN B-12 ORAL) Take by mouth. - Biotin 1 mg tab Take 1 tablet by mouth once daily. - Multivitamin capsule Take 1 capsule by mouth once daily. - CPAP Mask (per patient preference) optional chin strap (if indicated), filters, tubing / heated tubing, heated humidity and lifetime supplies. Dx. BARON G47.33 327.23 - COMPOUNDED PRESCRIPTION BIPAP machine service check. - Lactobacillus acidophilus 10 billion cell cap Take 1 capsule by mouth once daily. Encounter Status:Closed by MARILIA GREGG on 12/03/24 [facility] 12-03-2024 Instructions Shawna Ortez MD - 12/03/2024 1:40 PM EDT Regarding your visit with Dr. Ortez at the [facility] we discussed the following: Impression: Transient right sided weakness with aphasia - TNK aborted stroke vs. TIA Transient neurological symptoms after syncope - possible seizure Hypertension: Blood pressure goal < 140 Blood pressure today: BP 138/55 (BP Site: Right Arm, BP Position: Sitting, BP Cuff Size: Large Adult) Pulse 74 Ht 172.7 cm (5' 8) Wt 115.7 kg (255 lb) SpO2 99% BMI 38.77 kg/m Hyperlipidemia: LDL goal < 70 Most recent LDL: LDL Cholesterol, Calculated (mg/dL) Date Value 08/23/2023 89 05/17/2017 100 LDL Cholesterol (no units) Date Value 02/13/2020 85 Recommendations: Continue with aspirin 81mg daily Continue with cholesterol medication (lipitor). LDL cholesterol goal<70 Will obtain EEG (brain wave test) Will obtain heart rhythm monitoring - please stop by [facility] for the Zio Patch. If not revealing the source of the stroke, will likely need longer monitoring. Will communicate with you. Regular follow up with primary care doctor for health maintenance -Assist ensuring blood pressure and cholesterol are at goal -Screen and manage diabetes Lifestyle modification -- Establish goals -Diet -Regular Exercise as discussed -Establish weight goals with primary care doctor Additional stroke reduction measures and stroke warning signs are listed below. Return to see 2 months at [facility] Please do not hesitate to call if you have any questions Shawna Ortez MD [facility] [address] [place] [address] / [place] [address] Office: [phone] ~~~~~~~~~~~~~~~~~~~~~~~~~~~~~~~~ ~~~~~~~~~~~~~~~~~~~~~~~~~~~~~~~~ ~~~~~~~~ Stroke Signs and Symptoms: *Stroke is a medical emergency. Know the warning signs of stroke: Sudden numbness or weakness of the face, arm or leg, especially on one side of the body Sudden confusion, trouble speaking, or understanding Sudden trouble seeing in one eye, or both eyes Sudden trouble walking, dizziness, loss of balance, or coordination Sudden severe headache with no known cause *If you, or someone with you, has one or more of these signs, don't delay! Immediately call 911, or the emergency medical services (EMS) number so an ambulance can be sent for you. Also, check the time so that you will know when the symptoms first appeared. It is very important to take immediate action, every second counts. Medical treatment may be available if action is taken early enough. ~~~~~~~~~~~~~~~~~~~~~~~~~~~~~~~~ ~~~~~~~~~~~~~~~~~~~~~~~~~~~~~~~~ ~~~~~~~~ General Guidelines to Help Reduce Risk of Recurrent Stroke Blood Pressure Management: Blood Pressure reduction is recommended for both prevention of recurrent stroke and prevention of other vascular events in persons who have had an ischemic stroke or TIA and are beyond the first 24 hours. Several lifestyle modifications have been associated with BP reduction and are a reasonable part of a comprehensive antihypertensive therapy. These modifications include: - salt restriction (less than 2 grams per day) - weight loss - consumption of a diet rich in fruits, vegetables, and low-fat dairy products - regular aerobic physical activity - limited alcohol consumption Goal: Prehypertension (BP less than 130/80 mm Hg): - Perform annual BP screening and lifestyle modifications Hypertension: (BP greater than or equal to 130/80 mm Hg) - Combine medications with above lifestyle modifications to reach your goal blood pressure as defined above. - Monitor your blood pressure at home regularly to ensure you are reaching your goals Diabetes Mellitus: - the goal for glycemic control should be individualized based on the risk for adverse events, patient characteristics and preferences, and, for most patients with diabetes, achieving a goal of HbA1c <=7% is recommended to reduce risk for microvascular complications. - treatment of diabetes should include glucose-lowering medications with proven cardiovascular benefit to reduce the risk for future major adverse cardiovascular events (eg, stroke, heart attack) Cholesterol and Lipid Management - Statin (rosuvastatin or atorvastatin) therapy with intensive lipid-lowering effects is recommended to reduce risk of stroke and cardiovascular events among patients with ischemic stroke or TIA who have LDL cholesterol > 100 mg/dL, or evidence of atherosclerosis. - A goal of LDL cholesterol < 70 mg/dL for stroke or TIA patients on lipid lowering therapy is recommended. - Ezetimibe in combination with statin therapy to lower the LDL cholesterol < 70 mg/DL is recommended, if statin therapy alone is insufficient to attain this treatment target. - For patients with ischemic stroke at very high risk, already taking maximally tolerated statin and ezetimibe and still have an LDL cholesterol > 70 mg/dL, it is reasonable to treat with a proprotein convertase subtilisin/kexin type 9 (PCSK9) inhibitor to prevent atherosclerotic cardiovascular or cerebrovascular events. - In patients with ischemic stroke or TIA, with fasting triglycerides 135 to 499 mg/dL and LDL cholesterol of 41 to 100 mg/dL, on moderate- or high-intensity statin therapy, with HbA1c <10%, and with no history of pancreatitis, atrial fibrillation, or severe heart failure, treatment with icosapent ethyl (IPE) 2 g twice a day is reasonable to reduce risk of recurrent stroke Diet: - Reduced sodium and increased potassium intake; DASH-style diet rich in fruits and vegetables (https://www.nhlbi.nih.gov/educa tion/fiod-hhmwnw-weex) - Consider Mediterranean diet supplemented with nuts Smoking and Tobacco Use: - Strongly recommend smoking and tobacco use cessation to reduce risk of stroke. - Counseling, nicotine products, and oral smoking cessation medications are effective for helping smokers quit and can be provided if needed. Alcohol Consumption: - Patients with ischemic stroke or TIA who drink greater than or equal to 2 alcoholic drinks a day, should eliminate alcohol use or reduce their consumption of alcohol to less than equal to 1 alcohol drink per day to reduce stroke risk Exercise - In patients with stroke or TIA who are capable of physical activity, engaging in at least moderate-intensity aerobic activity for a minimum of 10 minutes 4 times a week or vigorous-intensity aerobic activity for a minimum of 20 minutes twice a week is indicated to lower the risk of recurrent stroke - In patients with deficits after stroke that impair their ability to exercise, supervision of an exercise program by a health patient care such as a physical therapist or cardiac rehabilitation professional, in addition to routine rehabilitation, can be beneficial for secondary stroke prevention - In individuals with stroke or TIA who sit for long periods of uninterrupted time during the day, it may be reasonable to recommend breaking up sedentary time with intervals as short as 3 minutes of standing or light exercise every 30 minutes for their cardiovascular health Adapted from the [place] [employer]/[place] [employer] Association: 202 Guideline for the Prevention of Stroke in Patients With Stroke and Transient Ischemic Attack documented in this encounter [facility] 12-03-2024 History of Presen t illness Narrative Images from the original note were not included. [facility] Initial Visit Consultation is requested by: Taylor Lin [address] [facility] [address] PCP: Maxwell Rueda [address] [place] [address] CEREBROVASCULAR HISTORY Reason for Visit: follow-up History of Event: Reason for visit (patient's understanding): Est care post stroke Specific Question for today: What caused the stroke? EEG? PCP: Taylor Lin FAMILY SERVICE AIDE Accompanied with today: Daughter - Mary Stroke date: 11/23/2024 Antiplatelets/Anticoagulants: ASA 81 mg Cholesterol medication: Lipitor 40 mg Tobacco and alcohol use: denies Residual Deficits: None. Back to baseline Current PT/OT/ST: denies Current use of a mobility aid for walking/getting around: denies Work: denies Recent CVA with initial symptoms of altered sensation, loss of consciousness, garbled speech, and dysphagia; symptoms resolved after TPA administration. Antiplatelets/Anticoagulants: Aspirin Statins: Atorvastatin Do you have any planned upcoming surgeries or dental procedures? No Audra Abrams RN December 03, 2024 1:00 PM RN completing documentation = # HPI: 79 y/o W h/o previous stroke? with residual left droopy eyelid and intermittent left foot drop, who was recently admitted to [facility] 11/23/24 - 11/25/24, here for further follow up. Per the record (under scanned docs), she presented to ED after having generalized weakness followed by syncope while she was at [place] sitting in the chair. Daughter reported right sided face/lip droop, difficulty recalling words/nouns, and slurred speech. NIHSS 6. Per record, patient was noted to have left facial droop, 'diffuse bilateral arm weakness', aphasia, decreased alertness, confusion, ataxia all 4 extremities, difficulty following commands.'. After discussion, TNK was given. CTH/CTA/MRI all unrevelaing. Patient was started on aspirin and statin, discharged. Recording using [employer] software for draft documentation of the visit was discussed with the patient/authorized client representative; all questions welcomed and answered. Patient/authorized client representative agreed to proceed. Magno Rai is a 79-year-old female with a history of TIA in 2012, presenting for follow-up after a recent hospital admission for a suspected TIA. Magno was admitted last weekend following an episode of syncope and right-sided weakness. She reports feeling funny and experiencing a sensation of her head being disconnected from her body before losing consciousness. Her daughter witnessed the event and noted right-sided facial droop, slurred speech, and right arm weakness. Magno does not recall the event after losing consciousness and does not endorse any pain during the episode. She does not report any prior episodes of syncope, palpitations, or chest pain. In 2012, Magno experienced a small stroke, resulting in a droopy left eye and occasional tripping due to foot weakness. She was hospitalized for three days at [facility] but was not prescribed any medications at that time. She reports no significant issues from this event and has not had any follow-up tests since. During her recent hospitalization, she received thrombolytic therapy, which was reportedly effective. She was started on baby aspirin and a statin, which she takes at night without any issues. She also underwent an MRI and vessel imaging, which did not show any significant damage. Magno has a history of bilateral knee replacements, a left hip replacement, and a right femur fracture in 2012 or 2013, which was repaired with a plate. She reports leg swelling during her recent hospital stay but attributes it to prolonged bed rest. She has a bike and treadmill at home and uses them regularly. She had a nuclear stress test in 2019, which was reportedly normal. She does not have a diagnosis of atrial fibrillation or other heart conditions. She is not currently seeing a primary care physician regularly. PAST MEDICAL HISTORY Diagnosis Date Ho esophagus Benign neoplasm of colon Dyspepsia Esophageal reflux Esophagitis, unspecified Gastric ulcer, unspecified as acute or chronic, without mention of hemorrhage, perforation, or obstruction Insomnia, unspecified Lichen planus Myalgia and myositis, unspecified Obesity, unspecified Other adrenal hypofunction Other malaise and fatigue Stroke (HCC) 2013 Patient states it was very small PAST SURGICAL HISTORY Procedure Laterality Date APPENDECTOMY ARTHROSCOPY KNEE DIAGNOSTIC W/WO SYNOVIAL BX SPX Arthroscopy, knee DELIVERY ONLY , low cervical DELIVERY ONLY , low cervical CHOLECYSTECTOMY Cholecystectomy COLONOSCOPY FLX DX W/COLLJ SPEC WHEN PFRMD 03/11/2010 Colonoscopy COLONOSCOPY FLX DX W/COLLJ SPEC WHEN PFRMD 12/30/2014 Colonoscopy COLSC FLX W/RMVL OF TUMOR POLYP LESION SNARE TQ 09/05/2006 EGD TRANSORAL BIOPSY SINGLE/MULTIPLE 01/02/2009 ESOPHAGOGASTRODUODENOSCOPY TRANSORAL DIAGNOSTIC 03/21/1992 EGD HEMORRHOIDECTOMY INTERNAL RUBBER BAND LIGATIONS Hemorrhoidectomy OOPHORECTOMY PARTIAL/TOTAL UNI/BI Oophorectomy OPTX FEM FX PROX END NCK INT FIXJ/PROSTC RPLCMT 11/30/2009 ORIF femur - right femur fracture from fall PAST SURGICAL HISTORY OF 03/21/2005 bilateral total knee replacements PAST SURGICAL HISTORY OF 03/27/09,06/2009 Bone spur removed from left hand index finger and also had cyst removed. Right hand had cyst at middle finger removed. PT ED ORTHOPAEDICS 2019 sciatic joint fusion TONSILLECTOMY & ADENOIDECTOMY <AGE 12 Tonsil/adenoidectomy TOTAL ABDOMINAL HYSTERECT W/WO RMVL TUBE OVARY Hysterectomy, RONALD FAMILY HISTORY Problem Relation Age of Onset Cancer Mother Hypertension Mother Stroke Mother Psychiatry Father Committed suicide Alcohol/Drug Father Ischemic Heart Disease Sister Hypertension Sister Alcohol/Drug Brother Alcohol/Drug Brother SOCIAL HISTORY[1] MEDICATIONS Current Outpatient Medications Medication Sig Aspirin 81 mg tab Take 81 mg by mouth. atorvastatin (LIPITOR) 40 mg tablet Take 1 tablet by mouth once daily. mv-mn/iron/folic acid/herb 190 (VITAMIN D3 COMPLETE ORAL) Take by mouth. cyanocobalamin, vitamin B-12, (VITAMIN B-12 ORAL) Take by mouth. Biotin 1 mg tab Take 1 tablet by mouth once daily. Multivitamin capsule Take 1 capsule by mouth once daily. CPAP Mask (per patient preference) optional chin strap (if indicated), filters, tubing / heated tubing, heated humidity and lifetime supplies. Dx. BARON G47.33 327.23 COMPOUNDED PRESCRIPTION BIPAP machine service check. Lactobacillus acidophilus 10 billion cell cap Take 1 capsule by mouth once daily. No current facility-administered medications for this visit. ALLERGIES ALLERGIES Allergen Reactions Fruit Extracts Swelling Tongue swells and blisters on mouth and cheeks Biotin Forte [Bioti* anxiety attack Codeine Cough Estrogens Other: See Comments flu like symptoms Grifulvin V [Griseo* Other: See Comments Headache Sulfa (Sulfonamide * covulsions Ultram [Tramadol] dizzy,hot feeling PHYSICAL EXAMINATION BP 138/55 (BP Site: Right Arm, BP Position: Sitting, BP Cuff Size: Large Adult) Pulse 74 Ht 172.7 cm (5' 8) Wt 115.7 kg (255 lb) SpO2 99% BMI 38.77 kg/m Neurological exam Mental status: Alert, oriented to time, place, and person. No RL confusion. Intact attention. Language: intact comprehension, fluency, naming, reading, and repetition CN: pupils symmetric and response to light b/l symmetric. EOM full, VFF. Face sensory intact to light touch b/l. R NLF flattening (unknown chronicity). Hearing intact to finger rub b/l. Tongue midline. No dysarthria Motor: tone and bulk normal. No pronator drift b/l. 5/5 throughout. Sensory: intact to light touch b/l UE/LE Coordination: intact FTN and HTS b/l Gait: narrow based LDL pending Diabetes: Hemoglobin A1C (%) Date Value 10/19/2017 5.1 DIAGNOSTICS TTE: EF 60, wall motion normal. LA moderately to severely dilated. MRI brain: no acute finding. Chronic microvascular changes CTA H/N: bilateral carotid bifurcation atherosclerotic plaque without hemodynamically significant stenosis. Patient Entered Questionnaires PROMIS/NeuroQoL Score Percentiles 02/24/2022 PROMIS Global Health Scale Physical Health Percentile 66 Mental Health Percentile 89 Percentiles provide an indication of how a patient's score ranks in relation to the [place] general population. > 31st percentile is within normal limits or better * < 31st percentile is at least SD worse than population, which may be clinically relevant < 16th percentile is at least 1 SD worse than population and warrants attention Depression Screenin10/19/2017 PHQ-9 Score 23 Self-Harm Response Not at all Data saved with a previous flowsheet row definition PHQ-9 Scores: PHQ-9 Self-Harm (Item 9) Response: 0 - 9 No to Mild depression 0 - Not at all 10 - 14 Moderate depression 1 - Several Days > 15 Severe depression 2 - More than half the days 3 - Nearly every day Stroke Mechanism and Scales ESUS ASSESSMENT AND PLAN Patient visited stroke clinic today for further follow up on the recent admission at [facility]. On 11/23/24, she was outside sitting for a while, when she started feeling 'funny' and generalized weakness, followed by LOC. She did not have any seizure like activity, tongue biting, or urinary incontinence at the time. Following, she was reportedly noted to have R facial droop, RUE weakness, and aphasia for which she was evaluated by [facility] neurology team s/p TNK administration (documents are not clear, some note left face). She returned to her baseline subsequently. MRI brain unremarkable without acute finding. CTA H/N unremarkable. TTE nl EF but noted mod-sev dilated LA. She was discharged with aspirin and statin. Remained stable without any recurrent or new symptoms. TIA/TNK aborted stroke - etiology ESUS - Continue with aspirin 81mg daily - Continue with statin. LDL goal<70. Dosage can be further managed by PCP - Will obtain cardiac monitoring - Starting with Zio Patch - if not revealing, will need to consider Loop recorder placement - EEG routine - Vascular risk factor optimization and stroke signs/symptoms were educated - RTC 2 months at [facility] Stroke [facility] Medical Decision Making: Medical Decision Making Level: 1 - N/A Recording using [employer] software for draft documentation of the visit was discussed with the patient/authorized client representative; all questions welcomed and answered. Patient/authorized client representative agreed to proceed I spent a total of 60 minutes on the date of service which included preparing to see the patient, [id number] patient care, completing clinical documentation, obtaining and/or reviewing separately obtained history, performing a medically appropriate examination, counseling and educating the patient/family/caregiver, and ordering medications, tests, or procedures SIGNATURE Shawna Ortez MD [facility] [address] [place] [address] Office: [phone] Taylor Lin [address] [place], [place] [id number] Maxwell Rueda [address] [place], [place] [id number] [1] Social History Tobacco Use Smoking status: Never Smokeless tobacco: Never Vaping Use Vaping status: Never Used Substance Use Topics Alcohol use: No Drug use: No documented in this encounter [facility] 12-03-2024 Note HNO ID: [id number] Author: SHAWNA ORTEZ MD Service: ? Author Type: Physician Type: Progress Notes Filed: 12/03/2024 14:02 Note Text: [facility] Initial Visit Consultation is requested by: Taylor Lin [address] [place], [place] [id number] PCP: Maxwell Rueda [address] [place], [place] [id number] CEREBROVASCULAR HISTORY Reason for Visit: follow-up History of Event: Reason for visit (patient's understanding): Est care post stroke Specific Question for today: What caused the stroke? EEG? PCP: Taylor Lin APRN Accompanied with today: Daughter - Mary Stroke date: 11/23/2024 Antiplatelets/Anticoagulants: ASA 81 mg Cholesterol medication: Lipitor 40 mg Tobacco and alcohol use: denies Residual Deficits: None. Back to baseline Current PT/OT/ST: denies Current use of a mobility aid for walking/getting around: denies Work: denies Recent CVA with initial symptoms of altered sensation, loss of consciousness, garbled speech, and dysphagia; symptoms resolved after TPA administration. Antiplatelets/Anticoagulants: Aspirin Statins: Atorvastatin Do you have any planned upcoming surgeries or dental procedures? No Audra Abrams RN December 03, 2024 1:00 PM RN completing documentation = # HPI: 79 y/o W h/o previous stroke? with residual left droopy eyelid and intermittent left foot drop, who was recently admitted to [facility] 11/23/24 - 11/25/24, here for further follow up. Per the record (under scanned docs), she presented to ED after having generalized weakness followed by syncope while she was at [place] sitting in the chair. Daughter reported right sided face/lip droop, difficulty recalling words/nouns, and slurred speech. NIHSS 6. Per record, patient was noted to have left facial droop, 'diffuse bilateral arm weakness', aphasia, decreased alertness, confusion, ataxia all 4 extremities, difficulty following commands.'. After discussion, TNK was given. CTH/CTA/MRI all unrevelaing. Patient was started on aspirin and statin, discharged. Recording using [employer] software for draft documentation of the visit was discussed with the patient/authorized client representative; all questions welcomed and answered. Patient/authorized client representative agreed to proceed. Magno Rai is a 79-year-old female with a history of TIA in 2012, presenting for follow-up after a recent hospital admission for a suspected TIA. Magno was admitted last weekend following an episode of syncope and right-sided weakness. She reports feeling funny and experiencing a sensation of her head being disconnected from her body before losing consciousness. Her daughter witnessed the event and noted right-sided facial droop, slurred speech, and right arm weakness. Magno does not recall the event after losing consciousness and does not endorse any pain during the episode. She does not report any prior episodes of syncope, palpitations, or chest pain. In 2012, Magno experienced a small stroke, resulting in a droopy left eye and occasional tripping due to foot weakness. She was hospitalized for three days at [facility] but was not prescribed any medications at that time. She reports no significant issues from this event and has not had any follow-up tests since. During her recent hospitalization, she received thrombolytic therapy, which was reportedly effective. She was started on baby aspirin and a statin, which she takes at night without any issues. She also underwent an MRI and vessel imaging, which did not show any significant damage. Magno has a history of bilateral knee replacements, a left hip replacement, and a right femur fracture in 2012 or 2013, which was repaired with a plate. She reports leg swelling during her recent hospital stay but attributes it to prolonged bed rest. She has a bike and treadmill at home and uses them regularly. She had a nuclear stress test in 2019, which was reportedly normal. She does not have a diagnosis of atrial fibrillation or other heart conditions. She is not currently seeing a primary care physician regularly. PAST MEDICAL HISTORY Diagnosis Date Ho esophagus Benign neoplasm of colon Dyspepsia Esophageal reflux Esophagitis, unspecified Gastric ulcer, unspecified as acute or chronic, without mention of hemorrhage, perforation, or obstruction Insomnia, unspecified Lichen planus Myalgia and myositis, unspecified Obesity, unspecified Other adrenal hypofunction Other malaise and fatigue Stroke (HCC) 2012 Patient states it was very small PAST SURGICAL HISTORY Procedure Laterality Date APPENDECTOMY ARTHROSCOPY KNEE DIAGNOSTIC W/WO SYNOVIAL BX SPX Arthroscopy, knee DELIVERY ONLY , low cervical DELIVERY ONLY , low cervical CHOLECYSTECTOMY Cholecyste (more content not included)... [facility] 11-28-2024 Telephone encounter Note Images from the original note were not included. OSH imaging/records received from [facility]: November 28, 2024 -Last 3 Years Records -Last 3 Years Imaging [facility] 11-28-2024 Miscellaneous Notes Images from the original note were not included. OSH imaging/records received from [facility]: November 28, 2024 -Last 3 Years Records -Last 3 Years Imaging documented in this encounter [facility] 11-28-2024 Instructions Taylor Lin APRN.CNP - 11/28/2024 12:41 PM EDT - Continue taking atorvastatin 40 mg by mouth each evening; a one-month refill has been sent to your pharmacy. - Continue one low-dose aspirin (81 mg) by mouth daily. - Use your CPAP every night, aiming for oxygen levels at or above 90%. - Watch for any new or worsening muscle pain or weakness; call our office right away if this occurs. - A neurology consult has been placed--please schedule to see a neurologist within two weeks to review your stroke, discharge tests, and discuss whether you need an EEG. - Return in six weeks for repeat cholesterol and liver function tests and your Medicare wellness exam; we will also reassess how you are tolerating the atorvastatin. documented in this encounter [facility] 11-28-2024 Note HNO ID: [id number] Author: TAYLOR LIN APRN.CNP Service: ? Author Type: Nurse Practitioner Type: Progress Notes Filed: 11/29/2024 15:29 Note Text: CC: Patient presents with: Recheck: Hospital follow up stroke HPI Magno Rai is a 79 year old female who presents today for hospital follow up for a stroke. Recording using [employer] software for draft documentation of the visit was discussed with the patient/authorized client representative; all questions welcomed and answered. Patient/authorized client representative agreed to proceed CVA: - Recent CVA on Tuesday night; symptoms began at 17:15. - Initial symptoms: felt funny, described as head feeling blotted out and detached from body. - Experienced a sensation of fading out, followed by loss of consciousness. - Dysphasia and inability to form words during the event. - Transported to the hospital via ambulance; received TPA with full resolution of symptoms. - Hospital stay included multiple tests: CT head/neck, carotid ultrasound, echocardiogram, and MRI. Hospital was in [place] and results not available for review during visit but requested. Per patient they were all negative - Neurologist suggested possible early stages of epilepsy but no EEG performed due to time constraints - Discharged with prescriptions for atorvastatin and baby aspirin. Previously recorded intolerance to atorvastatin causing muscle aches but currently tolerating well. - Magno denies current weakness, falls, confusion, dizziness, syncope, headaches, dyspnea, chest pain, palpitations, or changes in urination. - Magno reports feeling tired and exhausted despite getting almost 10 hours of sleep last night. - Recent eye exam 2 months ago; uses eye drops for dry eyes. REVIEW OF SYSTEMS See HPI PAST MEDICAL HISTORY Diagnosis Date Ho esophagus Benign neoplasm of colon Dyspepsia Esophageal reflux Esophagitis, unspecified Gastric ulcer, unspecified as acute or chronic, without mention of hemorrhage, perforation, or obstruction Insomnia, unspecified Lichen planus Myalgia and myositis, unspecified Obesity, unspecified Other adrenal hypofunction Other malaise and fatigue Stroke (HCC) 2012 Patient states it was very small PAST SURGICAL HISTORY Procedure Laterality Date APPENDECTOMY ARTHROSCOPY KNEE DIAGNOSTIC W/WO SYNOVIAL BX SPX Arthroscopy, knee DELIVERY ONLY , low cervical DELIVERY ONLY , low cervical CHOLECYSTECTOMY Cholecystectomy COLONOSCOPY FLX DX W/COLLJ SPEC WHEN PFRMD 03/11/2010 Colonoscopy COLONOSCOPY FLX DX W/COLLJ SPEC WHEN PFRMD 12/30/2014 Colonoscopy COLSC FLX W/RMVL OF TUMOR POLYP LESION SNARE TQ 09/05/2006 EGD TRANSORAL BIOPSY SINGLE/MULTIPLE 01/02/2009 ESOPHAGOGASTRODUODENOSCOPY TRANSORAL DIAGNOSTIC 03/21/1992 EGD HEMORRHOIDECTOMY INTERNAL RUBBER BAND LIGATIONS Hemorrhoidectomy OOPHORECTOMY PARTIAL/TOTAL UNI/BI Oophorectomy OPTX FEM FX PROX END NCK INT FIXJ/PROSTC RPLCMT 11/30/2009 ORIF femur - right femur fracture from fall PAST SURGICAL HISTORY OF 03/21/2005 bilateral total knee replacements PAST SURGICAL HISTORY OF 03/27/09,06/2009 Bone spur removed from left hand index finger and also had cyst removed. Right hand had cyst at middle finger removed. PT ED ORTHOPAEDICS 2019 sciatic joint fusion TONSILLECTOMY AND ADENOIDECTOMY Tonsil/adenoidectomy TOTAL ABDOMINAL HYSTERECT W/WO RMVL TUBE OVARY Hysterectomy, RONALD ALLERGIES Fruit Extracts, Biotin Forte [Biotin-Folic Acid-B Compc-Zinc], Codeine, Estrogens, Grifulvin V [Griseofulvin Microsize], Sulfa (Sulfonamide Antibiotics), and Ultram [Tramadol] MEDICATIONS Aspirin 81 mg tab Take 81 mg by mouth. atorvastatin (LIPITOR) 40 mg tablet Take 1 tablet by mouth once daily. mv-mn/iron/folic acid/herb 190 (VITAMIN D3 COMPLETE ORAL) Take by mouth. cyanocobalamin, vitamin B-12, (VITAMIN B-12 ORAL) Take by mouth. Biotin 1 mg tab Take 1 tablet by mouth once daily. Multivitamin capsule Take 1 capsule by mouth once daily. CPAP Mask (per patient preference) optional chin strap (if indicated), filters, tubing / heated tubing, heated humidity and lifetime supplies. Dx. BARON G47.33 327.23 COMPOUNDED PRESCRIPTION BIPAP machine service check. Lactobacillus acidophilus 10 billion cell cap Take 1 capsule by mouth once daily. FAMILY HISTORY Problem Relation Age of Onset Cancer Mother Hypertension Mother Stroke Mother Psychiatry Father Committed suicide Alcohol/Drug Father Ischemic Heart Disease Sister Hypertension Sister Alcohol/Drug Brother Alcohol/Drug Brother SOCIAL HISTORY[1] PHYSICAL EXAM BP 122/80 Pulse 68 Resp 16 Wt 115.7 kg (255 lb) BMI 38.77 kg/m? General Appearance: well appearing, in no acute distress, alert Pysch: mood and affect broad and appropriate Eyes: PERRLA but small, EOM's intact, conjunctiva pink and moist, no icterus, sclera white, non-injected (more content not included)... [facility] 11-28-2024 History of Presen t illness Narrative CC: Patient presents with: Recheck: Hospital follow up stroke HPI Magno Rai is a 79 year old female who presents today for hospital follow up for a stroke. Recording using [employer] software for draft documentation of the visit was discussed with the patient/authorized client representative; all questions welcomed and answered. Patient/authorized client representative agreed to proceed CVA: - Recent CVA on Tuesday night; symptoms began at 17:15. - Initial symptoms: felt funny, described as head feeling blotted out and detached from body. - Experienced a sensation of fading out, followed by loss of consciousness. - Dysphasia and inability to form words during the event. - Transported to the hospital via ambulance; received TPA with full resolution of symptoms. - Hospital stay included multiple tests: CT head/neck, carotid ultrasound, echocardiogram, and MRI. Hospital was in [place] and results not available for review during visit but requested. Per patient they were all negative - Neurologist suggested possible early stages of epilepsy but no EEG performed due to time constraints - Discharged with prescriptions for atorvastatin and baby aspirin. Previously recorded intolerance to atorvastatin causing muscle aches but currently tolerating well. - Magno denies current weakness, falls, confusion, dizziness, syncope, headaches, dyspnea, chest pain, palpitations, or changes in urination. - Magno reports feeling tired and exhausted despite getting almost 10 hours of sleep last night. - Recent eye exam 2 months ago; uses eye drops for dry eyes. REVIEW OF SYSTEMS See HPI PAST MEDICAL HISTORY Diagnosis Date Ho esophagus Benign neoplasm of colon Dyspepsia Esophageal reflux Esophagitis, unspecified Gastric ulcer, unspecified as acute or chronic, without mention of hemorrhage, perforation, or obstruction Insomnia, unspecified Lichen planus Myalgia and myositis, unspecified Obesity, unspecified Other adrenal hypofunction Other malaise and fatigue Stroke (HCC) 2012 Patient states it was very small PAST SURGICAL HISTORY Procedure Laterality Date APPENDECTOMY ARTHROSCOPY KNEE DIAGNOSTIC W/WO SYNOVIAL BX SPX Arthroscopy, knee DELIVERY ONLY , low cervical DELIVERY ONLY , low cervical CHOLECYSTECTOMY Cholecystectomy COLONOSCOPY FLX DX W/COLLJ SPEC WHEN PFRMD 03/11/2010 Colonoscopy COLONOSCOPY FLX DX W/COLLJ SPEC WHEN PFRMD 12/30/2014 Colonoscopy COLSC FLX W/RMVL OF TUMOR POLYP LESION SNARE TQ 09/05/2006 EGD TRANSORAL BIOPSY SINGLE/MULTIPLE 01/02/2009 ESOPHAGOGASTRODUODENOSCOPY TRANSORAL DIAGNOSTIC 03/21/1992 EGD HEMORRHOIDECTOMY INTERNAL RUBBER BAND LIGATIONS Hemorrhoidectomy OOPHORECTOMY PARTIAL/TOTAL UNI/BI Oophorectomy OPTX FEM FX PROX END NCK INT FIXJ/PROSTC RPLCMT 11/30/2009 ORIF femur - right femur fracture from fall PAST SURGICAL HISTORY OF 03/21/2005 bilateral total knee replacements PAST SURGICAL HISTORY OF 03/27/09,06/2009 Bone spur removed from left hand index finger and also had cyst removed. Right hand had cyst at middle finger removed. PT ED ORTHOPAEDICS 2019 sciatic joint fusion TONSILLECTOMY & ADENOIDECTOMY <AGE 12 Tonsil/adenoidectomy TOTAL ABDOMINAL HYSTERECT W/WO RMVL TUBE OVARY Hysterectomy, RONALD ALLERGIES Fruit Extracts, Biotin Forte [Biotin-Folic Acid-B Compc-Zinc], Codeine, Estrogens, Grifulvin V [Griseofulvin Microsize], Sulfa (Sulfonamide Antibiotics), and Ultram [Tramadol] MEDICATIONS Aspirin 81 mg tab Take 81 mg by mouth. atorvastatin (LIPITOR) 40 mg tablet Take 1 tablet by mouth once daily. mv-mn/iron/folic acid/herb 190 (VITAMIN D3 COMPLETE ORAL) Take by mouth. cyanocobalamin, vitamin B-12, (VITAMIN B-12 ORAL) Take by mouth. Biotin 1 mg tab Take 1 tablet by mouth once daily. Multivitamin capsule Take 1 capsule by mouth once daily. CPAP Mask (per patient preference) optional chin strap (if indicated), filters, tubing / heated tubing, heated humidity and lifetime supplies. Dx. BARON G47.33 327.23 COMPOUNDED PRESCRIPTION BIPAP machine service check. Lactobacillus acidophilus 10 billion cell cap Take 1 capsule by mouth once daily. FAMILY HISTORY Problem Relation Age of Onset Cancer Mother Hypertension Mother Stroke Mother Psychiatry Father Committed suicide Alcohol/Drug Father Ischemic Heart Disease Sister Hypertension Sister Alcohol/Drug Brother Alcohol/Drug Brother SOCIAL HISTORY[1] PHYSICAL EXAM BP 122/80 Pulse 68 Resp 16 Wt 115.7 kg (255 lb) BMI 38.77 kg/m General Appearance: well appearing, in no acute distress, alert Pysch: mood and affect broad and appropriate Eyes: PERRLA but small, EOM's intact, conjunctiva pink and moist, no icterus, sclera white, non-injected Neck: Thyroid normal size and symmetric without palpable nodules, Neck supple, No adenopathy Lymph nodes: No cervical lymphadenopathy and No supraclavicular lymphadenopathy Lungs: Lungs clear to auscultation. No wheezing, rhonchi, rales. Heart: RRR without murmur, gallop, or rubs. No ectopy Neurological: Gait normal. Reflexes normal and symmetric. speech normal, mental status intact, muscle tone normal, muscle strength normal Health maintenance reviewed with patient: DTaP,Tdap,Td Vaccine(2 - Td or Tdap) due on 11/28/2017 Advance Directive Discussion due on 03/21/2024 Depression Screening due on 08/31/2024 Anxiety Screening due on 08/31/2024 Medicare Annual Wellness Visit due on 08/31/2024 Influenza Vaccine(1) due on 11/19/2024 Bone Density Screening due on 10/05/2025 Diabetes Screening due on 08/22/2026 RSV Vaccine Completed Shingrix Vaccine Completed Pneumococcal Vaccine: 50+ Completed Mammogram Screening Discontinued Colorectal Cancer Screening Discontinued DATA REVIEWED: [facility] records requested. Assessment/Plan 1. Cerebrovascular accident (CVA), unspecified mechanism (HCC) (I63.9) 2. Garbled speech (R47.89) 3. Dysphagia, unspecified type (R13.10) - Recent CVA with initial symptoms of altered sensation, loss of consciousness, garbled speech, and dysphagia; symptoms resolved after TPA administration. - Hospital workup included CT head, MRI brain, carotid imaging, and echocardiogram; records pending. - Neurology consult to be placed for follow-up within 2 weeks of discharge. - Discussed possible need for EEG to evaluate for epilepsy; will defer to neurology for further workup as I do not currently have records to review to evaluate for other findings or neurologist notes from hospitalization - Continue atorvastatin 40 mg nightly and baby aspirin as prescribed. - Educated on importance of statin therapy post-stroke even if cholesterol is not elevated; discussed potential for myalgias based on prior history with higher dose atorvastatin. - Advised to report any new muscle pain or side effects promptly. - Follow-up in 6 weeks to assess medication tolerance and review repeat cholesterol and liver function tests. - ok to stay on atorastatin for now but with history of intolerance will monitor closely for any muscle aches or concerns - follow up in 6 weeks. 4. Medication management (Z79.899) Lipid and Hepatic function ordered for recheck since started on atorvastatin in hospital. Prescription instructions reviewed with patient as applicable. Potential red flag symptoms discussed with the patient. Reviewed appropriate action plan to take if red flag symptoms occur. Patient agreeable to treatment plan. Taylor Lin APRN.CNP [1] Social History Tobacco Use Smoking status: Never Smokeless tobacco: Never Vaping Use Vaping status: Never Used Substance Use Topics Alcohol use: No Drug use: No documented in this encounter [facility] 07-31-2024 Telephone encounter Note Pt called in for handicap license plate. Unsure of what is needed from provider for that. Called [facility] and per [facility], even if pt has a handicap license plate, they still have to have a placard in their window. Called pt back and explained that to her and pt was not aware of that so she states no need for the license plate then. Due for next letter/prescription for placard in January. Pt will contact us closer to the time. [facility] 07-31-2024 Miscellaneous Notes Pt called in for handicap license plate. Unsure of what is needed from provider for that. Called [facility] and per [facility], even if pt has a handicap license plate, they still have to have a placard in their window. Called pt back and explained that to her and pt was not aware of that so she states no need for the license plate then. Due for next letter/prescription for placard in January. Pt will contact us closer to the time. documented in this encounter [facility] 10-10-2023 Telephone encounter Note Patient notified, appointment scheduled. [facility] 10-10-2023 Miscellaneous Notes Patient notified, appointment scheduled. ----- Message from Taylor Lin APRN.CNP sent at 10/10/2023 1:55 PM EDT ----- Bone density showing osteoporosis. She needs an appointment to discuss treatment options for this. Thank you Taylor Lin APRN.CNP documented in this encounter [facility] 10-10-2023 Telephone encounter Note ----- Message from Taylor Lin APRN.CNP sent at 10/10/2023 1:55 PM EDT ----- Bone density showing osteoporosis. She needs an appointment to discuss treatment options for this. Thank you Taylor Lin APRN.COMPUTATIONAL SCIENCES PROFESSOR [facility] 10-06-2023 History of Presen t illness Narrative Radiology Service Progress Note PATIENT NAME: Magno Rai DATE OF SERVICE: October 06, 2023 TIME: 8:57 AM PATIENT IDENTITY VERIFICATION COMPLETED USING TWO (2) IDENTIFIERS: Name and Date of confirmed by patient verbally. FALL SCREENING: Has the patient had 2 falls in the last year or 1 fall with injury or currently using an Ambulatory Assistive Device (Walker, Cane, Wheelchair, Crutches, etc.)? No PATIENT GENDER DATA: Female. status: : No status: NO. PATIENT RELEVANT IMPLANT DATA REVIEWED: Not Applicable PATIENT PRESENTS WITH AN IMPLANTABLE OR ATTACHED PLATE CUTTER: No RADIOLOGY DEPARTMENT: Bone Density PERIPHERAL IV DATA: Not applicable SIGNED BY: RT Red(R) October 06, 2023 8:57 AM documented in this encounter [facility] 09-01-2023 Taylor Daugherty APRN.CNP - 09/01/2023 7:35 AM EDT Screening schedule The following prevention plan is recommended: Bone Density Screening due on 07/22/2017 Behavioral Health Screening Never done Covid-19 Vaccine( season) due on 05/15/2023 WHAT YOU CAN DO TO PREVENT FALLS Many falls can be prevented. By making some changes, you can lower your chances of falling. Four things YOU can do to prevent falls for you* and your caregiver 1. Begin a regular exercise program Exercise is one of the most important ways to lower your chances of falling. It makes you stronger and helps you feel better. Exercises that improve balance and coordination (like Fei Chi) are the most helpful. Lack of exercise leads to weakness and increases your chances of falling. Ask your doctor or health care provider about the best type of exercise program for you. 2. Have your health care provider review your medicines Have your doctor or pharmacist review all the medicines you take, even [id number] medicines. As you get older, the way medicines work in your body can change. Some medicines, or combinations of medicines, can make you sleepy or dizzy and can cause you to fall. 3. Have your vision checked Have your eyes checked by an eye doctor at least once a year. You may be wearing the wrong glasses or have a condition like glaucoma or cataracts that limits your vision. Poor vision can increase your chances of falling. 4. Make your home safer About half of all falls happen at home. To make your home safer: Remove things you can trip over (like papers, books, clothes, and shoes) from stairs and places where you walk. Remove small throw rugs or use double-sided tape to keep the rugs from slipping. Keep items you use often in cabinets you can reach easily without using a step stool. Have grab bars put in next to your toilet and in the tub or shower. Use non-slip mats in the bathtub and on shower floors. Improve the lighting in your home. As you get older, you need brighter lights to see well. Hang light-weight curtains or shades to reduce glare. Have handrails and lights put in on all staircases. Wear shoes both inside and outside the house. Avoid going barefoot or wearing slippers. For more information, contact: Centers for Disease Control and Prevention www.cdc.gov/injury * This information may not apply if you have certain medical conditions. BONE MINERAL DENSITY PATIENT INSTRUCTIONS ========= Bone mineral density testing measures the amount of calcium in certain parts of your bones. This information determines how strong your bones are. The test is used to detect osteoporosis, a disease in which the bone's mineral content and density are low, increasing a person's risk of fractures. The lumbar spine (lower back) and the hip are the skeletal sites usually examined. For the test, remember that: 1. You cannot take this test if you are . 2. Eat a normal diet on the day of the test. 3. Take your medications as you normally would. 4. DO NOT take calcium supplements (such as Tums) for 24 hours before the test. 5. On the day of the test, leave valuables (jewelry or credit cards) at home. 6. The test should be performed prior to oral, rectal or IV contrast studies, or at least 7 days after any of these studies. For the test, you may be asked to wear a hospital gown. You will lie on your back, on a padded table, in a comfortable position. Generally, you can resume your usual activities immediately. documented in this encounter [facility] 09-01-2023 History of Presen t illness Narrative Images from the original note were not included. Magno Rai is a 77 year old female here for a Medicare wellness visit. Medicare Health Risk Assessment General Health Excellent Exercise: Minutes/Day 1 hour Exercise: Days/Week 4 days a week Alcohol: Daily Use none Alcohol: Drinks/Day none Alcohol: 6 or more drinks none Feel off balance Nothing concerning Concerns: Teeth/Dentures Unable to wear bottom dentures Concerns: Sexual function none Troubled by feelings none Frequency: Eating healthy diet Most of the time ADLs requiring help none Safety precautions in home/vehicle Has handrails, no rugs, grab bars in bathroom and always wears seatbelt in car Smoke, vape, chews tobacco never Difficulty hearing Wears hearing aides Difficulty seeing Wears glasses Current Providers Specialists: I have reviewed specialist-related care of the patient in the medical record. Ophthalmology: Dr. Bishop Dermatology: Dr. Bishop Pulmonology: Dr. Aguirre Medical/Family history review Reviewed and updated problem list, medical/surgical/family/social history, medications, and allergies. Opioid use review Opioid Medications (last 90 days) No data to display Anxiety/Depression screening PHQ-2 Score: 0 (Lower risk for depression) Recommendation: no further intervention at this time Cognitive screening Mini Cog Score: 5 Cognitive screening reviewed and No further action needed (score 3-5). Functional Observation Was the patient's Timed Up & Go test unsteady or ? 12 seconds? No Advance Care Planning Patient did not wish or was not able to name a surrogate decision maker or provide an advance care plan Measurements BP 120/74 Pulse 66 Resp 16 Wt 247 lb (112.0kg) SpO2 97% Follows with ophthalmology Assessment/Plan Medicare annual wellness visit, subsequent (Z00.00) - Counseled on healthy diet and regular exercise - Fall avoidance information provided - Personalized prevention plan provided - Discussed need for and benefit of weight loss. BMI 37.56 kg/(m^2) CC: Patient presents with: Medicare Wellness Exam HPI Magno Rai is a 77 year old female who presents today for medicare wellness but wants to discuss how tired she is. Has been tired for years. Does not nap during the day but will fall asleep when watching TV. Uses her cpap 8-10 hours a night and follows with Dr. Aguirre. Just had a study done that showed her doing well with it and had normal oxygen. Obesity: Gained back 20 pounds but starting to lose again. Was part of a weight loss group that closed. REVIEW OF SYSTEMS General: no fevers, no chills, no night sweats, no recurrent infections, no change in appetite, Respiratory: no cough, no wheezing, no shortness of breath, no hemoptysis Cardiovascular: no chest pain, no chest pressure, no palpitations, and no swelling GI: No nausea, vomiting, or diarrhea : No history of dysuria, frequency or incontinence Endocrine: no cold intolerance, no heat intolerance, no polyuria, no polyphagia, and no polydipsia Neurologic: No headache, weakness, numbness, memory loss, syncope. PAST MEDICAL HISTORY Diagnosis Date Ho esophagus Benign neoplasm of colon Dyspepsia Esophageal reflux Esophagitis, unspecified Gastric ulcer, unspecified as acute or chronic, without mention of hemorrhage, perforation, or obstruction Insomnia, unspecified Lichen planus Myalgia and myositis, unspecified Obesity, unspecified Other adrenal hypofunction Other malaise and fatigue Stroke (HCC) 2013 Patient states it was very small PAST SURGICAL HISTORY Procedure Laterality Date APPENDECTOMY ARTHROSCOPY KNEE DIAGNOSTIC W/WO SYNOVIAL BX SPX Arthroscopy, knee DELIVERY ONLY , low cervical DELIVERY ONLY , low cervical CHOLECYSTECTOMY Cholecystectomy COLONOSCOPY FLX DX W/COLLJ SPEC WHEN PFRMD 03/11/2010 Colonoscopy COLONOSCOPY FLX DX W/COLLJ SPEC WHEN PFRMD 12/30/2014 Colonoscopy COLSC FLX W/RMVL OF TUMOR POLYP LESION SNARE TQ 09/05/2006 EGD TRANSORAL BIOPSY SINGLE/MULTIPLE 01/02/2009 ESOPHAGOGASTRODUODENOSCOPY TRANSORAL DIAGNOSTIC 03/21/1992 EGD HEMORRHOIDECTOMY INTERNAL RUBBER BAND LIGATIONS Hemorrhoidectomy OOPHORECTOMY PARTIAL/TOTAL UNI/BI Oophorectomy OPTX FEM FX PROX END NCK INT FIXJ/PROSTC RPLCMT 11/30/2009 ORIF femur - right femur fracture from fall PAST SURGICAL HISTORY OF 03/21/2005 bilateral total knee replacements PAST SURGICAL HISTORY OF 03/27/09,06/2009 Bone spur removed from left hand index finger and also had cyst removed. Right hand had cyst at middle finger removed. PT ED ORTHOPAEDICS 2019 sciatic joint fusion TONSILLECTOMY & ADENOIDECTOMY <AGE 12 Tonsil/adenoidectomy TOTAL ABDOMINAL HYSTERECT W/WO RMVL TUBE OVARY Hysterectomy, RONALD ALLERGIES Fruit Extracts, Biotin Forte [Biotin-Folic Acid-B Compc-Zinc], Codeine, Estrogens, Grifulvin V [Griseofulvin Microsize], Lipitor [Atorvastatin], Sulfa (Sulfonamide Antibiotics), and Ultram [Tramadol] MEDICATIONS mv-mn/iron/folic acid/herb 190 (VITAMIN D3 COMPLETE ORAL) Take by mouth. cyanocobalamin, vitamin B-12, (VITAMIN B-12 ORAL) Take by mouth. Biotin 1 mg tab Take 1 tablet by mouth once daily. Multivitamin capsule Take 1 capsule by mouth once daily. CPAP Mask (per patient preference) optional chin strap (if indicated), filters, tubing / heated tubing, heated humidity and lifetime supplies. Dx. BARON G47.33 327.23 COMPOUNDED PRESCRIPTION BIPAP machine service check. Lactobacillus acidophilus 10 billion cell cap Take 1 capsule by mouth once daily. FAMILY HISTORY Problem Relation Age of Onset Cancer Mother Hypertension Mother Stroke Mother Psychiatry Father Committed suicide Alcohol/Drug Father Ischemic Heart Disease Sister Hypertension Sister Alcohol/Drug Brother Alcohol/Drug Brother Social History Tobacco Use Smoking status: Never Smokeless tobacco: Never Vaping Use Vaping Use: Never used Substance Use Topics Alcohol use: No Drug use: No PHYSICAL EXAM BP 120/74 Pulse 66 Resp 16 Wt 112 kg (247 lb) SpO2 97% BMI 37.56 kg/m General Appearance: well appearing, in no acute distress, alert Pysch: mood and affect broad and appropriate Eyes: conjunctiva pink and moist, no icterus, sclera white, non-injected Neck: Thyroid normal size and symmetric without palpable nodules, Neck supple, No adenopathy Lymph nodes: No cervical lymphadenopathy and No supraclavicular lymphadenopathy Lungs: Lungs clear to auscultation. No wheezing, rhonchi, rales. Heart: RRR without murmur, gallop, or rubs. No ectopy Abdomen: Abdomen soft, non-tender. Bowel sounds normal. No masses, organomegaly Extremities: No deformities, edema, skin discoloration, clubbing or cyanosis. Good capillary refill. Health maintenance reviewed with patient: Bone Density Screening due on 07/22/2017 Advance Directive Discussion due on 03/21/2023 Behavioral Health Screening Never done Covid-19 Vaccine(2022- season) due on 05/15/2023 DTaP,Tdap,Td Vaccine(2 - Td or Tdap) due on 08/31/2024 RSV Vaccine(1 - 1-dose 60+ series) due on 08/31/2024 Diabetes Screening due on 08/22/2026 Influenza Vaccine Completed Hepatitis C Screening Completed Shingrix Vaccine Completed Pneumococcal Vaccine: 65+ Completed Mammogram Screening Discontinued Colorectal Cancer Screening Discontinued DATA REVIEWED: Most recent labs ASSESSMENT/PLAN: 1. Medicare annual wellness visit, subsequent - ICD9: V70.0, ICD10: Z00.00 (primary diagnosis) - Counseled on healthy diet and regular exercise - Bone mineral density ordered - Follow up for annual exam in one year 2. Obesity, Class III, BMI 40-49.9 (morbid obesity) (HCC) - ICD9: 278.01, ICD10: E66.01 Weight decreasing - Behavioral intervention - order sent to [facility] for [facility] Weight program 3. 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 BARON (obstructive sleep apnea) - ICD9: 327.23, ICD10: G47.33 Stable and compliant with therapy Continue with recommendations by pulmonology/sleep medicine 5. Screening for osteoporosis - ICD9: V82.81, ICD10: Z13.820 - DXA-AXIAL SKELETON - BD DXA TRABECULAR BONE SCORE (TBS) 6. Asymptomatic menopause - ICD9: V49.81, ICD10: Z78.0 - DXA-AXIAL SKELETON - BD DXA TRABECULAR BONE SCORE (TBS) Prescription instructions reviewed with patient as applicable. Potential red flag symptoms discussed with the patient. Reviewed appropriate action plan to take if red flag symptoms occur. Patient agreeable to treatment plan. Taylor Lin APRN.CNP documented in this encounter [facility] 08-19-2023 Telephone encounter Note Magno is calling Maxwell Rueda MD today to request Orders (Labs) for her upcoming appointment. Please send Tag & See message when orders are placed. Patient has been identified by name and birthdate. Duration of symptoms: N/A Person calling: self Call patient at: at home [phone] (home) [phone] (cell) Was an appointment scheduled: No Closing statement: Patient is active on [employer] and would like the response sent to their account. Mindy Dover [facility] 08-19-2023 Miscellaneous Notes Magno is calling Maxwell Rueda MD today to request Orders (Labs) for her upcoming appointment. Please send Tag & See message when orders are placed. Patient has been identified by name and birthdate. Duration of symptoms: N/A Person calling: self Call patient at: at home [phone] (home) [phone] (cell) Was an appointment scheduled: No Closing statement: Patient is active on [employer] and would like the response sent to their account. Mindy Dover documented in this encounter [facility] 08-02-2023 History of Presen t illness Narrative This note was created using PrepClass. Subjective Magno Rai is a 77 year old female. HPI Patient presents with urinary urgency, burning and cloudy urine over the past week. She states she is getting some mild lower abdominal pain today so came in for evaluation. No fever. No back pain. No blood in urine. She has not had a UTI in several years she states. No vaginal itching or discharge. Review of Systems Constitutional: Negative. HENT: Negative. Respiratory: Negative. Cardiovascular: Negative. Gastrointestinal: Negative. Genitourinary: Positive for dysuria, frequency, pelvic pain and urgency. Negative for hematuria, vaginal bleeding, vaginal discharge and vaginal pain. All other systems reviewed and are negative. PAST MEDICAL HISTORY Diagnosis Date Ho esophagus Benign neoplasm of colon Dyspepsia Esophageal reflux Esophagitis, unspecified Gastric ulcer, unspecified as acute or chronic, without mention of hemorrhage, perforation, or obstruction Insomnia, unspecified Lichen planus Myalgia and myositis, unspecified Obesity, unspecified Other adrenal hypofunction Other malaise and fatigue Stroke ([facility]) 2012 Patient states it was very small Current Outpatient Medications Medication Sig Dispense Refill Biotin 1 mg tab Take 1 tablet by mouth once daily. Multivitamin capsule Take 1 capsule by mouth once daily. Lactobacillus acidophilus 10 billion cell cap Take 1 capsule by mouth once daily. 0 nitrofurantoin monohydrate and macrocrystal (MACROBID) 100 mg capsule Take 1 capsule by mouth two times a day with meals for 7 days. 14 capsule 0 fluticasone (FLONASE) 50 mcg/actuation nasal spray Use 2 Sprays in each nostril once daily. Rinse mouth after use. (Patient not taking: Reported on 08/02/2023) 1 Each 3 loratadine (CLARITIN) 10 mg tablet Take 1 tablet by mouth once daily. (Patient not taking: Reported on 08/02/2023) 30 tablet 11 albuterol HFA (PROVENTIL HFA, VENTOLIN HFA) 90 mcg/actuation inhaler Inhale 2 Puffs as instructed every 6 hours as needed for wheezing/shortness of breath. (Patient not taking: Reported on 08/02/2023) 1 Each 0 Omeprazole Magnesium (PRILOSEC OTC) 20 mg tablet Take 20 mg by mouth once daily. (Patient not taking: Reported on 07/02/2022) CPAP Mask (per patient preference) optional chin strap (if indicated), filters, tubing / heated tubing, heated humidity and lifetime supplies. Dx. BARON G47.33 327.23 1 Device 0 COMPOUNDED PRESCRIPTION BIPAP machine service check. 1 Each 0 No current facility-administered medications for this visit. PAST SURGICAL HISTORY Procedure Laterality Date APPENDECTOMY ARTHROSCOPY KNEE DIAGNOSTIC W/WO SYNOVIAL BX SPX Arthroscopy, knee DELIVERY ONLY , low cervical DELIVERY ONLY , low cervical CHOLECYSTECTOMY Cholecystectomy COLONOSCOPY FLX DX W/COLLJ SPEC WHEN PFRMD 03/11/2010 Colonoscopy COLONOSCOPY FLX DX W/COLLJ SPEC WHEN PFRMD 12/30/2014 Colonoscopy COLSC FLX W/RMVL OF TUMOR POLYP LESION SNARE TQ 09/05/2006 EGD TRANSORAL BIOPSY SINGLE/MULTIPLE 01/02/2009 ESOPHAGOGASTRODUODENOSCOPY TRANSORAL DIAGNOSTIC 03/21/1992 EGD HEMORRHOIDECTOMY INTERNAL RUBBER BAND LIGATIONS Hemorrhoidectomy OOPHORECTOMY PARTIAL/TOTAL UNI/BI Oophorectomy OPTX FEM FX PROX END NCK INT FIXJ/PROSTC RPLCMT 11/30/2009 ORIF femur - right femur fracture from fall PAST SURGICAL HISTORY OF 03/21/2005 bilateral total knee replacements PAST SURGICAL HISTORY OF 03/27/09,06/2009 Bone spur removed from left hand index finger and also had cyst removed. Right hand had cyst at middle finger removed. PT ED ORTHOPAEDICS 2019 sciatic joint fusion TONSILLECTOMY & ADENOIDECTOMY <AGE 12 Tonsil/adenoidectomy TOTAL ABDOMINAL HYSTERECT W/WO RMVL TUBE OVARY Hysterectomy, RONALD FAMILY HISTORY Problem Relation Age of Onset Cancer Mother Hypertension Mother Stroke Mother Psychiatry Father Committed suicide Alcohol/Drug Father Ischemic Heart Disease Sister Hypertension Sister Alcohol/Drug Brother Alcohol/Drug Brother Social History Tobacco Use Smoking status: Never Smokeless tobacco: Never Vaping Use Vaping Use: Never used Substance Use Topics Alcohol use: No Drug use: No Objective BP 110/73 Pulse 81 Temp 36.4 C (97.5 F) Resp 20 Wt 115 kg (253 lb 8.5 oz) SpO2 97% BMI 38.55 kg/m Physical Exam Vitals reviewed. Constitutional: Appearance: Normal appearance. HENT: Head: Normocephalic and atraumatic. Cardiovascular: Rate and Rhythm: Normal rate and regular rhythm. Heart sounds: Normal heart sounds. Pulmonary: Effort: Pulmonary effort is normal. Breath sounds: Normal breath sounds. Abdominal: General: Abdomen is flat. Palpations: Abdomen is soft. Tenderness: There is no abdominal tenderness. There is no right CVA tenderness or left CVA tenderness. Skin: General: Skin is warm and dry. Neurological: Mental Status: She is alert. Assessment and Plan ASSESSMENT/PLAN: 1. Acute UTI - ICD9: 599.0, ICD10: N39.0 acute - UA positive for adam esterase and hematuria - Send urine for culture - Begin treatment with Macrobid 100 mg BID for 7 days - UA DIP, URINE (POC) - URINE CULTURE Lynda Odom PA-C documented in this encounter [facility] 07-08-2022 History of Presen t illness Narrative CC: Patient presents with: Recheck: UC follow up, congestion x 8 days HPI Magno Rai is a 76 year old female who presents today for sinus congestion Has had symptoms for 9 days without improvement. [facility] week and started on loratadine, albuterol inhaler, and tessalon. Tessalon and albuterol has helped with the cough. Feels loratadine has not helped at all. Only used the albuterol inhaler a few times. Still with yellow sinus congestion, sinus pressure, ear fullness beginning, fatigue, headaches, and decreased appetite. Denies wheezing, shortness of breath, fever, chills, N/V/D, or chest pain. No history of lung disease and has never smoked. REVIEW OF SYSTEMS General: no fevers, no chills, no night sweats, and no recurrent infections Respiratory: no wheezing, no shortness of breath, no hemoptysis Cardiovascular: no chest pain, no chest pressure, no palpitations, and no swelling GI: No nausea, vomiting, or diarrhea Neurologic: No weakness, numbness, tingling, dizziness, memory loss, syncope. PAST MEDICAL HISTORY Diagnosis Date Ho esophagus Benign neoplasm of colon Dyspepsia Esophageal reflux Esophagitis, unspecified Gastric ulcer, unspecified as acute or chronic, without mention of hemorrhage, perforation, or obstruction Insomnia, unspecified Lichen planus Myalgia and myositis, unspecified Obesity, unspecified Other adrenal hypofunction Other malaise and fatigue Stroke (HCC) 2013 Patient states it was very small PAST SURGICAL HISTORY Procedure Laterality Date APPENDECTOMY ARTHROSCOPY KNEE DIAGNOSTIC W/WO SYNOVIAL BX SPX Arthroscopy, knee DELIVERY ONLY , low cervical DELIVERY ONLY , low cervical CHOLECYSTECTOMY Cholecystectomy COLONOSCOPY FLX DX W/COLLJ SPEC WHEN PFRMD 03/11/2010 Colonoscopy COLONOSCOPY FLX DX W/COLLJ SPEC WHEN PFRMD 12/30/2014 Colonoscopy COLSC FLX W/RMVL OF TUMOR POLYP LESION SNARE TQ 09/05/2006 EGD TRANSORAL BIOPSY SINGLE/MULTIPLE 01/02/2009 ESOPHAGOGASTRODUODENOSCOPY TRANSORAL DIAGNOSTIC 03/21/1992 EGD HEMORRHOIDECTOMY INTERNAL RUBBER BAND LIGATIONS Hemorrhoidectomy OOPHORECTOMY PARTIAL/TOTAL UNI/BI Oophorectomy OPTX FEM FX PROX END NCK INT FIXJ/PROSTC RPLCMT 11/30/2009 ORIF femur - right femur fracture from fall PAST SURGICAL HISTORY OF 03/21/2005 bilateral total knee replacements PAST SURGICAL HISTORY OF 03/27/09,06/2009 Bone spur removed from left hand index finger and also had cyst removed. Right hand had cyst at middle finger removed. PT ED ORTHOPAEDICS 2019 sciatic joint fusion TONSILLECTOMY & ADENOIDECTOMY <AGE 12 Tonsil/adenoidectomy TOTAL ABDOMINAL HYSTERECT W/WO RMVL TUBE OVARY Hysterectomy, RONALD ALLERGIES Fruit Extracts, Biotin Forte [Biotin-Folic Acid-B Compc-Zinc], Codeine, Estrogens, Grifulvin V [Griseofulvin Microsize], Lipitor [Atorvastatin], Sulfa (Sulfonamide Antibiotics), and Ultram [Tramadol] MEDICATIONS benzonatate (TESSALON PERLES) 100 mg capsule Take 1 capsule by mouth three times daily as needed for cough for up to 7 days. loratadine (CLARITIN) 10 mg tablet Take 1 tablet by mouth once daily. albuterol HFA (PROVENTIL HFA, VENTOLIN HFA) 90 mcg/actuation inhaler Inhale 2 Puffs as instructed every 6 hours as needed for wheezing/shortness of breath. Multivitamin capsule Take 1 capsule by mouth once daily. Omeprazole Magnesium (PRILOSEC OTC) 20 mg tablet Take 20 mg by mouth once daily. (Patient not taking: Reported on 07/02/2022) CPAP Mask (per patient preference) optional chin strap (if indicated), filters, tubing / heated tubing, heated humidity and lifetime supplies. Dx. BARON G47.33 327.23 COMPOUNDED PRESCRIPTION BIPAP machine service check. Lactobacillus acidophilus 10 billion cell cap Take 1 capsule by mouth once daily. FAMILY HISTORY Problem Relation Age of Onset Cancer Mother Hypertension Mother Stroke Mother Psychiatry Father Committed suicide Alcohol/Drug Father Ischemic Heart Disease Sister Hypertension Sister Alcohol/Drug Brother Alcohol/Drug Brother Social History Tobacco Use Smoking status: Never Smokeless tobacco: Never Vaping Use Vaping Use: Never used Substance Use Topics Alcohol use: No Drug use: No PHYSICAL EXAM BP 128/80 Pulse 90 Temp 36.6 C (97.9 F) (Temporal) Resp 16 Wt 105.7 kg (233 lb) SpO2 98% BMI 35.43 kg/m General Appearance: ill and tired appearing, in no acute distress, alert Skin: Skin color, texture, turgor normal for age; Eyes: conjunctiva pink and moist, no icterus, sclera white, non-injected Ears: external ears normal to inspection and palpation, canals clear, Left tympanic membrane normal. , Right tympanic membrane normal Nose/sinus: Nares normal. Septum midline. Mucosa normal. No drainage. Sinus tenderness reported to frontal and maxillary sinuses Neck: Thyroid normal size and symmetric without palpable nodules, Neck supple, No adenopathy Oropharynx: tongue midline and normal, soft palate, uvula, and tonsils normal, palpation of salivary glands negative Lymph nodes: No cervical lymphadenopathy and No supraclavicular lymphadenopathy Lungs: Lungs clear to auscultation. No wheezing, rhonchi, rales. Heart: RRR without murmur, gallop, or rubs. No ectopy Health maintenance reviewed with patient: ADVANCE DIRECTIVE DISCUSSION due on 03/21/2022 DEPRESSION ASSESSMENT due on 03/21/2022 DTAP,TDAP,TD(2 - Td or Tdap) due on 03/03/2023 SHINGRIX VACCINE(2 of 3) due on 03/03/2023 DIABETES SCREEN due on 03/03/2025 BONE DENSITY Completed INFLUENZA Completed HEPATITIS C SCREENING Completed COVID-19 VACCINE Completed PNEUMOCOCCAL: 65+ Completed DATA REVIEWED: Most recent imaging ASSESSMENT/PLAN: 1. Acute non-recurrent sinusitis, unspecified location - ICD9: 461.9, ICD10: J01.90 - Will begin treatment with as per antibiotic as written, see orders - flonase as ordered, can stop the loratadine - Supportive care with plenty of fluids, rest, and analgesia prn. - Follow up in 3-5 days if symptoms persist or worsen. Prescription instructions reviewed with patient as applicable. Potential red flag symptoms discussed with the patient. Reviewed appropriate action plan to take if red flag symptoms occur. Patient agreeable to treatment plan. Taylor Lin APRN.CNP documented in this encounter [facility] 07-02-2022 History of Presen t illness Narrative Radiology Service Progress Note PATIENT NAME: Magno Rai DATE OF SERVICE: July 02, 2022 TIME: 8:13 AM PATIENT IDENTITY VERIFICATION COMPLETED USING TWO (2) IDENTIFIERS: Name and Date of confirmed by patient verbally. FALL SCREENING: Has the patient had 2 falls in the last year or 1 fall with injury or currently using an Ambulatory Assistive Device (Walker, Cane, Wheelchair, Crutches, etc.)? No PATIENT GENDER DATA: Female. status: : No status: NO. PATIENT RELEVANT IMPLANT DATA REVIEWED: Not Applicable RADIOLOGY DEPARTMENT: General X-ray: Exam(s) Completed: Chest X-Ray PERIPHERAL IV DATA: Not applicable SIGNED BY: RT Claudette(R) July 02, 2022 8:13 AM documented in this encounter [facility] 07-02-2022 History of Presen t illness Narrative CC: Patient presents with: Cough: Chest congestion, ST x4 days HPI: Magno Rai is a 76 year old female who presents to the office with complaint of chest congestion, head congestion, cough, nonproductive, and sore throat for 4 days. Symptoms are worsening Associated symptoms includes dyspnea. Denies fever, nausea, vomiting , and diarrhea. Treatments tried include nothing so far. with no relief of symptoms. Sick contacts: unknown. History of asthma, frequent episodes of bronchitis, chronic bronchitis, bronchiectasis or COPD: No Smoker: No Seasonal/environmental allergies: No The ROS is otherwise negative. The patient's pmh, medications, allergies, and past visits are reviewed. PHYSICAL EXAM: BP 100/62 Pulse 96 Temp (!) 35.9 C (96.7 F) Resp 18 Wt 105.3 kg (232 lb 3.2 oz) SpO2 95% BMI 35.31 kg/m General appearance: alert, cooperative, pleasant, in no acute distress Head: Normocephalic Eyes: EOM's intact, conjunctiva pink and moist, no icterus, sclera white, non-injected Ears: Right ear: External ear/canal- Normal, TM - clear with good landmarks. Left ear: External ear/canal- Normal, TM - clear with good landmarks Oropharynx:moderate erythema, without exudates present Heart: Negative. RRR without obvious murmur, gallop, or rubs. No ectopy. Lungs: mild wheezing bilaterally PAST MEDICAL HISTORY Diagnosis Date Ho esophagus Benign neoplasm of colon Dyspepsia Esophageal reflux Esophagitis, unspecified Gastric ulcer, unspecified as acute or chronic, without mention of hemorrhage, perforation, or obstruction Insomnia, unspecified Lichen planus Myalgia and myositis, unspecified Obesity, unspecified Other adrenal hypofunction Other malaise and fatigue Stroke (HCC) 2012 Patient states it was very small PAST SURGICAL HISTORY Procedure Laterality Date APPENDECTOMY ARTHROSCOPY KNEE DIAGNOSTIC W/WO SYNOVIAL BX SPX Arthroscopy, knee DELIVERY ONLY , low cervical DELIVERY ONLY , low cervical CHOLECYSTECTOMY Cholecystectomy COLONOSCOPY FLX DX W/COLLJ SPEC WHEN PFRMD 03/11/2010 Colonoscopy COLONOSCOPY FLX DX W/COLLJ SPEC WHEN PFRMD 12/30/2014 Colonoscopy COLSC FLX W/RMVL OF TUMOR POLYP LESION SNARE TQ 09/05/2006 EGD TRANSORAL BIOPSY SINGLE/MULTIPLE 01/02/2009 ESOPHAGOGASTRODUODENOSCOPY TRANSORAL DIAGNOSTIC 03/21/1992 EGD HEMORRHOIDECTOMY INTERNAL RUBBER BAND LIGATIONS Hemorrhoidectomy OOPHORECTOMY PARTIAL/TOTAL UNI/BI Oophorectomy OPTX FEM FX PROX END NCK INT FIXJ/PROSTC RPLCMT 11/30/2009 ORIF femur - right femur fracture from fall PAST SURGICAL HISTORY OF 03/21/2005 bilateral total knee replacements PAST SURGICAL HISTORY OF 03/27/09,06/2009 Bone spur removed from left hand index finger and also had cyst removed. Right hand had cyst at middle finger removed. PT ED ORTHOPAEDICS 2019 sciatic joint fusion TONSILLECTOMY & ADENOIDECTOMY <AGE 12 Tonsil/adenoidectomy TOTAL ABDOMINAL HYSTERECT W/WO RMVL TUBE OVARY Hysterectomy, RONALD ALLERGIES Fruit Extracts, Biotin Forte [Biotin-Folic Acid-B Compc-Zinc], Codeine, Estrogens, Grifulvin V [Griseofulvin Microsize], Lipitor [Atorvastatin], Sulfa (Sulfonamide Antibiotics), and Ultram [Tramadol] MEDICATIONS Multivitamin capsule Take 1 capsule by mouth once daily. Lactobacillus acidophilus 10 billion cell cap Take 1 capsule by mouth once daily. Omeprazole Magnesium (PRILOSEC OTC) 20 mg tablet Take 20 mg by mouth once daily. (Patient not taking: Reported on 07/02/2022) CPAP Mask (per patient preference) optional chin strap (if indicated), filters, tubing / heated tubing, heated humidity and lifetime supplies. Dx. BARON G47.33 327.23 COMPOUNDED PRESCRIPTION BIPAP machine service check. FAMILY HISTORY Problem Relation Age of Onset Cancer Mother Hypertension Mother Stroke Mother Psychiatry Father Committed suicide Alcohol/Drug Father Ischemic Heart Disease Sister Hypertension Sister Alcohol/Drug Brother Alcohol/Drug Brother Social History Tobacco Use Smoking status: Never Smokeless tobacco: Never Vaping Use Vaping Use: Never used Substance Use Topics Alcohol use: No Drug use: No ASSESSMENT/PLAN: 1. Acute cough - ICD9: 786.2, ICD10: R05.1 (primary diagnosis) - XR CHEST 2V FRONTAL/LAT * * * * Physician Interpretation * * * * EXAMINATION: CHEST RADIOGRAPH (2 VIEW FRONTAL & LATERAL) CLINICAL HISTORY: Acute cough MQ: [id number] EXAM DATE/TIME: 07/02/2022 8:19 AM COMPARISON: Chest x-ray on 02/12/2020 RESULT: Lines, tubes, and devices: None. Lungs and pleura: No consolidation. No lung mass. No pleural effusion. No pneumothorax. Cardiomediastinal silhouette: Stable cardiomediastinal silhouette. Bones and soft tissues: There are degenerative changes in the spine and shoulders. Questionable deformity of the right proximal humerus. IMPRESSION IMPRESSION: No acute radiographic abnormality. Baker Paint: FREDRICK Transcribe Date/Time: Jul 02 2022 8:25A Dictated by : JOSHUA AMEZCUA MD - BENZONATATE 100 MG CAPSULE - ALBUTEROL SULFATE HFA 90 MCG/ACTUATION AEROSOL INHALER 2. Sore throat - ICD9: 462, ICD10: J02.9 - STREP A MOLECULAR (POC) - neg 3. Congestion of throat - ICD9: 784.99, ICD10: R68.89 - LORATADINE 10 MG TABLET Prescription instructions reviewed with patient as applicable. Potential red flag symptoms discussed with the patient. Reviewed appropriate action plan to take if red flag symptoms occur. Patient agreeable to treatment plan. Heena Winn APRN.ALVIN documented in this encounter [facility] 10-20-2021 History of Presen t illness Narrative POPULATION HEALTH NAVIGATION OUTREACH Action/I left message to call me back to [facility] sent my chart message with AD info Pt identified by name and : NO Outreach Outcome/Action Unable to reach patient: Left message MyChart message sent Did you use a PCP flex slot to schedule this appointment? N/A Reason for Outreach HCC or suspected condition Payer: Payor: MEDICARE / Plan: MEDICARE A AND B / Product Type: Medicare / Care Gap Reviewed:: Annual Wellness visit Reminder: Reminder note to check Health Maintenance for items below Health Maintenance items due: SHINGRIX VACCINE(2 of 3) due on 05/21/2014 DTAP,TDAP,TD(2 - Td or Tdap) due on 11/28/2017 DEPRESSION SCREENING due on 10/19/2018 DIABETES SCREEN due on 10/19/2020 ADVANCE DIRECTIVE DISCUSSION Never done Message Sent to Practice: No Navigation Signature: Maryan Anglin MA October 20, 2021 12:11 PM documented in this encounter [facility] 02-12-2020 History of Presen t illness Narrative Radiology Service Progress Note PATIENT NAME: Magno Rai DATE OF SERVICE: February 12, 2020 TIME: 4:30 PM PATIENT IDENTITY VERIFICATION COMPLETED USING TWO (2) IDENTIFIERS: Name and Date of confirmed by patient verbally. FALL SCREENING: Has the patient had 2 falls in the last year or 1 fall with injury or currently using an Ambulatory Assistive Device (Walker, Cane, Wheelchair, Crutches, etc.)? No PATIENT GENDER DATA: Female. status: : No status: NO. PATIENT RELEVANT IMPLANT DATA REVIEWED: Not Applicable RADIOLOGY DEPARTMENT: General X-ray: Exam(s) Completed: Chest X-Ray PERIPHERAL IV DATA: Not applicable SIGNED BY: RT Claudette February 12, 2020 4:30 PM documented in this encounter [facility] 06-30-2005 History of Past i llness Narrative Problem Noted Date Resolved Date Corticoadrenal insufficiency 06/30/200509/2007 Lichen planus 11/01/2003 10/20/2012 Lichen planus 09/12/2003 04/27/2005 documented as of this encounter (statuses as of 10/20/2021) [facility]04-12[facility]2006 History of Past illness Narrative* Problem Noted Date Resolved Date Corticoadrenal insufficiency 06/30/200509/2007 Lichen planus 11/01/2003 10/20/2012 Lichen planus 09/12/2003 04/27/2005 documented as of this encounter (statuses as of 07/02/2022) [facility]2006 History of Past illness Narrative* Problem Noted Date Resolved Date Corticoadrenal insufficiency 06/30/200509/2007 Lichen planus 11/01/2003 10/20/2012 Lichen planus 09/12/2003 04/27/2005 documented as of this encounter (statuses as of 07/09/2022) [facility] noteNo assessment information availableWSelect [facility] [place] Work Phone: Evaluation note* Diagnosis Acute cough- Primary Sore throat Acute pharyngitis Congestion of throat Other symptoms involving head and neck [facility] Diagnosis Acute non-recurrent sinusitis, unspecified location- Primary [facility]* Diagnosis Acute UTI- Primary Urinary tract infection, site not specified documented in this encounter [facility] note* Diagnosis Cerebral infarction, unspecified mechanism (HCC)- Primary Dysmetabolic syndrome X Dysmetabolic Syndrome X Osteoporosis, unspecified osteoporosis type, unspecified pathological fracture presence documented in this encounter [facility] note* Diagnosis Medicare annual wellness visit, subsequent- Primary Routine general medical examination at a health care facility Obesity, Class III, BMI 40-49.9 (morbid obesity) (HCC) Morbid obesity Other fatigue BARON (obstructive sleep apnea) Obstructive sleep apnea (adult) (pediatric) Screening for osteoporosis Special screening for osteoporosis Asymptomatic menopause documented in this encounter [facility] note* Diagnosis Screening for osteoporosis Special screening for osteoporosis Asymptomatic menopause documented in this encounter [facility] note* Diagnosis BMI 37.0-37.9, adult- Primary Body Mass Index 37.0-37.9, adult Lichen planus Oral lichen planus Lichen planus BARON (obstructive sleep apnea) Obstructive sleep apnea (adult) (pediatric) Mixed hyperlipidemia Acute cough documented in this encounter [facility] note* Diagnosis BMI 37.0-37.9, adult- Primary Body Mass Index 37.0-37.9, adult Lichen planus Oral lichen planus Lichen planus BARON (obstructive sleep apnea) Obstructive sleep apnea (adult) (pediatric) Mixed hyperlipidemia Pre-operative clearance Preoperative examination, unspecified documented in this encounter [facility] note* Diagnosis BMI 37.0-37.9, adult- Primary Body Mass Index 37.0-37.9, adult Lichen planus Oral lichen planus Lichen planus BARON (obstructive sleep apnea) Obstructive sleep apnea (adult) (pediatric) Mixed hyperlipidemia Cerebrovascular accident (CVA), unspecified mechanism (HCC)- Primary Garbled speech Other speech disturbance Dysphagia, unspecified type Medication management Encounter for long-term (current) use of other medications [facility] Diagnosis BMI 37.0-37.9, adult- Primary Body Mass Index 37.0-37.9, adult Lichen planus Oral lichen planus Lichen planus BARON (obstructive sleep apnea) Obstructive sleep apnea (adult) (pediatric) Mixed hyperlipidemia History of ischemic stroke without residual deficits- Primary Cerebrovascular accident (CVA), unspecified mechanism (HCC) Transient neurological symptoms [facility] Diagnosis BMI 37.0-37.9, adult- Primary Body Mass Index 37.0-37.9, adult Lichen planus Oral lichen planus Lichen planus BARON (obstructive sleep apnea) Obstructive sleep apnea (adult) (pediatric) Mixed hyperlipidemia Cerebrovascular accident (CVA), unspecified mechanism (HCC)- Primary documented in this encounter [facility] for referral (narrative)* Diagnostic Procedure Only (Routine) - Authorized Specialty Diagnoses / Procedures Referred By Contac t Referred To Contact XR IMAGING Diagnoses Screening for osteoporosis Asymptomatic menopause Procedures DXA-AXIAL SKELETON Taylor Lin APRN.COMPUTATIONAL SCIENCES PROFESSOR [address] [place] [address] [place] [address] Referral ID Status Reason Start Date Expiration Date Visits Requested Visits Authorized [id number] Authorized Auto-Generat ed Referral 09/01/2023 09/30/2024 1 1 [facility] for visit Narrative* Diagnostic Procedure Only (Routine) - Closed Specialty Diagnoses / Procedures Referred By Contac t Referred To Contact XR IMAGING Diagnoses Screening for osteoporosis Asymptomatic menopause Procedures DXA-AXIAL SKELETON Taylor Lin APRN.COMPUTATIONAL SCIENCES PROFESSOR [address] [place] [address] [place] [address] Referral ID Status Reason Start Date Expiration Date V isits Requested Visits Authorized [id number] Closed Auto-Generate d Referral 09/01/2023 09/30/2024 1 1 [facility] Summary Purpose Family History No Family History Records Found Relationship Condition Age at Onset Recorded Date/T prerna mother Malignant neoplasm Unknown Hypertension Unknown Cerebrovascular accident (CVA) Unknown Advance Directives No Advanced Directives Records FoundDocuments on File Type Date Recorded 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 Advance Directive(s) Advance Directive(s) 02/07/2020 8:15 AM Advance Directive Response Recorded Date/ Time Advance Directives No January 26, 2013 9:56am Living Will No March 04, 020 10:30am Power of Historic Clothing And Costume Maker No March 04, 2020 10:30am Procedure Findings Note HNO ID: [id number] Author: Josefina Taylor Service: Radiology Author Type: Physician Type: Brief Op Note Filed: 02/07/2020 9:50 AM Note Text: INTERVENTIONAL RADIOLOGY POST PROCEDURE NOTE DATE: 02/07/20 NAME: Magno Rai LOG ID: [id number] Pre-Procedure Diagnosis: Left sacroiliitis Technology Intern: Surgeon(s) and Role: * Yared Taylor - Primary Procedure: Left SI joint injection for CT arthrogram Anesthesia: Local Findings: ~ 3 cc 50 % omni 300 injected into left SI joint Estimated Blood Loss: 0 ml Specimen: None Complications: None Post-Op/Post-Procedure Diagnosis: Left sacroiliitis Additional Source Comments INFORMATION SOURCE (unrecogn ized section and content) DATE CREATED AUTHOR 09/12/2017 [facility] DATE CREATED AUTHOR AUTHOR'S ORGANIZ ATION 02/07/2020 [facility] DATE CREATED AUTHOR AUTHOR'S ORGANIZ ATION 02/07/2020 [facility] DATE CREATED AUTHOR AUTHOR'S ORGANIZ ATION 08/29/2022 [facility] DATE CREATED AUTHOR AUTHOR'S ORGANIZ ATION 11/29/2024 [facility] DATE CREATED AUTHOR AUTHOR'S ORGANIZ ATION 12/03/[address] [facility] DATE CREATED AUTHOR AUTHOR'S ORGANIZ ATION 12/09/2024 [facility] Source Comments (unrecognize d section and content) In the event this informatio n is protected by the Federal Confidentiality of Alcohol and Drug Abuse Patient Records regulations: The Federal rules restrict any use of the information to criminally investigate or prosecute any alcohol or drug abuse patient.[facility] the event this information is protected by the Federal Confidentiality of Alcohol and Drug Abuse Patient Records regulations: The Federal rules restrict any use of the information to criminally investigate or prosecute any alcohol or drug abuse patient.[facility] the event this information is protected by the Federal Confidentiality of Alcohol and Drug Abuse Patient Records regulations: The Federal rules restrict any use of the information to criminally investigate or prosecute any alcohol or drug abuse patient.[facility] the event this information is protected by the Federal Confidentiality of Alcohol and Drug Abuse Patient Records regulations: The Federal rules restrict any use of the information to criminally investigate or prosecute any alcohol or drug abuse patient.[facility] the event this information is protected by the Federal Confidentiality of Alcohol and Drug Abuse Patient Records regulations: The Federal rules restrict any use of the information to criminally investigate or prosecute any alcohol or drug abuse patient.[facility] the event this information is protected by the Federal Confidentiality of Alcohol and Drug Abuse Patient Records regulations: The Federal rules restrict any use of the information to criminally investigate or prosecute any alcohol or drug abuse patient.[facility] the event this information is protected by the Federal Confidentiality of Alcohol and Drug Abuse Patient Records regulations: The Federal rules restrict any use of the information to criminally investigate or prosecute any alcohol or drug abuse patient.[facility] the event this information is protected by the Federal Confidentiality of Alcohol and Drug Abuse Patient Records regulations: The Federal rules restrict any use of the information to criminally investigate or prosecute any alcohol or drug abuse patient.[facility] the event this information is protected by the Federal Confidentiality of Alcohol and Drug Abuse Patient Records regulations: The Federal rules restrict any use of the information to criminally investigate or prosecute any alcohol or drug abuse patient.[facility] the event this information is protected by the Federal Confidentiality of Alcohol and Drug Abuse Patient Records regulations: The Federal rules restrict any use of the information to criminally investigate or prosecute any alcohol or drug abuse patient.[facility] the event this information is protected by the Federal Confidentiality of Alcohol and Drug Abuse Patient Records regulations: The Federal rules restrict any use of the information to criminally investigate or prosecute any alcohol or drug abuse patient.[facility] the event this information is protected by the Federal Confidentiality of Alcohol and Drug Abuse Patient Records regulations: The Federal rules restrict any use of the information to criminally investigate or prosecute any alcohol or drug abuse patient.[facility] the event this information is protected by the Federal Confidentiality of Alcohol and Drug Abuse Patient Records regulations: The Federal rules restrict any use of the information to criminally investigate or prosecute any alcohol or drug abuse patient.[facility] the event this information is protected by the Federal Confidentiality of Alcohol and Drug Abuse Patient Records regulations: The Federal rules restrict any use of the information to criminally investigate or prosecute any alcohol or drug abuse patient.[facility] the event this information is protected by the Federal Confidentiality of Alcohol and Drug Abuse Patient Records regulations: The Federal rules restrict any use of the information to criminally investigate or prosecute any alcohol or drug abuse patient.[facility] Care Teams (unrecognized sec tion and content) Mammography Tech Relationship Specialty Start Date End Date Maxwell Rueda MD [address] [place] [address] PCP - General Internal Medicine 05/17/17 Team Status: Active Member Role Status Dates Dr. Maxwell Rueda MD Family Provider Active Dr. Maxwell Rueda MD Primary Care Provider Active Team Status: Inactive Member Role Status Dates Dr. Maxwell Rueda MD Primary Care Provider Active Dr. John Aguirre MD Attending Provider Active Drea Novak Referring Provider Active Mammography Tech Relationship Specialty Start Date End Date Maxwell Rueda MD [address] [place] [address] PCP - General Internal Medicine 05/17/17 Mammography Tech Relationship Specialty Start Date End Date Maxwell Rueda MD [address] [place] [address] PCP - General Internal Medicine 05/17/17 Mammography Tech Relationship Specialty Start Date End Date Maxwell Rueda MD [address] [place] [address] PCP - General Internal Medicine 05/17/17 Mammography Tech Relationship Specialty Start Date End Date Maxwell Rueda MD [address] [place] [address] PCP - General Internal Medicine 05/17/17 Mammography Tech Relationship Specialty Start Date End Date Maxwell Rueda MD [address] [place] [address] PCP - General Internal Medicine 05/17/17 Mammography Tech Relationship Specialty Start Date End Date Maxwell Rueda MD [address] [place] [address] PCP - General Internal Medicine 05/17/17 Mammography Tech Relationship Specialty Start Date End Date Maxwell Rueda MD [address] [place] [address] PCP - General Internal Medicine 05/17/17 Mammography Tech Relationship Specialty Start Date End Date Maxwell Rueda MD [address] [place], [place] [address] PCP - General Internal Medicine 05/17/17 Older, Taylor, FAMILY SERVICE AIDE.COMPUTATIONAL SCIENCES PROFESSOR [address], [place] [address] [phone] Research Laboratory Manager Internal Medicine 02/26/24 Mammography Tech Relationship Specialty Start Date End Date Maxwell Rueda MD [address] [place], [place] [address] [phone] PCP - General Internal Medicine 05/17/17 Older, Taylor, FAMILY SERVICE AIDE.COMPUTATIONAL SCIENCES PROFESSOR [address] [place] [address] Research Laboratory Manager Internal Medicine 02/26/24 Mammography Tech Relationship Specialty Start Date End Date Maxwell Rueda MD [address] [place] [address] PCP - General Internal Medicine 05/17/17 Older, Taylor, FAMILY SERVICE AIDE.COMPUTATIONAL SCIENCES PROFESSOR [address] [place] [address] Research Laboratory Manager Internal Medicine 02/26/24 Mammography Tech Relationship Specialty Start Date End Date Older, Taylor, FAMILY SERVICE AIDE.COMPUTATIONAL SCIENCES PROFESSOR [address] [place] [address] PCP - General Internal Medicine 12/03/24 Older, Taylor, FAMILY SERVICE AIDE.COMPUTATIONAL SCIENCES PROFESSOR [address], [place] [address] Research Laboratory Manager Internal Medicine 02/26/24 Mammography Tech Relationship Specialty Start Date End Date Older, Taylor, FAMILY SERVICE AIDE.COMPUTATIONAL SCIENCES PROFESSOR [address] [place] [address] PCP - General Internal Medicine 12/03/24 Taylor Lin APRN.ALVIN [address] [place] [address] Research Laboratory Manager Internal Medicine 02/26/24 Goals (unrecognized section and content) Goals may be documented in a n alternate section Reason for Visit (unrecogniz ed section and content) Reason Comments Cough Chest congestion, ST x4 days Reason Comments Recheck UC follow up, conges tion x 8 days Reason Comments Urinary Problem Urgency, burning, lo wer abd pain x 1 week + Reason Comments Orders Labs for upcoming ap pointment Reason Comments Medicare Wellness Exam Reason Comments Results Reason Comments Request for Handicap License Plate Reason Comments Recheck Hospital follow up s troke Reason Comments Imaging/Records Reason Comments New Patient New NI Patient Specialty Diagnoses / Procedures Referred By Nusrat t Referred To Contact Neurology Diagnoses Cerebrovascular accident (CVA), unspecified mechanism (HCC) Procedures OFFICE/OUTPATIENT NEW HIGH MDM 60 MINUTES Taylor Lin APRN.COMPUTATIONAL SCIENCES PROFESSOR [address] [place] [address] Phone: tel: fax: Referral ID Status Reason Start Date Expiration Date V isits Requested Visits Authorized [id number] Closed PCP Requested Referral 11/28/2024 11/28/2025 1 1 Reason Comments Event [employer] Patch FOR RECORDS PERTAINING TO PATIENTS WHO ARE OR HAVE BEEN ENROLLED IN A CHEMICAL DEPENDENCY/SUBSTANCEABUSE PROGRAM, SOME INFORMATION MAY BE OMITTED. This clinical summary was aggregated from multiple sources. Caution should be exercised in using it in the provision of clinical care. This summary normalizes information from multiple sources, and as a consequence, information in this document may materially change the coding, format and clinical context of patient data. In addition, data may be omitted in some cases. CLINICAL DECISIONS SHOULD BE BASED ON THE PRIMARY CLINICAL RECORDS. [employer] provides no warranty or guarantee of the accuracy or completeness of information in this document.
[2024-12-22 03:48] LABS: Anion Gap 10 (5-15); BUN 17 mg/dL (4-19); BUN/Creat Ratio 23.9 RATIO (10-20); Calcium,Total 8.7 mg/dL (7.6-11.0); Carbon Dioxide 23.1 mmol/L (21.0-32.0); Chloride 105 mmol/L (98-108); Estimated Creatinine Clearance 77.00 ml/min (50-250); Glucose 101 mg/dL (70-99); Potassium 4.3 mmol/L (3.3-5.1)
[2024-12-22 05:02] VITALS: BP 132/72; PULSE 69; RESP 16; O2SAT 99
[2024-12-22 06:32] VITALS: BP 134/61; PULSE 67; RESP 16; TEMP 36.6; O2SAT 100
== END 2024-12-22 06:37 | disposition home or self-care (01) ==
PROVIDERS: Emergency Provider Emergency Medicine; PCP Nurse Practitioner; Visit Provider Emergency Medicine
DX: R51.9 Headache, unspecified (principal); Z79.82 Long term (current) use of aspirin; Z86.73 Personal history of transient ischemic attack (TIA), and cerebral infarction without residual deficits; K21.9 Gastro-esophageal reflux disease without esophagitis
CPT/HCPCS: 70450; 70496; 70498; 80048; 85025; 96374; 99285; Q9967; A4216